=== PATIENT | male | born 1955 | race Caucasian/White ===

== ENCOUNTER 2022-09-23 10:39 | Inpatient (IN) | payer MEDICARE, OTHER ==
--- NOTE | 2022-09-23 10:58 | ED ---
Extremity Problem HPI - General Source: patient, family, RN notes reviewed Mode of arrival: ambulatory Limitations: no limitations <Isael Juárez - Last Filed: 09/23/22 10:59> <Patrice Lee - Last Filed: 09/23/22 16:04> - General Chief complaint: Extremity Problem,Nontraumatic Stated complaint: Right foot pain Time Seen by Provider: 09/23/22 10:45 - History of Present Illness Initial comments: Patient is a 66-year-old male presented to ER with a chief complaint of right calf pain. Patient was sent here by urgent care. Patient states the pain started at home and has worsened since being here. He states his toes have turned very red and blue since taking off his shoes here. He states he gets pain in his ankle and calf when walking. Patient denies shortness of breath, palpitations or extensive pain. Admits to smoking. Patient denies any personal history of cardiac disease. (Isael Juárez) - Related Data Home Medications Medication Instructions Recorded Confirmed No Known Home Medications 09/23/22 09/23/22 Allergies Allergy/AdvReac Type Severity Reaction Status Date / Time sulfamethoxazole Allergy Swelling Verified 09/23/22 12:13 [From Bactrim] trimethoprim [From Bactrim] Allergy Swelling Verified 09/23/22 12:13 Review of Systems ROS Other: All systems not noted in ROS Statement are negative. <Isael Juárez - Last Filed: 09/23/22 10:59> ROS Other: All systems not noted in ROS Statement are negative. <Patrice Lee - Last Filed: 09/23/22 16:04> ROS Statement: Those systems with pertinent positive or pertinent negative responses have been documented in the HPI. Past Medical History Past Medical History: COPD, GERD/Reflux Additional Past Medical History / Comment(s): bronchitis-05/29/14 History of Any Multi-Drug Resistant Organisms: None Reported Past Surgical History: No Surgical Hx Reported Past Anesthesia/Blood Transfusion Reactions: No Reported Reaction Additional Past Anesthesia/Blood Transfusion Reaction / Comment(s): HAS NEVER HAD ANESTHESIA Past Psychological History: No Psychological Hx Reported Smoking Status: Current every day smoker Past Alcohol Use History: Occasional Past Drug Use History: None Reported - Past Family History Mother Family Medical History: Cancer Father Family Medical History: CVA/TIA <Isael Juárez - Last Filed: 09/23/22 10:59> General Exam Limitations: no limitations General appearance: alert, in no apparent distress Respiratory exam: Present: normal lung sounds bilaterally. Absent: respiratory distress, wheezes, rales, rhonchi, stridor Cardiovascular Exam: Present: regular rate, normal rhythm, normal heart sounds. Absent: systolic murmur, diastolic murmur, rubs, gallop, clicks Extremities exam: Present: tenderness, calf tenderness (right calf (+Maritza sign)), other (faint right dorsalis pedis pulse ) Neurological exam: Present: alert, oriented X3 Skin exam: Present: warm, dry, cyanosis (right toes), erythema (right toes ), other (Indurated erythematous skin on right calf.) <Isael Juárez - Last Filed: 09/23/22 10:59> Course Vital Signs 09/23/22 09/23/22 09/23/22 10:40 12:00 14:00 Temperature 97.5 F L 98.4 F 98.4 F Pulse Rate 92 81 84 Respiratory 18 16 16 Rate Blood Pressure 175/85 157/84 150/90 O2 Sat by Pulse 96 95 95 Oximetry 09/23/22 15:04 Temperature 98.7 F Pulse Rate 83 Respiratory 16 Rate Blood Pressure 147/85 O2 Sat by Pulse 95 Oximetry Medical Decision Making - Lab Data Result diagrams: 09/23/22 11:56 09/23/22 11:56 <Patrice Lee - Last Filed: 09/23/22 16:04> - Medical Decision Making Was pt. sent in by a medical professional or institution (Dr. PA, CARDIAC NURSE PRACTITIONER, urgent care, hospital, or [facility]...) When possible be specific @ -Dr Cee Did you speak to anyone other than the patient for history (EMS, parent, family, police, friend...)? What history was obtained from this source @ - Did you review nursing and triage notes (agree or disagree)? Why? @ -[I reviewed and agree with nursing and triage notes] Were old charts reviewed (outside hosp., previous admission, EMS record, old EKG, old radiological studies, urgent care reports/EKG's, [facility] records)? Report findings @ -[No old charts were reviewed] Differential Diagnosis (chest pain, altered mental status, abdominal pain women, abdominal pain men, vaginal bleeding, weakness, fever, dyspnea, syncope, headache, dizziness, GI bleed, back pain, seizure, CVA, palpatations, mental health)? @ -DVT, arterial thrombus, calf strain, EKG interpreted by me (3pts min.). @ -[As above] X-rays interpreted by me (1pt min.). @ -[None done] CT interpreted by me (1pt min.). @ -CTA aorta with runoff U/S interpreted by me (1pt. min.). @ -DVT US negative What testing was considered but not performed or refused? (CT, X-rays, U/S, lab s)? Why? @ -[None] What meds were considered but not given or refused? Why? @ -[None] Did you discuss the management of the patient with other professionals (professionals i.e. , PA, CARDIAC NURSE PRACTITIONER, lab, RT, psych nurse, secondary social studies teacher, credit or loans officer, teacher, aircraft electronics technical officer, case consultant)? Give summary @ -Dr Gomez, Dr Rose Was smoking cessation discussed for >3mins.? @ -yes Was critical care preformed (if so, how long)? @ -[No] Were there social determinants of health that impacted care today? How? (Homelessness, low income, unemployed, alcoholism, drug addiction, transportation, low edu. Level, literacy, decrease access to med. care, halfway, rehab)? @ -[No] Was there de-escalation of care discussed even if they declined (Discuss DNR or withdrawal of care, Hospice)? DNR status @ -[No] What co-morbidities impacted this encounter? (DM, HTN, Smoking, COPD, CAD, Cancer, CVA, ARF, Chemo, Hep., AIDS, mental health diagnosis, sleep apnea, morbid obesity)? @ -smoking Was patient admitted / discharged? Hospital course, mention meds given and route, prescriptions, significant lab abnormalities, going to OR and other pertinent info. @ -Vitals are stable. HPI physical exam is documented. Physical exam pertinent for purple-colored toes with sluggish capillary refill and nonpalpable DP and PT pulses are pulses were evident on Doppler. CBC unremarkable. CMP does show some hemolysis of the potassium level 5.6. Ultrasound of the right lower extremity was negative for thrombus. CT aorta with runoff was obtained which did show short segment focal occlusion of the right external iliac artery as well as bilateral SFA disease with occlusions. This was discussed with Dr. Gomez from vascular surgery. Recommended admission with arterial Doppler which was ordered. Patient admitted to [facility]. Undiagnosed new problem with uncertain prognosis? @ -yes Drug Therapy requiring intensive monitoring for toxicity (Heparin, Nitro, Insulin, Cardizem)? @ -[No] Were any procedures done? @ -[No] Diagnosis/symptom? @ -ischemia of right lower extremity Acute, or Chronic, or Acute on Chronic? @ -acute on chronic Uncomplicated (without systemic symptoms) or Complicated (systemic symptoms)? @ -complicated Side effects of treatment? @ -[No] Exacerbation, Progression, or Severe Exacerbation? @ -Progression Poses a threat to life or bodily function? How? (Chest pain, [place], [place], pneumonia, PE, COPD, DKA, ARF, appy, cholecystitis, CVA, Diverticulitis, Homicidal, Suicidal, threat to staff... and all critical care pts) @ -yes, ischemia to leg (Patrice Lee) - Lab Data Lab Results 09/23/22 09/23/22 09/23/22 Range/Units 11:56 11:56 11:56 WBC 12.2 H (3.8-10.6) k/uL RBC 5.39 (4.30-5.90) m/uL Hgb 17.1 (13.0-17.5) gm/dL Hct 52.5 (39.0-53.0) % MCV 97.4 (80.0-100.0) fL MCH 31.7 (25.0-35.0) pg MCHC 32.5 (31.0-37.0) g/dL RDW 13.3 (11.5-15.5) % Plt Count 236 (150-450) k/uL MPV 7.4 Neutrophils % 72 % Lymphocytes % 17 % Monocytes % 5 % Eosinophils % 5 % Basophils % 0 % Neutrophils # 8.8 H (1.3-7.7) k/uL Lymphocytes # 2.1 (1.0-4.8) k/uL Monocytes # 0.6 (0-1.0) k/uL Eosinophils # 0.6 (0-0.7) k/uL Basophils # 0.0 (0-0.2) k/uL PT 10.2 (9.0-12.0) sec INR 1.0 (<1.2) APTT 24.1 (22.0-30.0) sec Sodium 138 (137-145) mmol/L Potassium 5.6 H (3.5-5.1) mmol/L Chloride 106 (98-107) mmol/L Carbon Dioxide 21 L (22-30) mmol/L Anion Gap 11 mmol/L BUN 17 (9-20) mg/dL Creatinine 1.38 H (0.66-1.25) mg/dL Est GFR (CKD-EPI)AfAm 61 (>60 ml/min/1.73 sqM) Est GFR (CKD-EPI)NonAf 53 (>60 ml/min/1.73 sqM) Glucose 107 H (74-99) mg/dL Calcium 9.8 (8.4-10.2) mg/dL Total Bilirubin 0.8 (0.2-1.3) mg/dL AST 37 (17-59) U/L ALT 10 (4-49) U/L Alkaline Phosphatase 109 (38-126) U/L Total Protein 7.7 (6.3-8.2) g/dL Albumin 4.4 (3.5-5.0) g/dL Disposition <Isael Juárez - Last Filed: 09/23/22 10:59> Is patient prescribed a controlled substance at d/c from ED?: No Time of Disposition: 16:00 <Patrice Lee - Last Filed: 09/23/22 16:04> Clinical Impression: Ischemia of right lower extremity, Superficial femoral artery occlusion, External iliac artery occlusion Disposition: ADMITTED IP TO THIS HOSP Condition: Serious Referrals: Sanjeev Cee MD [Primary Care Provider] - 1-2 days
--- NOTE | 2022-09-23 11:25 | US ---
EXAMINATION TYPE: US venous doppler duplex LE RT DATE OF EXAM: 09/23/2022 11:14 AM COMPARISON: NONE CLINICAL INDICATION: Male, 66 years old with history of calf/foot pain; Right leg pain SIDE PERFORMED: Right TECHNIQUE: The lower extremity deep venous system is examined utilizing real time linear array sonog lainey with graded compression, doppler sonography and color-flow sonography. VESSELS IMAGED: Common Femoral Vein Deep Femoral Vein Greater Saphenous Vein * Femoral Vein Popliteal Vein Small Saphenous Vein * Proximal Calf Veins (* superficial vessels) Right Leg: Negative for DVT IMPRESSION: Grayscale, color doppler, spectral doppler imaging performed of the deep veins of the lo wer extremities. There is normal flow, compressibility, vascular waveforms.
[2022-09-23 12:21] LABS: Basophils % (A) 0 %; Eosinophils # (A) 0.6 k/uL (0-0.7); Eosinophils % (A) 5 %; HCT 52.5 % (39.0-53.0); HGB 17.1 gm/dL (13.0-17.5); Lymphocytes # (A) 2.1 k/uL (1.0-4.8); Lymphocytes % (A) 17 %; MCH 31.7 pg (25.0-35.0); MCHC 32.5 g/dL (31.0-37.0); MCV 97.4 fL (80.0-100.0); Mean Platelet Volume 7.4; Monocytes # (A) 0.6 k/uL (0-1.0); Monocytes % (A) 5 %; Neutrophils # (A) 8.8 k/uL (1.3-7.7); Neutrophils % (A) 72 %; Platelet Count 236 k/uL (150-450); RBC 5.39 m/uL (4.30-5.90); RDW 13.3 % (11.5-15.5); WBC 12.2 k/uL (3.8-10.6)
[2022-09-23 12:29] LABS: Partial Thromboplastin Time 24.1 sec (22.0-30.0); Prothrombin Time 10.2 sec (9.0-12.0)
[2022-09-23 12:36] LABS: ALT 10 U/L (4-49); African American GFR (CKD) 61 (>60 ml/min/1.73 sqM); Albumin 4.4 g/dL (3.5-5.0); Anion Gap 11 mmol/L; Blood Urea Nitrogen 17 mg/dL (9-20); Calcium 9.8 mg/dL (8.4-10.2); Carbon Dioxide 21 mmol/L (22-30); Chloride 106 mmol/L (98-107); Glucose 107 mg/dL (74-99); Non-African American GFR(CKD) 53 (>60 ml/min/1.73 sqM); Sodium 138 mmol/L (137-145); Total Bilirubin 0.8 mg/dL (0.2-1.3); Total Protein 7.7 g/dL (6.3-8.2)
[2022-09-23 12:47] LABS: AST 37 U/L (17-59); Potassium 5.6 mmol/L (3.5-5.1)
[2022-09-23 12:48] LABS: Alkaline Phosphatase 109 U/L (38-126)
[2022-09-23] MEDS ORDERED: SODIUM CHLORIDE 0.9% 1,000 ML IV STA (12:51)
--- NOTE | 2022-09-23 14:26 | CT ---
EXAMINATION TYPE: CT angio abd aorta w/Runoff DATE OF EXAM: 09/23/2022 COMPARISON: None HISTORY: Right leg/foot pain and cyanotic toes. CT DLP: 1972.3 mGycm EXAMINATION TYPE: CT angio abd aorta w/Runoff DATE OF EXAM: 09/23/2022 COMPARISON: None HISTORY: Right leg/foot pain and cyanotic toes. CT DLP: 1972.3 mGycm CONTRAST: CTA thoracic and abdominal aorta with 3-D reconstruction is performed and without and with IV Contras t, patient injected with 100ml mL of Isovue 370. Contrast CTA of the abdominal aorta with runoff of the lower extremity arterial system was performed from the lung bases through the ankles and feet. 3-D reconstruction imaging obtained at a separate wo rkstation. ABDOMINAL AORTA: There is infrarenal abdominal aortic aneurysm which measures 4 cm in AP dimension an d 8.6 cm in length. There is extensive mural thrombus with patent lumen of 1.3 cm. No evidence for ru pture or complicating factor. Iliac vessels: Aneurysm extend into the common iliac arteries bilaterally. Right common iliac artery aneurysm measures 3 cm with extensive mural thrombus. Patent lumen measures 1 cm. Left common iliac a rtery aneurysm measures 2.7 cm with patent lumen of 1.9 cm. There is atheromatous change of the right external iliac artery with focal short segment occlusion noted image 163 series 501. The remainder o f the external iliac artery and the right opacifies normally. There is patent right internal iliac ar neftali, left external iliac artery and left internal iliac artery. Scattered atheromatous changes are s een. Femoral arteries: Bilateral common femoral arteries are patent as are the profunda femoris bilaterall y. The superficial femoral artery on the right demonstrates multifocal plaque disease. There is long segment occlusion at its middle one third approximately 24 cm proximal to the knee joint. There is re constitution at the level of the popliteal artery via collaterals. The superficial femoral artery is occluded at its origin. There is reconstitution of the superficial femoral artery on the left at its distal one third. Multifocal plaque disease is noted without additional hemodynamically significant s tenosis. Popliteal arteries: Popliteal arteries are patent bilaterally with only mild plaque formation noted. Below the knee arteries: Trifurcation is patent bilaterally. Peroneal, anterior and posterior tibial arteries demonstrate mild calcific disease without evidence for hemodynamically significant stenosis. Limited runoff of the ankles and feet given timing of the contrast bolus. LIVER/GB- No significant abnormality is seen. PANCREAS- No significant abnormality is seen. SPLEEN- No significant abnormality is seen. ADRENALS- No significant abnormality is seen. KIDNEYS/BLADDER- No significant abnormality is seen. BOWEL- No Significant abnormality GENITAL ORGANS: No gross abnormality seen. LYMPH NODES- No greater than 1cm abdominal or pelvic lymph nodes are appreciated. OSSEOUS STRUCTURES- No significant abnormality is seen. OTHER- No significant abnormality is seen. IMPRESSION- 1. Bilateral SFA disease with occlusions as discussed above with distal reconstitution bilaterally. 2. Short segment focal occlusion right external iliac artery. 3. Abdominal aortic aneurysm. Bilateral common iliac artery aneurysms
[2022-09-23] MEDS ORDERED: HEPARIN SODIUM 1,000 UN/ML (10ML VL) IV ONE (15:57)
[2022-09-23] MEDS ORDERED: HEPARIN SODIUM 1,000 UN/ML (10ML VL) IV PRN (15:57)
[2022-09-23] MEDS ORDERED: NALOXONE 0.4 MG/ML 1 ML VIAL IV PRN (16:00)
[2022-09-23] MEDS ORDERED: MORPHINE SULFATE 4 MG/ML SYRINGE IV PRN (16:00)
[2022-09-23] MEDS ORDERED: NICOTINE 21MG/24HR PATCH TRANSDERM STA (16:01)
--- NOTE | 2022-09-23 16:24 | P.HPIM ---
History of Present Illness H&P Date: 09/23/22 Patient is a 66-year-old male with PMH of COPD, heavy smoker presents the ED for right toe discoloration and pain in his calf that has been ongoing for the past 4-5 days. Patient reports pain is worsened with exertion. He reported a bluish purple discoloration of his toes in the right foot which prompted him to come to the ED. In the ED, he was noted to be hypertensive with BP of 175/85 and heart rate of 92. Vital signs were otherwise stable. CBC showed a leukocytosis of 12.2 with neutrophilia. Coagulation panel within normal limits. CMP showed potassium of 5.6, bicarb of 21, creatinine 1.38 and glucose 107. Venous duplex was negative for DVT. CT angiogram showed bilateral SFA disease with occlusion with reconstitution, AAA 4 cm and bilateral common iliac artery aneurysms. Patient is admitted for further management and workup. Pertinent positives and negatives as discussed in HPI, a complete review of systems was performed and all other systems are negative. General: non toxic, no distress, appears at stated age Derm: warm, dry Head: atraumatic, normocephalic, symmetric Eyes: EOMI, no lid lag, anicteric sclera Mouth: no lip lesion, mucus membranes moist Cardiovascular: Tachycardic, no murmur, unable to palpate posterior tibial pulse bilateral Lungs: Decreased breath sounds bilateral, no rhonchi, no rales , no accessory muscle use Abdominal: soft, nontender to palpation, no guarding, no appreciable organomegaly Ext: no gross muscle atrophy, no edema, no contractures, erythema of the right calf with blue and purple discoloration of the distal digits.\ Neuro: no focal neuro deficits Psych: Alert, oriented, appropriate affect Mural thrombus Hyperkalemia Acute kidney injury Abdominal aortic aneurysm Smoker COPD Based on my assessment of this patient, this patient meets a high complexity level of care. Patient has an acute diagnosis of mural thrombus causing ischemia to the right lower extremity that poses a threat to life or bodily function. Patient was started on a heparin drip. Start aspirin 81 mg by mouth daily. Arterial duplex ordered. Telemetry monitoring. Morphine 4 grams IV every 4 hours as needed for pain. Patient is offered a nicotine patch. Vascular surgery consulted. Blood specimen hemolyzed. No intervention for hyperkalemia. Start normal sinus 75 mL per hour. Repeat BMP tomorrow morning. Heparin drip for DVT prophylaxis. FULL CODE. I have reviewed the following [place] consultant notes: I have reviewed the results of the following tests: CBC, CMP, venous duplex, CT angiogram reviewed as above. I have ordered the following tests: APTT. BMP for tomorrow morning. Agree with arterial duplex. I have discussed the care of this patient with the following independent historian: I have independently interpreted the following test below: I have discussed the management of this patient with the following physician: Case was discussed with the ED physician extensively. Past Medical History Past Medical History: COPD, GERD/Reflux Additional Past Medical History / Comment(s): bronchitis-05/29/14 History of Any Multi-Drug Resistant Organisms: None Reported Past Surgical History: No Surgical Hx Reported Past Anesthesia/Blood Transfusion Reactions: No Reported Reaction Additional Past Anesthesia/Blood Transfusion Reaction / Comment(s): HAS NEVER HAD ANESTHESIA Past Psychological History: No Psychological Hx Reported Smoking Status: Current every day smoker Past Alcohol Use History: Occasional Past Drug Use History: None Reported - Past Family History Mother Family Medical History: Cancer Father Family Medical History: CVA/TIA Medications and Allergies Home Medications Medication Instructions Recorded Confirmed Type No Known Home Medications 09/23/22 09/23/22 History Allergies Allergy/AdvReac Type Severity Reaction Status Date / Time sulfamethoxazole Allergy Swelling Verified 09/23/22 12:13 [From Bactrim] trimethoprim [From Bactrim] Allergy Swelling Verified 09/23/22 12:13 Physical Exam Vitals: Vital Signs Temp Pulse Resp BP Pulse Ox 09/23/22 15:04 98.7 F 83 16 147/85 95 09/23/22 14:00 98.4 F 84 16 150/90 95 09/23/22 12:00 98.4 F 81 16 157/84 95 09/23/22 10:40 97.5 F L 92 18 175/85 96 Intake and Output 09/23/22 09/23/22 09/23/22 06:59 14:59 22:59 Other: Weight 82.554 kg Results CBC & Chem 7: 09/23/22 11:56 09/23/22 11:56 Labs: Abnormal Lab Results - Last 24 Hours (Table) 09/23/22 09/23/22 Range/Units 11:56 11:56 WBC 12.2 H (3.8-10.6) k/uL Neutrophils # 8.8 H (1.3-7.7) k/uL Potassium 5.6 H (3.5-5.1) mmol/L Carbon Dioxide 21 L (22-30) mmol/L Creatinine 1.38 H (0.66-1.25) mg/dL Glucose 107 H (74-99) mg/dL
[2022-09-23] MEDS: HEPARIN SOD,PORK IN 0.45% NACL 25,000 UNIT in 0.45% NACL 1 250ML.BAG IV SCH (16:36)
[2022-09-23] MEDS: SODIUM CHLORIDE 0.9% 1,000 ML IV SCH (16:39)
--- NOTE | 2022-09-23 18:46 | US ---
EXAMINATION TYPE: US arterial LE multi level DATE OF EXAM: 09/23/2022 6:08 PM CLINICAL INDICATION: Male, 66 years old with history of ischemia of RLE; Ischemia of right lower extr emity per order. Pain in right calf and right foot x 5 days. Discoloration of right great toe. CTa today 09/23/22 History of: Smoker: Current Smoker Hypertension: No Diabetic: No Hyperlipidemia: No TIA/CVA: No Previous Vascular Surgery: No CAD: No GA: No Vascular Ulcers: No Claudication: Gangrene: No Doppler Waveforms: Right: Waveform not seen* Left: Right Brachial Pressure: 163 Left Brachial Pressure: Deferred due to IV position. Ankle-Brachial Indices: Right: 0.35 Left: 0.56 Toe Brachial Indices: Right: Right toe waveform was not seen. Left: 0.38 Low ratio is present bilaterally suggestive for moderate to severe bilateral lower extremity stenosis . Right digit arterial flow was not identified at this time. IMPRESSION: 1. Areas of severe narrowing evident based on ratios within the bilateral lower extremities. 2. No apparent vascular flow within the right great toe. Occlusion should be considered.
[2022-09-23 22:22] LABS: Basophils % (A) 0 %; Eosinophils # (A) 0.4 k/uL (0-0.7); Eosinophils % (A) 3 %; HCT 47.3 % (39.0-53.0); HGB 15.4 gm/dL (13.0-17.5); Lymphocytes # (A) 2.6 k/uL (1.0-4.8); Lymphocytes % (A) 21 %; MCH 31.6 pg (25.0-35.0); MCHC 32.7 g/dL (31.0-37.0); MCV 96.7 fL (80.0-100.0); Mean Platelet Volume 7.3; Monocytes # (A) 0.7 k/uL (0-1.0); Monocytes % (A) 6 %; Neutrophils # (A) 8.5 k/uL (1.3-7.7); Neutrophils % (A) 69 %; Platelet Count 215 k/uL (150-450); RBC 4.89 m/uL (4.30-5.90); RDW 13.3 % (11.5-15.5); WBC 12.4 k/uL (3.8-10.6)
[2022-09-23 22:44] LABS: INR 1.1 (<1.2); Partial Thromboplastin Time 73.9 sec (22.0-30.0); Prothrombin Time 11.1 sec (9.0-12.0)
[2022-09-24] MEDS: SODIUM CHLORIDE 0.9% 1,000 ML IV SCH ×2 (06:19→20:03)
[2022-09-24 08:18] LABS: Basophils % (A) 0 %; Eosinophils # (A) 0.5 k/uL (0-0.7); Eosinophils % (A) 4 %; HCT 48.8 % (39.0-53.0); HGB 15.4 gm/dL (13.0-17.5); Lymphocytes % (A) 24 %; MCH 31.1 pg (25.0-35.0); MCHC 31.6 g/dL (31.0-37.0); MCV 98.5 fL (80.0-100.0); Mean Platelet Volume 7.8; Monocytes # (A) 0.8 k/uL (0-1.0); Monocytes % (A) 7 %; Neutrophils # (A) 7.8 k/uL (1.3-7.7); Neutrophils % (A) 64 %; Platelet Count 223 k/uL (150-450); RBC 4.96 m/uL (4.30-5.90); RDW 13.3 % (11.5-15.5); WBC 12.3 k/uL (3.8-10.6)
[2022-09-24] MEDS: ASPIRIN 81 MG PO SCH (09:01)
[2022-09-24 10:21] LABS: African American GFR (CKD) 68 (>60 ml/min/1.73 sqM); Anion Gap 7 mmol/L; Blood Urea Nitrogen 16 mg/dL (9-20); Carbon Dioxide 20 mmol/L (22-30); Chloride 108 mmol/L (98-107); Glucose 101 mg/dL (74-99); Non-African American GFR(CKD) 59 (>60 ml/min/1.73 sqM); Potassium 4.5 mmol/L (3.5-5.1); Sodium 135 mmol/L (137-145)
--- NOTE | 2022-09-24 15:04 | P.PN ---
Subjective Progress Note Date: 09/24/22 Patient is a 66-year-old male with PMH of COPD, heavy smoker presents the ED for right toe discoloration and pain in his calf that has been ongoing for the past 4-5 days. Patient reports pain is worsened with exertion. He reported a bluish purple discoloration of his toes in the right foot which prompted him to come to the ED. In the ED, he was noted to be hypertensive with BP of 175/85 and heart rate of 92. Vital signs were otherwise stable. CBC showed a leukocytosis of 12.2 with neutrophilia. Coagulation panel within normal limits. CMP showed potassium of 5.6, bicarb of 21, creatinine 1.38 and glucose 107. Venous duplex was negative for DVT. CT angiogram showed bilateral SFA disease with occlusion with reconstitution, AAA 4 cm and bilateral common iliac artery aneurysms. Patient is admitted for further management and workup. 09/24 Patient was seen and examined. Patient reports no changes in his clinical condition. CBC shows WBC count 2.3. APTT 73.9. BMP shows sodium of 135, c hloride 108, bicarb of 20, creatinine 1.26 and glucose 101. Arterial duplex shows areas of severe narrowing within the bilateral lower extremities with no apparent vascular flow within the right great toe. General: non toxic, no distress, appears at stated age Derm: warm, dry Head: atraumatic, normocephalic, symmetric Eyes: EOMI, no lid lag, anicteric sclera Mouth: no lip lesion, mucus membranes moist Cardiovascular: Tachycardic, no murmur, unable to palpate posterior tibial pulse bilateral Lungs: Decreased breath sounds bilateral, no rhonchi, no rales , no accessory muscle use Abdominal: soft, nontender to palpation, no guarding, no appreciable organomegaly Ext: no gross muscle atrophy, no edema, no contractures, erythema of the right calf with blue and purple discoloration of the distal digits. Neuro: no focal neuro deficits Psych: Alert, oriented, appropriate affect Mural thrombus Hyperkalemia, resolved Acute kidney injury Abdominal aortic aneurysm Smoker COPD Based on my assessment of this patient, this patient meets a high complexity level of care. Patient has an acute diagnosis of mural thrombus causing ischemia to the right lower extremity that poses a threat to life or bodily function. Continue heparin drip. Continue aspirin 81 mg by mouth daily. Telemetry monitoring. Morphine 4 grams IV every 4 hours as needed for pain. Patient is offered a nicotine patch. Vascular surgery consulted. Blood specimen hemolyzed. No intervention for hyperkalemia. Continue normal sinus 75 mL per hour. Repeat BMP tomorrow morning. Heparin drip for DVT prophylaxis. FULL CODE. I have reviewed the following jewelry consultant notes: I have reviewed the results of the following tests: CBC, BMP, APTT, arterial duplex as above. I have ordered the following tests: APTT. BMP for tomorrow morning. I have discussed the care of this patient with the following independent histo reed: I have independently interpreted the following test below: I have discussed the management of this patient with the following physician: Objective - Vital Signs Vital signs: Vital Signs Temp 98.1 F 09/24/22 12:03 Pulse 77 09/24/22 12:03 Resp 16 09/24/22 12:03 BP 160/74 09/24/22 12:03 Pulse Ox 95 09/24/22 12:03 FiO2 Intake & Output 09/23/22 09/24/22 09/24/22 18:59 06:59 18:59 Intake Total 1225 540 Balance 1225 540 Weight 82.554 kg 81 kg Intake: IV 600 Invasive Line 1 600 Intake, IV Titration 375 Amount Heparin Sod,Pork in 0.45% 75 NaCl 25,000 unit In 0.45 % NaCl 1 250ml.bag @ 18 UNITS/KG/HR 14.86 mls/hr IV .[id number] STEVE Rx#: [id number] Sodium Chloride 0.9% 1, 300 000 ml @ 75 mls/hr IV . [id number] STEVE Rx#:[id number] Oral 250 540 Other: # Voids 2 - Labs CBC & Chem 7: 09/24/22 07:01 09/24/22 07:01 Labs: Abnormal Lab Results - Last 24 Hours (Table) 09/23/22 09/23/22 09/24/22 Range/Units 22:11 22:11 07:01 WBC 12.4 H (3.8-10.6) k/uL Neutrophils # 8.5 H (1.3-7.7) k/uL APTT 73.9 H (22.0-30.0) sec Sodium 135 L (137-145) mmol/L Chloride 108 H (98-107) mmol/L Carbon Dioxide 20 L (22-30) mmol/L Creatinine 1.26 H (0.66-1.25) mg/dL Glucose 101 H (74-99) mg/dL 09/24/22 Range/Units 07:01 WBC 12.3 H (3.8-10.6) k/uL Neutrophils # 7.8 H (1.3-7.7) k/uL APTT (22.0-30.0) sec Sodium (137-145) mmol/L Chloride (98-107) mmol/L Carbon Dioxide (22-30) mmol/L Creatinine (0.66-1.25) mg/dL Glucose (74-99) mg/dL
[2022-09-24] MEDS: HEPARIN SOD,PORK IN 0.45% NACL 25,000 UNIT in 0.45% NACL 1 250ML.BAG IV SCH (17:03)
[2022-09-24] MEDS: ACETAMINOPHEN TAB 325 MG TAB PO PRN (18:51)
[2022-09-25] MEDS: SODIUM CHLORIDE 0.9% 1,000 ML IV SCH ×2 (05:24→16:10)
[2022-09-25] MEDS: HEPARIN SOD,PORK IN 0.45% NACL 25,000 UNIT in 0.45% NACL 1 250ML.BAG IV SCH ×2 (05:25→21:04)
[2022-09-25] MEDS: ACETAMINOPHEN TAB 325 MG TAB PO PRN ×3 (05:25→23:21)
[2022-09-25] MEDS: ASPIRIN 81 MG PO SCH (08:47)
[2022-09-25 08:50] LABS: African American GFR (CKD) 68 (>60 ml/min/1.73 sqM); Anion Gap 7 mmol/L; Blood Urea Nitrogen 16 mg/dL (9-20); Calcium 8.8 mg/dL (8.4-10.2); Carbon Dioxide 20 mmol/L (22-30); Chloride 108 mmol/L (98-107); Glucose 95 mg/dL (74-99); Non-African American GFR(CKD) 59 (>60 ml/min/1.73 sqM); Potassium 4.3 mmol/L (3.5-5.1); Sodium 135 mmol/L (137-145)
--- NOTE | 2022-09-25 13:00 | P.GSCN ---
History of Present Illness Consult date: 09/25/22 Reason for Consult: Ischemia right lower extremity Requesting physician: Will Hernandez History of present illness: This is a pleasant 66-year-old male with a past medical history including current every day smoker approximately three fourths pack per day for last 40 years and COPD who presented to the emergency department with concerns for right foot pain with discoloration. Patient states for last 4-5 days he's been having some discoloration in his toes pain was getting worse and he came for further evaluation. He does admit that he gets pain in his legs with walking approximately 20-30 feet also pain at night especially in his toes. He also states he had pain in his right calf, he applied icy hot pack on his leg which caused burn/rash. Currently states pain has improved some since coming to the hospital. He had a CT angiogram of the abdominal aorta with runoff reporting bilateral SFA disease with occlusions with distal reconstitution bilaterally, short segment focal occlusion right external iliac artery, abdominal aortic aneurysm, bilateral common iliac artery aneurysms. He also underwent arterial duplex of the lower extremities with KATELYN on the right of 0.35, left 0.56. He was started on a heparin drip and admitted for further evaluation from vascular surgery. He currently denies any shortness of breath, chest pain, abdominal pain, nausea, vomiting, fevers or chills. As stated lower extremity pain somewhat improved since being hospitalized. Review of Systems A 14 point review systems was completed all pertinent positives and negatives as stated in the HPI. Past Medical History Past Medical History: COPD, GERD/Reflux Additional Past Medical History / Comment(s): bronchitis-05/29/14 History of Any Multi-Drug Resistant Organisms: None Reported Past Surgical History: No Surgical Hx Reported Past Anesthesia/Blood Transfusion Reactions: No Reported Reaction Additional Past Anesthesia/Blood Transfusion Reaction / Comm: HAS NEVER HAD ANESTHESIA Past Psychological History: No Psychological Hx Reported Smoking Status: Current every day smoker Past Alcohol Use History: None Reported, Occasional Past Drug Use History: None Reported - Past Family History Mother Family Medical History: Cancer Father Family Medical History: CVA/TIA Medications and Allergies Home Medications Medication Instructions Recorded Confirmed Type No Known Home Medications 09/23/22 09/23/22 History Allergies Allergy/AdvReac Type Severity Reaction Status Date / Time sulfamethoxazole Allergy Swelling Verified 09/23/22 12:13 [From Bactrim] trimethoprim [From Bactrim] Allergy Swelling Verified 09/23/22 12:13 Surgical - Exam Vital Signs Temp Pulse Resp BP Pulse Ox 97.5 F L 92 18 175/85 96 09/23/22 10:40 09/23/22 10:40 09/23/22 10:40 09/23/22 10:40 09/23/22 10:40 General appearance: The patient is alert, oriented, appears in no acute distress. HET: Head is normocephalic and atraumatic. Pupils are equal and reactive. Neck: Supple. Heart: Regular. Lungs: Equal expansion, normal respiratory effort. Abdomen: Soft, nontender, nondistended. Extremities: Nonpalpable of right femoral pulse, palpable left femoral pulse, nonpalpable bilateral popliteal pulses. Right foot with decreased capillary refill, first through fifth toes with purple discoloration. Right calf with areas of redness. Neurological: No focal deficits. Strength and sensation are grossly intact. Results - Labs 09/24/22 07:01 09/25/22 07:17 Abnormal Lab Results - Last 24 Hours (Table) 09/24/22 09/25/22 Range/Units 19:55 07:17 APTT 56.3 H (22.0-30.0) sec Sodium 135 L (137-145) mmol/L Chloride 108 H (98-107) mmol/L Carbon Dioxide 20 L (22-30) mmol/L Creatinine 1.26 H (0.66-1.25) mg/dL Diabetes panel 09/25/22 Range/Units 07:17 Sodium 135 L (137-145) mmol/L Potassium 4.3 (3.5-5.1) mmol/L Chloride 108 H (98-107) mmol/L Carbon Dioxide 20 L (22-30) mmol/L BUN 16 (9-20) mg/dL Creatinine 1.26 H (0.66-1.25) mg/dL Glucose 95 (74-99) mg/dL Calcium 8.8 (8.4-10.2) mg/dL Calcium panel 09/25/22 Range/Units 07:17 Calcium 8.8 (8.4-10.2) mg/dL Pituitary panel 09/25/22 Range/Units 07:17 Sodium 135 L (137-145) mmol/L Potassium 4.3 (3.5-5.1) mmol/L Chloride 108 H (98-107) mmol/L Carbon Dioxide 20 L (22-30) mmol/L BUN 16 (9-20) mg/dL Creatinine 1.26 H (0.66-1.25) mg/dL Glucose 95 (74-99) mg/dL Calcium 8.8 (8.4-10.2) mg/dL Adrenal panel 09/25/22 Range/Units 07:17 Sodium 135 L (137-145) mmol/L Potassium 4.3 (3.5-5.1) mmol/L Chloride 108 H (98-107) mmol/L Carbon Dioxide 20 L (22-30) mmol/L BUN 16 (9-20) mg/dL Creatinine 1.26 H (0.66-1.25) mg/dL Glucose 95 (74-99) mg/dL Calcium 8.8 (8.4-10.2) mg/dL Assessment and Plan Assessment: 1. Acute ischemia of right foot 2. Bilateral superficial femoral artery occlusions 2. Short segment focal occlusion right external iliac artery 3. Abdominal aortic aneurysm with bilateral common iliac artery aneurysms 4. Nicotine dependence 5. COPD Plan: 1. Continue heparin drip 2. Possible right lower extremity intervention tomorrow, further recs to follow 3. Nothing by mouth after midnight 4. Recommend smoking cessation Thank you for this consultation, we will continue to follow. The impression and plan of care has been dictated as directed. I performed a history and examination of this patient, discussed the same with the dictator. I agree with the dictator's note ,documented as a scribe. Any additional findings or plans will be noted. Reviewed imaging with the patient- right external iliac and SFA occlusive disease noted. He also has an AAA and bilateral iliac artery aneurysms but no large enough at this time for intervention. Will schedule right lower extremity revascularization tomorrow and then at a later date repair the aneurysms as outpatient.
[2022-09-25] MEDS: NICOTINE 14MG/24HR PATCH TRANSDERM SCH (14:18)
--- NOTE | 2022-09-25 15:31 | P.PN ---
Subjective Progress Note Date: 09/25/22 Patient is a 66-year-old male with PMH of COPD, heavy smoker presents the ED for right toe discoloration and pain in his calf that has been ongoing for the past 4-5 days. Patient reports pain is worsened with exertion. He reported a bluish purple discoloration of his toes in the right foot which prompted him to come to the ED. In the ED, he was noted to be hypertensive with BP of 175/85 and heart rate of 92. Vital signs were otherwise stable. CBC showed a leukocytosis of 12.2 with neutrophilia. Coagulation panel within normal limits. CMP showed potassium of 5.6, bicarb of 21, creatinine 1.38 and glucose 107. Venous duplex was negative for DVT. CT angiogram showed bilateral SFA disease with occlusion with reconstitution, AAA 4 cm and bilateral common iliac artery aneurysms. Patient is admitted for further management and workup. 09/24 Patient was seen and examined. Patient reports no changes in his clinical condition. CBC shows WBC count 2.3. APTT 73.9. BMP shows sodium of 135, c hloride 108, bicarb of 20, creatinine 1.26 and glucose 101. Arterial duplex shows areas of severe narrowing within the bilateral lower extremities with no apparent vascular flow within the right great toe. 09/25 Patient was seen and examined. No changes in his clinical condition. APTT is 56.3. BMP shows Na 135, Cl 108, bicarb 20, Cr 1.26. Vascular surgery recommends possible surgical intervention tomorrow. General: non toxic, no distress, appears at stated age Derm: warm, dry Head: atraumatic, normocephalic, symmetric Eyes: EOMI, no lid lag, anicteric sclera Cardiovascular: good distal perfusion in all 4 extremities Lungs: breathing comfortably, no accessory muscle use Ext: no gross muscle atrophy, no edema, no contractures, erythema of the right calf with blue and purple discoloration of the distal digits. Neuro: no focal neuro deficits Psych: Alert, oriented, appropriate affect Mural thrombus and RLE ischemia Hyperkalemia, resolved Acute kidney injury Abdominal aortic aneurysm Smoker COPD Based on my assessment of this patient, this patient meets a high complexity level of care. Patient has an acute diagnosis of mural thrombus causing ischemia to the right lower extremity that poses a threat to life or bodily function. Continue heparin drip. Continue aspirin 81 mg by mouth daily. Telemetry monitoring. Morphine 4 grams IV every 4 hours as needed for pain. Patient is offered a nicotine patch. Vascular surgery consulted, plans for possible surgical intervention tomorrow. Blood specimen hemolyzed. No intervention for hyperkalemia. Continue normal sinus 75 mL per hour. Repeat BMP tomorrow morning. Heparin drip for DVT prophylaxis. FULL CODE. I have reviewed the following cyber security consultant notes: Vascular surgery note reviewed. I have reviewed the results of the following tests: BMP, APTT, arterial duplex as above. I have ordered the following tests: APTT. I have discussed the care of this patient with the following independent historian: I have independently interpreted the following test below: I have discussed the management of this patient with the following physician: Objective - Vital Signs Vital signs: Vital Signs Temp 98.9 F 09/25/22 08:00 Pulse 68 09/25/22 12:00 Resp 16 09/25/22 12:00 BP 150/52 09/25/22 12:00 Pulse Ox 94 L 09/25/22 12:00 FiO2 Intake & Output 09/24/22 09/25/22 09/25/22 18:59 06:59 18:59 Intake Total 790 433.769 615 Balance 790 433.769 615 Intake: Intake, IV Titration 250 183.769 Amount Heparin Sod,Pork in 0.45% 250 183.769 NaCl 25,000 unit In 0.45 % NaCl 1 250ml.bag @ 18 UNITS/KG/HR 14.86 mls/hr IV .[id number] [facility] Rx#: [id number] Oral 540 250 615 Other: # Voids 2 1 - Labs CBC & Chem 7: 09/24/22 07:01 09/25/22 07:17 Labs: Abnormal Lab Results - Last 24 Hours (Table) 09/24/22 09/25/22 Range/Units 19:55 07:17 APTT 56.3 H (22.0-30.0) sec Sodium 135 L (137-145) mmol/L Chloride 108 H (98-107) mmol/L Carbon Dioxide 20 L (22-30) mmol/L Creatinine 1.26 H (0.66-1.25) mg/dL
[2022-09-26 07:43] VITALS: PULSE 79
[2022-09-26] MEDS ORDERED: MIDAZOLAM 2 MG/2 ML VIAL IV ONE (08:44)
[2022-09-26] MEDS ORDERED: fentaNYL (PF) 50 MCG/ML 2 ML AMP IV ONE (08:44)
[2022-09-26] MEDS ORDERED: IV FLUID CONTINUATION 1,000 ML IV ONE (08:45)
[2022-09-26] MEDS ORDERED: LIDOCAINE 1% INJ 10MG/ML (20 ML MDV) SQ ONE (08:48)
[2022-09-26] MEDS ORDERED: HEPARIN SODIUM 1,000 UN/ML (10ML VL) IV ONE (09:10)
[2022-09-26] MEDS: SODIUM CHLORIDE 0.9% 1,000 ML IV SCH (11:07)
[2022-09-26] MEDS: ASPIRIN 81 MG PO SCH (11:08)
[2022-09-26] MEDS: NICOTINE 14MG/24HR PATCH TRANSDERM SCH (11:10)
[2022-09-26] MEDS ORDERED: IOPAMIDOL-370 100ML BTL INJ ONE (11:19)
[2022-09-26] MEDS: HEPARIN SOD,PORK IN 0.45% NACL 25,000 UNIT in 0.45% NACL 1 250ML.BAG IV SCH (12:29)
--- NOTE | 2022-09-26 12:51 | P.OP ---
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 AAA with bilateral common iliac artery aneurysms Postoperative Diagnosis: Same Procedure(s) Performed: Ultrasound guided left common femoral artery access Aortogram with selective right lower extremity angiogram Right superficial femoral artery atherectomy with Hawk One device Right superficial femoral artery balloon angioplasty with [id number] Impact Admiral balloon Right external iliac artery balloon angioplasty with 6x60mm balloon and 8x60mm Impact Admiral balloon Left common femoral artery closure with Vascade Conscious sedation x 130 minutes Anesthesia: local Surgeon: Dawson Pearl Estimated Blood Loss (ml): 5 Pathology: none sent Condition: stable Disposition: PACU Indications for Procedure: 66 year old gentleman with history of recent acute right lower extremity limb ischemia on heparin who underwent CTA with runoff demonstrating right EIA and SFA occlusive disease as well as AAA and iliac artery aneurysms. He presents today for right lower extremity revascularization. Description of Procedure: Operative narrative: After written and informed consent was obtained the patient all risks, benefits and complications were described patient is brought to the [facility] and laid supine position. The area of the [] groin was prepped and draped in usual sterile fashion. Timeout was performed in normal fashion. Utilizing ultrasound the left femoral artery was accessed and a 6 F sheath was placed. 035 Glidewire was then placed into the aorta followed by an RBI cathete r and the right iliac was accessed in an up and over fashion after aortogram. Selective angiogram was then obtained of the right lower extremity demonstrating external iliac artery stenosis greater than 80% and occlusion of the SFA. Patient was given heparin and followed with ACTs. An 035 Glidewire advantage was then placed in an up and over fashion and the 6 F short sheath was removed and replaced with an up and over 6 F sheath. Selective angiogram was again obtained demonstrating occlusion/stenosis of the superficial femoral artery. Utilizing 035 Glidewire and quick cross catheter the lesion was crossed and selective angiogram distally was obtained demonstrating good intraluminal access. Once across a 6 mm spider filter was placed and utilizing a 6M Hawk one atherectomy device directional atherectomy was performed with multiple passes. Once completed angiogram was obtained demonstrating improvement of the stenotic area. Balloon angioplasty was then performed with a 5 x 150 mm drug-eluting balloon. Final angiogram demonstrated brisk flow with some areas of atherosclerotic disease but significant improvement of the stenosis less than 10% residual. Attention was then placed to the external iliac artery. A guidewire was placed across the lesion and balloon angioplasty was performed with a 6 x 60 mm balloon followed by an 8 x 60 mm drug-eluting balloon. Final angiogram demonstrated resolution of previous stenosis with good brisk flow throughout. All guidewires and catheters were then removed the sheath was removed and replaced with a short 6 F sheath and utilizing a Vascade closure device the access was closed. Pressure was placed for hemostasis. The patient tolerated the procedure well and had palpable DP pulse and was sent to recovery.
[2022-09-26] MEDS: ACETAMINOPHEN TAB 325 MG TAB PO PRN (15:58)
[2022-09-26 16:39] VITALS: BP 156/82; RESP 20; TEMP 96.7
--- NOTE | 2022-09-26 16:39 | P.DS ---
Providers Date of admission: 09/23/22 15:29 Expected date of discharge: 09/26/22 Attending physician: Will Hernandez MD Consults: 09/23/22 16:00 Consult Physician Routine Consulting Provider: Uriel Gomez Consult Reason/Comments: ischemia RLE Do you want consulting provider notified?: Already Contacted Primary care physician: Sanjeev Wright [facility] Course: Mural thrombus and RLE ischemia Hyperkalemia, resolved Acute kidney injury Abdominal aortic aneurysm Smoker COPD Hospital Course: Patient is a 66-year-old male with PMH of COPD, heavy smoker presents the ED for right toe discoloration and pain in his calf that has been ongoing for the past 4-5 days. In the ED, he was noted to be hypertensive with BP of 175/85 and heart rate of 92. Vital signs were otherwise stable. CBC showed a leukocytosis of 12.2 with neutrophilia. Coagulation panel within normal limits. CMP showed potassium of 5.6, bicarb of 21, creatinine 1.38 and glucose 107. Venous duplex was negative for DVT. CT angiogram showed bilateral SFA disease with occlusion with reconstitution, AAA 4 cm and bilateral common iliac artery aneurysms. Patient was admitted for further management and workup. Pt was seen by vascular surgery who recommended intervention. Pt underwent on 09/26: Ultrasound guided left common femoral artery access Aortogram with selective right lower extremity angiogram Right superficial femoral artery atherectomy with Hawk One device Right superficial femoral artery balloon angioplasty with [id number] Impact Admiral balloon Right external iliac artery balloon angioplasty with 6x60mm balloon and 8x60mm Impact Admiral balloon Left common femoral artery closure with Vascade Conscious sedation x 130 minutes He did well post-operatively with resolution of pain and discoloration. he was discharged home with vascular surgery follow up and prescriptions for aspirin and eliquis. I spent 38 minutes coordinating this discharge on 09/26 Gen: awake, alert HEENT: normocephalic, atraumatic, good hearing acuity, moist mucous membranes Resp: good air exchange, breathing comfortably with no accessory muscle use CVS: good distal perfusion x 4, GI: soft, NTTP, ND : no SPT, no CVAT, hernandez catheter not present MSK: no pitting edema, no clubbing Neuro: non-focal, moving all extremities Psych: cooperative, euthymic mood Patient Condition at Discharge: Good Plan - Discharge Summary Discharge Rx Participant: No New Discharge Prescriptions: New Aspirin 81 mg PO DAILY #30 tab Apixaban [Eliquis] 5 mg PO BID #60 tab Acetaminophen Tab [Tylenol] 650 mg PO Q6HR PRN tab PRN Reason: Fever And/ Or Pain Discharge Medication List Acetaminophen Tab [Tylenol] 650 mg PO Q6HR PRN tab 09/26/22 [Rx] Apixaban [Eliquis] 5 mg PO BID #60 tab 09/26/22 [Rx] Aspirin 81 mg PO DAILY #30 tab 09/26/22 [Rx] Follow up Appointment(s)/Referral(s): Sanjeev Cee MD [Primary Care Provider] - 1-2 days Discharge Disposition: HOME SELF-CARE
--- NOTE | 2022-09-27 21:12 | IR ---
EXAMINATION TYPE: IR cryptanalyst iliac DATE OF EXAM: 09/26/2022 CLINICAL HISTORY: PAD. TECHNIQUE: Fluoroscopy. COMPARISON: None. FINDINGS: Fluoroscopic guidance was provided during angiogram and angioplasty procedure performed by Dr. Pearl. A total of 19.9 minutes of fluoroscopic time was utilized during the procedure and 698 spot images was acquired. TOTAL DAP = [phone]. Please refer to procedure note for further details. IMPRESSION: As Above.
== END 2022-09-26 17:54 | disposition home or self-care (01) | DRG 271 ==
LOC: EC 10:39 → 3SCARD 15:29
PROVIDERS: ADMIT Family Medicine; ATTEND Family Medicine
PROC: 047H3Z1 Dilation of Right External Iliac Artery using Drug-Coated Balloon, Percutaneous Approach (ICD-10-PCS; principal; 2022-09-26 07:30)
PROC: B41D1ZZ Fluoroscopy of Aorta and Bilateral Lower Extremity Arteries using Low Osmolar Contrast (ICD-10-PCS; principal; 2022-09-26 07:30)
PROC: 047K3Z1 Dilation of Right Femoral Artery using Drug-Coated Balloon, Percutaneous Approach (ICD-10-PCS; principal; 2022-09-26 07:30)
PROC: 04CK3ZZ Extirpation of Matter from Right Femoral Artery, Percutaneous Approach (ICD-10-PCS; principal; 2022-09-26 07:30)
DX: I70.221 Atherosclerosis of native arteries of extremities with rest pain, right leg (principal); I70.92 Chronic total occlusion of artery of the extremities; I74.5 Embolism and thrombosis of iliac artery; N17.9 Acute kidney failure, unspecified; I72.3 Aneurysm of iliac artery; I51.3 Intracardiac thrombosis, not elsewhere classified; J44.9 Chronic obstructive pulmonary disease, unspecified; I71.40 Abdominal aortic aneurysm, without rupture, unspecified; I70.8 Atherosclerosis of other arteries; E87.5 Hyperkalemia; D72.829 Elevated white blood cell count, unspecified; K21.9 Gastro-esophageal reflux disease without esophagitis; F17.200 Nicotine dependence, unspecified, uncomplicated; Z71.6 Tobacco abuse counseling; Z88.2 Allergy status to sulfonamides
CPT/HCPCS: 36415; 37220; 37225; 75635; 80048; 80053; 85025; 85610; 85730; 93923; 96365; 96366; 99285; 99406

== ENCOUNTER 2024-03-17 15:16 | Inpatient (IN) | payer MEDICARE ==
--- NOTE | 2024-03-17 15:27 | ED ---
Chest Pain HPI - General Source: patient, family, RN notes reviewed Mode of arrival: ambulatory Limitations: no limitations <Heidi Pandya - Last Filed: 03/17/24 15:25> - General Source: patient, family, RN notes reviewed, old records reviewed Mode of arrival: ambulatory Limitations: no limitations - History of Present Illness MD Complaint: chest pain -: days(s) Onset: during rest Pain Location: substernal, left chest Pain Radiation: none Severity: moderate Severity scale (1-10): 4 Quality: tightness, heaviness Consistency: constant Improves With: nothing Worsens With: nothing Anginal Symptoms: sense of impending doom Other Symptoms: palpitations Treatments Prior to Arrival: none <Carlos Faye - Last Filed: 03/23/24 22:24> - General Stated Complaint: Chest pain Time Seen by Provider: 03/17/24 15:26 - History of Present Illness Initial Comments: Quick note: 68-year-old male presented to ER for evaluation of chest discomfort. He states for the past week and a half he has been having intermittent chest discomfort. He describes it as indigestion feeling. States pain has now become "unbearable". He has no personal cardiac history but does have a family history of heart disease. Patient was recently treated with antibiotics and steroids by PCP. No dizziness, lightheadedness, nausea, vomiting or shortness of breath. He does report 10 days ago he did vomit. (Heidi Pandya) This is a 68 female to the ER for chest pain and chest discomfort chest tightness. (Carlos Faye) - Related Data Home Medications Medication Instructions Recorded Confirmed Acetaminophen [Tylenol Arthritis] 650 mg PO Q6H PRN 03/17/24 03/17/24 Apixaban [Eliquis] 2.5 mg PO BID 03/17/24 03/17/24 Atorvastatin Calcium [Lipitor] 40 mg PO HS 03/17/24 03/17/24 Losartan/Hydrochlorothiazide 1 tab PO HS 03/17/24 03/17/24 [Hyzaar 100-25 Tablet] amLODIPine [Norvasc] 2.5 mg PO HS 03/17/24 03/17/24 Allergies Allergy/AdvReac Type Severity Reaction Status Date / Time sulfamethoxazole Allergy Swelling Verified 03/17/24 19:30 [From Bactrim] trimethoprim [From Bactrim] Allergy Swelling Verified 03/17/24 19:30 Review of Systems ROS Other: All systems not noted in ROS Statement are negative. <Heidi Pandya - Last Filed: 03/17/24 15:25> ROS Other: All systems not noted in ROS Statement are negative. <Carlos Faye - Last Filed: 03/23/24 22:24> ROS Statement: Those systems with pertinent positive or pertinent negative responses have been documented in the HPI. EKG Findings - EKG Comments: EKG Findings:: EKG is A-fib 79 QRS 141 QTc 445 - EKG Results: EKG: interpreted by ERMD - AK, Pacemaker, Normal: Myocardial infarction: anterior AK (old age or indeterminate) (EKG is sinus tachycardia 101 MT 161 QRS 133 QTc 422) <Carlos Faye - Last Filed: 03/23/24 22:24> Past Medical History Past Medical History: COPD, GERD/Reflux Additional Past Medical History / Comment(s): bronchitis-05/29/14 History of Any Multi-Drug Resistant Organisms: None Reported Past Surgical History: No Surgical Hx Reported Past Anesthesia/Blood Transfusion Reactions: No Reported Reaction Additional Past Anesthesia/Blood Transfusion Reaction / Comment(s): HAS NEVER HAD ANESTHESIA Past Psychological History: No Psychological Hx Reported Smoking Status: Current every day smoker Past Alcohol Use History: None Reported, Occasional Past Drug Use History: None Reported - Past Family History Mother Family Medical History: Cancer Father Family Medical History: CVA/TIA <Heidi Pandya - Last Filed: 03/17/24 15:25> General Exam <Heidi Pandya - Last Filed: 03/17/24 15:25> General appearance: alert, in no apparent distress Head exam: Present: atraumatic, normocephalic, normal inspection Eye exam: Present: normal appearance, PERRL, EOMI. Absent: scleral icterus, conjunctival injection, periorbital swelling ENT exam: Present: normal exam, mucous membranes moist Neck exam: Present: normal inspection. Absent: tenderness, meningismus, lymphadenopathy Respiratory exam: Present: normal lung sounds bilaterally. Absent: respiratory distress, wheezes, rales, rhonchi, stridor Cardiovascular Exam: Present: regular rate, normal rhythm, normal heart sounds. Absent: systolic murmur, diastolic murmur, rubs, gallop, clicks GI/Abdominal exam: Present: soft, normal bowel sounds. Absent: distended, tenderness, guarding, rebound, rigid Extremities exam: Present: normal inspection, full ROM, normal capillary refill. Absent: tenderness, pedal edema, joint swelling, calf tenderness Back exam: Present: normal inspection Neurological exam: Present: alert, oriented X3, CN II-XII intact Psychiatric exam: Present: normal affect, normal mood Skin exam: Present: warm, dry, intact, normal color. Absent: rash <Carlos Faye - Last Filed: 03/23/24 22:24> - General Exam Comments Initial Comments: Visual Physical Exam Vital signs reviewed General: Well-appearing, nontoxic, no acute distress. Head: Normocephalic, atraumatic Eyes: PERRLA, EOMI ENT: Airway patent Chest: Nonlabored breathing Skin: No visual rash, normal skin tone Neuro: Alert and oriented 3 Musculoskeletal: No gross abnormalities (Heidi Pandya) Course <Carlos Faye - Last Filed: 03/23/24 22:24> Vital Signs 03/17/24 03/17/24 03/17/24 15:24 18:40 19:19 Temperature 97.3 F L 97.7 F Pulse Rate 119 H 101 H 102 H Respiratory 20 16 16 Rate Blood Pressure 100/65 111/82 109/77 O2 Sat by Pulse 98 98 98 Oximetry Fraction of Inspired Oxygen (FIO2) 03/18/24 03/18/24 03/18/24 01:16 01:22 02:00 Temperature Pulse Rate 87 92 83 Respiratory 18 18 20 Rate Blood Pressure 94/72 89/70 O2 Sat by Pulse 95 95 95 Oximetry Fraction of Inspired Oxygen (FIO2) 03/18/24 03/18/24 03/18/24 04:00 05:00 06:07 Temperature Pulse Rate 83 85 85 Respiratory 20 18 18 Rate Blood Pressure 93/70 98/70 94/66 O2 Sat by Pulse 95 93 L 97 Oximetry Fraction of Inspired Oxygen (FIO2) 03/18/24 03/18/24 03/18/24 09:15 10:38 12:53 Temperature 97.7 F Pulse Rate 101 H 85 100 Respiratory 20 21 30 H Rate Blood Pressure 102/73 93/68 116/62 O2 Sat by Pulse 89 L 91 L 75 L Oximetry Fraction of Inspired Oxygen (FIO2) 03/18/24 03/18/24 03/18/24 13:02 13:09 13:15 Temperature Pulse Rate 102 H 98 Respiratory 24 21 Rate Blood Pressure 98/74 O2 Sat by Pulse 76 L 87 L 89 L Oximetry Fraction of Inspired Oxygen (FIO2) 03/18/24 03/18/24 03/18/24 14:00 14:30 14:34 Temperature Pulse Rate 97 93 Respiratory 24 30 H Rate Blood Pressure 106/51 O2 Sat by Pulse 89 L 91 L Oximetry Fraction of 70 70 Inspired Oxygen (FIO2) 03/18/24 03/18/24 03/18/24 15:00 15:27 16:00 Temperature Pulse Rate 86 84 80 Respiratory 20 17 Rate Blood Pressure 81/62 73/62 O2 Sat by Pulse 91 L 91 L Oximetry Fraction of 70 70 Inspired Oxygen (FIO2) 03/18/24 03/18/24 03/18/24 17:00 17:25 19:31 Temperature Pulse Rate 74 Respiratory 17 Rate Blood Pressure 86/63 O2 Sat by Pulse 92 L Oximetry Fraction of 70 70 70 Inspired Oxygen (FIO2) 03/18/24 03/18/24 03/18/24 19:33 19:41 20:02 Temperature 97.4 F L Pulse Rate 85 88 87 Respiratory 16 Rate Blood Pressure 92/63 O2 Sat by Pulse 96 Oximetry Fraction of Inspired Oxygen (FIO2) 03/18/24 03/18/24 21:13 21:58 Temperature Pulse Rate 80 85 Respiratory 16 15 Rate Blood Pressure 82/62 99/96 O2 Sat by Pulse 97 99 Oximetry Fraction of Inspired Oxygen (FIO2) - Reevaluation(s) Reevaluation #1: 03/17/24 22:42 Medical records reviewed (Carlos Faye) Reevaluation #2: 03/17/24 22:42 Patient symptoms unchanged (Carlos Faye) Reevaluation #3: 03/17/24 22:42 Patient informed of results and questions answered (Carlos Faye) Reevaluation #4: Was pt. sent in by a medical professional or institution (, PA, ADJUNCT PROFESSOR OF LAW, urgent care, hospital, or senior living...) When possible be specific @ -no Did you speak to anyone other than the patient for history (EMS, parent, family, police, friend...)? What history was obtained from this source @ -no Did you review nursing and triage notes (agree or disagree)? Why? @ -agree Are old charts reviewed (outside hosp., previous admission, EMS record, old EKG, old radiological studies, urgent care reports/EKG's, senior living records)? Report findings @ -yes Differential Diagnosis (chest pain, altered mental status, abdominal pain women, abdominal pain men, vaginal bleeding, weakness, fever, dyspnea, syncope, headache, dizziness, GI bleed, back pain, seizure, CVA, palpatations, mental health, musculoskeletal)? @ -prior EKG interpreted by me (3pts min.). @ -yes X-rays interpreted by me (1pt min.). @ -yes negative for acute disease CT interpreted by me (1pt min.). @ -no U/S interpreted by me (1pt. min.). @ -no What testing was considered but not performed or refused? (CT, X-rays, U/S, labs)? Why? @ -none What meds were considered but not given or refused? Why? @ -none Did you discuss the management of the patient with other professionals (professionals i.e. , PA, ADJUNCT PROFESSOR OF LAW, lab, RT, psych nurse, social services director, entry level web developer, teacher, district fire management officer, child welfare caseworker)? Give summary @ -no Was smoking cessation discussed for >3mins.? @ -no Was critical care preformed (if so, how long)? @ -yes31 Were there social determinants of health that impacted care today? How? (Homelessness, low income, unemployed, alcoholism, drug addiction, transporta tion, low edu. Level, literacy, decrease access to med. care, long term, rehab)? @ -none Was there de-escalation of care discussed even if they declined (Discuss DNR or withdrawal of care, Hospice)? DNR status @ -no What co-morbidities impacted this encounter? (DM, HTN, Smoking, COPD, CAD, Cancer, CVA, ARF, Chemo, Hep., AIDS, mental health diagnosis, sleep apnea, morbid obesity)? @ -none Was patient admitted / discharged? Hospital course, mention meds given and route, prescriptions, significant lab abnormalities, going to OR and other pertinent info. @ - 68 male to ER for evaluation of chest pain found to have acute non-STEMI Admitted Undiagnosed new problem with uncertain prognosis? @ -no Drug Therapy requiring intensive monitoring for toxicity (Heparin, Nitro, Insulin, Cardizem)? @ -no Were any procedures done? @ -no Diagnosis/symptom? @ -Non-ST elevated AK Acute, or Chronic, or Acute on Chronic? @ -Acute Uncomplicated (without systemic symptoms) or Complicated (systemic symptoms)? @ -Complicated Side effects of treatment? @ -no Exacerbation, Progression, or Severe Exacerbation? @ -exacerbation Poses a threat to life or bodily function? How? (Chest pain, USA, AK, pneumonia, PE, COPD, DKA, ARF, appy, cholecystitis, CVA, Diverticulitis, Homicidal, Suicidal, threat to staff... and all critical care pts) @ -yes with non-STEMI (Carlos Faye) Reevaluation #5: Differential Chest Pain: Stable Angina, Unstable Angina, STEMI, NSTEMI Aortic Dissection, Pneumothorax, Musculoskeletal, Esophageal Spasm GERD, Cholecystitis, Pancreatitis, Zoster, this is not meant to be an all-inclusive list. (Carlos Faye) - Consultations Consultation #1: Spoke wit with carloz Ely who agrees to admit this patient sound (Carlos Faye) Chest Pain MDM <Heidi Pandya - Last Filed: 03/17/24 15:25> <Carlos Faye - Last Filed: 03/23/24 22:24> - MDM I performed the quick note portion of this chart. Electronically signed by Heidi Pandya PA-C (Heidi Pandya) 68 male to ER for evaluation of chest pain found to have acute non-STEMI (Carlos Faye) Critical Care Time Critical Care Time: Yes Total Critical Care Time: 31 <Carlos Faye - Last Filed: 03/23/24 22:24> Disposition <Heidi Pandya - Last Filed: 03/17/24 15:25> Is patient prescribed a controlled substance at d/c from ED?: No Time of Disposition: 18:35 <Carlos Faye - Last Filed: 03/23/24 22:24> Clinical Impression: Chest pain, Acute non-ST elevation myocardial infarction (NSTEMI) Disposition: ADMITTED IP TO THIS HOSP Condition: Serious
[2024-03-17 16:21] LABS: Partial Thromboplastin Time 24.2 sec (22.0-30.0); Prothrombin Time 11.3 sec (10.0-12.5)
[2024-03-17 16:27] LABS: HCT 43.5 % (39.0-53.0); HGB 14.5 gm/dL (13.0-17.5); MCH 31.5 pg (25.0-35.0); MCHC 33.3 g/dL (31.0-37.0); MCV 94.8 fL (80.0-100.0); Mean Platelet Volume 7.9; Platelet Count 312 k/uL (150-450); RBC 4.59 m/uL (4.30-5.90); RDW 13.1 % (11.5-15.5); WBC 14.3 k/uL (3.8-10.6)
[2024-03-17 16:50] LABS: Eosinophils # (M) 0.14 k/uL (0-0.7); Lymphocytes # (M) 3.72 k/uL (1.0-4.8); Monocytes # (M) 0.72 k/uL (0-1.0); Neutrophils # (M) 9.72 k/uL (1.3-7.7); Neutrophils % (M) 68 %; Nucleated Red Blood Cells 0 /100 WBC (0-0); Total Cells Counted 100
--- NOTE | 2024-03-17 17:12 | XR ---
EXAMINATION TYPE: XR chest 2V DATE OF EXAM: 03/17/2024 4:57 PM COMPARISON: Chest radiographs from 01/21/2014 CLINICAL INDICATION: Male, 68 years old with history of Chest Pain; [facility] TECHNIQUE: XR chest 2V Frontal and lateral views of the chest. FINDINGS: Lungs/Pleura: Airspace opacities present with possibly underlying pulmonary nodule in the right lower lung versus summation artifact measuring up to 23 mm.. There is no evidence of pleural effusion, foc al consolidation, or pneumothorax. Pulmonary vascularity: Unremarkable. Heart/mediastinum: Cardiomediastinal silhouette is unremarkable. Musculoskeletal: No acute osseous pathology. IMPRESSION: Right lower lung airspace opacities with nodular-like appearance. Further evaluation with CT should b e considered to rule out underlying pulmonary nodule/malignancy. [facility], , 03/17/2024 5:09 PM
[2024-03-17 17:22] LABS: ALT 10 U/L (4-49); AST 17 U/L (17-59); African American GFR (CKD) 38 (>60 ml/min/1.73 sqM); Albumin 3.2 g/dL (3.5-5.0); Alkaline Phosphatase 85 U/L (38-126); Anion Gap 4 mmol/L; Blood Urea Nitrogen 40 mg/dL (9-20); Calcium 9.1 mg/dL (8.4-10.2); Carbon Dioxide 26 mmol/L (22-30); Chloride 100 mmol/L (98-107); Glucose 149 mg/dL (74-99); Magnesium 2.2 mg/dL (1.6-2.3); Non-African American GFR(CKD) 33 (>60 ml/min/1.73 sqM); Potassium 4.3 mmol/L (3.5-5.1); Sodium 130 mmol/L (137-145); Total Bilirubin 0.6 mg/dL (0.2-1.3); Total Protein 5.6 g/dL (6.3-8.2)
[2024-03-17] MEDS: MORPHINE SULFATE 4 MG/ML SYRINGE IVP STA (18:52)
[2024-03-17] MEDS: ASPIRIN 81 MG PO STA (18:53)
[2024-03-17] MEDS: SODIUM CHLORIDE 0.9% 500 ML 500 ML IV STA (18:55)
[2024-03-17] MEDS: SODIUM CHLORIDE 0.9% 1,000 ML IV STA (18:55)
[2024-03-17] MEDS: HEPARIN SODIUM 1,000 UN/ML (10ML VL) IV ONE (18:56)
[2024-03-17] MEDS: HEPARIN SOD,PORK IN 0.45% NACL 25,000 UNIT in 0.45% NACL 1 250ML.BAG IV SCH (18:58)
[2024-03-17 19:00] LABS: Magnesium 2.2 mg/dL (1.6-2.3); Phosphorus 4.2 mg/dL (2.5-4.5)
[2024-03-17 19:16] LABS: Partial Thromboplastin Time 24.2 sec (22.0-30.0); Prothrombin Time 11.3 sec (10.0-12.5)
[2024-03-17] MEDS: METOPROLOL TARTRATE 25 MG TAB PO SCH (20:33)
--- NOTE | 2024-03-18 00:34 | P.HPIM ---
History of Present Illness H&P Date: 03/17/24 Chief Complaint: Chest pain Patient is a 68-year-old male with past medical history of COPD, GERD, peripheral arterial disease, hypertension presented to the emergency department with chest pain that started about 4 days ago when the patient was taking the garbage out. Patient reports that after he came back home he became short winded and had intense substernal chest pain with intensity of 10 out of 10. Afterwards patient sat down and started having dry heaving and also vomited 1 time. Patient has never had anything like this before. Patient also reported a very bad episode of heartburn which resolved after taking some Tums. Patient currently endorses a 2 out of 10 substernal, intermittent, nonradiating chest discomfort, pressure-like in nature. Patient denies fever, chills, diarrhea, constipation, belly pain, nausea, tingling or numbness sensation in extremities, muscle weakness. Patient reports right foot being swollen for the past 4 days, an episode of vomiting, chest pain and shortness of breath. Patient denies any personal cardiac history but reports a family history of heart disease. Patient reported going to his primary care physician on Sunday with his symptoms and received antibiotics and steroids. He denies any previous history of heart attacks, heart stents or catheterizations. ED documentation reviewed. In the ED patient was treated with IV heparin, aspirin 325 mg p.o., one and half bolus of normal saline, morphine 4 mg IV push x 1 Vitals on admission temperature 97.7, pulse rate 102, respiratory rate 16, blood pressure 109/77, 98% O2 sat on room air EKG independently interpreted as sinus tachycardia, right bundle branch block, q-waves in V2-V4, with diffuse T-wave inversions in precordial leads with poor R-wave progression. CXR shows right lower lung airspace opacities with nodular like appearance. Further evaluation with CT should be considered to rule out underlying pulmonary nodule/malignancy. Labs on admission show WBC 14.3, hemoglobin 14.5, hematocrit 43.5, platelet 312, PT 11.3, PTT 24.2, INR 1.0, D-dimer 1.14, sodium 130, potassium 4.3, chloride 100, carbon dioxide 26, BUN 40, creatinine 2.04, glucose 149, troponin 2.300 followed by 2.140 followed by 2.110, BNP 01501 Review of systems: Pertinent positives and negatives as discussed in HPI, a complete review of systems was performed and all other systems are negative. PMH: COPD, GERD, hypertension PSH: Femoral and popliteal arthrectomy in 2022 FMH: Brothers and sisters have history of myocardial infarction Allergies: Bactrim Social history: Tobacco: Smokes under 1 pack/day for the past 50 years Alcohol: Former alcoholic Recreational drugs: No drug use Travel: No recent travel history Sick contacts: No recent sick contacts Physical examination: Vital signs reviewed General: nontoxic, no distress, appears at stated age, well-appearing Derm: warm, dry, intact Head: atraumatic, normocephalic, symmetric Eyes: EOMI, anicteric sclera Mouth: no lip lesion, mucus membranes moist Cardiovascular: S1 S2 reg, no murmur Lungs: Mild wheezing diffusely, no rhonchi, no rales, no accessory muscle use Abdominal: soft, non-tender to palpation Extremities: No cyanosis, clubbing. Trace edema in the right lower extremity and right foot. No right lower extremity erythema, discoloration. Right lower extremity nontender to palpation, intact range of motion. Neuro: Alert, Oriented, Gross neurological examination did not reveal any focal deficits. Cranial nerves II to XII grossly intact. Bilateral upper and lower extremity muscle strength intact 5 out of 5. Bilateral upper and lower extremity sensation intact. Psych: well appearing, appropriate affect Assessment/Plan: Patient is a 68-year-old male with past medical history of COPD, PAD, and GERD presented to the emergency department with chest pain that started about 4 days ago when the patient was taking the garbage out. Patient will be admitted to inpatient medicine service. Active: #. NSTEMI Troponin of 2.3, 2.14, 2.11, 1.97 Continue IV heparin C/w Aspirin 325 mg daily and Lipitor 80 mg daily EKG independently interpreted as sinus tachycardia and right bundle branch block Consult cardiology Cardiac monitoring Obtain Lipid panel C/w Nitrobid oint Echocardiogram ordered #. Right lower extremity and right foot swelling Dimer 1.14 WBC 14.3 Obtain LE doppler ultrasound to rule out DVT Plans to obtain CT Angio chest once KONSTANTIN improves Consider VQ scan if patient's KONSTANTIN doesn't improve Patient currently on Heparin infusion #. KONSTANTIN on CKD Stage IIIa C/w IVFs NS 75 ml/hr and monitor BMP #. Leukocytosis, likely secondary to acute stressor with no signs of active infection at this time Monitor CBC #. Hyponatremia Continue gentle IV hydration Normal saline 75 mL/h monitor BMP #. Abnormal CXR with possible mass Obtain CT Chest once KONSTANTIN resolves Chronic: #. GERD Restart home medication #. Hypertension Continue metoprolol 25 mg twice daily Hold home losartan/hydrochlorothiazide 100-25. Resume Norvasc 2.5 mg p.o. #. Peripheral arterial disease Continue with aspirin 325 mg Hold home apixaban 2.5 mg F: No restrictions E: Replete as needed N: Heart healthy diet A: Ambulatory DVT prophylaxis: IV heparin The patient is admitted with an anticipated more than 2 midnight stay for evalua tion of NSTEMI CODE STATUS: Full code Discussed with: Patient and family members Anticipated discharge place: Home Past Medical History Past Medical History: COPD, GERD/Reflux Additional Past Medical History / Comment(s): bronchitis-05/29/14 History of Any Multi-Drug Resistant Organisms: None Reported Past Surgical History: No Surgical Hx Reported Past Anesthesia/Blood Transfusion Reactions: No Reported Reaction Additional Past Anesthesia/Blood Transfusion Reaction / Comment(s): HAS NEVER HAD ANESTHESIA Past Psychological History: No Psychological Hx Reported Smoking Status: Current every day smoker Past Alcohol Use History: None Reported, Occasional Past Drug Use History: None Reported - Past Family History Mother Family Medical History: Cancer Father Family Medical History: CVA/TIA Medications and Allergies Home Medications Medication Instructions Recorded Confirmed Type Acetaminophen [Tylenol Arthritis] 650 mg PO Q6H PRN 03/17/24 03/17/24 History Apixaban [Eliquis] 2.5 mg PO BID 03/17/24 03/17/24 History Atorvastatin Calcium [Lipitor] 40 mg PO HS 03/17/24 03/17/24 History Losartan/Hydrochlorothiazide 1 tab PO HS 03/17/24 03/17/24 History [Hyzaar 100-25 Tablet] amLODIPine [Norvasc] 2.5 mg PO HS 03/17/24 03/17/24 History Allergies Allergy/AdvReac Type Severity Reaction Status Date / Time sulfamethoxazole Allergy Swelling Verified 03/17/24 19:30 [From Bactrim] trimethoprim [From Bactrim] Allergy Swelling Verified 03/17/24 19:30 Physical Exam Vitals: Vital Signs Temp Pulse Resp BP Pulse Ox 03/17/24 19:19 97.7 F 102 H 16 109/77 98 03/17/24 18:40 101 H 16 111/82 98 03/17/24 15:24 97.3 F L 119 H 20 100/65 98 Intake and Output 03/17/24 03/17/24 03/17/24 06:59 14:59 22:59 Other: Weight 81.647 kg Results CBC & Chem 7: 03/17/24 15:40 03/17/24 15:40 Labs: Abnormal Lab Results - Last 24 Hours (Table) 03/17/24 03/17/24 03/17/24 Range/Units 15:40 15:40 15:40 WBC 14.3 H (3.8-10.6) k/uL Neutrophils # (Manual) 9.72 H (1.3-7.7) k/uL D-Dimer (<0.60) mg/L FEU Sodium 130 L (137-145) mmol/L BUN 40 H (9-20) mg/dL Creatinine 2.04 H (0.66-1.25) mg/dL Glucose 149 H (74-99) mg/dL Troponin I 2.300 H* (0.000-0.034) ng/mL Total Protein 5.6 L (6.3-8.2) g/dL Albumin 3.2 L (3.5-5.0) g/dL 03/17/24 03/17/24 Range/Units 18:40 18:40 WBC (3.8-10.6) k/uL Neutrophils # (Manual) (1.3-7.7) k/uL D-Dimer 1.14 H (<0.60) mg/L FEU Sodium (137-145) mmol/L BUN (9-20) mg/dL Creatinine (0.66-1.25) mg/dL Glucose (74-99) mg/dL Troponin I 2.140 H* (0.000-0.034) ng/mL Total Protein (6.3-8.2) g/dL Albumin (3.5-5.0) g/dL
[2024-03-18] MEDS: NITROGLYCERIN OINT 1 INCH/GM PACKET TOPICAL SCH (01:23)
[2024-03-18] MEDS: SODIUM CHLORIDE 0.9% 1,000 ML IV SCH (03:08)
[2024-03-18] MEDS ORDERED: HEPARIN SODIUM 1,000 UN/ML (10ML VL) IV PRN ×2 (03:13→14:00)
[2024-03-18] MEDS: SODIUM CHLORIDE 0.9% 500 ML 500 ML IV ONE (06:06)
[2024-03-18 06:53] LABS: Basophils % (A) 0 %; Eosinophils # (A) 0.1 k/uL (0-0.7); Eosinophils % (A) 0 %; HCT 46.3 % (39.0-53.0); Lymphocytes # (A) 3.6 k/uL (1.0-4.8); Lymphocytes % (A) 15 %; MCH 31.3 pg (25.0-35.0); MCHC 32.4 g/dL (31.0-37.0); MCV 96.4 fL (80.0-100.0); Mean Platelet Volume 8.3; Monocytes % (A) 4 %; Neutrophils # (A) 18.7 k/uL (1.3-7.7); Neutrophils % (A) 79 %; Platelet Count 376 k/uL (150-450); RDW 13.3 % (11.5-15.5); WBC 23.7 k/uL (3.8-10.6)
[2024-03-18 07:17] LABS: African American GFR (CKD) 44 (>60 ml/min/1.73 sqM); Anion Gap 8 mmol/L; Blood Urea Nitrogen 37 mg/dL (9-20); Calcium 8.8 mg/dL (8.4-10.2); Carbon Dioxide 22 mmol/L (22-30); Chloride 100 mmol/L (98-107); Glucose 128 mg/dL (74-99); Non-African American GFR(CKD) 38 (>60 ml/min/1.73 sqM); Potassium 5.1 mmol/L (3.5-5.1); Sodium 130 mmol/L (137-145)
--- NOTE | 2024-03-18 07:54 | US ---
EXAMINATION TYPE: US venous doppler duplex LE RT DATE OF EXAM: 03/18/2024 7:13 AM COMPARISON: US CLINICAL INDICATION: Male, 68 years old with history of Right lower extremity and right foot swelling ; Swelling right foot, Pain TECHNIQUE: The lower extremity deep venous system is examined utilizing real time linear array sonog lainey with graded compression, color doppler sonography, and spectral doppler. SIDE PERFORMED: Right FINDINGS: VESSELS IMAGED: Common Femoral Vein Deep Femoral Vein Greater Saphenous Vein * Femoral Vein Popliteal Vein Small Saphenous Vein * Proximal Calf Veins (* superficial vessels) Right Leg: Negative for DVT, Color Doppler imaging shows patency of the vessels. Spectral waveforms are within normal limits. IMPRESSION: No ultrasound evidence for deep venous thrombosis. [facility], , 03/18/2024 7:51 AM
[2024-03-18] MEDS ORDERED: ASPIRIN 325 MG TAB PO SCH (09:00)
[2024-03-18] MEDS: ASPIRIN 81 MG PO SCH (09:08)
[2024-03-18] MEDS: ATORVASTATIN 80 MG TAB PO SCH (09:08)
--- NOTE | 2024-03-18 10:38 | P.CRDCN ---
History of Present Illness Consult date: 03/18/24 Reason for Consult (text): NSTEMI History of present illness: This is a 68-year-old male patient of Dr. Luna with past medical history of hypertension, dyslipidemia, peripheral artery disease with prior angioplasty of the right SFA performed by his vascular surgeon and also infrarenal aortic aneurysm managed by vascular surgery, history of smoking. We have been asked to evaluate the patient for NSTEMI. Patient gives history that about 10 days ago he started having vomiting for 2-1/2 days and then diarrhea. He called his PCP and was told he had a viral infection. He subsequently developed shooting pain in his chest that felt like heartburn and was coming and going. No lightheadedness or dizziness. Blood pressure 94/66, heart rate 85, pulse ox 97% on 2 L nasal cannula. Patient has been started on a heparin drip. He is status post 2 L of IV fluid and IV morphine. Patient is seen today in the emergency center waiting for a bed on the cardiac stepdown unit. Discussed treatment options with the patient. Will order a VQ scan to rule out PE and if this is negative, patient will be scheduled for cardiac catheterization later today. Patient is agreeable to move forward with this. -EKG: Tachycardic, sinus rhythm with ST changes in the anterior leads -Chest x-ray: Right lower lung airspace opacities with nodular -Venous ultrasound right lower extremity negative for DVT. -Laboratory studies: WBC 23.7, hemoglobin 15. D-dimer 1.14. Sodium 130, potassium 5.1, BUN initially 40 now 37, creatinine 2.04 and now 1.8. Troponins 2.3, 2.14, 2.11, 1.97. -Home cardiac medications: Amlodipine 2.5 mg at bedtime, Eliquis 2.5 mg twice daily, atorvastatin 40 mg at bedtime -Echocardiogram performed 01/05/2023 in the office revealed normal EF, moderate MR. -Lexiscan Cardiolite stress test performed in the office on 12/22/2022 was a nondiagnostic electrocardiographic stress testing response to Lexiscan. Probably abnormal myocardial perfusion imaging with evidence of fixed defect of large size and severe intensity involving the basal inferior lateral segment of the left ventricle. No evidence of any stress-induced ischemia. Normal LV systolic function Review Of Systems: At the time of my exam: CONSTITUTIONAL: Denies fever or chills. HEENT: Denies blurred vision, vision changes, or eye pain. Denies hemoptysis CARDIOVASCULAR: Denies chest pain. Denies orthopnea. Denies PND. Denies palpitations RESPIRATORY: Denies shortness of breath. GASTROINTESTINAL: Denies abdominal pain. Denies nausea or vomiting. HEMATOLOGIC: Denies bleeding disorders. GENITOURINARY: Denies any blood in urine. SKIN: Denies puritis. Denies rash. Physical examination: Gen: This is a 68-year-old male in no acute distress VS: reviewed HEENT: Head is atraumatic, normocephalic. Pupils equal, round. Sclerae is anicteric. NECK: Supple. No JVD. LUNGS: Clear to auscultation. No wheezes or rhonchi. No intercostal retractions. HEART: Regular rate and rhythm. Systolic murmur. ABDOMEN: Soft No tenderness. EXTREMITIES: No pedal edema. No calf tenderness. NEUROLOGICAL: Patient is awake, alert and oriented x3. Assessment: NSTEMI Recent episodes of vomiting and diarrhea Elevated D-dimer, rule out PE Hypertension Dyslipidemia Peripheral artery disease with prior angioplasty of the right S of a and known infrarenal aortic aneurysm Plan: Resume patient's home cardiac medications with the following changes Discontinue amlodipine Continue heparin drip Order stat VQ scan to rule out PE If VQ scan is negative for PE, patient will be scheduled for cardiac catheterization later today with Dr. Luna. Obtain 2-D echocardiogram and Doppler study to assess cardiac structure and function Further recommendations to follow based upon clinical course Thank you kindly for this consultation. Nurse practitioner note has been reviewed, I agree with documented findings and plan of care. Patient was seen and examined. Past Medical History Past Medical History: COPD, GERD/Reflux Additional Past Medical History / Comment(s): bronchitis-05/29/14 History of Any Multi-Drug Resistant Organisms: None Reported Past Surgical History: No Surgical Hx Reported Past Anesthesia/Blood Transfusion Reactions: No Reported Reaction Additional Past Anesthesia/Blood Transfusion Reaction / Comment(s): HAS NEVER HAD ANESTHESIA Past Psychological History: No Psychological Hx Reported Smoking Status: Current every day smoker Past Alcohol Use History: None Reported, Occasional Past Drug Use History: None Reported - Past Family History Mother Family Medical History: Cancer Father Family Medical History: CVA/TIA Medications and Allergies Home Medications Medication Instructions Recorded Confirmed Type Acetaminophen [Tylenol Arthritis] 650 mg PO Q6H PRN 03/17/24 03/17/24 History Apixaban [Eliquis] 2.5 mg PO BID 03/17/24 03/17/24 History Atorvastatin Calcium [Lipitor] 40 mg PO HS 03/17/24 03/17/24 History Losartan/Hydrochlorothiazide 1 tab PO HS 03/17/24 03/17/24 History [Hyzaar 100-25 Tablet] amLODIPine [Norvasc] 2.5 mg PO HS 03/17/24 03/17/24 History Allergies Allergy/AdvReac Type Severity Reaction Status Date / Time sulfamethoxazole Allergy Swelling Verified 03/17/24 19:30 [From Bactrim] trimethoprim [From Bactrim] Allergy Swelling Verified 03/17/24 19:30 Physical Exam Vitals: Vital Signs Temp Pulse Resp BP Pulse Ox 03/18/24 06:07 85 18 94/66 97 03/18/24 05:00 85 18 98/70 93 L 03/18/24 04:00 83 20 93/70 95 03/18/24 02:00 83 20 89/70 95 03/18/24 01:22 92 18 94/72 95 03/18/24 01:16 87 18 95 03/17/24 19:19 97.7 F 102 H 16 109/77 98 03/17/24 18:40 101 H 16 111/82 98 03/17/24 15:24 97.3 F L 119 H 20 100/65 98 Intake and Output 03/17/24 03/18/24 03/18/24 22:59 06:59 14:59 Intake Total 80.67 Output Total 0 Balance 0 80.67 Intake: Intake, IV Titration 80.67 Amount Heparin Sod,Pork in 0.45% 80.67 NaCl 25,000 unit In 0.45 % NaCl 1 250ml.bag @ 12 UNITS/KG/HR 9.798 mls/hr IV .Q24H [facility] Rx#: [id number] Output: Urine 0 Other: # Voids 0 Weight 81.647 kg Results 03/18/24 05:36 03/18/24 05:36 Cardiac Enzymes 03/17/24 03/17/24 03/17/24 Range/Units 15:40 15:40 18:40 AST 17 (17-59) U/L Troponin I 2.300 H* 2.140 H* (0.000-0.034) ng/mL 03/17/24 03/17/24 Range/Units 19:23 22:30 AST (17-59) U/L Troponin I 2.110 H* 1.970 H* (0.000-0.034) ng/mL Coagulation 03/17/24 03/17/24 03/18/24 Range/Units 15:40 18:40 00:32 PT 11.3 11.3 (10.0-12.5) sec APTT 24.2 24.2 27.5 (22.0-30.0) sec CBC 03/17/24 03/18/24 Range/Units 15:40 05:36 WBC 14.3 H 23.7 H (3.8-10.6) k/uL RBC 4.59 4.80 (4.30-5.90) m/uL Hgb 14.5 15.0 (13.0-17.5) gm/dL Hct 43.5 46.3 (39.0-53.0) % Plt Count 312 376 (150-450) k/uL Comprehensive Metabolic Panel 03/17/24 03/18/24 Range/Units 15:40 05:36 Sodium 130 L 130 L (137-145) mmol/L Potassium 4.3 5.1 (3.5-5.1) mmol/L Chloride 100 100 (98-107) mmol/L Carbon Dioxide 26 22 (22-30) mmol/L BUN 40 H 37 H (9-20) mg/dL Creatinine 2.04 H 1.80 H (0.66-1.25) mg/dL Glucose 149 H 128 H (74-99) mg/dL Calcium 9.1 8.8 (8.4-10.2) mg/dL AST 17 (17-59) U/L ALT 10 (4-49) U/L Alkaline Phosphatase 85 (38-126) U/L Total Protein 5.6 L (6.3-8.2) g/dL Albumin 3.2 L (3.5-5.0) g/dL Current Medications Generic Name Dose Route Start Last Admin Trade Name Freq PRN Reason Stop Dose Admin Amlodipine Besylate 2.5 mg 03/18/24 21:00 Amlodipine 2.5 Mg Tab PO HS STEVE Aspirin 325 mg 03/18/24 09:00 Aspirin 325 Mg Tab PO DAILY [facility] Atorvastatin Calcium 80 mg 03/18/24 09:00 Atorvastatin 80 Mg Tab PO DAILY [facility] Heparin Sodium (Porcine) 0 unit 03/18/24 03:13 Heparin Sodium 1,000 Un/Ml (10ml Vl) IV PER PROTOCOL PRN Low PTT Protocol Heparin Sodium/Sodium Chloride 250 mls @ 9.798 mls/hr 03/17/24 18:30 03/18/24 03:12 25,000 unit/ Sodium Chloride IV 15 units/kg/hr .Q24H STEVE 12.247 mls/hr Titration Protocol 12 UNITS/KG/HR Sodium Chloride 1,000 mls @ 75 mls/hr 03/18/24 02:30 03/18/24 03:08 Saline 0.9% IV 75 mls/hr .[id number] STEVE Administration Metoprolol Tartrate 25 mg 03/17/24 21:00 03/17/24 20:33 Metoprolol Tartrate 25 Mg Tab PO 25 mg BID STEVE Administration Nitroglycerin 1 inch 03/18/24 00:00 03/18/24 05:17 Nitroglycerin Oint 1 Inch/Gm Packet TOPICAL Not Given Q6HR STEVE Intake and Output 03/17/24 03/18/24 03/18/24 22:59 06:59 14:59 Intake Total 80.67 Output Total 0 Balance 0 80.67 Intake: Intake, IV Titration 80.67 Amount Heparin Sod,Pork in 0.45% 80.67 NaCl 25,000 unit In 0.45 % NaCl 1 250ml.bag @ 12 UNITS/KG/HR 9.798 mls/hr IV .Q24H [facility] Rx#: [id number] Output: Urine 0 Other: # Voids 0 Weight 81.647 kg 03/18/24 05:36 03/18/24 05:36
[2024-03-18] MEDS ORDERED: IPRATROPIUM-ALBUTEROL 3 ML NEB INHALATION SCH (12:00)
--- NOTE | 2024-03-18 12:04 | P.PN ---
Subjective Progress Note Date: 03/18/24 Hospital course: Patient is a very pleasant 68-year-old male with a past medical history of hypertension, COPD with continued nicotine dependence, peripheral arterial disease, and GERD. He presented to the emergency department with a chief complaint of chest pain. Upon arrival to our facility, patient underwent evaluation in the emergency department. Vital signs upon arrival show blood pressure 100/65, heart rate 119, respiratory rate 20, temp 97.3 F, and SpO2 of 98% on room air. EKG was completed showing sinus tachycardia at 101 bpm with a right bundle branch block T wave inversion in leads aVL and V2 through V6. Chest x-ray completed showing right lower lung airspace opacities with nodular like appearance recommending further evaluation with CT to rule out underlying pulmonary nodule/malignancy. Right Lower extremity Doppler completed negative for DVT. Labs completed and reviewed. CBC showing leukocytosis with WBC count of 14.3. Coagulation profile showing elevated D-dimer of 1.14. BMP showing hyponatremia with sodium of 130 and an acute kidney injury with BUN of 40, creatinine of 2.04 and GFR of 33. Blood glucose 149. Magnesium 2.2. Troponin 1.970. proBNP was 29,600. Patient started on heparin infusion for treatment of NSTEMI and admitted under our services with consultation to cardiology. Order placed for VQ scan to rule out pulmonary emboli. Physical exam: Patient seen and fully evaluated at bedside this morning. He reports chest pain "mostly gone". He was nonspecific and unable to rate current pain that was remaining. He denies having any other complaints including headache, lightheadedness, dizziness, palpitations, shortness of breath, or experiencing any numbness/tingling/weakness in his extremities. Vital signs reviewed and stable. General: Nontoxic, no distress and appears stated age. Derm: Skin warm and dry, normal coloration for ethnicity. Head: Atraumatic, normocephalic and symmetric. Eyes: EOM's intact, no lid lag, and anicteric sclera Mouth: no lip lesions, mucus membranes moist Cardiovascular: regular rate and rhythm with normal S1S2, systolic murmur, positive posterior tibial pulses bilaterally, and cap refill < 2 seconds. Lungs: Respirations even, regular, and unlabored on room air. Lungs diminished with soft expiratory wheezes, no rhonchi, no rales, no crackles, and no accessory muscle usage. Abdominal: soft, nontender to palpation, no guarding, no appreciable organomegaly Ext: ROM intact. No gross muscle atrophy, scant to 1+ lower extremity edema worse on right, no contractures Neuro: Speech clear, face symmetrical and CN II-XII grossly intact with no noted focal neuro deficits Psych: Alert and oriented to person, place, time, and situation. Appropriate and pleasant affect. Assessment and Plan of Care: NSTEMI Elevated D-dimer Abnormal imaging, x-ray concerning for nodular-like opacities of right lower lung Peripheral arterial disease -Cardiology consulted, appreciate recommendations -Continue low intensity heparin infusion for treatment of NSTEMI with close monitoring of PTT every 6 hours for goal therapeutic range of 45 to 79 seconds. Currently PTT therapeutic at 62.9 seconds. -Telemetry monitoring -Troponins were trended resulting at 2.300, 2.140, 2.110, and 1.970. -Continue aspirin 81 mg daily, atorvastatin 80 mg daily, and metoprolol 25 mg twice daily. -Continue Nitropaste 1 inch every 6 hours. -Lipid profile pending. -Echocardiogram to be completed -VQ scan to be completed to rule out pulmonary emboli -Order placed for CT chest without contrast to further evaluate findings on x- ray concerning for nodular-like opacities in right lower lung Acute kidney injury, possibly secondary to cardiorenal syndrome -Hold losartan/hydrochlorothiazide and continue with gentle IV fluid hydration with 0.9% normal saline at 75 cc/h. -Continue close monitoring of renal function with repeat a.m. labs. Hypertension -Hold losartan/hydrochlorothiazide secondary to KONSTANTIN. Patient to continue metoprolol 25 mg twice daily. COPD, mild exacerbation Nicotine Dependence -Oxygenation to be administered and titrated as needed to maintain SPO2 equal to or greater than 90%. Currently on 4 L O2 via nasal cannula with SpO2 of 91%. -Telemetry monitoring. -Monitor pulse-oximetry -Duonebs scheduled every 4 hours and as needed for SOB and/or wheezing -Incentive Spirometry -Steroids: Prednisone 40 mg daily -Recommend smoking cessation. Order placed for nicotine patch 14 mg daily. Data and imaging reviewed: Vital signs reviewed. Blood pressure 102/73, heart rate 101, respiratory rate 20, temp 97.7 F, and SpO2 of 89% on 2 L increasing to 91% on 4 L. Labs reviewed. CBC showing leukocytosis with WBC count of 23.7. PTT therapeutic at 62.9. BMP showing mild hyponatremia with sodium of 130 and continued but improving acute kidney injury with BUN 37, creatinine 1.80, and GFR of 38. Right lower extremity Doppler negative for DVT. CODE STATUS: Full Code DVT prophylaxis: Heparin infusion Anticipated discharge date: Pending clinical course Anticipated discharge place: Home Patient was seen independently by Nurse Pracitioner. This document was prepared using [employer] dictation software. Please allow for errors in assistant chief of police, while rare they do occur. Gio Henderson NP rendered care for this patient independently, reviewed the findings and plan as documented in the note above and agree with plan. I did not physically speak with or examine the patient on this date. Objective - Vital Signs Vital signs: Vital Signs Temp 97.7 F 03/17/24 19:19 Pulse 85 03/18/24 06:07 Resp 18 03/18/24 06:07 BP 94/66 03/18/24 06:07 Pulse Ox 97 03/18/24 06:07 FiO2 Intake & Output 03/17/24 03/18/24 03/18/24 18:59 06:59 18:59 Intake Total 80.67 Output Total 0 Balance 80.67 Weight 81.647 kg Intake: Intake, IV Titration 80.67 Amount Heparin Sod,Pork in 0.45% 80.67 NaCl 25,000 unit In 0.45 % NaCl 1 250ml.bag @ 12 UNITS/KG/HR 9.798 mls/hr IV .Q24H [facility] Rx#: [id number] Output: Urine 0 Other: # Voids 0 - Labs CBC & Chem 7: 03/18/24 05:36 03/18/24 05:36 Labs: Abnormal Lab Results - Last 24 Hours (Table) 03/17/24 03/17/24 03/17/24 Range/Units 15:40 15:40 15:40 WBC 14.3 H (3.8-10.6) k/uL Neutrophils # (1.3-7.7) k/uL Neutrophils # (Manual) 9.72 H (1.3-7.7) k/uL APTT (22.0-30.0) sec D-Dimer (<0.60) mg/L FEU Sodium 130 L (137-145) mmol/L BUN 40 H (9-20) mg/dL Creatinine 2.04 H (0.66-1.25) mg/dL Glucose 149 H (74-99) mg/dL Troponin I 2.300 H* (0.000-0.034) ng/mL Total Protein 5.6 L (6.3-8.2) g/dL Albumin 3.2 L (3.5-5.0) g/dL 03/17/24 03/17/24 03/17/24 Range/Units 18:40 18:40 19:23 WBC (3.8-10.6) k/uL Neutrophils # (1.3-7.7) k/uL Neutrophils # (Manual) (1.3-7.7) k/uL APTT (22.0-30.0) sec D-Dimer 1.14 H (<0.60) mg/L FEU Sodium (137-145) mmol/L BUN (9-20) mg/dL Creatinine (0.66-1.25) mg/dL Glucose (74-99) mg/dL Troponin I 2.140 H* 2.110 H* (0.000-0.034) ng/mL Total Protein (6.3-8.2) g/dL Albumin (3.5-5.0) g/dL 03/17/24 03/18/24 03/18/24 Range/Units 22:30 05:36 05:36 WBC 23.7 H (3.8-10.6) k/uL Neutrophils # 18.7 H (1.3-7.7) k/uL Neutrophils # (Manual) (1.3-7.7) k/uL APTT (22.0-30.0) sec D-Dimer (<0.60) mg/L FEU Sodium 130 L (137-145) mmol/L BUN 37 H (9-20) mg/dL Creatinine 1.80 H (0.66-1.25) mg/dL Glucose 128 H (74-99) mg/dL Troponin I 1.970 H* (0.000-0.034) ng/mL Total Protein (6.3-8.2) g/dL Albumin (3.5-5.0) g/dL 03/18/24 Range/Units 06:44 WBC (3.8-10.6) k/uL Neutrophils # (1.3-7.7) k/uL Neutrophils # (Manual) (1.3-7.7) k/uL APTT 62.9 H (22.0-30.0) sec D-Dimer (<0.60) mg/L FEU Sodium (137-145) mmol/L BUN (9-20) mg/dL Creatinine (0.66-1.25) mg/dL Glucose (74-99) mg/dL Troponin I (0.000-0.034) ng/mL Total Protein (6.3-8.2) g/dL Albumin (3.5-5.0) g/dL
[2024-03-18] MEDS: predniSONE 20 MG TAB PO SCH (12:51)
[2024-03-18] MEDS: NICOTINE 14MG/24HR PATCH TRANSDERM SCH (12:52)
[2024-03-18 13:02] LABS: Chol/HDL Ratio 2.53 Ratio; LDL Cholesterol,Calculated 56.1 mg/dL (0.0-131.0); VLDL Calculation 14.64 mg/dL (5.00-40.00)
[2024-03-18] MEDS: HEPARIN SOD,PORK IN 0.45% NACL 25,000 UNIT in 0.45% NACL 1 250ML.BAG IV SCH (14:13)
[2024-03-18] MEDS: FUROSEMIDE 10 MG/ML 4 ML VIAL IV STA ×2 (14:14→14:33)
[2024-03-18 14:17] LABS: HCT 45.4 % (39.0-53.0); HGB 14.6 gm/dL (13.0-17.5); MCH 31.4 pg (25.0-35.0); MCHC 32.1 g/dL (31.0-37.0); MCV 97.8 fL (80.0-100.0); Mean Platelet Volume 7.6; Platelet Count 370 k/uL (150-450); RBC 4.64 m/uL (4.30-5.90); RDW 13.6 % (11.5-15.5); WBC 34.8 k/uL (3.8-10.6)
--- NOTE | 2024-03-18 14:23 | XR ---
EXAMINATION TYPE: XR chest 1V portable DATE OF EXAM: 03/18/2024 2:05 PM COMPARISON: 03/17/2024 CLINICAL INDICATION: Male, 68 years old with history of acute respiratory failure with hypoxia, TECHNIQUE: Single frontal view of the chest is obtained. FINDINGS: Diffuse interstitial and alveolar type infiltrates noted. Correlate for underlying pneumoni a. The cardiac silhouette size is within normal limits. The osseous structures are intact. IMPRESSION: Diffuse interstitial and alveolar type infiltrates noted. Correlate for underlying pneum onia. [facility], , 03/18/2024 2:21 PM
[2024-03-18] MEDS: AZITHROMYCIN 500 MG in SODIUM CHLORIDE 0.9% 250 ML IVPB SCH (14:58)
--- NOTE | 2024-03-18 15:21 | P.PN ---
Progress Note - Text Progress Note Date: 03/18/24 Indication: Acute respiratory failure with hypoxia Arrived on Scene to find: Patient in acute respiratory distress with tachypneic labored respirations and hypoxia. Patient was on 15 L O2 via nonrebreather with oxygen saturation of 76%. RN reports patient was previously on 4 L O2 via nasal cannula and was doing well maintaining oxygen saturations and when he was taken down for VQ scan and laid flat patient immediately went into acute respiratory distress and he was sat back up and taken back to room and immediatedly placed on nonrebreather mask and this is when I was notified and immediately to bedside. Placed order for stat chest x-ray, repeat labs, and continuous BiPAP. Patient given Lasix 40 mg IVP x 1 dose. RT called to bedside and patient placed on continuous BiPAP. Consult placed to pulmonology and personally notified home companion, Dr. Rusesll whom also came to bedside to assess. Notified tapering machine operator and Dr. Luna also to bedside to assess. Stat chest x-ray was completed showing diffuse interstitial and alveolar type infiltrates concerning for pneumonia along with concerns of pulmonary vascular congestion. Patient was given an additional dose of Lasix by tapering machine operator and started on IV antibiotics with cefepime 2 g every 12 hours renal dosed and a Zithromax 500 mg daily. Vital signs as follows: Blood pressure 106/51, heart rate 97, respiratory rate 24, and SpO2 of 89% on BiPAP with FiO2 of 70%. Notified by tapering machine operator that ejection fraction is now 25 to 30% and echocardiogram also showing moderate pulmonary hypertension and diffuse global hypokinesis. Physical exam: General: Appears stated age, moderate distress secondary to acute respiratory distress Derm: Skin warm and dry, normal coloration for ethnicity. Head: Atraumatic, normocephalic and symmetric. Eyes: EOM's intact, no lid lag, and anicteric sclera Mouth: no lip lesions, mucus membranes moist Cardiovascular: regular rate and rhythm with normal S1S2, systolic murmur, positive posterior tibial pulses bilaterally, and cap refill < 2 seconds. Lungs: Respirations tachypneic and slightly labored, improved after placed on BiPAP. Lungs with bibasilar crackles worse on right and diffuse expiratory wheezes in upper lobes. Abdominal: soft, nontender to palpation, no guarding, no appreciable organomegaly Ext: ROM intact. No gross muscle atrophy, scant to 1+ lower extremity edema worse on right, no contractures Neuro: Speech clear, face symmetrical and CN II-XII grossly intact with no noted focal neuro deficits Psych: Alert and oriented to person, place, time, and situation. Appropriate and pleasant affect. Assessment and Plan: Acute respiratory failure with hypoxia NSTEMI Elevated D-dimer Abnormal imaging, x-ray concerning for nodular-like opacities of right lower lung Peripheral arterial disease -Cardiology following and discussed plan in detail with Dr. Luna at bedside. -Refinery Superintendent consulted and discussed plan of care in depth with Dr. Russell at bedside. -Orders place for continuous BiPAP with IPAP of 12, EPAP 6, FiO2 70% and to be titrated accordingly to keep SpO2 equal to or greater than 90%. -Continue low intensity heparin infusion for treatment of NSTEMI with close monitoring of PTT every 6 hours for goal therapeutic range of 45 to 79 seconds. Currently PTT therapeutic at 62.9 seconds. -Telemetry monitoring -Troponins were trended resulting at 2.300, 2.140, 2.110, and 1.970. -Continue aspirin 81 mg daily, atorvastatin 80 mg daily, and metoprolol 25 mg twice daily. -Continue Nitropaste 1 inch every 6 hours. -Lipid profile pending. -Echocardiogram revealing ejection fraction is now 25 to 30% and also showing moderate pulmonary hypertension and diffuse global hypokinesis. -VQ scan was unable to be completed as pt could not tolerate lying flat -Repeat chest x-ray was completed showing diffuse interstitial and alveolar type infiltrates concerning for pneumonia along with concerns of pulmonary vascular congestion. -Patient was given 640 mg IVP x 1 dose followed by an additional dose of Lasix by tapering machine operator -Patient started on IV antibiotics with cefepime 2 g every 12 hours renal dosed and a Zithromax 500 mg daily. -Sputum culture and Legionella culture to be obtained along with Cepheid 4 Plex viral panel.. Acute kidney injury, possibly secondary to cardiorenal syndrome -Hold losartan/hydrochlorothiazide and fluids stopped at this time due to acute respiratory failure with hypoxia. -Continue close monitoring of renal function with repeat a.m. labs. Hypertension -Hold losartan/hydrochlorothiazide secondary to KONSTANTIN. Patient to continue metoprolol 25 mg twice daily. COPD, mild exacerbation Nicotine Dependence -Oxygenation to be administered and titrated as needed to maintain SPO2 equal to or greater than 90%. Currently on 4 L O2 via nasal cannula with SpO2 of 91%. -Telemetry monitoring. -Monitor pulse-oximetry -Duonebs scheduled every 4 hours and as needed for SOB and/or wheezing -Incentive Spirometry -Steroids: Prednisone 40 mg daily -Recommend smoking cessation. Order placed for nicotine patch 14 mg daily. Pending improvement on BiPAP, patient may require transfer to ICU. Patient was seen independently by Nurse Pracitioner. This document was prepared using [employer] dictation software. Please allow for errors in personal injury paralegal, while rare they do occur. A Total of 38 minutes of critical care time was spent on the complex care of this patient. Gio Henderson NP rendered care for this patient independently, reviewed the findings and plan as documented in the note above and agree with plan. I did not physically speak with or examine the patient on this date.
[2024-03-18] MEDS: IPRATROPIUM-ALBUTEROL 3 ML NEB INHALATION SCH (15:23)
[2024-03-18] MEDS: CEFEPIME 2 GM in SODIUM CHLORIDE 0.9% 100 ML IVPB SCH (16:13)
--- NOTE | 2024-03-18 17:13 | CA ---
Transthoracic Echo Report Name: José Miguel Douglas Age: 68 Gender: M : 1955 Exam Date: 03/18/2024 08:28 Exam Location: [facility] Ht (in): 71 Wt (lb): 180 Ordering Physician: Carlos Faye DO Attending/Referring Phys: [id number], Yunier Rivet Tester Shonda Soto, RUBINA Procedure CPT: Indications: nstemi Cardiac Hx: Technical Quality: Technically difficult study Contrast 1: Definity Total Dose (mL): 2 Contrast 2: Total Dose (mL): MEASUREMENTS (Male / Female) Normal Values 2D ECHO LV Diastolic Diameter PLAX 5.7 cm 4.2 - 5.9 / 3.9 - 5.3 cm LV Systolic Diameter PLAX 4.2 cm IVS Diastolic Thickness 1.1 cm 0.6 - 1.0 / 0.6 - 0.9 cm LVPW Diastolic Thickness 0.9 cm 0.6 - 1.0 / 0.6 - 0.9 cm LV Relative Wall Thickness 0.4 RV Internal Dim ED PLAX 3.4 cm LA Systolic Diameter LX 4.1 cm 3.0 - 4.0 / 2.7 - 3.8 cm LA Volume 57.6 cm??? 18 - 58 / 22 - 52 cm??? LA Volume Index 28.3 cm???/m??? 16 - 28 cm???/m??? M-MODE Aortic Root Diameter MM 3.1 cm DOPPLER AV Peak Velocity 111.5 cm/s AV Peak Gradient 5.0 mmHg MV Area PHT 5.9 cm??? MV Deceleration Time 110.8 ms TR Peak Velocity 315.9 cm/s TR Peak Gradient 39.9 mmHg Right Ventricular Systolic Press 47.0 mmHg FINDINGS Left Ventricle Left ventricular ejection fraction is estimated at 25-30 %. Left ventricular cavity size normal. Left ventricular wall thickness normal. Severely reduced global left ventricular systolic function. Right Ventricle Mild right ventricular dilatation. Moderate pulmonary hypertension. Right ventricular systolic pressure estimated at 47 mm hg. Right Atrium Normal right atrial size. No right atrial thrombus or mass seen. Left Atrium Normal left atrial size. No left atrial thrombus or mass present. Mitral Valve Mitral valve thickened. [id number] mitral regurgitation. Aortic Valve Trileaflet aortic valve. No aortic valve stenosis or regurgitation. Tricuspid Valve Structurally normal tricuspid valve. Mild tricuspid regurgitation. Pulmonic Valve Pulmonic valve not well visualized. Pericardium No pericardial or pleural effusion. Aorta Normal size aortic root and proximal ascending aorta. CONCLUSIONS Severe LV systolic dysfunction with an ejection fraction of 25-30% with diffuse global hypokinesis Moderate pulmonary hypertension Mild to moderate mitral and mild tricuspid regurgitation Previewed by: Dr. Mina Kuhn MD (Electronically Signed) Final Date: 18 March 2024 17:13
--- NOTE | 2024-03-18 19:17 | P.CNPUL ---
History of Present Illness Consult date: 03/18/24 History of present illness: This is a 68-year-old male patient who came into the emergency department on 03/17/2024 with complaints of chest pain and shortness of breath. The patient apparently was taking out the garbage and he became quite winded and also developed a chest pain. However, the patient has been having some symptoms of nausea and emesis and diarrhea for the past 10 days. He came into the Emergency Department and the patient was found to be hypoxic and initially was placed on 2 L of oxygen by nasal cannula. He is EKG showed sinus tachycardia with some nonspecific ST segment changes in the anterior leads. Doppler of the lower extremities was negative for DVT. Initial white cell count was at 23 and the D- dimer was at 1.1 and the patient's hemoglobin was 15. The patient also had a acute on top of chronic kidney injury with a BUN of 40 and a creatinine of 2.04 and the patient also ruled in for an acute non-ST segment elevation myocardial infarction as the patient's troponin peaked at 2.3 and subsequent dropped down to 1.9. The patient was started on IV heparin. Echocardiogram was done earlier this morning and the patient was found to have also a component of CHF with an ejection fraction of 25 to 30%. There was diffuse global hypokinesis and moderate degree of pulm hypertension and mild to moderate mitral regurgitation. At a later stage, the patient became progressively more hypoxic. His oxygen requirements went up from 2 L up to 15 L and ultimately the patient was placed on a BiPAP pressure of 12/6 with an FiO2 of 70%. His current pulse ox is 91 to 92%. Repeat chest x-ray was done and it showed significant progression with development of diffuse interstitial infiltrates and significant consolidation of the right lung base which was highly suggestive of pneumonia specially the patient had a rise in his white cell count up to 34.8. Based on that, the patient was started on broad-spectrum antibiotics. He was started on a combination of cefepime and Zithromax. Given a dose of Lasix 40 g IV with adequate urine output. He is currently on DuoNeb updrafts, IV heparin, and is also on prednisone 40 mg p.o. daily. Cardiology has been consulted on the case. Denies having any significant chest pain. Past medical history is positive for COPD, chronic smoking, peripheral vascular disease and the patient has undergone vascular intervention and angioplasty to his lower extremity for acute ischemic limb in addition to history of hypertension, chronic kidney disease stage III. Patient also known to have bilateral common iliac artery aneurysms and abdominal aortic aneurysm. He has an infrarenal renal abdominal aortic aneurysm measuring 4 cm and 8.6 cm in length and there is extensive mural thrombus. This is based on a previous CT of the abdominal aorta that was performed on this patient on 09/23/2022. In addition to that, the patient has extensive atherosclerotic changes in the bilateral SFA and short segment focal occlusion involving the right external iliac artery. Review of Systems Constitutional: Reports fatigue, Reports weakness Eyes: denies as per HPI, denies blurred vision, denies bulging eye, denies decreased vision, denies diplopia, denies discharge, denies dry eye, denies irritation, denies itching, denies pain, denies photophobia, denies loss of peripheral vision, denies loss of vision, denies tunnel vision/blind spots Ears: deny: decreased hearing, ear discharge, earache, tinnitus Ears, nose, mouth and throat: Reports as per HPI Breasts: absent: as per HPI, gynecomastia Cardiovascular: Reports chest pain, Reports decreased exercise tolerance, Reports dyspnea on exertion, Reports shortness of breath Respiratory: Reports cough, Reports dyspnea Gastrointestinal: Reports as per HPI Genitourinary: Reports as per HPI Musculoskeletal: Reports as per HPI Integumentary: Reports as per HPI Neurological: Reports as per HPI Endocrine: Reports as per HPI Hematologic/Lymphatic: Reports as per HPI Allergic/Immunologic: Reports as per HPI Past Medical History Past Medical History: COPD, GERD/Reflux, Renal Disease, Vascular Disorder Additional Past Medical History / Comment(s): Abdominal aortic aneurysm, infrarenal, iliac aneurysm, bilateral History of Any Multi-Drug Resistant Organisms: None Reported Past Surgical History: No Surgical Hx Reported Past Anesthesia/Blood Transfusion Reactions: No Reported Reaction Additional Past Anesthesia/Blood Transfusion Reaction / Comment(s): HAS NEVER HAD ANESTHESIA Past Psychological History: No Psychological Hx Reported Smoking Status: Current every day smoker Past Alcohol Use History: None Reported, Occasional Past Drug Use History: None Reported - Past Family History Mother Family Medical History: Cancer Father Family Medical History: CVA/TIA Medications and Allergies Home Medications Medication Instructions Recorded Confirmed Type Acetaminophen [Tylenol Arthritis] 650 mg PO Q6H PRN 03/17/24 03/17/24 History Apixaban [Eliquis] 2.5 mg PO BID 03/17/24 03/17/24 History Atorvastatin Calcium [Lipitor] 40 mg PO HS 03/17/24 03/17/24 History Losartan/Hydrochlorothiazide 1 tab PO HS 03/17/24 03/17/24 History [Hyzaar 100-25 Tablet] amLODIPine [Norvasc] 2.5 mg PO HS 03/17/24 03/17/24 History Allergies Allergy/AdvReac Type Severity Reaction Status Date / Time sulfamethoxazole Allergy Swelling Verified 03/17/24 19:30 [From Bactrim] trimethoprim [From Bactrim] Allergy Swelling Verified 03/17/24 19:30 Physical Exam Vitals: Vital Signs Temp Pulse Resp BP Pulse Ox FiO2 03/18/24 17:25 70 03/18/24 17:00 74 17 86/63 92 L 70 03/18/24 16:00 80 17 73/62 91 L 70 03/18/24 15:27 84 03/18/24 15:00 86 20 81/62 91 L 70 03/18/24 14:34 93 30 H 91 L 03/18/24 14:30 70 03/18/24 14:00 97 24 106/51 89 L 70 03/18/24 13:15 98 21 89 L 03/18/24 13:09 87 L 03/18/24 13:02 102 H 24 98/74 76 L 03/18/24 12:53 100 30 H 116/62 75 L 03/18/24 10:38 85 21 93/68 91 L 03/18/24 09:15 97.7 F 101 H 20 102/73 89 L 03/18/24 06:07 85 18 94/66 97 03/18/24 05:00 85 18 98/70 93 L 03/18/24 04:00 83 20 93/70 95 03/18/24 02:00 83 20 89/70 95 03/18/24 01:22 92 18 94/72 95 03/18/24 01:16 87 18 95 03/17/24 19:19 97.7 F 102 H 16 109/77 98 Intake and Output 03/18/24 03/18/24 03/18/24 06:59 14:59 22:59 Intake Total 80.67 Output Total 775 Balance 80.67 -775 Intake: Intake, IV Titration 80.67 Amount Heparin Sod,Pork in 0.45% 80.67 NaCl 25,000 unit In 0.45 % NaCl 1 250ml.bag @ 12 UNITS/KG/HR 9.798 mls/hr IV .Q24H [facility] Rx#: [id number] Output: Urine 775 Other: # Voids 4 The patient has labored breathing and the patient is currently on a BiPAP pre ssure of 03/07 with an FiO2 of 70% Head exam is unremarkable. No scleral icterus or corneal arcus noted. Neck is without jugular venous distension, thyromegaly, or carotid bruits. Carotid upstrokes are brisk bilaterally. Lungs examination involves extensive crackles involving the right mid and right lower lung area with few scattered expiratory wheezes Cardiac exam reveals the PMI to be normally sized and situated. Rhythm is regular. First and second heart sounds normal. No murmurs, rubs or gallops. Abdominal exam reveals normal bowel sounds, no masses, no organomegaly and no aortic enlargement. Extremities are nonedematous and the patient has significant diminished pulses in lower extremities bilaterally Examination of the skin revealed no evidence of significant rashes, suspicious appearing nevi or other concerning lesions. Neurologically, the patient is awake and alert and the patient does not have any focal neurological deficit. Cranial nerves are essentially intact. Results - Laboratory Findings CBC and BMP: 03/18/24 14:08 03/18/24 05:36 PT/INR, D-dimer PT 11.3 sec (10.0-12.5) 03/17/24 18:40 INR 1.0 (<1.2) 03/17/24 18:40 D-Dimer 1.14 mg/L FEU (<0.60) H 03/17/24 18:40 Abnormal lab findings: Abnormal Labs 03/17/24 03/17/24 03/17/24 15:40 15:40 15:40 WBC 14.3 H Neutrophils # Neutrophils # (Manual) 9.72 H APTT D-Dimer Sodium 130 L BUN 40 H Creatinine 2.04 H Glucose 149 H Troponin I 2.300 H* Total Protein 5.6 L Albumin 3.2 L 03/17/24 03/17/24 03/17/24 18:40 18:40 19:23 WBC Neutrophils # Neutrophils # (Manual) APTT D-Dimer 1.14 H Sodium BUN Creatinine Glucose Troponin I 2.140 H* 2.110 H* Total Protein Albumin 03/17/24 03/18/24 03/18/24 22:30 05:36 05:36 WBC 23.7 H Neutrophils # 18.7 H Neutrophils # (Manual) APTT D-Dimer Sodium 130 L BUN 37 H Creatinine 1.80 H Glucose 128 H Troponin I 1.970 H* Total Protein Albumin 03/18/24 03/18/24 06:44 14:08 WBC 34.8 H Neutrophils # Neutrophils # (Manual) APTT 62.9 H D-Dimer Sodium BUN Creatinine Glucose Troponin I Total Protein Albumin - Diagnostic Findings Chest x-ray: image reviewed Assessment and Plan Plan: Acute hypoxic respiratory failure with development of extensive right lower lobe consolidation highly suggestive of pneumonia. The patient has developed asymmetric pulmonary filtration with extensive consolidation of the right lower lobe in addition to leukocytosis and this has progressed significant over the past 24 hours and based on that the patient was started on broad-spectrum antibiotics and the patient is currently on a combination of cefepime and Zithromax. Patient is currently on BiPAP pressure of 12/6 with an FiO2 of 70% Acute non-ST segment elevation myocardial infarction, the patient's troponin peaked at 2.3, downtrending Systolic heart failure with ejection fraction of 25 to 30% with global hypokinesis and mild to moderate mitral regurgitation, rule out underlying ischemic cardiomyopathy. The patient also has moderate degree of pulmonary hypertension COPD with acute exacerbation likely secondary to underlying pneumonia Chronic stage III kidney disease with acute kidney injury on top of his chronic renal failure. Creatinine peaked at 2.04, improving and currently down to 1.8 Severe peripheral vascular disease Abdominal arctic aneurysm, infrarenal measuring 4 cm in size Bilateral iliac artery aneurysms Acute leukocytosis Hypertension Hyperlipidemia History of smoking Plan Admit this patient to the intensive care unit continue BiPAP for respiratory support Obtain lactic acid level Obtain blood gas Daily chest x-rays Cefepime and Zithromax as a broad-spectrum antibiotic coverage Blood cultures Legionella urine antigen Viral screen has been negative IV heparin Continue aspirin Continue metoprolol Hold diuretics for now and offer the patient gentle hydration with normal citrate of 50 cc an hour Will continue to follow make further recommendations based on his progress.
[2024-03-18 19:37] LABS: ABG Base Excess -3.2 mmol/L; ABG HCO3 21 mmol/L (21-25); ABG Oxygen Saturation 95.6 % (94-97); ABG PCO2 35 mmHg (35-45); ABG PH 7.39 (7.35-7.45); ABG PO2 78 mmHg (83-108); ABG TCO2 22 mmol/L (19-24); Allen Test Performed? Yes
[2024-03-18] MEDS ORDERED: amLODIPine 2.5 MG TAB PO SCH (21:00)
[2024-03-18 21:57] LABS: Glucose,Whole Blood 131 mg/dL (70-110)
[2024-03-19] MEDS: NOREPINEPHRINE 4 MG in SODIUM CHLORIDE 0.9% 250 ML IV SCH (00:25)
[2024-03-19 00:29] LABS: HCT 42.1 % (39.0-53.0); HGB 13.8 gm/dL (13.0-17.5); MCH 31.3 pg (25.0-35.0); MCHC 32.9 g/dL (31.0-37.0); MCV 95.2 fL (80.0-100.0); Mean Platelet Volume 7.6; Platelet Count 299 k/uL (150-450); RBC 4.42 m/uL (4.30-5.90); RDW 13.3 % (11.5-15.5); WBC 27.1 k/uL (3.8-10.6)
--- NOTE | 2024-03-19 01:04 | CT ---
EXAM: CT Chest Without Intravenous Contrast CLINICAL HISTORY: ITS.REASON CT Reason: rule out pulmonary nodules TECHNIQUE: Axial computed tomography images of the chest without intravenous contrast. CTDI is 13 mGy and DLP is 512 mGy-cm. This CT exam was performed using one or more of the following dose reduction techniques: automated exposure control, adjustment of the mA and/or kV according to patient size, and/or use of iterative reconstruction technique. COMPARISON: No relevant prior studies available. FINDINGS: Lungs: Bilateral airspace consolidations, consistent with severe multilobar pneumonia. Mild-moderate bilateral parapneumonic effusions. Moderate centrilobular emphysema, preferentially involving the upper lung vasquez. No mass. Pleural space: Unremarkable. No pneumothorax. No significant effusion. Heart: Unremarkable. No cardiomegaly. No significant pericardial effusion. No significant coronary artery calcifications. Bones/joints: Unremarkable. No acute fracture. No dislocation. Soft tissues: Unremarkable. Vasculature: Unremarkable. No thoracic aortic aneurysm. Lymph nodes: Unremarkable. No enlarged lymph nodes. IMPRESSION: Bilateral airspace consolidations, consistent with severe multilobar pneumonia. Mild-moderate bilateral parapneumonic effusions.
[2024-03-19 05:59] LABS: HCT 42.5 % (39.0-53.0); HGB 13.8 gm/dL (13.0-17.5); MCHC 32.4 g/dL (31.0-37.0); MCV 95.7 fL (80.0-100.0); Mean Platelet Volume 8.8; Platelet Count 337 k/uL (150-450); RBC 4.44 m/uL (4.30-5.90); RDW 13.2 % (11.5-15.5)
[2024-03-19 06:19] LABS: ALT 8 U/L (4-49); AST 20 U/L (17-59); African American GFR (CKD) 35 (>60 ml/min/1.73 sqM); Albumin 2.7 g/dL (3.5-5.0); Alkaline Phosphatase 78 U/L (38-126); Anion Gap 7 mmol/L; Blood Urea Nitrogen 50 mg/dL (9-20); Calcium 8.9 mg/dL (8.4-10.2); Carbon Dioxide 19 mmol/L (22-30); Chloride 104 mmol/L (98-107); Glucose 135 mg/dL (74-99); Magnesium 2.1 mg/dL (1.6-2.3); Non-African American GFR(CKD) 30 (>60 ml/min/1.73 sqM); Sodium 130 mmol/L (137-145); Total Bilirubin 0.7 mg/dL (0.2-1.3); Total Protein 5.2 g/dL (6.3-8.2)
[2024-03-19] MEDS: methylPREDNISolone SOD SUCCI 40 MG/ML 1 ML VIAL IV SCH (10:23)
[2024-03-19] MEDS: ATORVASTATIN 80 MG TAB PO STA (13:35)
[2024-03-19] MEDS: ASPIRIN 325 MG TAB PO STA (13:35)
[2024-03-19] MEDS: ASPIRIN 81 MG PO STA (14:12)
[2024-03-19] MEDS: IV FLUID CONTINUATION 1,000 ML IV ONE (14:23)
--- NOTE | 2024-03-19 14:27 | P.PN ---
Subjective Progress Note Date: 03/19/24 The patient is a pleasant 68-year-old gentleman with a past medical history significant for lower extremities PAD with prior angioplasty as well as severe cardiomyopathy and hypertension and dyslipidemia and multiple comorbid conditions who was admitted to the hospital with acute non-ST ovation myocardial infarction complicated by acute hypoxic respiratory failure secondary to possible underlying pneumonia but also heart failure. The ejection fraction was about 20 to 25% based on the echocardiogram during this admission. Subsequently the patient was admitted to the intensive care unit. March 19, 2024 The patient was seen and evaluated this morning. He still hypoxic requiring oxygen through nasal cannula at this point but he is overall doing slightly better but beside that he has been also hypotensive requiring norepinephrine. The creatinine today is slightly worse. The plan is to pursue with a heart catheterization today with or without angioplasty depends on the amount of contrast we use and also assess the LVEDP to see if the patient also have ongoing cardiogenic shock behind his hypotension. The physical examination is remarkable for regular rhythm with bilateral expiratory wheezing and no edema was noted in the lower extremities Assessment Acute hypoxic respiratory failure likely to be multifactorial Possible underlying pneumonia Heart failure with reduced ejection fraction Acute coronary syndrome Severe cardiomyopathy of unknown etiology Multiple comorbid conditions Plan Proceed with coronary angiogram Further recommendation to follow Objective - Vital Signs Vital signs: Vital Signs Temp 97.4 F L 03/19/24 12:00 Pulse 108 H 03/19/24 14:00 Resp 16 03/19/24 14:00 BP 90/60 03/19/24 14:00 Pulse Ox 97 03/19/24 14:00 FiO2 70 03/19/24 12:00 Intake & Output 03/18/24 03/19/24 03/19/24 18:59 06:59 18:59 Intake Total 159.636 4472.246 Output Total 775 1485 255 Balance -775 -1201.348 862.246 Weight 80 kg 80 kg Intake: IV 715 0.9NS 375 Sodium Chloride 0.9% 1, 340 000 ml @ 75 mls/hr IV . [id number] [facility] Rx#:[id number] Intake, IV Titration 283.652 302.246 Amount Cefepime 2 gm In Sodium 100 Chloride 0.9% 100 ml @ 25 mls/hr IVPB Q12H [facility] Rx# :[id number] Heparin Sod,Pork in 0.45% 94.789 155.211 NaCl 25,000 unit In 0.45 % NaCl 1 250ml.bag @ 18 UNITS/KG/HR 14.696 mls/hr IV .Q17H1M [facility] Rx#: [id number] Norepinephrine 4 mg In 88.863 147.035 Sodium Chloride 0.9% 250 ml @ 0.03 MCG/KG/MIN 9. 332 mls/hr IV .Q24H [facility] Rx#:[id number] Oral 100 Output: Urine 775 1485 255 Other: Voiding Method Indwelling Catheter Indwelling Catheter # Voids 4 - Labs CBC & Chem 7: 03/19/24 05:19 03/19/24 05:19 Labs: Abnormal Lab Results - Last 24 Hours (Table) 03/18/24 03/18/24 03/18/24 Range/Units 19:31 20:05 21:56 WBC (3.8-10.6) k/uL APTT 61.4 H (22.0-30.0) sec ABG pO2 78 L (83-108) mmHg Sodium (137-145) mmol/L Carbon Dioxide (22-30) mmol/L BUN (9-20) mg/dL Creatinine (0.66-1.25) mg/dL Glucose (74-99) mg/dL POC Glucose (mg/dL) 131 H (70-110) mg/dL Total Protein (6.3-8.2) g/dL Albumin (3.5-5.0) g/dL 03/19/24 03/19/24 03/19/24 Range/Units 00:23 05:19 05:19 WBC 27.1 H 33.0 H (3.8-10.6) k/uL APTT (22.0-30.0) sec ABG pO2 (83-108) mmHg Sodium 130 L (137-145) mmol/L Carbon Dioxide 19 L (22-30) mmol/L BUN 50 H (9-20) mg/dL Creatinine 2.17 H (0.66-1.25) mg/dL Glucose 135 H (74-99) mg/dL POC Glucose (mg/dL) (70-110) mg/dL Total Protein 5.2 L (6.3-8.2) g/dL Albumin 2.7 L (3.5-5.0) g/dL 03/19/24 03/19/24 Range/Units 06:26 13:54 WBC (3.8-10.6) k/uL APTT 74.9 H 59.0 H (22.0-30.0) sec ABG pO2 (83-108) mmHg Sodium (137-145) mmol/L Carbon Dioxide (22-30) mmol/L BUN (9-20) mg/dL Creatinine (0.66-1.25) mg/dL Glucose (74-99) mg/dL POC Glucose (mg/dL) (70-110) mg/dL Total Protein (6.3-8.2) g/dL Albumin (3.5-5.0) g/dL
[2024-03-19] MEDS: HEPARIN SODIUM (1,000 UNIT/ML) 1,000 UNIT in SODIUM CHLORIDE 0.9% 1,000 ML IRRIGATION ONE (14:34)
[2024-03-19] MEDS: HEPARIN SODIUM,PORCINE (1 ML) 2,500 UNIT in SODIUM CHLORIDE 0.9% 250 ML IRRIGATION ONE (14:34)
[2024-03-19] MEDS: MIDAZOLAM 2 MG/2 ML VIAL IVP ONE (14:45)
--- NOTE | 2024-03-19 15:03 | P.PN ---
Subjective Progress Note Date: 03/19/24 68-year-old male with a past medical history of hypertension, COPD with continued nicotine dependence, peripheral arterial disease, and GERD. He presented to the emergency department with a chief complaint of chest pain. Upon arrival to our facility, patient underwent evaluation in the emergency department. Vital signs upon arrival show BP 100/65, HR 119, RR 20, T 97.3 F, and SpO2 of 98% on RA. EKG was completed showing sinus tachycardia at 101 bpm with RBBB, T wave inversion in leads aVL and V2 through V6. Chest x-ray completed showing right lower lung airspace opacities with nodular like bowen earance recommending further evaluation with CT to rule out underlying pulmonary nodule/malignancy. RLE Doppler completed negative for DVT. CBC, CMP, Coag panel significant for WBC 14.3, Na 130, BUN 40, Cr 2.04, glu 149, alb 3.2.. Magnesium 2.2. Troponin 2.3, 2.14, 2.11, 1.97. proBNP was 29,600. Patient started on heparin infusion for treatment of NSTEMI and admitted under our services with consultation to cardiology. His respiratory status worsened which prompted admission to ICU. 03/19 Patient was seen and examined. Reports wet cough with sticky sputum. He is on 8L NC. Echo shows E 25-30% with diffuse global hypokinesis. Maintain on Heparin drip at 16 units/kg/hr. Pressors include Levophed at 0.07 mcg/kg/min. Cardiology plans on cardiac cath today. CBC and CMP significant for WBC 33, Na 130, bicarb 19, BUN 50, Cr 2.17, glu 135, alb 2.7. CT chest showed bilateral airspace consolidations with mild-mod bilateral parapneumonic effusions. Antibiotics include Azithromycin and Cefepime. General: non toxic, no distress, appears at stated age Derm: warm, dry Head: atraumatic, normocephalic, symmetric Eyes: EOMI, no lid lag, anicteric sclera Mouth: no lip lesion, mucus membranes moist Cardiovascular: S1S2 reg, no murmur, positive posterior tibial pulse bilateral, Lungs: Coarse BS bilateral, no rhonchi, no rales , no accessory muscle use Ext: no gross muscle atrophy, no edema, no contractures Neuro: no focal neuro deficits Psych: Alert, oriented, appropriate affect Based on my assessment of this patient, this patient meets a high complexity level of care. Septic shock secondary to multifocal PNA: Continue Azithromycin 500 mg IV QD and Cefepime 2g IV BID. Wean pressors to maintain MAP > 65. Judicious use of fluids given low EF. Follow sputum and blood cultures. Pulmonary on board. Acute hypoxic respiratory failure secondary to above NSTEMI: ASA 81 mg PO QD. Lipitor 80 mg PO QD. Metoprolol 25 mg PO BID. Heparin drip, monitor APTT. Cardiology plans on cardiac cath today. Cardiology on board. HFrEF: Metoprolol as above. GDMT once BP improves. Plans for cardiac cath. Possible need for LifeVest on discharge. Telemetry monitoring. Acute kidney injury on CKD: Monitor renal function. COPD with mild exacerbation: DuoNeb QID scheduled and PRN for SOB/wheezing. SoluMedrol 40 mg IV TID. Nicotine dependence: Nicotine patch. Hypertension: Hold home medications due to hypotensive nature. CODE STATUS: FULL CODE. DVT Prophylaxis: Heparin drip. GI Prophylaxis: Protonix IV Designated medical POA if patient is not able to make medical decisions for themselves: I have reviewed the following animal nutrition consultant notes: Cardiology I have reviewed the results of the following tests: Echo. CBC. CMP. I have ordered the following tests: I have discussed the care of this patient with the following independent historian: TRISTON. I have independently interpreted the following test below: I have discussed the management of this patient with the following physician: This patient has a high risk of morbidity due to the following reasons: Patient requires IV vasopressors which requires intensive monitoring of hemodynamics. Patient requires IV heparin which requires intensive monitoring for toxicity (coag panel) and bleeding. Objective - Vital Signs Vital signs: Vital Signs Temp 97.4 F L 03/19/24 12:00 Pulse 108 H 03/19/24 14:00 Resp 16 03/19/24 14:00 BP 90/60 03/19/24 14:00 Pulse Ox 97 03/19/24 14:00 FiO2 70 03/19/24 12:00 Intake & Output 03/18/24 03/19/24 03/19/24 18:59 06:59 18:59 Intake Total 963.530 0565.246 Output Total 775 1485 255 Balance -775 -1201.348 862.246 Weight 80 kg 80 kg Intake: IV 715 0.9NS 375 Sodium Chloride 0.9% 1, 340 000 ml @ 75 mls/hr IV . [id number] [facility] Rx#:[id number] Intake, IV Titration 283.652 302.246 Amount Cefepime 2 gm In Sodium 100 Chloride 0.9% 100 ml @ 25 mls/hr IVPB Q12H [facility] Rx# :[id number] Heparin Sod,Pork in 0.45% 94.789 155.211 NaCl 25,000 unit In 0.45 % NaCl 1 250ml.bag @ 18 UNITS/KG/HR 14.696 mls/hr IV .Q17H1M [facility] Rx#: [id number] Norepinephrine 4 mg In 88.863 147.035 Sodium Chloride 0.9% 250 ml @ 0.03 MCG/KG/MIN 9. 332 mls/hr IV .Q24H [facility] Rx#:[id number] Oral 100 Output: Urine 775 1485 255 Other: Voiding Method Indwelling Catheter Indwelling Catheter # Voids 4 - Labs CBC & Chem 7: 03/19/24 05:19 03/19/24 05:19 Labs: Abnormal Lab Results - Last 24 Hours (Table) 03/18/24 03/18/24 03/18/24 Range/Units 19:31 20:05 21:56 WBC (3.8-10.6) k/uL APTT 61.4 H (22.0-30.0) sec ABG pO2 78 L (83-108) mmHg Sodium (137-145) mmol/L Carbon Dioxide (22-30) mmol/L BUN (9-20) mg/dL Creatinine (0.66-1.25) mg/dL Glucose (74-99) mg/dL POC Glucose (mg/dL) 131 H (70-110) mg/dL Total Protein (6.3-8.2) g/dL Albumin (3.5-5.0) g/dL 03/19/24 03/19/24 03/19/24 Range/Units 00:23 05:19 05:19 WBC 27.1 H 33.0 H (3.8-10.6) k/uL APTT (22.0-30.0) sec ABG pO2 (83-108) mmHg Sodium 130 L (137-145) mmol/L Carbon Dioxide 19 L (22-30) mmol/L BUN 50 H (9-20) mg/dL Creatinine 2.17 H (0.66-1.25) mg/dL Glucose 135 H (74-99) mg/dL POC Glucose (mg/dL) (70-110) mg/dL Total Protein 5.2 L (6.3-8.2) g/dL Albumin 2.7 L (3.5-5.0) g/dL 03/19/24 03/19/24 Range/Units 06:26 13:54 WBC (3.8-10.6) k/uL APTT 74.9 H 59.0 H (22.0-30.0) sec ABG pO2 (83-108) mmHg Sodium (137-145) mmol/L Carbon Dioxide (22-30) mmol/L BUN (9-20) mg/dL Creatinine (0.66-1.25) mg/dL Glucose (74-99) mg/dL POC Glucose (mg/dL) (70-110) mg/dL Total Protein (6.3-8.2) g/dL Albumin (3.5-5.0) g/dL
[2024-03-19] MEDS ORDERED: RX INFO: IV CONTRAST WAS GIVEN 1 EACH MISC MISCELLANE PRN (15:10)
--- NOTE | 2024-03-19 15:13 | P.PCN ---
Date of Procedure: 03/19/24 Operative Findings: CARDIAC CATHETERIZATION PERFORMING PHYSICIAN: Chucho Luna MD, RPVI PROCEDURE PERFORMED: 1. Selective right and left coronary angiogram 2. Left heart catheterization 3. Ultrasound-guided access of the right radial artery and selective bilateral common femoral arteries angiogram INDICATION: Acute non-ST elevation myocardial infarction COMPLICATION: None APPROACH: Right radial artery LEVEL OF SEDATION: Moderate with a sedation length of 15 minutes PROCEDURE DESCRIPTION: After obtaining an informed consent, the patient was brought to cardiac general laborer. Local anesthesia was performed using lidocaine subcutaneously. The right radial artery was cannulated using Seldinger technique, the guidewire passed easily, following that we advanced a 5-Peruvian sheath dilator assembly, the wire and dilator were removed and sheath was flushed. Following that, 2 mg of verapamil along with 5000 unit heparin were given. Selective right and left coronary angiogram using a 6-Peruvian JR4 and JL 3.5 catheters. Following that we did left heart catheterization using 6-Peruvian pigtail catheter. After that I decided to place an Impella. I did access the left and then right common femoral arteries and angiogram was performed and showed diseased femoral arteries and for that reason I did not put the Impella. The procedure was completed there was no complication. SELECTIVE CORONARY ANGIOGRAM: The right coronary artery: Medium caliber vessel nondominant vessel Left main: Is angiographically normal The left circumflex: Large caliber vessel and dominant vessel with severe disease involving OM1 and OM 2 The left anterior descending artery: Large caliber vessel with intermediate to severe disease involving the proximal portion noted. HEMODYNAMICS: The LVEDP was 33 mmHg with no gradient was identified CONCLUSION: 1. Severe disease involving the first and second obtuse marginal branch of the left circumflex 2. Intermediate to severe disease involving the proximal LAD 3. Severely elevated left-sided filling pressure with LVEDP of 33 mm vera POSTPROCEDURE MANAGEMENT: Consider medical treatment at this point Consider revascularization once the kidney function permitting
[2024-03-19] MEDS: IOPAMIDOL-370 100ML BTL INJ ONE (15:14)
--- NOTE | 2024-03-19 15:20 | P.PN ---
Subjective Progress Note Date: 03/19/24 This is a 68-year-old male patient who came into the emergency department on with complaints of chest pain and shortness of breath. The patient apparently was taking out the garbage and he became quite winded and also developed a chest pain. However, the patient has been having some symptoms of nausea and emesis and diarrhea for the past 10 days. He came into the Emergency Department and the patient was found to be hypoxic and initially was placed on 2 L of oxygen by nasal cannula. He is EKG showed sinus tachycardia with some nonspecific ST segment changes in the anterior leads. Doppler of the lower extremities was negative for DVT. Initial white cell count was at 23 and the D- dimer was at 1.1 and the patient's hemoglobin was 15. The patient also had a acute on top of chronic kidney injury with a BUN of 40 and a creatinine of 2.04 and the patient also ruled in for an acute non-ST segment elevation myocardial infarction as the patient's troponin peaked at 2.3 and subsequent dropped down to 1.9. The patient was started on IV heparin. Echocardiogram was done earlier this morning and the patient was found to have also a component of CHF with an ejection fraction of 25 to 30%. There was diffuse global hypokinesis and moderate degree of pulm hypertension and mild to moderate mitral regurgitation. At a later stage, the patient became progressively more hypoxic. His oxygen requirements went up from 2 L up to 15 L and ultimately the patient was placed on a BiPAP pressure of 12/6 with an FiO2 of 70%. His current pulse ox is 91 to 92%. Repeat chest x-ray was done and it showed significant progression with development of diffuse interstitial infiltrates and significant consolidation of the right lung base which was highly suggestive of pneumonia specially the patient had a rise in his white cell count up to 34.8. Based on that, the p atient was started on broad-spectrum antibiotics. He was started on a combination of cefepime and Zithromax. Given a dose of Lasix 40 g IV with adequate urine output. He is currently on DuoNeb updrafts, IV heparin, and is also on prednisone 40 mg p.o. daily. Cardiology has been consulted on the case. Denies having any significant chest pain. Past medical history is positive for COPD, chronic smoking, peripheral vascular disease and the patient has undergone vascular intervention and angioplasty to his lower extremity for acute ischemic limb in addition to history of hypertension, chronic kidney disease stage III. Patient also known to have bilateral common iliac artery aneurysms and abdominal aortic aneurysm. He has an infrarenal renal abdominal aortic aneurysm measuring 4 cm and 8.6 cm in length and there is extensive mural thrombus. This is based on a previous CT of the abdominal aorta that was performed on this patient on 09/23/2022. In addition to that, the patient has extensive atherosclerotic changes in the bilateral SFA and short segment focal occlusion involving the right external iliac artery. On 03/19/2024, the patient is critically ill in the intensive care unit. The patient had an acute non-ST segment elevation myocardial infarction and the patient is possibly cardiogenic shock, hypotensive with diffuse bilateral pulmonary infiltrates. There was also concern of a right lower lobe pneumonia based on that the patient was started on broad-spectrum antibiotics. Noted, the patient was taken off the BiPAP and the patient is currently on 8 L of O2 nasal cannula. IV fluids are running at a rate of 75 cc an hour, maintenance and the patient is on norepinephrine running at 0.08 mcg/kg/min. He remains on IV heparin. Echocardiogram was completed and the patient was found to have impaired LV function with ejection fraction of 25 to 30% with global left ventricular dysfunction, moderate pulm hypertension with a PA pressure of 47 and mild to moderate mitral regurgitation and mild tricuspid regurgitation. The patient is awake and alert. Denies having any chest pain. White cell count is at 33 with a hemoglobin 13.8, BUN is 50 with a creatinine of 2.17 and sodium levels at 130 with a potassium level of 5.0. Serum bicarb is at 19. The troponins peaked at 2.1 and is currently down to 1.9. Overall fluid balance over the past 24 hours -1.9 L and the patient has produced approximate 2.2 L of urine output. The plan is to proceed with cardiac catheterization, coronary intervention if needed and mechanical support if needed. Meanwhile, a CAT scan of the chest was also done without contrast this morning and the patient was found to have diffuse bilateral pulmonary airspace disease and infiltrates in addition to lower lobe atelectatic changes and small to moderate-sized bilateral pleural effusion. The patient also has moderate degree of centrilobular emphysema noted. Antibiotic coverage is with cefepime and Zithromax. Objective - Vital Signs Vital signs: Vital Signs Temp 97.8 F 03/19/24 08:00 Pulse 93 03/19/24 08:00 Resp 15 03/19/24 08:00 BP 94/63 03/19/24 08:00 Pulse Ox 96 03/19/24 08:00 FiO2 70 03/19/24 07:33 Intake & Output 03/18/24 03/19/24 03/19/24 18:59 06:59 18:59 Intake Total 283.652 226.343 Output Total 775 1485 Balance -775 -1201.348 226.343 Weight 80 kg Intake: Intake, IV Titration 283.652 226.343 Amount Cefepime 2 gm In Sodium 100 Chloride 0.9% 100 ml @ 25 mls/hr IVPB Q12H [facility] Rx# :[id number] Heparin Sod,Pork in 0.45% 94.789 155.211 NaCl 25,000 unit In 0.45 % NaCl 1 250ml.bag @ 18 UNITS/KG/HR 14.696 mls/hr IV .Q17H1M [facility] Rx#: [id number] Norepinephrine 4 mg In 88.863 71.132 Sodium Chloride 0.9% 250 ml @ 0.03 MCG/KG/MIN 9. 332 mls/hr IV .Q24H [facility]EV[facility] Rx#:[id number] Output: Urine 775 1485 Other: Voiding Method Indwelling Catheter # Voids 4 - Exam The patient has labored breathing and the patient is currently on 8 L of oxygen by nasal cannula Head exam is unremarkable. No scleral icterus or corneal arcus noted. Neck is without jugular venous distension, thyromegaly, or carotid bruits. Carotid upstrokes are brisk bilaterally. Lungs examination involves extensive crackles involving the right mid and right lower lung area with few scattered expiratory wheezes Cardiac exam reveals the PMI to be normally sized and situated. Rhythm is regular. First and second heart sounds normal. No murmurs, rubs or gallops. Abdominal exam reveals normal bowel sounds, no masses, no organomegaly and no aortic enlargement. Extremities are nonedematous and the patient has significant diminished pulses in lower extremities bilaterally Examination of the skin revealed no evidence of significant rashes, suspicious appearing nevi or other concerning lesions. Neurologically, the patient is awake and alert and the patient does not have any focal neurological deficit. Cranial nerves are essentially intact. - Labs CBC & Chem 7: 03/19/24 05:19 03/19/24 05:19 Labs: Abnormal Lab Results - Last 24 Hours (Table) 03/18/24 03/18/24 03/18/24 Range/Units 14:08 19:31 20:05 WBC 34.8 H (3.8-10.6) k/uL APTT 61.4 H (22.0-30.0) sec ABG pO2 78 L (83-108) mmHg Sodium (137-145) mmol/L Carbon Dioxide (22-30) mmol/L BUN (9-20) mg/dL Creatinine (0.66-1.25) mg/dL Glucose (74-99) mg/dL POC Glucose (mg/dL) (70-110) mg/dL Total Protein (6.3-8.2) g/dL Albumin (3.5-5.0) g/dL 03/18/24 03/19/24 03/19/24 Range/Units 21:56 00:23 05:19 WBC 27.1 H 33.0 H (3.8-10.6) k/uL APTT (22.0-30.0) sec ABG pO2 (83-108) mmHg Sodium (137-145) mmol/L Carbon Dioxide (22-30) mmol/L BUN (9-20) mg/dL Creatinine (0.66-1.25) mg/dL Glucose (74-99) mg/dL POC Glucose (mg/dL) 131 H (70-110) mg/dL Total Protein (6.3-8.2) g/dL Albumin (3.5-5.0) g/dL 03/19/24 03/19/24 Range/Units 05:19 06:26 WBC (3.8-10.6) k/uL APTT 74.9 H (22.0-30.0) sec ABG pO2 (83-108) mmHg Sodium 130 L (137-145) mmol/L Carbon Dioxide 19 L (22-30) mmol/L BUN 50 H (9-20) mg/dL Creatinine 2.17 H (0.66-1.25) mg/dL Glucose 135 H (74-99) mg/dL POC Glucose (mg/dL) (70-110) mg/dL Total Protein 5.2 L (6.3-8.2) g/dL Albumin 2.7 L (3.5-5.0) g/dL Assessment and Plan Plan: Acute hypoxic respiratory failure with development of extensive right lower lobe consolidation highly suggestive of pneumonia with subsequent development of diffuse pulm vessel congestion/pulmonary edema and bilateral pleural effusions. The picture is consistent with CHF and possibly right lower lobe pneumonia. Patient remains on a combination of cefepime and Zithromax. He was taken off the BiPAP and the patient is currently on 8 L O2 nasal cannula. cute systolic heart failure with development of bilateral pleural effusion diffuse pulmonary edema Acute non-ST segment elevation myocardial infarction, the patient's troponin peaked at 2.3, downtrending Systolic heart failure with ejection fraction of 25 to 30% with global hypokinesis and mild to moderate mitral regurgitation, rule out underlying ischemic cardiomyopathy. The patient also has moderate degree of pulmonary hypertension COPD with acute exacerbation likely secondary to underlying pneumonia Chronic stage III kidney disease with acute kidney injury on top of his chronic renal failure. patient is nonoliguric Severe peripheral vascular disease Abdominal arctic aneurysm, infrarenal measuring 4 cm in size Bilateral iliac artery aneurysms Acute leukocytosis Hypertension Hyperlipidemia History of smoking Plan Keep O2 at 8 L nasal cannula CAT scan of the chest was reviewed Cefepime and Zithromax as a broad-spectrum antibiotic coverage The patient is a cardiac catheterization and coronary intervention if needed, mechanical support if needed Blood cultures are negative Legionella urine antigen is negative Viral screen has been negative IV heparin Continue aspirin Continue metoprolol May need to be diuresed and this will be discussed further with cardiology Will continue to follow make further recommendations based on his progress. Condition is critical. The patient will be taken to the [facility] for a cardiac catheterization, possibly mechanical support if needed. Critical care evaluation that was done more than 30 minutes.
[2024-03-19] MEDS: SODIUM CHLORIDE 0.9% 1,000 ML IV SCH (15:41)
[2024-03-20] MEDS ORDERED: HEPARIN SODIUM,PORCINE 10,000 UNIT in SODIUM CHLORIDE 0.9% 1,000 ML IRRIGATION PRN (07:00)
[2024-03-20] MEDS ORDERED: HEPARIN SODIUM,PORCINE (1 ML) 2,500 UNIT in SODIUM CHLORIDE 0.9% 250 ML IRRIGATION PRN (07:00)
[2024-03-20 07:09] LABS: HCT 38.2 % (39.0-53.0); HGB 12.3 gm/dL (13.0-17.5); MCH 30.9 pg (25.0-35.0); MCHC 32.1 g/dL (31.0-37.0); MCV 96.2 fL (80.0-100.0); Mean Platelet Volume 8.3; Platelet Count 289 k/uL (150-450); RBC 3.97 m/uL (4.30-5.90); RDW 13.7 % (11.5-15.5); WBC 26.2 k/uL (3.8-10.6)
--- NOTE | 2024-03-20 07:23 | XR ---
EXAMINATION TYPE: XR chest 1V portable DATE OF EXAM: 03/20/2024 COMPARISON: 03/18/2024 CLINICAL INDICATION: Male, 68 years old with history of f/u pneumonia; chf; TECHNIQUE: Single frontal view of the chest is obtained. FINDINGS: Mixed interstitial and alveolar infiltrates persist throughout both lung vasquez without si gnificant interval change. There appears to be superimposed pulmonary venous congestion and tiny effu sions. There is mild cardiomegaly. IMPRESSION: Pneumonia versus congestive failure. Correlate with BNP. [facility], , 03/20/2024 7:20 AM
[2024-03-20 08:01] LABS: ALT 8 U/L (4-49); AST 20 U/L (17-59); African American GFR (CKD) 37 (>60 ml/min/1.73 sqM); Albumin 2.6 g/dL (3.5-5.0); Alkaline Phosphatase 64 U/L (38-126); Anion Gap 11 mmol/L; Blood Urea Nitrogen 57 mg/dL (9-20); Carbon Dioxide 19 mmol/L (22-30); Chloride 103 mmol/L (98-107); Glucose 148 mg/dL (74-99); Magnesium 2.2 mg/dL (1.6-2.3); Non-African American GFR(CKD) 32 (>60 ml/min/1.73 sqM); Potassium 4.9 mmol/L (3.5-5.1); Sodium 133 mmol/L (137-145); Total Bilirubin 0.5 mg/dL (0.2-1.3); Total Protein 4.9 g/dL (6.3-8.2)
--- NOTE | 2024-03-20 08:03 | P.PN ---
Subjective Progress Note Date: 03/20/24 The patient is a pleasant 68-year-old gentleman with a past medical history significant for lower extremities PAD with prior angioplasty as well as severe cardiomyopathy and hypertension and dyslipidemia and multiple comorbid conditions who was admitted to the hospital with acute non-ST ovation myocardial infarction complicated by acute hypoxic respiratory failure secondary to possible underlying pneumonia but also heart failure. The ejection fraction was about 20 to 25% based on the echocardiogram during this admission. Subsequently the patient was admitted to the intensive care unit. March 19, 2024 The patient was seen and evaluated this morning. He still hypoxic requiring oxygen through nasal cannula at this point but he is overall doing slightly better but beside that he has been also hypotensive requiring norepinephrine. The creatinine today is slightly worse. The plan is to pursue with a heart catheterization today with or without angioplasty depends on the amount of contrast we use and also assess the LVEDP to see if the patient also have ongoing cardiogenic shock behind his hypotension. The physical examination is remarkable for regular rhythm with bilateral expiratory wheezing and no edema was noted in the lower extremities March 20, 2024 The patient was seen and evaluated this morning with he underwent a heart catheterization yesterday which showed severe disease involving the first and second obtuse marginal branches and intermediate to severe disease involving the LAD. Medical treatment was advised in the light of contrast and he need to undergo revascularization in the next few days. Meanwhile an attempt to place an Impella CP was done but he does have diseased femoral arteries bilaterally and for that reason the Impella CP procedure was canceled. He was seen this morning. He is still unstable and requiring small dose of norepinephrine we are trying to wean him from. Beside that he is on beta-konrad and he is on aspirin and statin. I am going to add Farxiga/SGLT2 inhibitors to the current medical regimen for the treatment of cardiomyopathy and also added Plavix for the treatment for acute non-ST ovation myocardial infarction. Meanwhile try to wean the patient from norepinephrine. Consider starting the patient on either KATIE or ARB or Arni once the pressure permitting. Consider revascularization in the next few days. The physical examination is remarkable for regular rhythm with a distant heart sounds and bilateral expiratory wheezing and no edema was noted Assessment Acute non-ST elevation myocardial infarction Severe cardiomyopathy Acute hypoxic respiratory failure Possible pneumonia sepsis Multiple comorbid conditions Plan Continue the current medical regimen including aspirin and statin Add Plavix/P2 Y12 inhibitors Add SGLT2 inhibitors using Farxiga Consider adding KATIE or ARB or Arni once the pressure permitting Give the patient 1 dose of Lasix once Try to wean him from norepinephrine Follow-up with the patient Objective - Vital Signs Vital signs: Vital Signs Temp 96.7 F L 03/20/24 04:00 Pulse 96 03/20/24 07:38 Resp 12 03/20/24 07:15 BP 103/70 03/20/24 07:15 Pulse Ox 97 03/20/24 07:15 FiO2 70 03/19/24 07:33 Intake & Output 03/19/24 03/20/24 03/20/24 18:59 06:59 18:59 Intake Total 4923.073 5799.069 20 Output Total 395 605 45 Balance 1022.246 414.069 -25 Weight 80 kg 82.3 kg Intake: IV 1015 405 20 0.9NS 675 405 20 Sodium Chloride 0.9% 1, 340 000 ml @ 75 mls/hr IV . [id number] [facility]EVE Rx#:[id number] Intake, IV Titration 302.246 314.069 Amount Cefepime 2 gm In Sodium 100 Chloride 0.9% 100 ml @ 25 mls/hr IVPB Q12H [facility] Rx# :[id number] Heparin Sod,Pork in 0.45% 155.211 NaCl 25,000 unit In 0.45 % NaCl 1 250ml.bag @ 18 UNITS/KG/HR 14.696 mls/hr IV .Q17H1M [facility] Rx#: [id number] Norepinephrine 4 mg In 147.035 214.069 Sodium Chloride 0.9% 250 ml @ 0.03 MCG/KG/MIN 9. 332 mls/hr IV .Q24H [facility]EVE Rx#:[id number] Oral 100 300 Output: Urine 395 605 45 Other: Voiding Method Indwelling Catheter Indwelling Catheter - Labs CBC & Chem 7: 03/20/24 05:48 03/19/24 05:19 Labs: Abnormal Lab Results - Last 24 Hours (Table) 03/19/24 03/20/24 Range/Units 13:54 05:48 WBC 26.2 H (3.8-10.6) k/uL RBC 3.97 L (4.30-5.90) m/uL Hgb 12.3 L (13.0-17.5) gm/dL Hct 38.2 L (39.0-53.0) % APTT 59.0 H (22.0-30.0) sec Microbiology - Last 24 Hours (Table) 03/18/24 14:55 Blood Culture - Preliminary Blood
[2024-03-20] MEDS: FUROSEMIDE 10 MG/ML 2 ML VIAL IV ONE (09:00)
[2024-03-20] MEDS ORDERED: PANTOPRAZOLE 40 MG/10 ML VIAL IVP SCH (09:00)
[2024-03-20] MEDS: CLOPIDOGREL 75 MG TAB PO SCH (09:01)
[2024-03-20] MEDS: DAPAGLIFLOZIN PROPANEDIOL 5 MG TABLET PO SCH (09:01)
[2024-03-20] MEDS: HEPARIN SODIUM,PORCINE 5,000 UNIT/ML 1 ML VIAL SQ SCH (15:50)
--- NOTE | 2024-03-20 16:49 | P.PN ---
Subjective Progress Note Date: 03/20/24 This is a 68-year-old male patient who came into the emergency department on with complaints of chest pain and shortness of breath. The patient apparently was taking out the garbage and he became quite winded and also developed a chest pain. However, the patient has been having some symptoms of nausea and emesis and diarrhea for the past 10 days. He came into the Emergency Department and the patient was found to be hypoxic and initially was placed on 2 L of oxygen by nasal cannula. He is EKG showed sinus tachycardia with some nonspecific ST segment changes in the anterior leads. Doppler of the lower extremities was negative for DVT. Initial white cell count was at 23 and the D- dimer was at 1.1 and the patient's hemoglobin was 15. The patient also had a acute on top of chronic kidney injury with a BUN of 40 and a creatinine of 2.04 and the patient also ruled in for an acute non-ST segment elevation myocardial infarction as the patient's troponin peaked at 2.3 and subsequent dropped down to 1.9. The patient was started on IV heparin. Echocardiogram was done earlier this morning and the patient was found to have also a component of CHF with an ejection fraction of 25 to 30%. There was diffuse global hypokinesis and moderate degree of pulm hypertension and mild to moderate mitral regurgitation. At a later stage, the patient became progressively more hypoxic. His oxygen requirements went up from 2 L up to 15 L and ultimately the patient was placed on a BiPAP pressure of 12/6 with an FiO2 of 70%. His current pulse ox is 91 to 92%. Repeat chest x-ray was done and it showed significant progression with development of diffuse interstitial infiltrates and significant consolidation of the right lung base which was highly suggestive of pneumonia specially the patient had a rise in his white cell count up to 34.8. Based on that, the p atient was started on broad-spectrum antibiotics. He was started on a combination of cefepime and Zithromax. Given a dose of Lasix 40 g IV with adequate urine output. He is currently on DuoNeb updrafts, IV heparin, and is also on prednisone 40 mg p.o. daily. Cardiology has been consulted on the case. Denies having any significant chest pain. Past medical history is positive for COPD, chronic smoking, peripheral vascular disease and the patient has undergone vascular intervention and angioplasty to his lower extremity for acute ischemic limb in addition to history of hypertension, chronic kidney disease stage III. Patient also known to have bilateral common iliac artery aneurysms and abdominal aortic aneurysm. He has an infrarenal renal abdominal aortic aneurysm measuring 4 cm and 8.6 cm in length and there is extensive mural thrombus. This is based on a previous CT of the abdominal aorta that was performed on this patient on 09/23/2022. In addition to that, the patient has extensive atherosclerotic changes in the bilateral SFA and short segment focal occlusion involving the right external iliac artery. On 03/19/2024, the patient is critically ill in the intensive care unit. The patient had an acute non-ST segment elevation myocardial infarction and the patient is possibly cardiogenic shock, hypotensive with diffuse bilateral pulmonary infiltrates. There was also concern of a right lower lobe pneumonia based on that the patient was started on broad-spectrum antibiotics. Noted, the patient was taken off the BiPAP and the patient is currently on 8 L of O2 nasal cannula. IV fluids are running at a rate of 75 cc an hour, maintenance and the patient is on norepinephrine running at 0.08 mcg/kg/min. He remains on IV heparin. Echocardiogram was completed and the patient was found to have impaired LV function with ejection fraction of 25 to 30% with global left ventricular dysfunction, moderate pulm hypertension with a PA pressure of 47 and mild to moderate mitral regurgitation and mild tricuspid regurgitation. The patient is awake and alert. Denies having any chest pain. White cell count is at 33 with a hemoglobin 13.8, BUN is 50 with a creatinine of 2.17 and sodium levels at 130 with a potassium level of 5.0. Serum bicarb is at 19. The troponins peaked at 2.1 and is currently down to 1.9. Overall fluid balance over the past 24 hours -1.9 L and the patient has produced approximate 2.2 L of urine output. The plan is to proceed with cardiac catheterization, coronary intervention if needed and mechanical support if needed. Meanwhile, a CAT scan of the chest was also done without contrast this morning and the patient was found to have diffuse bilateral pulmonary airspace disease and infiltrates in addition to lower lobe atelectatic changes and small to moderate-sized bilateral pleural effusion. The patient also has moderate degree of centrilobular emphysema noted. Antibiotic coverage is with cefepime and Zithromax. On 03/20/2024, the patient is being seen for a follow-up. The patient seems to be less short of breath compared to yesterday. He is currently on 5 L of oxygen by nasal cannula. Awake and alert and communicating. He has some cough and congestion. No significant bronchospasm or wheezing. He was taken off the no repinephrine earlier this morning and urine output is in order of 30 cc an hour. He underwent a cardiac catheterization yesterday and the patient was found to have significant elevation of left ventricular end-diastolic pressure. The patient also had severe disease involving the first and the second obtuse marginal branch of the circumflex. The patient also had intermediate to severe disease involving the proximal LAD. No intervention was done. The patient remains on broad-spectrum antibiotics and the patient remains on IV cefepime. The white cell count is improved compared to yesterday and the currently is down to 26 with a hemoglobin 12.3 and a platelet count of 289. BUN is 57 with a creatinine of 2.07 and sodium levels at 133 and a potassium level is at 4.9. LFTs are normal. Blood cultures are negative thus far. The patient also is on DuoNeb nebulized treatments [id number]. The patient remains on IV Solu- Medrol 40 mg every 8 hours. He will be started on diuretics. He was started on Farxiga. He remains on aspirin and Plavix. The chest x-ray from today is a combination of CHF and pneumonia. Objective - Vital Signs Vital signs: Vital Signs Temp 96.7 F L 03/20/24 04:00 Pulse 96 03/20/24 07:38 Resp 12 03/20/24 07:15 BP 103/70 03/20/24 07:15 Pulse Ox 97 03/20/24 07:15 FiO2 70 03/19/24 07:33 Intake & Output 03/19/24 03/20/24 03/20/24 18:59 06:59 18:59 Intake Total 9211.011 3083.069 34.63 Output Total 395 605 45 Balance 1022.246 414.069 -10.37 Weight 80 kg 82.3 kg Intake: IV 1015 405 20 0.9NS 675 405 20 Sodium Chloride 0.9% 1, 340 000 ml @ 75 mls/hr IV . [id number] [facility] Rx#:[id number] Intake, IV Titration 302.246 314.069 14.63 Amount Cefepime 2 gm In Sodium 100 Chloride 0.9% 100 ml @ 25 mls/hr IVPB Q12H [facility] Rx# :[id number] Heparin Sod,Pork in 0.45% 155.211 NaCl 25,000 unit In 0.45 % NaCl 1 250ml.bag @ 18 UNITS/KG/HR 14.696 mls/hr IV .Q17H1M [facility] Rx#: [id number] Norepinephrine 4 mg In 147.035 214.069 14.63 Sodium Chloride 0.9% 250 ml @ 0.03 MCG/KG/MIN 9. 332 mls/hr IV .Q24H [facility] Rx#:[id number] Oral 100 300 Output: Urine 395 605 45 Other: Voiding Method Indwelling Catheter Indwelling Catheter - Exam The patient has labored breathing and the patient is currently on 5 L of oxygen by nasal cannula Head exam is unremarkable. No scleral icterus or corneal arcus noted. Neck is without jugular venous distension, thyromegaly, or carotid bruits. Carotid upstrokes are brisk bilaterally. Lungs examination involves extensive crackles involving the right mid and right lower lung area with few scattered expiratory wheezes Cardiac exam reveals the PMI to be normally sized and situated. Rhythm is regular. First and second heart sounds normal. No murmurs, rubs or gallops. Abdominal exam reveals normal bowel sounds, no masses, no organomegaly and no aortic enlargement. Extremities are nonedematous and the patient has significant diminished pulses in lower extremities bilaterally Examination of the skin revealed no evidence of significant rashes, suspicious appearing nevi or other concerning lesions. Neurologically, the patient is awake and alert and the patient does not have any focal neurological deficit. Cranial nerves are essentially intact. - Labs CBC & Chem 7: 03/20/24 05:48 03/20/24 05:48 Labs: Abnormal Lab Results - Last 24 Hours (Table) 03/19/24 03/20/24 03/20/24 Range/Units 13:54 05:48 05:48 WBC 26.2 H (3.8-10.6) k/uL RBC 3.97 L (4.30-5.90) m/uL Hgb 12.3 L (13.0-17.5) gm/dL Hct 38.2 L (39.0-53.0) % APTT 59.0 H (22.0-30.0) sec Sodium 133 L (137-145) mmol/L Carbon Dioxide 19 L (22-30) mmol/L BUN 57 H (9-20) mg/dL Creatinine 2.07 H (0.66-1.25) mg/dL Glucose 148 H (74-99) mg/dL Total Protein 4.9 L (6.3-8.2) g/dL Albumin 2.6 L (3.5-5.0) g/dL Microbiology - Last 24 Hours (Table) 03/18/24 14:55 Blood Culture - Preliminary Blood Assessment and Plan Plan: Acute hypoxic respiratory failure with development of extensive right lower lobe consolidation highly suggestive of pneumonia with subsequent development of diffuse pulm vessel congestion/pulmonary edema and bilateral pleural effusions. The picture is consistent with CHF and possibly right lower lobe pneumonia. Patient remains on a combination of cefepime. He was taken off the BiPAP and the patient is currently on 5 L of oxygen by nasal cannula. Acute systolic heart failure with development of bilateral pleural effusion diffuse pulmonary edema Acute non-ST segment elevation myocardial infarction, the patient's troponin peaked at 2.3, downtrending. Cardiac catheterization showed disease involving the obtuse marginal branch of the circumflex and proximal LAD lesion. Intervention to be done at a later stage as the patient has a component of acute kidney injury on top of chronic kidney disease. Systolic heart failure with ejection fraction of 25 to 30% with global hypokinesis and mild to moderate mitral regurgitation, rule out underlying ischemic cardiomyopathy. The patient also has moderate degree of pulmonary hypertension. There is also significant elevation of left ventricular end- diastolic pressure based on the most recent cardiac catheterization. COPD with acute exacerbation likely secondary to underlying pneumonia, currently on bronchodilators and steroids. Chronic stage III kidney disease with acute kidney injury on top of his chronic renal failure. patient is nonoliguric Severe peripheral vascular disease Abdominal arctic aneurysm, infrarenal measuring 4 cm in size Bilateral iliac artery aneurysms Acute leukocytosis, improving Hypertension Hyperlipidemia History of smoking Plan Keep O2 at 8 L nasal cannula CAT scan of the chest was reviewed Cefepime as a broad-spectrum antibiotic coverage The patient is a cardiac catheterization from yesterday was noted and the patient will need intervention at a later stage once his renal function further stabilizes. Blood cultures are negative Legionella urine antigen is negative Viral screen has been negative Continue aspirin and the patient is also on Plavix Continue metoprolol Start the patient on Lasix 40 mg IV every 12 hours Start the patient on Farxiga Patient is currently off pressors Will continue to follow make further recommendations based on his progress. Condition is critical. Critical care evaluation that was done more than 30 minutes. Time with Patient: Greater than 30
--- NOTE | 2024-03-20 17:32 | P.PN ---
Subjective Progress Note Date: 03/20/24 68-year-old male with a past medical history of hypertension, COPD with continued nicotine dependence, peripheral arterial disease, and GERD. He presented to the emergency department with a chief complaint of chest pain. Upon arrival to our facility, patient underwent evaluation in the emergency department. BP 100/65, HR 119, RR 20, T 97.3 F, and SpO2 of 98% on RA. EKG was completed showing sinus tachycardia at 101 bpm with RBBB, T wave inversion in leads aVL and V2 through V6. Chest x-ray completed showing right lower lung airspace opacities with nodular like appearance recommending further evaluation with CT to rule out underlying pulmonary nodule/malignancy. RLE Doppler completed negative for DVT. CBC, CMP, Coag panel significant for WBC 14.3, Na 130, BUN 40, Cr 2.04, glu 149, alb 3.2. Magnesium 2.2. Troponin 2.3, 2.14, 2.11, 1.97. proBNP was 29,600. Patient started on heparin infusion for treatment of NSTEMI and admitted under our services with consultation to cardiology. His res piratory status worsened which prompted admission to ICU. CT chest showed bilateral airspace consolidations with mild-mod bilateral parapneumonic effusions, patient was started on Azithromycin and Cefepime. 03/20 Patient was seen and examined this morning. Feeling stronger. Breathing better. Currently on 5L NC. Underwent cardiac cath yesterday showing severe disease on the 1st and 2nd obtuse marginal branch of the LCx and intermediate- severe disease of the proximal LAD. Reports wet cough with sticky sputum. Pressors include Levophed at 0.03 mcg/kg/min. CBC and CMP significant for WBC 26.2, RBC 3.97, Hg 12.3, Hct 38.2, Na 133, bicarb 19, BUN 57, Cr 2.07, glu 148, alb 2.6. CXR shows bilateral airspace consolidations without much change. Antibiotics include Azithromycin and Cefepime. General: non toxic, no distress, appears at stated age Derm: warm, dry Head: atraumatic, normocephalic, symmetric Eyes: EOMI, no lid lag, anicteric sclera Mouth: no lip lesion, mucus membranes moist Cardiovascular: S1S2 reg, no murmur Lungs: Coarse BS bilateral, no rhonchi, no rales , no accessory muscle use Ext: no gross muscle atrophy, no edema, no contractures Neuro: no focal neuro deficits Psych: Alert, oriented, appropriate affect Based on my assessment of this patient, this patient meets a high complexity level of care. Septic shock secondary to multifocal PNA: Continue Azithromycin 500 mg IV QD and Cefepime 2g IV BID (D3). Wean pressors to maintain MAP > 65. Judicious use of fluids given low EF. Follow sputum and blood cultures. Pulmonary on board. Acute hypoxic respiratory failure secondary to above NSTEMI: ASA 81 mg PO QD. Lipitor 80 mg PO QD. + Plavix 75 mg PO QD. Metoprolol 25 mg PO BID if BP permits. Cardiology recommends intervention after improvement in renal function. HFrEF: Metoprolol as above. + Farxiga 5 mg PO QD. GDMT once BP improves. Possible need for LifeVest on discharge. Cardiology on board. Acute kidney injury on CKD: Holding Losartan/HCTZ. Monitor renal function. COPD with mild exacerbation: DuoNeb QID scheduled and PRN for SOB/wheezing. SoluMedrol 40 mg IV TID. Nicotine dependence: Nicotine patch. Hypertension: Hold home medications (Losartan/HCTZ, Amlodipine) due to hypotensive nature. CODE STATUS: FULL CODE. DVT Prophylaxis: Heparin SQ. GI Prophylaxis: Holding Protonix given renal function. Designated medical POA if patient is not able to make medical decisions for themselves: I have reviewed the following personal consultant notes: Pulmonary, Cath note, Cardiology I have reviewed the results of the following tests: CBC. CMP. I have ordered the following tests: I have discussed the care of this patient with the following independent historian: I have independently interpreted the following test below: CXR I have discussed the management of this patient with the following physician: This patient has a high risk of morbidity due to the following reasons: Patient requires IV vasopressors which requires intensive monitoring of hemodynamics. Objective - Vital Signs Vital signs: Vital Signs Temp 96.7 F L 03/20/24 04:00 Pulse 96 03/20/24 07:38 Resp 12 03/20/24 07:15 BP 103/70 03/20/24 07:15 Pulse Ox 97 03/20/24 07:15 FiO2 70 03/19/24 07:33 Intake & Output 03/19/24 03/20/24 03/20/24 18:59 06:59 18:59 Intake Total 1377.265 4978.069 20 Output Total 395 605 45 Balance 1022.246 414.069 -25 Weight 80 kg 82.3 kg Intake: IV 1015 405 20 0.9NS 675 405 20 Sodium Chloride 0.9% 1, 340 000 ml @ 75 mls/hr IV . [id number] [facility] Rx#:[id number] Intake, IV Titration 302.246 314.069 Amount Cefepime 2 gm In Sodium 100 Chloride 0.9% 100 ml @ 25 mls/hr IVPB Q12H [facility] Rx# :[id number] Heparin Sod,Pork in 0.45% 155.211 NaCl 25,000 unit In 0.45 % NaCl 1 250ml.bag @ 18 UNITS/KG/HR 14.696 mls/hr IV .Q17H1M [facility] Rx#: [id number] Norepinephrine 4 mg In 147.035 214.069 Sodium Chloride 0.9% 250 ml @ 0.03 MCG/KG/MIN 9. 332 mls/hr IV .Q24H [facility] Rx#:[id number] Oral 100 300 Output: Urine 395 605 45 Other: Voiding Method Indwelling Catheter Indwelling Catheter - Labs CBC & Chem 7: 03/20/24 05:48 03/20/24 05:48 Labs: Abnormal Lab Results - Last 24 Hours (Table) 03/19/24 03/20/24 03/20/24 Range/Units 13:54 05:48 05:48 WBC 26.2 H (3.8-10.6) k/uL RBC 3.97 L (4.30-5.90) m/uL Hgb 12.3 L (13.0-17.5) gm/dL Hct 38.2 L (39.0-53.0) % APTT 59.0 H (22.0-30.0) sec Sodium 133 L (137-145) mmol/L Carbon Dioxide 19 L (22-30) mmol/L BUN 57 H (9-20) mg/dL Creatinine 2.07 H (0.66-1.25) mg/dL Glucose 148 H (74-99) mg/dL Total Protein 4.9 L (6.3-8.2) g/dL Albumin 2.6 L (3.5-5.0) g/dL Microbiology - Last 24 Hours (Table) 03/18/24 14:55 Blood Culture - Preliminary Blood
[2024-03-20] MEDS: FUROSEMIDE 10 MG/ML 4 ML VIAL IV SCH (21:06)
[2024-03-21] MEDS: IPRATROPIUM-ALBUTEROL 3 ML NEB INHALATION PRN (03:51)
[2024-03-21 06:36] LABS: ALT 16 U/L (4-49); AST 30 U/L (17-59); African American GFR (CKD) 29 (>60 ml/min/1.73 sqM); Albumin 3.1 g/dL (3.5-5.0); Alkaline Phosphatase 71 U/L (38-126); Anion Gap 9 mmol/L; Blood Urea Nitrogen 70 mg/dL (9-20); Carbon Dioxide 16 mmol/L (22-30); Chloride 104 mmol/L (98-107); Glucose 173 mg/dL (74-99); Magnesium 2.1 mg/dL (1.6-2.3); Non-African American GFR(CKD) 26 (>60 ml/min/1.73 sqM); Potassium 4.7 mmol/L (3.5-5.1); Sodium 129 mmol/L (137-145); Total Bilirubin 0.5 mg/dL (0.2-1.3); Total Protein 5.5 g/dL (6.3-8.2)
--- NOTE | 2024-03-21 06:41 | P.PN ---
Subjective Progress Note Date: 03/21/24 The patient is a pleasant 68-year-old gentleman with a past medical history significant for lower extremities PAD with prior angioplasty as well as severe cardiomyopathy and hypertension and dyslipidemia and multiple comorbid conditions who was admitted to the hospital with acute non-ST ovation myocardial infarction complicated by acute hypoxic respiratory failure secondary to possible underlying pneumonia but also heart failure. The ejection fraction was about 20 to 25% based on the echocardiogram during this admission. Subsequently the patient was admitted to the intensive care unit. March 19, 2024 The patient was seen and evaluated this morning. He still hypoxic requiring oxygen through nasal cannula at this point but he is overall doing slightly better but beside that he has been also hypotensive requiring norepinephrine. The creatinine today is slightly worse. The plan is to pursue with a heart catheterization today with or without angioplasty depends on the amount of contrast we use and also assess the LVEDP to see if the patient also have ongoing cardiogenic shock behind his hypotension. The physical examination is remarkable for regular rhythm with bilateral expiratory wheezing and no edema was noted in the lower extremities March 20, 2024 The patient was seen and evaluated this morning with he underwent a heart catheterization yesterday which showed severe disease involving the first and second obtuse marginal branches and intermediate to severe disease involving the LAD. Medical treatment was advised in the light of contrast and he need to undergo revascularization in the next few days. Meanwhile an attempt to place an Impella CP was done but he does have diseased femoral arteries bilaterally and for that reason the Impella CP procedure was canceled. He was seen this morning. He is still unstable and requiring small dose of norepinephrine we are trying to wean him from. Beside that he is on beta-konrad and he is on aspirin and statin. I am going to add Farxiga/SGLT2 inhibitors to the current medical regimen for the treatment of cardiomyopathy and also added Plavix for the treatment for acute non-ST ovation myocardial infarction. Meanwhile try to wean the patient from norepinephrine. Consider starting the patient on either KATIE or ARB or Arni once the pressure permitting. Consider revascularization in the next few days. The physical examination is remarkable for regular rhythm with a distant heart sounds and bilateral expiratory wheezing and no edema was noted March 29, 2024 The patient was seen and evaluated this morning. He is overall doing better. He is off norepinephrine. The pressure has been marginal in the 90s and the kidney function remains overall stable with a creatinine around 2. With that being said I am going to decrease the dose of Lasix to 20 mg IV twice daily with he is not in overt heart failure and he is not significantly hypoxic at this point. Beside that continue the current medical regimen including dual antiplatelet therapy along with a statin along with beta-konrad. Consider maximize medical treatment for cardiomyopathy by adding either KATIE inhibitor or ARB or Arni once the creatinine is stable and the blood pressure permitting. The physical examination is remarkable for regular rhythm with diminished breathing sounds bilaterally but no crackles was here and no edema was noted in the lower extremities Assessment Acute non-ST elevation myocardial infarction Severe cardiomyopathy Acute hypoxic respiratory failure Possible pneumonia sepsis Multiple comorbid conditions Plan Continue the current medical regimen including dual antiplatelet therapy Continue high intensity statin Consider maximize medical treatment for cardiomyopathy once the kidney function is stable and the pressure permitting Decrease the dose of Lasix giving the marginally low blood pressure and abnormal creatinine Consider coronary revascularization down the line either as an inpatient or as an outpatient Follow-up with the patient Objective - Vital Signs Vital signs: Vital Signs Temp 97.5 F L 03/21/24 04:00 Pulse 84 03/21/24 06:00 Resp 13 03/21/24 06:00 BP 92/59 03/21/24 06:00 Pulse Ox 95 03/21/24 06:00 FiO2 70 03/19/24 07:33 Intake & Output 03/20/24 03/20/24 03/21/24 06:59 18:59 06:59 Intake Total 5662.133 2325.63 220 Output Total 605 1165 885 Balance 414.069 9.63 -665 Weight 82.3 kg 83.1 kg Intake: IV 405 510 220 0.9NS 405 210 120 Azithromycin 500 mg In 250 Sodium Chloride 0.9% 250 ml @ 250 mls/hr IVPB DAILY [facility] Rx#:[id number] Cefepime 2 gm In Sodium 50 100 Chloride 0.9% 100 ml @ 25 mls/hr IVPB Q12H [facility] Rx# :[id number] Intake, IV Titration 314.069 14.63 Amount Cefepime 2 gm In Sodium 100 Chloride 0.9% 100 ml @ 25 mls/hr IVPB Q12H [facility] Rx# :[id number] Norepinephrine 4 mg In 214.069 14.63 Sodium Chloride 0.9% 250 ml @ 0.03 MCG/KG/MIN 9. 332 mls/hr IV .Q24H [facility] Rx#:[id number] Oral 300 650 Output: Urine 605 1165 885 Other: Voiding Method Indwelling Catheter Indwelling Catheter Indwelling Catheter - Labs CBC & Chem 7: 03/20/24 05:48 03/21/24 05:22 Labs: Abnormal Lab Results - Last 24 Hours (Table) 03/20/24 03/20/24 03/21/24 Range/Units 05:48 05:48 05:22 WBC 26.2 H (3.8-10.6) k/uL RBC 3.97 L (4.30-5.90) m/uL Hgb 12.3 L (13.0-17.5) gm/dL Hct 38.2 L (39.0-53.0) % Sodium 133 L 129 L (137-145) mmol/L Carbon Dioxide 19 L 16 L (22-30) mmol/L BUN 57 H 70 H (9-20) mg/dL Creatinine 2.07 H 2.50 H (0.66-1.25) mg/dL Glucose 148 H 173 H (74-99) mg/dL Total Protein 4.9 L 5.5 L (6.3-8.2) g/dL Albumin 2.6 L 3.1 L (3.5-5.0) g/dL Microbiology - Last 24 Hours (Table) 03/18/24 14:55 Blood Culture - Preliminary Blood
[2024-03-21 07:03] LABS: HCT 38.9 % (39.0-53.0); HGB 12.4 gm/dL (13.0-17.5); MCH 31.5 pg (25.0-35.0); MCHC 31.9 g/dL (31.0-37.0); MCV 98.6 fL (80.0-100.0); Mean Platelet Volume 8.5; Platelet Count 234 k/uL (150-450); RBC 3.94 m/uL (4.30-5.90); RDW 13.7 % (11.5-15.5); WBC 27.9 k/uL (3.8-10.6)
--- NOTE | 2024-03-21 08:22 | XR ---
EXAMINATION TYPE: XR chest 1V portable DATE OF EXAM: 03/21/2024 COMPARISON: 03/20/2024 CLINICAL INDICATION: Male, 68 years old with history of f/u pneumonia; chf; TECHNIQUE: Single frontal view of the chest is obtained. FINDINGS: Stable scattered reticulonodular infiltrates throughout both lung vasquez greatest at the r ight lung base. Small effusions noted. The cardiac silhouette size is within normal limits. The oss eous structures are intact. IMPRESSION: Pneumonia versus CHF. [facility], , 03/21/2024 8:20 AM
[2024-03-21] MEDS: FUROSEMIDE 10 MG/ML 4 ML VIAL IV SCH (10:50)
--- NOTE | 2024-03-21 11:30 | US ---
EXAMINATION TYPE: US renals and bladder DATE OF EXAM: 03/21/2024 COMPARISON: NONE CLINICAL INDICATION: Male, 68 years old with history of KONSTANTIN on CKD; Abnormal labs. Portable inpatien t exam. Bladder hernandez. TECHNIQUE: Grayscale imaging of the bilateral kidneys and urinary bladder: FINDINGS: EXAM MEASUREMENTS: Right Kidney: 9.1 x 4.6 x 4.6 cm Left Kidney: 10.3 x 4.4 x 4.9 cm Right Kidney: Superior mid cortical anechoic lesion = 0.9 x 0.8 x 0.8 cm Left Kidney: Possible cortical thinning Bladder: Hernandez seen Bilateral Jets not seen due to hernandez There is no evidence for hydronephrosis at this point in time. No nephrolithiasis is seen. No biju s are identified. IMPRESSION: Subcentimeter cyst right kidney. Renal parenchymal thinning. [facility], , 03/21/2024 11:28 AM
[2024-03-21] MEDS: DOCUSATE 100 MG CAP PO SCH (11:32)
[2024-03-21 11:49] LABS: Appearance,Urine Clear (Clear); Bilirubin,Urine Negative (Negative); Blood,Urine Moderate (Negative); Color,Urine Colorless; Glucose,Urine (UA) 3+ (Negative); Ketones,Urine Negative (Negative); Leukocyte Esterase,Urine Small (Negative); Mucus,Urine Rare /hpf; Nitrite,Urine Negative (Negative); Protein,Urine Trace (Negative); RBC,Urine 19 /hpf (0-5); Specific Gravity,Urine 1.016 (1.001-1.035); Squamous Epithelial Cell,Urine <1 /hpf (0-4); Urobilinogen,Urine <2.0 mg/dL (<2.0); WBC,Urine 5 /hpf (0-5)
--- NOTE | 2024-03-21 12:51 | P.NPCON ---
History of Present Illness - Reason for Consult acute renal failure, chronic renal failure - History of Present Illness Reason for consultation: Acute kidney injury on chronic kidney disease History of present illness: Patient is a 68-year-old male seen in renal consultation for acute kidney injury on chronic kidney disease. Patient has chronic kidney disease stage IIIa with creatinine 1.2-1.3 in August 2022. 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 Creatinine this admission was 2 and is up to 2.5 today. Patient came to the hospital due to chest pain. Patient states he was having a lot of gas and indigestion and came to the hospital. He was diagnosed with NSTEMI as well as pneumonia. He has been receiving IV Lasix 40 mg twice daily and was decreased recently to once daily. Echocardiogram showed ejection fraction of 25 to 30% with mild to moderate mitral regurgitation and moderate pulmonary hypertension. No hydronephrosis noted on ultrasound. He has a Hidalgo catheter and is nonoliguric. He is on antibiotics for pneumonia. Denies prior history of coronary artery disease. Denies use of nonsteroidals. Denies gross hematuria or dysuria. He underwent cardiac catheterization March 19, 2024 which showed disease in the left circumflex and LAD. No stents were placed. Currently on nasal cannula. He was also on Levophed which has now been discontinued. Vital signs are stable. General: No acute distress. HEENT: Head exam is unremarkable. On nasal cannula. LUNGS: No audible rhonchi or wheezes. HEART: Rate and Rhythm are regular. ABDOMEN: Nontender. EXTREMITITES: No edema. Past Medical History Past Medical History: COPD, GERD/Reflux, Renal Disease, Vascular Disorder Additional Past Medical History / Comment(s): Abdominal aortic aneurysm, infrarenal, iliac aneurysm, bilateral History of Any Multi-Drug Resistant Organisms: None Reported Past Surgical History: No Surgical Hx Reported Past Anesthesia/Blood Transfusion Reactions: No Reported Reaction Additional Past Anesthesia/Blood Transfusion Reaction / Comment(s): HAS NEVER HAD ANESTHESIA Past Psychological History: No Psychological Hx Reported Smoking Status: Current every day smoker Past Alcohol Use History: None Reported, Occasional Past Drug Use History: None Reported - Past Family History Mother Family Medical History: Cancer Father Family Medical History: CVA/TIA Medications and Allergies Home Medications Medication Instructions Recorded Confirmed Type Acetaminophen [Tylenol Arthritis] 650 mg PO Q6H PRN 03/17/24 03/17/24 History Apixaban [Eliquis] 2.5 mg PO BID 03/17/24 03/17/24 History Atorvastatin Calcium [Lipitor] 40 mg PO HS 03/17/24 03/17/24 History Losartan/Hydrochlorothiazide 1 tab PO HS 03/17/24 03/17/24 History [Hyzaar 100-25 Tablet] amLODIPine [Norvasc] 2.5 mg PO HS 03/17/24 03/17/24 History Allergies Allergy/AdvReac Type Severity Reaction Status Date / Time sulfamethoxazole Allergy Swelling Verified 03/17/24 19:30 [From Bactrim] trimethoprim [From Bactrim] Allergy Swelling Verified 03/17/24 19:30 Physical Exam Vitals: Vital Signs Temp Pulse Resp BP Pulse Ox 03/21/24 12:00 80 20 93/63 95 03/21/24 11:00 80 15 93/61 93 L 03/21/24 10:00 90 17 91/79 96 03/21/24 09:03 80 03/21/24 09:00 84 14 92/58 97 03/21/24 08:51 86 03/21/24 08:00 98.2 F 89 37 H 99/69 96 03/21/24 07:00 83 19 96/61 94 L 03/21/24 06:00 84 13 92/59 95 03/21/24 05:00 89 10 L 97/59 94 L 03/21/24 04:02 86 03/21/24 04:00 97.5 F L 87 32 H 95/72 93 L 03/21/24 03:52 87 03/21/24 03:00 92 19 81/55 87 L 03/21/24 02:00 68 16 89/62 98 03/21/24 01:00 82 16 91/66 94 L 03/21/24 00:12 86 20 91/66 93 L 03/21/24 00:00 97.8 F 82 18 90/65 95 03/20/24 23:00 81 17 98/67 94 L 03/20/24 22:00 93 19 101/68 95 03/20/24 21:00 91 23 92/65 93 L 03/20/24 20:52 90 03/20/24 20:39 90 03/20/24 20:00 97.4 F L 85 12 94/66 95 03/20/24 19:00 88 10 L 92/65 95 03/20/24 18:00 93 26 H 87/57 95 03/20/24 17:00 90 19 86/62 93 L 03/20/24 16:00 97.9 F 84 49 H 92/56 95 03/20/24 15:28 86 03/20/24 15:19 88 03/20/24 15:00 86 21 93/62 93 L 03/20/24 14:30 87 18 91/65 95 03/20/24 14:00 89 15 90/63 93 L 03/20/24 13:30 91 22 86/56 92 L 03/20/24 13:00 93 15 77/50 93 L Intake and Output 03/20/24 03/21/24 03/21/24 22:59 06:59 14:59 Intake Total 350 180 50 Output Total 605 585 585 Balance -043 -712 -635 Intake: IV 150 180 50 0.9NS 100 80 50 Cefepime 2 gm In Sodium 50 100 Chloride 0.9% 100 ml @ 25 mls/hr IVPB Q12H [facility] Rx# :[id number] Oral 200 Output: Urine 605 585 585 Other: Voiding Method Indwelling Catheter Indwelling Catheter Indwelling Catheter Weight 83.1 kg Results - Lab Results Most recent lab results ABG pH 7.39 (7.35-7.45) 03/18/24 19:31 ABG pCO2 35 mmHg (35-45) 03/18/24 19:31 ABG pO2 78 mmHg (83-108) L 03/18/24 19:31 ABG HCO3 21 mmol/L (21-25) 03/18/24 19:31 ABG O2 Saturation 95.6 % (94-97) 03/18/24 19:31 Calcium 9.0 mg/dL (8.4-10.2) 03/21/24 05:22 Phosphorus 4.2 mg/dL (2.5-4.5) 03/17/24 18:40 Magnesium 2.1 mg/dL (1.6-2.3) 03/21/24 05:22 03/21/24 05:22 03/21/24 05:22 Assessment and Plan Plan: Assessment: 1. Acute kidney injury secondary to ATN secondary to cardiorenal syndrome, severe sepsis, contrast associated acute kidney injury. Creatinine up to 2.5 today. No hydronephrosis noted on kidney ultrasound. Nonoliguric. 2. Acute hypoxic respiratory failure. 3. Septic shock secondary to pneumonia maintained on antibiotics. Off vasopressors. 4. Acute on chronic systolic CHF ejection fraction of 25 to 30% and mild to moderate mitral vegetation and moderate pulmonary hypertension. 5. Hyponatremia secondary to acute kidney injury. Hypervolemic. 6. NSTEMI status post cardiac catheterization March 19 which showed disease in the left circumflex and LAD. 7. Metabolic acidosis secondary to acute kidney injury. 8. Volume overload. Plan: Lasix decreased to 40 mg IV once daily. Also on SGLT2 inhibitor. 2 amps sodium bicarb IV push today. Add oral bicarb. Avoid nephrotoxins. Maintain Hidalgo catheter for now. Encouraged oral intake. Add 1500 cc fluid restriction. Continue to monitor renal function and urine output. Thank you for the consultation. I will continue to follow the patient with you during his hospital stay.
[2024-03-21] MEDS: SODIUM BICARB 8.4% 50 ML SYR (1 MEQ/ML) IV STA (13:11)
[2024-03-21] MEDS: SODIUM BICARBONATE TAB 650 MG TAB PO SCH (13:11)
--- NOTE | 2024-03-21 13:46 | P.PN ---
Subjective Progress Note Date: 03/21/24 68-year-old male with a past medical history of hypertension, COPD with continued nicotine dependence, peripheral arterial disease, and GERD. He presented to the emergency department with a chief complaint of chest pain. Upon arrival to our facility, patient underwent evaluation in the emergency department. BP 100/65, HR 119, RR 20, T 97.3 F, and SpO2 of 98% on RA. EKG was completed showing sinus tachycardia at 101 bpm with RBBB, T wave inversion in leads aVL and V2 through V6. Chest x-ray completed showing right lower lung airspace opacities with nodular like appearance recommending further evaluation with CT to rule out underlying pulmonary nodule/malignancy. RLE Doppler completed negative for DVT. CBC, CMP, Coag panel significant for WBC 14.3, Na 130, BUN 40, Cr 2.04, glu 149, alb 3.2. Magnesium 2.2. Troponin 2.3, 2.14, 2.11, 1.97. proBNP was 29,600. Patient started on heparin infusion for treatment of NSTEMI and admitted under our services with consultation to cardiology. His res piratory status worsened which prompted admission to ICU. CT chest showed bilateral airspace consolidations with mild-mod bilateral parapneumonic effusions, patient was started on Azithromycin and Cefepime. 03/21 Patient was seen and examined. Feeling stronger. Breathing better. Currently on 4L NC. Reports wet cough with sticky sputum but improved from admission. Levophed has been weaned off, SBP in the 90s. Maintained on Lasix 40 mg IV BID. Negative 655 cc fluid balance over the past 24H. CBC and CMP significant for WBC 27.9, RBC 3.94, Hg 12.4, Hct 38.9, Na 129, bicarb 16, BUN 70, Cr 2.50, glu 173, alb 3.1. CXR shows bilateral airspace consolidations without much change. Antibiotics include Azithromycin and Cefepime. General: non toxic, no distress, appears at stated age Derm: warm, dry Head: atraumatic, normocephalic, symmetric Eyes: EOMI, no lid lag, anicteric sclera Mouth: no lip lesion, mucus membranes moist Cardiovascular: S1S2 reg, no murmur Lungs: Coarse BS bilateral, no rhonchi, no rales , no accessory muscle use Ext: no gross muscle atrophy, no edema, no contractures Neuro: no focal neuro deficits Psych: Alert, oriented, appropriate affect Based on my assessment of this patient, this patient meets a high complexity level of care. Septic shock secondary to multifocal PNA: Continue Azithromycin 500 mg IV QD and Cefepime 2g IV BID (D4). Maintain MAP > 65. Judicious use of fluids given low EF. Follow sputum and blood cultures. Obtain Pro-pancho. Pulmonary on board. Acute hypoxic respiratory failure secondary to PNA and CHF NSTEMI: ASA 81 mg PO QD. Lipitor 80 mg PO QD. Plavix 75 mg PO QD. Metoprolol 25 mg PO BID if BP permits. Cardiology recommends intervention after improvement in renal function. HFrEF with acute exacerbation: Metoprolol as above. Farxiga 5 mg PO QD. Lasix 40 mg IV BID (monitor electrolytes and renal function. GDMT once BP improves. Possible need for LifeVest on discharge. Cardiology on board. Acute kidney injury on CKD with hypoNa and metabolic acidosis: Worsening likely due to use of contrast and Lasix. Holding Losartan/HCTZ. Monitor renal function. Obtain renal US. Obtain UA. Nephrology consult. COPD with mild exacerbation: DuoNeb QID scheduled and PRN for SOB/wheezing. SoluMedrol 40 mg IV TID. Nicotine dependence: Nicotine patch. Hypertension: Hold home medications (Losartan/HCTZ, Amlodipine) due to hypotensive nature. CODE STATUS: FULL CODE. DVT Prophylaxis: Heparin SQ. GI Prophylaxis: Holding Protonix given renal function. Designated medical POA if patient is not able to make medical decisions for themselves: I have reviewed the following recruitment consultant notes: Cardiology I have reviewed the results of the following tests: CBC. CMP. I have ordered the following tests: Renal US, UA, daily BMP I have discussed the care of this patient with the following independent historian: I have independently interpreted the following test below: CXR I have discussed the management of this patient with the following physician: Objective - Vital Signs Vital signs: Vital Signs Temp 98.2 F 03/21/24 08:00 Pulse 86 03/21/24 08:51 Resp 37 H 03/21/24 08:00 BP 99/69 03/21/24 08:00 Pulse Ox 96 03/21/24 08:00 FiO2 70 03/19/24 07:33 Intake & Output 03/20/24 03/21/24 03/21/24 18:59 06:59 18:59 Intake Total 1174.63 220 20 Output Total 1165 885 260 Balance 9.63 -665 -240 Weight 83.1 kg Intake: IV 510 220 20 0.9NS 210 120 20 Azithromycin 500 mg In 250 Sodium Chloride 0.9% 250 ml @ 250 mls/hr IVPB DAILY [facility] Rx#:[id number] Cefepime 2 gm In Sodium 50 100 Chloride 0.9% 100 ml @ 25 mls/hr IVPB Q12H [facility] Rx# :[id number] Intake, IV Titration 14.63 Amount Norepinephrine 4 mg In 14.63 Sodium Chloride 0.9% 250 ml @ 0.03 MCG/KG/MIN 9. 332 mls/hr IV .Q24H [facility] Rx#:[id number] Oral 650 Output: Urine 1165 885 260 Other: Voiding Method Indwelling Catheter Indwelling Catheter - Labs CBC & Chem 7: 03/21/24 05:22 03/21/24 05:22 Labs: Abnormal Lab Results - Last 24 Hours (Table) 03/21/24 03/21/24 Range/Units 05:22 05:22 WBC 27.9 H (3.8-10.6) k/uL RBC 3.94 L (4.30-5.90) m/uL Hgb 12.4 L (13.0-17.5) gm/dL Hct 38.9 L (39.0-53.0) % Sodium 129 L (137-145) mmol/L Carbon Dioxide 16 L (22-30) mmol/L BUN 70 H (9-20) mg/dL Creatinine 2.50 H (0.66-1.25) mg/dL Glucose 173 H (74-99) mg/dL Total Protein 5.5 L (6.3-8.2) g/dL Albumin 3.1 L (3.5-5.0) g/dL Microbiology - Last 24 Hours (Table) 03/18/24 14:55 Blood Culture - Preliminary Blood
--- NOTE | 2024-03-21 13:50 | P.PN ---
Subjective Progress Note Date: 03/21/24 This is a 68-year-old male patient who came into the emergency department on with complaints of chest pain and shortness of breath. The patient apparently was taking out the garbage and he became quite winded and also developed a chest pain. However, the patient has been having some symptoms of nausea and emesis and diarrhea for the past 10 days. He came into the Emergency Department and the patient was found to be hypoxic and initially was placed on 2 L of oxygen by nasal cannula. He is EKG showed sinus tachycardia with some nonspecific ST segment changes in the anterior leads. Doppler of the lower extremities was negative for DVT. Initial white cell count was at 23 and the D- dimer was at 1.1 and the patient's hemoglobin was 15. The patient also had a acute on top of chronic kidney injury with a BUN of 40 and a creatinine of 2.04 and the patient also ruled in for an acute non-ST segment elevation myocardial infarction as the patient's troponin peaked at 2.3 and subsequent dropped down to 1.9. The patient was started on IV heparin. Echocardiogram was done earlier this morning and the patient was found to have also a component of CHF with an ejection fraction of 25 to 30%. There was diffuse global hypokinesis and moderate degree of pulm hypertension and mild to moderate mitral regurgitation. At a later stage, the patient became progressively more hypoxic. His oxygen requirements went up from 2 L up to 15 L and ultimately the patient was placed on a BiPAP pressure of 12/6 with an FiO2 of 70%. His current pulse ox is 91 to 92%. Repeat chest x-ray was done and it showed significant progression with development of diffuse interstitial infiltrates and significant consolidation of the right lung base which was highly suggestive of pneumonia specially the patient had a rise in his white cell count up to 34.8. Based on that, the p atient was started on broad-spectrum antibiotics. He was started on a combination of cefepime and Zithromax. Given a dose of Lasix 40 g IV with adequate urine output. He is currently on DuoNeb updrafts, IV heparin, and is also on prednisone 40 mg p.o. daily. Cardiology has been consulted on the case. Denies having any significant chest pain. Past medical history is positive for COPD, chronic smoking, peripheral vascular disease and the patient has undergone vascular intervention and angioplasty to his lower extremity for acute ischemic limb in addition to history of hypertension, chronic kidney disease stage III. Patient also known to have bilateral common iliac artery aneurysms and abdominal aortic aneurysm. He has an infrarenal renal abdominal aortic aneurysm measuring 4 cm and 8.6 cm in length and there is extensive mural thrombus. This is based on a previous CT of the abdominal aorta that was performed on this patient on 09/23/2022. In addition to that, the patient has extensive atherosclerotic changes in the bilateral SFA and short segment focal occlusion involving the right external iliac artery. On 03/19/2024, the patient is critically ill in the intensive care unit. The patient had an acute non-ST segment elevation myocardial infarction and the patient is possibly cardiogenic shock, hypotensive with diffuse bilateral pulmonary infiltrates. There was also concern of a right lower lobe pneumonia based on that the patient was started on broad-spectrum antibiotics. Noted, the patient was taken off the BiPAP and the patient is currently on 8 L of O2 nasal cannula. IV fluids are running at a rate of 75 cc an hour, maintenance and the patient is on norepinephrine running at 0.08 mcg/kg/min. He remains on IV heparin. Echocardiogram was completed and the patient was found to have impaired LV function with ejection fraction of 25 to 30% with global left ventricular dysfunction, moderate pulm hypertension with a PA pressure of 47 and mild to moderate mitral regurgitation and mild tricuspid regurgitation. The patient is awake and alert. Denies having any chest pain. White cell count is at 33 with a hemoglobin 13.8, BUN is 50 with a creatinine of 2.17 and sodium levels at 130 with a potassium level of 5.0. Serum bicarb is at 19. The troponins peaked at 2.1 and is currently down to 1.9. Overall fluid balance over the past 24 hours -1.9 L and the patient has produced approximate 2.2 L of urine output. The plan is to proceed with cardiac catheterization, coronary intervention if needed and mechanical support if needed. Meanwhile, a CAT scan of the chest was also done without contrast this morning and the patient was found to have diffuse bilateral pulmonary airspace disease and infiltrates in addition to lower lobe atelectatic changes and small to moderate-sized bilateral pleural effusion. The patient also has moderate degree of centrilobular emphysema noted. Antibiotic coverage is with cefepime and Zithromax. On 03/20/2024, the patient is being seen for a follow-up. The patient seems to be less short of breath compared to yesterday. He is currently on 5 L of oxygen by nasal cannula. Awake and alert and communicating. He has some cough and congestion. No significant bronchospasm or wheezing. He was taken off the no repinephrine earlier this morning and urine output is in order of 30 cc an hour. He underwent a cardiac catheterization yesterday and the patient was found to have significant elevation of left ventricular end-diastolic pressure. The patient also had severe disease involving the first and the second obtuse marginal branch of the circumflex. The patient also had intermediate to severe disease involving the proximal LAD. No intervention was done. The patient remains on broad-spectrum antibiotics and the patient remains on IV cefepime. The white cell count is improved compared to yesterday and the currently is down to 26 with a hemoglobin 12.3 and a platelet count of 289. BUN is 57 with a creatinine of 2.07 and sodium levels at 133 and a potassium level is at 4.9. LFTs are normal. Blood cultures are negative thus far. The patient also is on DuoNeb nebulized treatments [id number]. The patient remains on IV Solu- Medrol 40 mg every 8 hours. He will be started on diuretics. He was started on Farxiga. He remains on aspirin and Plavix. The chest x-ray from today is a combination of CHF and pneumonia. On 03/21/2024, the patient is comfortable sitting up in a chair. No significant shortness of breath at rest. He is currently on 4 L of oxygen by nasal cannula. He remains on IV Lasix 40 mg every 12 hours and the patient is negative fluid balance of at least 700 cc over the past 24 hours. Repeat chest x-ray from today shows a right lower lobe consolidation along with ongoing pulm venous congestion the patient remains on IV cefepime. He is off norepinephrine. No chest pain. No altered mentation. The white cell count is 27 with a hemoglobin 12.4 platelet count of 234. BUN 70 with a 2.5 and a Sodium Levels at 121 and a Potassium Level Is at 4.7. UA Showing +3 Glucose, 19 RBCs, 5 WBCs. Conveyor Worker on the Case. The Patient Remains on Bronchodilators, Remains on IV Solu-Medrol 40 Mg Every 8 Hours. Remains on Metoprolol 25 Mg P.O. Twice Daily. Remains on Aspirin. He Is Also on Plavix and Farxiga. Objective - Vital Signs Vital signs: Vital Signs Temp 98.2 F 03/21/24 08:00 Pulse 80 03/21/24 09:03 Resp 14 03/21/24 09:00 BP 92/58 03/21/24 09:00 Pulse Ox 97 03/21/24 09:00 FiO2 70 03/19/24 07:33 Intake & Output 03/20/24 03/21/24 03/21/24 18:59 06:59 18:59 Intake Total 1174.63 220 30 Output Total 1165 885 310 Balance 9.63 -665 -280 Weight 83.1 kg Intake: IV 510 220 30 0.9NS 210 120 30 Azithromycin 500 mg In 250 Sodium Chloride 0.9% 250 ml @ 250 mls/hr IVPB DAILY [facility] Rx#:[id number] Cefepime 2 gm In Sodium 50 100 Chloride 0.9% 100 ml @ 25 mls/hr IVPB Q12H [facility] Rx# :[id number] Intake, IV Titration 14.63 Amount Norepinephrine 4 mg In 14.63 Sodium Chloride 0.9% 250 ml @ 0.03 MCG/KG/MIN 9. 332 mls/hr IV .Q24H [facility] Rx#:[id number] Oral 650 Output: Urine 1165 885 310 Other: Voiding Method Indwelling Catheter Indwelling Catheter Indwelling Catheter - Exam The patient has labored breathing and the patient is currently on 4 L of oxygen by nasal cannula Head exam is unremarkable. No scleral icterus or corneal arcus noted. Neck is without jugular venous distension, thyromegaly, or carotid bruits. Carotid upstrokes are brisk bilaterally. Lungs examination involves extensive crackles involving the right mid and right lower lung area with few scattered expiratory wheezes Cardiac exam reveals the PMI to be normally sized and situated. Rhythm is regular. First and second heart sounds normal. No murmurs, rubs or gallops. Abdominal exam reveals normal bowel sounds, no masses, no organomegaly and no aortic enlargement. Extremities are nonedematous and the patient has significant diminished pulses in lower extremities bilaterally Examination of the skin revealed no evidence of significant rashes, suspicious appearing nevi or other concerning lesions. Neurologically, the patient is awake and alert and the patient does not have any focal neurological deficit. Cranial nerves are essentially intact. - Labs CBC & Chem 7: 03/21/24 05:22 03/21/24 05:22 Labs: Abnormal Lab Results - Last 24 Hours (Table) 03/21/24 03/21/24 Range/Units 05:22 05:22 WBC 27.9 H (3.8-10.6) k/uL RBC 3.94 L (4.30-5.90) m/uL Hgb 12.4 L (13.0-17.5) gm/dL Hct 38.9 L (39.0-53.0) % Sodium 129 L (137-145) mmol/L Carbon Dioxide 16 L (22-30) mmol/L BUN 70 H (9-20) mg/dL Creatinine 2.50 H (0.66-1.25) mg/dL Glucose 173 H (74-99) mg/dL Total Protein 5.5 L (6.3-8.2) g/dL Albumin 3.1 L (3.5-5.0) g/dL Microbiology - Last 24 Hours (Table) 03/18/24 14:55 Blood Culture - Preliminary Blood Assessment and Plan Plan: Acute hypoxic respiratory failure with development of extensive right lower lobe consolidation highly suggestive of pneumonia with subsequent development of diffuse pulm vessel congestion/pulmonary edema and bilateral pleural effusions. The picture is consistent with CHF and possibly right lower lobe pneumonia. Patient remains on a combination of cefepime. He was taken off the BiPAP and the patient is currently on 4 L of oxygen by nasal cannula. Chest x-ray still showing persistent right lower lobe pulmonary filtration. Acute systolic heart failure with development of bilateral pleural effusion diffuse pulmonary edema Acute non-ST segment elevation myocardial infarction, the patient's troponin peaked at 2.3, downtrending. Cardiac catheterization showed disease involving the obtuse marginal branch of the circumflex and proximal LAD lesion. Intervention to be done at a later stage as the patient has a component of acute kidney injury on top of chronic kidney disease. Systolic heart failure with ejection fraction of 25 to 30% with global hypokinesis and mild to moderate mitral regurgitation, rule out underlying ischemic cardiomyopathy. The patient also has moderate degree of pulmonary hypertension. There is also significant elevation of left ventricular end- diastolic pressure based on the most recent cardiac catheterization. COPD with acute exacerbation likely secondary to underlying pneumonia, currently on bronchodilators and steroids. Chronic stage III kidney disease with acute kidney injury on top of his chronic renal failure. patient is nonoliguric Severe peripheral vascular disease Abdominal arctic aneurysm, infrarenal measuring 4 cm in size Bilateral iliac artery aneurysms Acute leukocytosis, improving Hypertension Hyperlipidemia History of smoking Plan Keep O2 at 4 L of O2 nasal cannula Continue Cefepime as a broad-spectrum antibiotic coverage The patient is a cardiac catheterization from 03/19/2024 was noted and the patient will need intervention at a later stage once his renal function further stabilizes. Blood cultures are negative Legionella urine antigen is negative Viral screen has been negative Continue aspirin and Plavix Continue metoprolol Drop down the Lasix to 40 mg every 24 hours Start the patient on Farxiga Patient is currently off pressors Will continue to follow make further recommendations based on his progress. The patient will be transferred to selective unit with telemetry. Cardiology remains on the case.
[2024-03-22] MEDS: CALCIUM CARBONATE 500 MG CHEWABLE PO PRN (08:19)
[2024-03-22 09:58] LABS: HCT 37.7 % (39.0-53.0); MCV 97.1 fL (80.0-100.0); Mean Platelet Volume 8.1; Platelet Count 221 k/uL (150-450); RBC 3.88 m/uL (4.30-5.90); RDW 13.5 % (11.5-15.5)
[2024-03-22 10:18] LABS: African American GFR (CKD) 30 (>60 ml/min/1.73 sqM); Anion Gap 10 mmol/L; Blood Urea Nitrogen 82 mg/dL (9-20); Calcium 8.8 mg/dL (8.4-10.2); Carbon Dioxide 25 mmol/L (22-30); Chloride 96 mmol/L (98-107); Glucose 259 mg/dL (74-99); Magnesium 2.1 mg/dL (1.6-2.3); Non-African American GFR(CKD) 26 (>60 ml/min/1.73 sqM); Potassium 4.8 mmol/L (3.5-5.1); Sodium 131 mmol/L (137-145)
--- NOTE | 2024-03-22 10:54 | P.PN ---
Subjective Patient is seen in follow-up for acute kidney injury on chronic kidney disease. Renal function stable. Now on 3 L nasal cannula. Nonoliguric. Vital signs are stable. General: No acute distress. HEENT: Head exam is unremarkable. On nasal cannula. LUNGS: No audible rhonchi or wheezes. HEART: Rate and Rhythm are regular. ABDOMEN: Nontender. EXTREMITITES: No edema. Objective - Vital Signs Vital signs: Vital Signs Temp 98.0 F 03/22/24 07:41 Pulse 92 03/22/24 07:42 Resp 16 03/22/24 07:41 BP 95/56 03/22/24 07:41 Pulse Ox 94 L 03/22/24 07:41 FiO2 70 03/19/24 07:33 Intake & Output 03/21/24 03/22/24 03/22/24 18:59 06:59 18:59 Intake Total 150 240 Output Total 985 575 350 Balance -835 -575 -110 Weight 82.6 kg Intake: IV 150 0.9NS 50 Cefepime 2 gm In Sodium 100 Chloride 0.9% 100 ml @ 25 mls/hr IVPB Q12H [facility] Rx# :[id number] Oral 0 240 Output: Urine 985 575 350 Other: Voiding Method Indwelling Catheter Indwelling Catheter Indwelling Catheter # Bowel Movements 1 - Labs CBC & Chem 7: 03/22/24 08:56 03/22/24 08:56 Labs: Abnormal Lab Results - Last 24 Hours (Table) 03/21/24 03/22/24 03/22/24 Range/Units 11:35 08:56 08:56 WBC 23.0 H (3.8-10.6) k/uL RBC 3.88 L (4.30-5.90) m/uL Hgb 12.0 L (13.0-17.5) gm/dL Hct 37.7 L (39.0-53.0) % Sodium 131 L (137-145) mmol/L Chloride 96 L (98-107) mmol/L BUN 82 H (9-20) mg/dL Creatinine 2.47 H (0.66-1.25) mg/dL Glucose 259 H (74-99) mg/dL Urine Protein Trace H (Negative) Urine Glucose (UA) 3+ H (Negative) Urine Blood Moderate H (Negative) Ur Leukocyte Esterase Small H (Negative) Urine RBC 19 H (0-5) /hpf Urine Mucus Rare H (None) /hpf Microbiology - Last 24 Hours (Table) 03/18/24 14:55 Blood Culture - Preliminary Blood Assessment and Plan Plan: Assessment: 1. Acute kidney injury secondary to ATN secondary to cardiorenal syndrome, severe sepsis, contrast associated acute kidney injury. Creatinine peaked at 2.5 and is stable at 2.47 today. No hydronephrosis noted on kidney ultrasound. Nonoliguric. 2. Acute hypoxic respiratory failure. 3. Septic shock secondary to pneumonia maintained on antibiotics. Off vasopressors. 4. Acute on chronic systolic CHF ejection fraction of 25 to 30% and mild to moderate mitral vegetation and moderate pulmonary hypertension. 5. Hyponatremia secondary to acute kidney injury. Hypervolemic. Improved. 6. NSTEMI status post cardiac catheterization March 19 which showed disease in the left circumflex and LAD. 7. Metabolic acidosis secondary to acute kidney injury. Improved. On oral bicarb. 8. Volume overload. Plan: Maintain IV Lasix. Also on SGLT2 inhibitor. Avoid nephrotoxins. Okay to DC Hidalgo catheter and monitor bladder scans to make sure no urinary retention. Encouraged oral intake. Maintain 1500 cc fluid restriction. Continue to monitor renal function and urine output. Repeat chest x-ray tomorrow morning.
--- NOTE | 2024-03-22 11:48 | P.PN ---
Subjective Progress Note Date: 03/22/24 68-year-old male with a past medical history of hypertension, COPD with continued nicotine dependence, peripheral arterial disease, and GERD. He presented to the emergency department with a chief complaint of chest pain. Upon arrival to our facility, patient underwent evaluation in the emergency department. BP 100/65, HR 119, RR 20, T 97.3 F, and SpO2 of 98% on RA. EKG was completed showing sinus tachycardia at 101 bpm with RBBB, T wave inversion in leads aVL and V2 through V6. Chest x-ray completed showing right lower lung airspace opacities with nodular like appearance recommending further evaluation with CT to rule out underlying pulmonary nodule/malignancy. RLE Doppler completed negative for DVT. CBC, CMP, Coag panel significant for WBC 14.3, Na 130, BUN 40, Cr 2.04, glu 149, alb 3.2. Magnesium 2.2. Troponin 2.3, 2.14, 2.11, 1.97. proBNP was 29,600. Patient started on heparin infusion for treatment of NSTEMI and admitted under our services with consultation to cardiology. His res piratory status worsened which prompted admission to ICU. CT chest showed bilateral airspace consolidations with mild-mod bilateral parapneumonic effusions, patient was started on Azithromycin and Cefepime. He also required Levophed to maintain MAP > 65 which was weaned off by 03/21. He underwent ca rdiac cath on 03/19 showing severe disease on the 1st and 2nd obtuse marginal branch of the LCx and intermediate-severe disease of the proximal LAD. Cardiology recommending intervention after renal function improves. 03/22 Patient was seen and examined. Feeling stronger. Breathing better. Reports discomfort with Hidalgo. Discussed with JANICE Cardona to DC Hidalgo, bladder scan PRN. Currently on 3L NC. SBP in the 90s. Lasix decreased to 40 mg IV QD by Nephrology. Renal US negative for hydronephrosis. UA 3+ protein, mod blood, small LE. Negative 1.41 L fluid balance over the past 24H. CBC and CMP significant for WBC 23, RBC 3.88, Hg 12, Hct 37.7, Na 131, Cl 96, BUN 82, Cr 2.57, glu 259. Antibiotics include Cefepime (D5), completed 3 days of IV Azithromycin. General: non toxic, no distress, appears at stated age Derm: warm, dry Head: atraumatic, normocephalic, symmetric Eyes: EOMI, no lid lag, anicteric sclera Mouth: no lip lesion, mucus membranes moist Cardiovascular: S1S2 reg, no murmur Lungs: Coarse BS bilateral, no rhonchi, no rales , no accessory muscle use Ext: no gross muscle atrophy, no edema, no contractures Neuro: no focal neuro deficits Psych: Alert, oriented, appropriate affect Based on my assessment of this patient, this patient meets a high complexity level of care. Septic shock secondary to multifocal PNA: Completed 3 days of Azithromycin 500 mg IV. Continued on Cefepime 2g IV BID (D5). Maintain MAP > 65. Judicious use of fluids given low EF. Follow sputum and blood cultures. Obtain Pro-pancho. Pulmonary on board. Acute hypoxic respiratory failure secondary to PNA and CHF NSTEMI: ASA 81 mg PO QD. Lipitor 80 mg PO QD. Plavix 75 mg PO QD. Metoprolol 25 mg PO BID if BP permits. Cardiology recommends intervention after improvement in renal function. HFrEF with acute exacerbation: Metoprolol as above. Farxiga 5 mg PO QD. Decreased dose of Lasix to 40 mg IV QD (monitor electrolytes and renal function). GDMT once BP improves. Possible need for LifeVest on discharge. Cardiology on board. Acute kidney injury on CKD with hypoNa and metabolic acidosis: Worsening likely due to use of contrast and Lasix. Holding Losartan/HCTZ. Monitor renal function. UA and renal US as above. Started on sodium bicarb 650 mg PO BID. Nephrology on board. COPD with mild exacerbation: DuoNeb QID scheduled and PRN for SOB/wheezing. SoluMedrol 40 mg IV TID. Nicotine dependence: Nicotine patch. Hypertension: Hold home medications (Losartan/HCTZ, Amlodipine) due to hypotensive nature. CODE STATUS: FULL CODE. DVT Prophylaxis: Heparin SQ. GI Prophylaxis: Holding Protonix given renal function. Designated medical POA if patient is not able to make medical decisions for themselves: I have reviewed the following senior science consultant notes: Nephro. I have reviewed the results of the following tests: UA. Renal US. CBC. CMP. I have ordered the following tests: Procal. BMP and Mag in the AM. Agree with CXR in the AM. I have discussed the care of this patient with the following independent historian: RN. Mercer have independently interpreted the following test below: I have discussed the management of this patient with the following physician: Dr. Carmona Objective - Vital Signs Vital signs: Vital Signs Temp 98.0 F 03/22/24 07:41 Pulse 92 03/22/24 07:42 Resp 16 03/22/24 07:41 BP 95/56 03/22/24 07:41 Pulse Ox 94 L 03/22/24 07:41 FiO2 70 03/19/24 07:33 Intake & Output 03/21/24 03/22/24 03/22/24 18:59 06:59 18:59 Intake Total 150 Output Total 985 575 Balance -835 -575 Weight 82.6 kg Intake: IV 150 0.9NS 50 Cefepime 2 gm In Sodium 100 Chloride 0.9% 100 ml @ 25 mls/hr IVPB Q12H [facility] Rx# :[id number] Oral 0 Output: Urine 985 575 Other: Voiding Method Indwelling Catheter Indwelling Catheter - Labs CBC & Chem 7: 03/22/24 08:56 03/22/24 08:56 Labs: Abnormal Lab Results - Last 24 Hours (Table) 03/21/24 Range/Units 11:35 Urine Protein Trace H (Negative) Urine Glucose (UA) 3+ H (Negative) Urine Blood Moderate H (Negative) Ur Leukocyte Esterase Small H (Negative) Urine RBC 19 H (0-5) /hpf Urine Mucus Rare H (None) /hpf Microbiology - Last 24 Hours (Table) 03/18/24 14:55 Blood Culture - Preliminary Blood
--- NOTE | 2024-03-22 13:21 | P.PN ---
Subjective Progress Note Date: 03/22/24 This is a 68-year-old male patient who came into the emergency department on with complaints of chest pain and shortness of breath. The patient apparently was taking out the garbage and he became quite winded and also developed a chest pain. However, the patient has been having some symptoms of nausea and emesis and diarrhea for the past 10 days. He came into the Emergency Department and the patient was found to be hypoxic and initially was placed on 2 L of oxygen by nasal cannula. He is EKG showed sinus tachycardia with some nonspecific ST segment changes in the anterior leads. Doppler of the lower extremities was negative for DVT. Initial white cell count was at 23 and the D- dimer was at 1.1 and the patient's hemoglobin was 15. The patient also had a acute on top of chronic kidney injury with a BUN of 40 and a creatinine of 2.04 and the patient also ruled in for an acute non-ST segment elevation myocardial infarction as the patient's troponin peaked at 2.3 and subsequent dropped down to 1.9. The patient was started on IV heparin. Echocardiogram was done earlier this morning and the patient was found to have also a component of CHF with an ejection fraction of 25 to 30%. There was diffuse global hypokinesis and moderate degree of pulm hypertension and mild to moderate mitral regurgitation. At a later stage, the patient became progressively more hypoxic. His oxygen requirements went up from 2 L up to 15 L and ultimately the patient was placed on a BiPAP pressure of 12/6 with an FiO2 of 70%. His current pulse ox is 91 to 92%. Repeat chest x-ray was done and it showed significant progression with development of diffuse interstitial infiltrates and significant consolidation of the right lung base which was highly suggestive of pneumonia specially the patient had a rise in his white cell count up to 34.8. Based on that, the p atient was started on broad-spectrum antibiotics. He was started on a combination of cefepime and Zithromax. Given a dose of Lasix 40 g IV with adequate urine output. He is currently on DuoNeb updrafts, IV heparin, and is also on prednisone 40 mg p.o. daily. Cardiology has been consulted on the case. Denies having any significant chest pain. Past medical history is positive for COPD, chronic smoking, peripheral vascular disease and the patient has undergone vascular intervention and angioplasty to his lower extremity for acute ischemic limb in addition to history of hypertension, chronic kidney disease stage III. Patient also known to have bilateral common iliac artery aneurysms and abdominal aortic aneurysm. He has an infrarenal renal abdominal aortic aneurysm measuring 4 cm and 8.6 cm in length and there is extensive mural thrombus. This is based on a previous CT of the abdominal aorta that was performed on this patient on 09/23/2022. In addition to that, the patient has extensive atherosclerotic changes in the bilateral SFA and short segment focal occlusion involving the right external iliac artery. On 03/19/2024, the patient is critically ill in the intensive care unit. The patient had an acute non-ST segment elevation myocardial infarction and the patient is possibly cardiogenic shock, hypotensive with diffuse bilateral pulmonary infiltrates. There was also concern of a right lower lobe pneumonia based on that the patient was started on broad-spectrum antibiotics. Noted, the patient was taken off the BiPAP and the patient is currently on 8 L of O2 nasal cannula. IV fluids are running at a rate of 75 cc an hour, maintenance and the patient is on norepinephrine running at 0.08 mcg/kg/min. He remains on IV heparin. Echocardiogram was completed and the patient was found to have impaired LV function with ejection fraction of 25 to 30% with global left ventricular dysfunction, moderate pulm hypertension with a PA pressure of 47 and mild to moderate mitral regurgitation and mild tricuspid regurgitation. The patient is awake and alert. Denies having any chest pain. White cell count is at 33 with a hemoglobin 13.8, BUN is 50 with a creatinine of 2.17 and sodium levels at 130 with a potassium level of 5.0. Serum bicarb is at 19. The troponins peaked at 2.1 and is currently down to 1.9. Overall fluid balance over the past 24 hours -1.9 L and the patient has produced approximate 2.2 L of urine output. The plan is to proceed with cardiac catheterization, coronary intervention if needed and mechanical support if needed. Meanwhile, a CAT scan of the chest was also done without contrast this morning and the patient was found to have diffuse bilateral pulmonary airspace disease and infiltrates in addition to lower lobe atelectatic changes and small to moderate-sized bilateral pleural effusion. The patient also has moderate degree of centrilobular emphysema noted. Antibiotic coverage is with cefepime and Zithromax. On 03/20/2024, the patient is being seen for a follow-up. The patient seems to be less short of breath compared to yesterday. He is currently on 5 L of oxygen by nasal cannula. Awake and alert and communicating. He has some cough and congestion. No significant bronchospasm or wheezing. He was taken off the no repinephrine earlier this morning and urine output is in order of 30 cc an hour. He underwent a cardiac catheterization yesterday and the patient was found to have significant elevation of left ventricular end-diastolic pressure. The patient also had severe disease involving the first and the second obtuse marginal branch of the circumflex. The patient also had intermediate to severe disease involving the proximal LAD. No intervention was done. The patient remains on broad-spectrum antibiotics and the patient remains on IV cefepime. The white cell count is improved compared to yesterday and the currently is down to 26 with a hemoglobin 12.3 and a platelet count of 289. BUN is 57 with a creatinine of 2.07 and sodium levels at 133 and a potassium level is at 4.9. LFTs are normal. Blood cultures are negative thus far. The patient also is on DuoNeb nebulized treatments [id number]. The patient remains on IV Solu- Medrol 40 mg every 8 hours. He will be started on diuretics. He was started on Farxiga. He remains on aspirin and Plavix. The chest x-ray from today is a combination of CHF and pneumonia. On 03/21/2024, the patient is comfortable sitting up in a chair. No significant shortness of breath at rest. He is currently on 4 L of oxygen by nasal cannula. He remains on IV Lasix 40 mg every 12 hours and the patient is negative fluid balance of at least 700 cc over the past 24 hours. Repeat chest x-ray from today shows a right lower lobe consolidation along with ongoing pulm venous congestion the patient remains on IV cefepime. He is off norepinephrine. No chest pain. No altered mentation. The white cell count is 27 with a hemoglobin 12.4 platelet count of 234. BUN 70 with a 2.5 and a Sodium Levels at 121 and a Potassium Level Is at 4.7. UA Showing +3 Glucose, 19 RBCs, 5 WBCs. Principal Trainer on the Case. The Patient Remains on Bronchodilators, Remains on IV Solu-Medrol 40 Mg Every 8 Hours. Remains on Metoprolol 25 Mg P.O. Twice Daily. Remains on Aspirin. He Is Also on Plavix and Farxiga. On 03/22/2024, the patient is being seen for a follow-up. Doing well. Less short of breath and the patient is currently on 2 L of oxygen by nasal cannula with pulse ox of 94%. No significant cough or sputum production. No chest pain. Remains on Lasix 40 mg IV every 24 hours. Remains on DuoNeb dobutamine [id number], IV cefepime and IV Solu-Medrol. He did have a right lower lobe pneumonia. The white cell count is gradually improving is currently down to 23 with a hemoglobin 12 and a platelet count of 221. BUN is 82 with a creatinine of 2.4 and a sodium levels at 131. Procalcitonin level is at 0.7. Fluid balance is -1.4 L over the past 24 hours. Basting Puller on the case. No other issues otherwise for now. Objective - Vital Signs Vital signs: Vital Signs Temp 98.0 F 03/22/24 07:41 Pulse 92 03/22/24 07:42 Resp 16 03/22/24 07:41 BP 95/56 03/22/24 07:41 Pulse Ox 94 L 03/22/24 07:41 FiO2 70 03/19/24 07:33 Intake & Output 03/21/24 03/22/24 03/22/24 18:59 06:59 18:59 Intake Total 150 240 Output Total 985 575 350 Balance -835 -575 -110 Weight 82.6 kg Intake: IV 150 0.9NS 50 Cefepime 2 gm In Sodium 100 Chloride 0.9% 100 ml @ 25 mls/hr IVPB Q12H [facility] Rx# :[id number] Oral 0 240 Output: Urine 985 575 350 Other: Voiding Method Indwelling Catheter Indwelling Catheter Indwelling Catheter # Bowel Movements 1 - Exam The patient has labored breathing and the patient is currently on 3 L of oxygen by nasal cannula Head exam is unremarkable. No scleral icterus or corneal arcus noted. Neck is without jugular venous distension, thyromegaly, or carotid bruits. Carotid upstrokes are brisk bilaterally. Lungs examination involves extensive crackles involving the right mid and right lower lung area with few scattered expiratory wheezes Cardiac exam reveals the PMI to be normally sized and situated. Rhythm is regular. First and second heart sounds normal. No murmurs, rubs or gallops. Abdominal exam reveals normal bowel sounds, no masses, no organomegaly and no aortic enlargement. Extremities are nonedematous and the patient has significant diminished pulses in lower extremities bilaterally Examination of the skin revealed no evidence of significant rashes, suspicious appearing nevi or other concerning lesions. Neurologically, the patient is awake and alert and the patient does not have any focal neurological deficit. Cranial nerves are essentially intact. - Labs CBC & Chem 7: 03/22/24 08:56 03/22/24 08:56 Labs: Abnormal Lab Results - Last 24 Hours (Table) 03/21/24 Range/Units 11:35 Urine Protein Trace H (Negative) Urine Glucose (UA) 3+ H (Negative) Urine Blood Moderate H (Negative) Ur Leukocyte Esterase Small H (Negative) Urine RBC 19 H (0-5) /hpf Urine Mucus Rare H (None) /hpf Microbiology - Last 24 Hours (Table) 03/18/24 14:55 Blood Culture - Preliminary Blood Assessment and Plan Plan: Acute hypoxic respiratory failure with development of extensive right lower lobe consolidation highly suggestive of pneumonia with subsequent development of diffuse pulm vessel congestion/pulmonary edema and bilateral pleural effusions. The picture is consistent with CHF and possibly right lower lobe pneumonia. Patient remains on a combination of cefepime. He was taken off the BiPAP and the patient is currently on 3 L of oxygen by nasal cannula. Chest x-ray still showing persistent right lower lobe pulmonary filtration. Acute systolic heart failure with development of bilateral pleural effusion diffuse pulmonary edema Acute non-ST segment elevation myocardial infarction, the patient's troponin peaked at 2.3, downtrending. Cardiac catheterization showed disease involving the obtuse marginal branch of the circumflex and proximal LAD lesion. Intervention to be done at a later stage as the patient has a component of acute kidney injury on top of chronic kidney disease. Systolic heart failure with ejection fraction of 25 to 30% with global hypokinesis and mild to moderate mitral regurgitation, rule out underlying ischemic cardiomyopathy. The patient also has moderate degree of pulmonary hypertension. There is also significant elevation of left ventricular end- diastolic pressure based on the most recent cardiac catheterization. COPD with acute exacerbation likely secondary to underlying pneumonia, currently on bronchodilators and steroids. Chronic stage III kidney disease with acute kidney injury on top of his chronic renal failure. patient is nonoliguric Severe peripheral vascular disease Abdominal arctic aneurysm, infrarenal measuring 4 cm in size Bilateral iliac artery aneurysms Acute leukocytosis, improving Hypertension Hyperlipidemia History of smoking Plan Keep O2 at 3 L of O2 nasal cannula Continue Cefepime as a broad-spectrum antibiotic coverage Repeat chest x-ray in the morning Continue diuretics with IV Lasix and monitor renal function Negative fluid balance The patient is a cardiac catheterization from 03/19/2024 was noted and the patient will need intervention at a later stage once his renal function further stabilizes. Blood cultures are negative Legionella urine antigen is negative Viral screen has been negative Continue aspirin and Plavix Continue metoprolol Drop down the Lasix to 40 mg every 24 hours Continue Lara Will continue to follow make further recommendations based on his progress.
--- NOTE | 2024-03-22 14:00 | P.PN ---
Subjective Progress Note Date: 03/22/24 The patient is a pleasant 68-year-old gentleman with a past medical history significant for lower extremities PAD with prior angioplasty as well as severe cardiomyopathy and hypertension and dyslipidemia and multiple comorbid conditions who was admitted to the hospital with acute non-ST ovation myocardial infarction complicated by acute hypoxic respiratory failure secondary to possible underlying pneumonia but also heart failure. The ejection fraction was about 20 to 25% based on the echocardiogram during this admission. Subsequently the patient was admitted to the intensive care unit. March 19, 2024 The patient was seen and evaluated this morning. He still hypoxic requiring oxygen through nasal cannula at this point but he is overall doing slightly better but beside that he has been also hypotensive requiring norepinephrine. The creatinine today is slightly worse. The plan is to pursue with a heart catheterization today with or without angioplasty depends on the amount of contrast we use and also assess the LVEDP to see if the patient also have ongoing cardiogenic shock behind his hypotension. The physical examination is remarkable for regular rhythm with bilateral expiratory wheezing and no edema was noted in the lower extremities March 20, 2024 The patient was seen and evaluated this morning with he underwent a heart catheterization yesterday which showed severe disease involving the first and second obtuse marginal branches and intermediate to severe disease involving the LAD. Medical treatment was advised in the light of contrast and he need to undergo revascularization in the next few days. Meanwhile an attempt to place an Impella CP was done but he does have diseased femoral arteries bilaterally and for that reason the Impella CP procedure was canceled. He was seen this morning. He is still unstable and requiring small dose of norepinephrine we are trying to wean him from. Beside that he is on beta-konrad and he is on aspirin and statin. I am going to add Farxiga/SGLT2 inhibitors to the current medical regimen for the treatment of cardiomyopathy and also added Plavix for the treatment for acute non-ST ovation myocardial infarction. Meanwhile try to wean the patient from norepinephrine. Consider starting the patient on either KATIE or ARB or Arni once the pressure permitting. Consider revascularization in the next few days. The physical examination is remarkable for regular rhythm with a distant heart sounds and bilateral expiratory wheezing and no edema was noted March 21, 2024 The patient was seen and evaluated this morning. He is overall doing better. He is off norepinephrine. The pressure has been marginal in the 90s and the kidney function remains overall stable with a creatinine around 2. With that being said I am going to decrease the dose of Lasix to 20 mg IV twice daily with he is not in overt heart failure and he is not significantly hypoxic at this point. Beside that continue the current medical regimen including dual antiplatelet therapy along with a statin along with beta-konrad. Consider maximize medical treatment for cardiomyopathy by adding either KATIE inhibitor or ARB or Arni once the creatinine is stable and the blood pressure permitting. The physical examination is remarkable for regular rhythm with diminished breathing sounds bilaterally but no crackles was here and no edema was noted in the lower extremities March 22, 2024 On today's evaluation he is hemodynamically stable. Kidney function has stabilized with creatinine of 2.47. Yesterday it was 2.5. On admission it was 2.17. Hemoglobin is stable with no signs of bleeding. No reported chest pain or shortness of breath On exam Lungs are clear to auscultate with no crackles or rhonchi Heart rate is around 75 bpm, no murmurs appreciated. + 1 pitting edema in bilateral lower extremity on examination No focal neurological deficit. Detailed neuroexam was not performed. Assessment Acute non-ST elevation myocardial infarction Severe cardiomyopathy Acute hypoxic respiratory failure Possible pneumonia sepsis Multiple comorbid conditions Plan Continue DAPT, statin. If kidney function permits, plan for PCI on Sunday Lasix 40mg IV daily Objective - Vital Signs Vital signs: Vital Signs Temp 98.0 F 03/22/24 07:41 Pulse 79 03/22/24 13:01 Resp 16 03/22/24 11:10 BP 95/55 03/22/24 11:06 Pulse Ox 94 L 03/22/24 11:10 FiO2 70 03/19/24 07:33 Intake & Output 03/21/24 03/22/24 03/22/24 18:59 06:59 18:59 Intake Total 150 240 Output Total 353 356 1552 Balance -835 -575 -760 Weight 82.6 kg Intake: IV 150 0.9NS 50 Cefepime 2 gm In Sodium 100 Chloride 0.9% 100 ml @ 25 mls/hr IVPB Q12H [facility] Rx# :[id number] Oral 0 240 Output: Urine 941 [id number] Other: Voiding Method Indwelling Catheter Indwelling Catheter Urinal # Bowel Movements 1 - Labs CBC & Chem 7: 03/22/24 08:56 03/22/24 08:56 Labs: Abnormal Lab Results - Last 24 Hours (Table) 03/22/24 03/22/24 03/22/24 Range/Units 08:56 08:56 08:56 WBC 23.0 H (3.8-10.6) k/uL RBC 3.88 L (4.30-5.90) m/uL Hgb 12.0 L (13.0-17.5) gm/dL Hct 37.7 L (39.0-53.0) % Sodium 131 L (137-145) mmol/L Chloride 96 L (98-107) mmol/L BUN 82 H (9-20) mg/dL Creatinine 2.47 H (0.66-1.25) mg/dL Glucose 259 H (74-99) mg/dL Procalcitonin 0.70 H (0.02-0.50) ng/mL Microbiology - Last 24 Hours (Table) 03/18/24 14:55 Blood Culture - Preliminary Blood
--- NOTE | 2024-03-23 06:47 | XR ---
EXAMINATION TYPE: XR chest 1V DATE OF EXAM: 03/23/2024 COMPARISON: 03/21/2024 CLINICAL INDICATION: Male, 68 years old with history of sob; TECHNIQUE: Single frontal view of the chest is obtained. FINDINGS: There is mild improvement in the diffuse interstitial process particularly involving the right lung b ase. There is resolution of the small left pleural effusion. The heart size is normal for the technique. There is no pneumothorax. There is no airspace consolidation. The osseous structures are grossly intact. IMPRESSION: Acute cardiopulmonary disease, likely CHF, which has mildly improved in the interval. [facility], , 03/23/2024 6:45 AM
[2024-03-23 08:03] LABS: African American GFR (CKD) 31 (>60 ml/min/1.73 sqM); Anion Gap 10 mmol/L; Blood Urea Nitrogen 90 mg/dL (9-20); Calcium 9.2 mg/dL (8.4-10.2); Carbon Dioxide 24 mmol/L (22-30); Chloride 98 mmol/L (98-107); Glucose 137 mg/dL (74-99); Magnesium 2.3 mg/dL (1.6-2.3); Non-African American GFR(CKD) 27 (>60 ml/min/1.73 sqM); Potassium 5.1 mmol/L (3.5-5.1); Sodium 132 mmol/L (137-145)
--- NOTE | 2024-03-23 09:40 | P.PN ---
Subjective Patient is seen in follow-up for acute kidney injury on chronic kidney disease. Renal function stable. On room air. Denies chest pain or shortness of breath. Vital signs are stable. General: No acute distress. HEENT: Head exam is unremarkable. LUNGS: No audible rhonchi or wheezes. HEART: Rate and Rhythm are regular. ABDOMEN: Nontender. EXTREMITITES: No edema. Objective - Vital Signs Vital signs: Vital Signs Temp 98.1 F 03/23/24 08:22 Pulse 82 03/23/24 08:49 Resp 18 03/23/24 08:22 BP 97/62 03/23/24 08:22 Pulse Ox 95 03/23/24 08:39 FiO2 70 03/19/24 07:33 Intake & Output 03/22/24 03/23/24 03/23/24 18:59 06:59 18:59 Intake Total 1556 236 Output Total 1325 350 Balance 231 -350 236 Weight 84 kg Intake: Oral 1556 236 Output: Urine 1325 350 Other: Voiding Method Urinal Urinal Toilet # Bowel Movements 1 - Labs CBC & Chem 7: 03/22/24 08:56 03/23/24 07:20 Labs: Abnormal Lab Results - Last 24 Hours (Table) 03/22/24 03/22/24 03/22/24 Range/Units 08:56 08:56 08:56 WBC 23.0 H (3.8-10.6) k/uL RBC 3.88 L (4.30-5.90) m/uL Hgb 12.0 L (13.0-17.5) gm/dL Hct 37.7 L (39.0-53.0) % Sodium 131 L (137-145) mmol/L Chloride 96 L (98-107) mmol/L BUN 82 H (9-20) mg/dL Creatinine 2.47 H (0.66-1.25) mg/dL Glucose 259 H (74-99) mg/dL Procalcitonin 0.70 H (0.02-0.50) ng/mL 03/23/24 Range/Units 07:20 WBC (3.8-10.6) k/uL RBC (4.30-5.90) m/uL Hgb (13.0-17.5) gm/dL Hct (39.0-53.0) % Sodium 132 L (137-145) mmol/L Chloride (98-107) mmol/L BUN 90 H (9-20) mg/dL Creatinine 2.41 H (0.66-1.25) mg/dL Glucose 137 H (74-99) mg/dL Procalcitonin (0.02-0.50) ng/mL Assessment and Plan Plan: Assessment: 1. Acute kidney injury secondary to ATN secondary to cardiorenal syndrome, severe sepsis, contrast associated acute kidney injury. Creatinine peaked at 2.5 and is stable at 2.41 today. No hydronephrosis noted on kidney ultrasound. Nonoliguric. 2. Acute hypoxic respiratory failure. Improved. 3. Septic shock secondary to pneumonia maintained on antibiotics. Off vasopressors. 4. Acute on chronic systolic CHF ejection fraction of 25 to 30% and mild to moderate mitral vegetation and moderate pulmonary hypertension. 5. Hyponatremia secondary to acute kidney injury. Hypervolemic. Improved. 6. NSTEMI status post cardiac catheterization March 19 which showed disease in the left circumflex and LAD. 7. Metabolic acidosis secondary to acute kidney injury. Improved. On oral bicarb. 8. Volume overload. Improved with diuresis. Plan: Change Lasix to 40 mg orally once daily. Maintain SGLT2 inhibitor. Avoid nephrotoxins. Encouraged oral intake. Maintain 1500 cc fluid restriction. Continue to monitor renal function and urine output. Hidalgo catheter removed March 22, 2024. Has been voiding on his own.
[2024-03-23] MEDS: SENNOSIDES 8.6 MG TAB PO STA (10:36)
--- NOTE | 2024-03-23 12:04 | P.PN ---
Subjective Progress Note Date: 03/23/24 68-year-old male with a past medical history of hypertension, COPD with continued nicotine dependence, peripheral arterial disease, and GERD. He presented to the emergency department with a chief complaint of chest pain. Upon arrival to our facility, patient underwent evaluation in the emergency department. BP 100/65, HR 119, RR 20, T 97.3 F, and SpO2 of 98% on RA. EKG was completed showing sinus tachycardia at 101 bpm with RBBB, T wave inversion in leads aVL and V2 through V6. Chest x-ray completed showing right lower lung airspace opacities with nodular like appearance recommending further evaluation with CT to rule out underlying pulmonary nodule/malignancy. RLE Doppler completed negative for DVT. CBC, CMP, Coag panel significant for WBC 14.3, Na 130, BUN 40, Cr 2.04, glu 149, alb 3.2. Magnesium 2.2. Troponin 2.3, 2.14, 2.11, 1.97. proBNP was 29,600. Patient started on heparin infusion for treatment of NSTEMI and admitted under our services with consultation to cardiology. His res piratory status worsened which prompted admission to ICU. CT chest showed bilateral airspace consolidations with mild-mod bilateral parapneumonic effusions, patient was started on Azithromycin and Cefepime. He also required Levophed to maintain MAP > 65 which was weaned off by 03/21. He underwent ca rdiac cath on 03/19 showing severe disease on the 1st and 2nd obtuse marginal branch of the LCx and intermediate-severe disease of the proximal LAD. Cardiology recommending intervention after renal function improves. Nephrology consulted, started on bicarb replacement, Lasix frequency decreased and eventually transitioned to PO Lasix on 03/23. Cardiology plans on PCI hopefully on Sunday. 03/23 Patient was seen and examined. Feeling stronger. Breathing better. Hidalgo discontinued yesterday, voiding freely. Cardiology plans on PCI on Sunday. Currently on RA. SBP in the 90s. Lasix decreased to 40 mg PO QD by Nephrology. Negative 1.41 L fluid balance over the past 24H. BMP significant for Na 132, BUN 90, Cr 2.41, glu 137. Antibiotics include Cefepime (D6), completed 3 days of IV Azithromycin. Procal 0.7. CXR shows bilateral infiltrates which appears improved compared to previous CXRs. General: non toxic, no distress, appears at stated age Derm: warm, dry Head: atraumatic, normocephalic, symmetric Eyes: EOMI, no lid lag, anicteric sclera Mouth: no lip lesion, mucus membranes moist Cardiovascular: S1S2 reg, no murmur Lungs: Coarse BS bilateral, no rhonchi, no rales , no accessory muscle use Ext: no gross muscle atrophy, no edema, no contractures Neuro: no focal neuro deficits Psych: Alert, oriented, appropriate affect Based on my assessment of this patient, this patient meets a high complexity level of care. Septic shock secondary to multifocal PNA: Completed 3 days of Azithromycin 500 mg IV. Continued on Cefepime 2g IV BID (D6). Maintain MAP > 65. Judicious use of fluids given low EF. Follow sputum and blood cultures. Pro-pancho slightly elevated at 0.7. Pulmonary on board. Acute hypoxic respiratory failure secondary to PNA and CHF NSTEMI: ASA 81 mg PO QD. Lipitor 80 mg PO QD. Plavix 75 mg PO QD. Metoprolol 25 mg PO BID if BP permits. Cardiology recommends intervention after improvement in renal function. HFrEF with acute exacerbation: Metoprolol as above. Farxiga 5 mg PO QD. Decreased dose of Lasix to 40 mg PO QD. GDMT once BP improves. Possible need for LifeVest on discharge. Cardiology on board. Acute kidney injury on CKD with hypoNa: Worsened likely due to use of contrast and Lasix. Holding Losartan/HCTZ. Monitor renal function. UA and renal US as above. Sodium bicarb 650 mg PO BID. Nephrology on board. COPD with mild exacerbation: DuoNeb QID scheduled and PRN for SOB/wheezing. SoluMedrol switched to Prednisone 40 mg PO QD. Nicotine dependence: Nicotine patch. Hypertension: Hold home medications (Losartan/HCTZ, Amlodipine) due to hypotensive nature. Resolved: Metabolic acidosis. CODE STATUS: FULL CODE. DVT Prophylaxis: Heparin SQ. GI Prophylaxis: Holding Protonix given renal function. Designated medical POA if patient is not able to make medical decisions for themselves: I have reviewed the following home care consultant notes: Nephro. Cardio. I have reviewed the results of the following tests: BMP. Procal. I have ordered the following tests: I have discussed the care of this patient with the following independent historian: TRISTON. I have independently interpreted the following test below: CXR. I have discussed the management of this patient with the following physician: Objective - Vital Signs Vital signs: Vital Signs Temp 98.1 F 03/23/24 08:22 Pulse 80 03/23/24 11:53 Resp 18 03/23/24 08:22 BP 97/62 03/23/24 08:22 Pulse Ox 95 03/23/24 08:39 FiO2 70 03/19/24 07:33 Intake & Output 03/22/24 03/23/24 03/23/24 18:59 06:59 18:59 Intake Total 1556 236 Output Total 1325 350 Balance 231 -350 236 Weight 84 kg Intake: Oral 1556 236 Output: Urine 1325 350 Other: Voiding Method Urinal Urinal Toilet # Bowel Movements 1 - Labs CBC & Chem 7: 03/22/24 08:56 03/23/24 07:20 Labs: Abnormal Lab Results - Last 24 Hours (Table) 03/22/24 03/23/24 Range/Units 08:56 07:20 Sodium 132 L (137-145) mmol/L BUN 90 H (9-20) mg/dL Creatinine 2.41 H (0.66-1.25) mg/dL Glucose 137 H (74-99) mg/dL Procalcitonin 0.70 H (0.02-0.50) ng/mL
--- NOTE | 2024-03-23 12:23 | P.PN ---
Subjective Progress Note Date: 03/23/24 This is a 68-year-old male patient who came into the emergency department on with complaints of chest pain and shortness of breath. The patient apparently was taking out the garbage and he became quite winded and also developed a chest pain. However, the patient has been having some symptoms of nausea and emesis and diarrhea for the past 10 days. He came into the Emergency Department and the patient was found to be hypoxic and initially was placed on 2 L of oxygen by nasal cannula. He is EKG showed sinus tachycardia with some nonspecific ST segment changes in the anterior leads. Doppler of the lower extremities was negative for DVT. Initial white cell count was at 23 and the D- dimer was at 1.1 and the patient's hemoglobin was 15. The patient also had a acute on top of chronic kidney injury with a BUN of 40 and a creatinine of 2.04 and the patient also ruled in for an acute non-ST segment elevation myocardial infarction as the patient's troponin peaked at 2.3 and subsequent dropped down to 1.9. The patient was started on IV heparin. Echocardiogram was done earlier this morning and the patient was found to have also a component of CHF with an ejection fraction of 25 to 30%. There was diffuse global hypokinesis and moderate degree of pulm hypertension and mild to moderate mitral regurgitation. At a later stage, the patient became progressively more hypoxic. His oxygen requirements went up from 2 L up to 15 L and ultimately the patient was placed on a BiPAP pressure of 12/6 with an FiO2 of 70%. His current pulse ox is 91 to 92%. Repeat chest x-ray was done and it showed significant progression with development of diffuse interstitial infiltrates and significant consolidation of the right lung base which was highly suggestive of pneumonia specially the patient had a rise in his white cell count up to 34.8. Based on that, the p atient was started on broad-spectrum antibiotics. He was started on a combination of cefepime and Zithromax. Given a dose of Lasix 40 g IV with adequate urine output. He is currently on DuoNeb updrafts, IV heparin, and is also on prednisone 40 mg p.o. daily. Cardiology has been consulted on the case. Denies having any significant chest pain. Past medical history is positive for COPD, chronic smoking, peripheral vascular disease and the patient has undergone vascular intervention and angioplasty to his lower extremity for acute ischemic limb in addition to history of hypertension, chronic kidney disease stage III. Patient also known to have bilateral common iliac artery aneurysms and abdominal aortic aneurysm. He has an infrarenal renal abdominal aortic aneurysm measuring 4 cm and 8.6 cm in length and there is extensive mural thrombus. This is based on a previous CT of the abdominal aorta that was performed on this patient on 09/23/2022. In addition to that, the patient has extensive atherosclerotic changes in the bilateral SFA and short segment focal occlusion involving the right external iliac artery. On 03/19/2024, the patient is critically ill in the intensive care unit. The patient had an acute non-ST segment elevation myocardial infarction and the patient is possibly cardiogenic shock, hypotensive with diffuse bilateral pulmonary infiltrates. There was also concern of a right lower lobe pneumonia based on that the patient was started on broad-spectrum antibiotics. Noted, the patient was taken off the BiPAP and the patient is currently on 8 L of O2 nasal cannula. IV fluids are running at a rate of 75 cc an hour, maintenance and the patient is on norepinephrine running at 0.08 mcg/kg/min. He remains on IV heparin. Echocardiogram was completed and the patient was found to have impaired LV function with ejection fraction of 25 to 30% with global left ventricular dysfunction, moderate pulm hypertension with a PA pressure of 47 and mild to moderate mitral regurgitation and mild tricuspid regurgitation. The patient is awake and alert. Denies having any chest pain. White cell count is at 33 with a hemoglobin 13.8, BUN is 50 with a creatinine of 2.17 and sodium levels at 130 with a potassium level of 5.0. Serum bicarb is at 19. The troponins peaked at 2.1 and is currently down to 1.9. Overall fluid balance over the past 24 hours -1.9 L and the patient has produced approximate 2.2 L of urine output. The plan is to proceed with cardiac catheterization, coronary intervention if needed and mechanical support if needed. Meanwhile, a CAT scan of the chest was also done without contrast this morning and the patient was found to have diffuse bilateral pulmonary airspace disease and infiltrates in addition to lower lobe atelectatic changes and small to moderate-sized bilateral pleural effusion. The patient also has moderate degree of centrilobular emphysema noted. Antibiotic coverage is with cefepime and Zithromax. On 03/20/2024, the patient is being seen for a follow-up. The patient seems to be less short of breath compared to yesterday. He is currently on 5 L of oxygen by nasal cannula. Awake and alert and communicating. He has some cough and congestion. No significant bronchospasm or wheezing. He was taken off the no repinephrine earlier this morning and urine output is in order of 30 cc an hour. He underwent a cardiac catheterization yesterday and the patient was found to have significant elevation of left ventricular end-diastolic pressure. The patient also had severe disease involving the first and the second obtuse marginal branch of the circumflex. The patient also had intermediate to severe disease involving the proximal LAD. No intervention was done. The patient remains on broad-spectrum antibiotics and the patient remains on IV cefepime. The white cell count is improved compared to yesterday and the currently is down to 26 with a hemoglobin 12.3 and a platelet count of 289. BUN is 57 with a creatinine of 2.07 and sodium levels at 133 and a potassium level is at 4.9. LFTs are normal. Blood cultures are negative thus far. The patient also is on DuoNeb nebulized treatments [id number]. The patient remains on IV Solu- Medrol 40 mg every 8 hours. He will be started on diuretics. He was started on Farxiga. He remains on aspirin and Plavix. The chest x-ray from today is a combination of CHF and pneumonia. On 03/21/2024, the patient is comfortable sitting up in a chair. No significant shortness of breath at rest. He is currently on 4 L of oxygen by nasal cannula. He remains on IV Lasix 40 mg every 12 hours and the patient is negative fluid balance of at least 700 cc over the past 24 hours. Repeat chest x-ray from today shows a right lower lobe consolidation along with ongoing pulm venous congestion the patient remains on IV cefepime. He is off norepinephrine. No chest pain. No altered mentation. The white cell count is 27 with a hemoglobin 12.4 platelet count of 234. BUN 70 with a 2.5 and a Sodium Levels at 121 and a Potassium Level Is at 4.7. UA Showing +3 Glucose, 19 RBCs, 5 WBCs. Outreach Associate on the Case. The Patient Remains on Bronchodilators, Remains on IV Solu-Medrol 40 Mg Every 8 Hours. Remains on Metoprolol 25 Mg P.O. Twice Daily. Remains on Aspirin. He Is Also on Plavix and Farxiga. On 03/22/2024, the patient is being seen for a follow-up. Doing well. Less short of breath and the patient is currently on 2 L of oxygen by nasal cannula with pulse ox of 94%. No significant cough or sputum production. No chest pain. Remains on Lasix 40 mg IV every 24 hours. Remains on DuoNeb dobutamine [id number], IV cefepime and IV Solu-Medrol. He did have a right lower lobe pneumonia. The white cell count is gradually improving is currently down to 23 with a hemoglobin 12 and a platelet count of 221. BUN is 82 with a creatinine of 2.4 and a sodium levels at 131. Procalcitonin level is at 0.7. Fluid balance is -1.4 L over the past 24 hours. Sales Teacher on the case. No other issues otherwise for now. On 03/23/2024, the patient is feeling much better. Oxygenation is improved and the patient is currently on room air oxygen with a pulse ox of 95%. Repeat chest x-ray was done that showed improvement in the CHF and improvement in the right lower lobe pulmonary consolidation. The patient remains on aspirin. The patient remains on IV cefepime. The patient remains on Lasix 40 mg p.o. daily. Remains on metoprolol 25 mg p.o. twice daily. IV Solu-Medrol to be discontinued and the patient will be started on a prednisone burst taper. Meanwhile, the patient is scheduled to undergo a cardiac catheterization and further PCI and stenting related to his underlying coronary artery disease. BUN is 90 0.4. SODIUM LEVELS AT 132. WHITE CELL COUNT IS DOWN TO 23. PROCALCITONIN LEVEL IS AT 0.7. BLOOD CULTURES BEEN NEGATIVE. Objective - Vital Signs Vital signs: Vital Signs Temp 98.1 F 03/23/24 08:22 Pulse 80 03/23/24 11:53 Resp 18 03/23/24 08:22 BP 97/62 03/23/24 08:22 Pulse Ox 95 03/23/24 08:39 FiO2 70 03/19/24 07:33 Intake & Output 03/22/24 03/23/24 03/23/24 18:59 06:59 18:59 Intake Total 1556 236 Output Total 1325 350 Balance 231 -350 236 Weight 84 kg Intake: Oral 1556 236 Output: Urine 1325 350 Other: Voiding Method Urinal Urinal Toilet # Bowel Movements 1 - Exam The patient has labored breathing and the patient is currently on room air oxygen Head exam is unremarkable. No scleral icterus or corneal arcus noted. Neck is without jugular venous distension, thyromegaly, or carotid bruits. Carotid upstrokes are brisk bilaterally. Lungs examination improved aeration bilaterally with minimal crackles at lung bases and scattered wheezes Cardiac exam reveals the PMI to be normally sized and situated. Rhythm is reg ular. First and second heart sounds normal. No murmurs, rubs or gallops. Abdominal exam reveals normal bowel sounds, no masses, no organomegaly and no aortic enlargement. Extremities are nonedematous and the patient has significant diminished pulses in lower extremities bilaterally Examination of the skin revealed no evidence of significant rashes, suspicious appearing nevi or other concerning lesions. Neurologically, the patient is awake and alert and the patient does not have any focal neurological deficit. Cranial nerves are essentially intact. - Labs CBC & Chem 7: 03/22/24 08:56 03/23/24 07:20 Labs: Abnormal Lab Results - Last 24 Hours (Table) 03/22/24 03/23/24 Range/Units 08:56 07:20 Sodium 132 L (137-145) mmol/L BUN 90 H (9-20) mg/dL Creatinine 2.41 H (0.66-1.25) mg/dL Glucose 137 H (74-99) mg/dL Procalcitonin 0.70 H (0.02-0.50) ng/mL Assessment and Plan Plan: Acute hypoxic respiratory failure with development of extensive right lower lobe consolidation highly suggestive of pneumonia with subsequent development of diffuse pulm vessel congestion/pulmonary edema and bilateral pleural effusions. The picture is consistent with CHF and possibly right lower lobe pneumonia. Patient remains on a combination of cefepime. Clinically much improved and the patient is currently on room air oxygen. Repeat chest x-ray shows clearing of the right lower lobe consolidation improvement in CHF and pulmonary edema. Acute systolic heart failure with development of bilateral pleural effusion diffuse pulmonary edema, improved Acute non-ST segment elevation myocardial infarction, the patient's troponin peaked at 2.3, downtrending. Cardiac catheterization showed disease involving the obtuse marginal branch of the circumflex and proximal LAD lesion. Intervention to be done at a later stage as the patient has a component of acute kidney injury on top of chronic kidney disease. Systolic heart failure with ejection fraction of 25 to 30% with global hypokinesis and mild to moderate mitral regurgitation, rule out underlying ischemic cardiomyopathy. The patient also has moderate degree of pulmonary hypertension. There is also significant elevation of left ventricular end- diastolic pressure based on the most recent cardiac catheterization. COPD with acute exacerbation likely secondary to underlying pneumonia, currently on bronchodilators and steroids. Chronic stage III kidney disease with acute kidney injury on top of his chronic renal failure. patient is nonoliguric, creatinine is at 2.4 Severe peripheral vascular disease Abdominal arctic aneurysm, infrarenal measuring 4 cm in size Bilateral iliac artery aneurysms Acute leukocytosis, improving Hypertension Hyperlipidemia History of smoking Plan Patient is currently on room air oxygen Continue Cefepime as a broad-spectrum antibiotic coverage, completed total of 7- day course Repeat chest x-ray in the morning shows clearing of the right lower lobe consolidation improvement of pulm edema Oral Lasix Negative fluid balance The patient is a cardiac catheterization from 03/19/2024 was noted and the patient will need intervention at a later stage once his renal function further stabilizes. The creatinine is currently 2.4. This intervention can be done probably within next 24 to 48 hours as long as the patient renal function remained stable Discontinued IV Solu-Medrol start the patient on prednisone burst taper Blood cultures are negative Legionella urine antigen is negative Viral screen has been negative Continue aspirin and Plavix Continue metoprolol Continue Lara Will continue to follow make further recommendations based on his progress.
--- NOTE | 2024-03-23 23:26 | P.PN ---
Subjective Progress Note Date: 03/23/24 The patient is a pleasant 68-year-old gentleman with a past medical history significant for lower extremities PAD with prior angioplasty as well as severe cardiomyopathy and hypertension and dyslipidemia and multiple comorbid conditions who was admitted to the hospital with acute non-ST ovation myocardial infarction complicated by acute hypoxic respiratory failure secondary to possible underlying pneumonia but also heart failure. The ejection fraction was about 20 to 25% based on the echocardiogram during this admission. Subsequently the patient was admitted to the intensive care unit. March 19, 2024 The patient was seen and evaluated this morning. He still hypoxic requiring oxygen through nasal cannula at this point but he is overall doing slightly better but beside that he has been also hypotensive requiring norepinephrine. The creatinine today is slightly worse. The plan is to pursue with a heart catheterization today with or without angioplasty depends on the amount of contrast we use and also assess the LVEDP to see if the patient also have ongoing cardiogenic shock behind his hypotension. The physical examination is remarkable for regular rhythm with bilateral expiratory wheezing and no edema was noted in the lower extremities March 20, 2024 The patient was seen and evaluated this morning with he underwent a heart catheterization yesterday which showed severe disease involving the first and second obtuse marginal branches and intermediate to severe disease involving the LAD. Medical treatment was advised in the light of contrast and he need to undergo revascularization in the next few days. Meanwhile an attempt to place an Impella CP was done but he does have diseased femoral arteries bilaterally and for that reason the Impella CP procedure was canceled. He was seen this morning. He is still unstable and requiring small dose of norepinephrine we are trying to wean him from. Beside that he is on beta-konrad and he is on aspirin and statin. I am going to add Farxiga/SGLT2 inhibitors to the current medical regimen for the treatment of cardiomyopathy and also added Plavix for the treatment for acute non-ST ovation myocardial infarction. Meanwhile try to wean the patient from norepinephrine. Consider starting the patient on either KATIE or ARB or Arni once the pressure permitting. Consider revascularization in the next few days. The physical examination is remarkable for regular rhythm with a distant heart sounds and bilateral expiratory wheezing and no edema was noted March 21, 2024 The patient was seen and evaluated this morning. He is overall doing better. He is off norepinephrine. The pressure has been marginal in the 90s and the kidney function remains overall stable with a creatinine around 2. With that being said I am going to decrease the dose of Lasix to 20 mg IV twice daily with he is not in overt heart failure and he is not significantly hypoxic at this point. Beside that continue the current medical regimen including dual antiplatelet therapy along with a statin along with beta-konrad. Consider maximize medical treatment for cardiomyopathy by adding either KATIE inhibitor or ARB or Arni once the creatinine is stable and the blood pressure permitting. The physical examination is remarkable for regular rhythm with diminished breathing sounds bilaterally but no crackles was here and no edema was noted in the lower extremities March 22, 2024 On today's evaluation he is hemodynamically stable. Kidney function has stabilized with creatinine of 2.47. Yesterday it was 2.5. On admission it was 2.17. Hemoglobin is stable with no signs of bleeding. No reported chest pain or shortness of breath March 23, 2024 Euvolemic, hemodynamic stable, kidney function is slightly improving 2.41 today. Hemoglobin is stable. On exam Lungs are clear to auscultate with no crackles or rhonchi Heart rate is around 75 bpm, no murmurs appreciated. + 1 pitting edema in bilateral lower extremity on examination No focal neurological deficit. Detailed neuroexam was not performed. Assessment Acute non-ST elevation myocardial infarction Severe cardiomyopathy Acute hypoxic respiratory failure Possible pneumonia sepsis Multiple comorbid conditions Plan Continue DAPT, statin. Plan for PCI with Dr. Estrada tomorrow a.m. Lasix 40 mg p.o. Transition from IV today. After heart catheter if stable, consider adding SGLT2 Metoprolol succinate 25 mg daily not doing ARB/Arni due to low blood pressure and poor renal function Objective - Vital Signs Vital signs: Vital Signs Temp 97.5 F L 03/23/24 20:00 Pulse 84 03/23/24 20:47 Resp 18 03/23/24 20:00 BP 97/58 03/23/24 20:00 Pulse Ox 95 03/23/24 20:00 FiO2 70 03/19/24 07:33 Intake & Output 03/23/24 03/23/24 03/24/24 06:59 18:59 06:59 Intake Total 694 250 Output Total 350 1200 Balance -350 -506 250 Weight 84 kg Intake: IV 10 Invasive Line 2 10 Oral 694 240 Output: Urine 350 1200 Other: Voiding Method Urinal Toilet Toilet # Voids 2 1 - Labs CBC & Chem 7: 03/22/24 08:56 03/23/24 07:20 Labs: Abnormal Lab Results - Last 24 Hours (Table) 03/23/24 Range/Units 07:20 Sodium 132 L (137-145) mmol/L BUN 90 H (9-20) mg/dL Creatinine 2.41 H (0.66-1.25) mg/dL Glucose 137 H (74-99) mg/dL Microbiology - Last 24 Hours (Table) 03/18/24 14:55 Blood Culture - Final Blood 03/22/24 15:44 Gram Stain - Preliminary Sputum
--- NOTE | 2024-03-24 06:42 | P.PN ---
Subjective Progress Note Date: 03/24/24 68-year-old male with a past medical history of hypertension, COPD with continued nicotine dependence, peripheral arterial disease, and GERD. He presented to the emergency department with a chief complaint of chest pain. Upon arrival to our facility, patient underwent evaluation in the emergency department. BP 100/65, HR 119, RR 20, T 97.3 F, and SpO2 of 98% on RA. EKG was completed showing sinus tachycardia at 101 bpm with RBBB, T wave inversion in leads aVL and V2 through V6. Chest x-ray completed showing right lower lung airspace opacities with nodular like appearance recommending further evaluation with CT to rule out underlying pulmonary nodule/malignancy. RLE Doppler completed negative for DVT. CBC, CMP, Coag panel significant for WBC 14.3, Na 130, BUN 40, Cr 2.04, glu 149, alb 3.2. Magnesium 2.2. Troponin 2.3, 2.14, 2.11, 1.97. proBNP was 29,600. Patient started on heparin infusion for treatment of NSTEMI and admitted under our services with consultation to cardiology. His res piratory status worsened which prompted admission to ICU. CT chest showed bilateral airspace consolidations with mild-mod bilateral parapneumonic effusions, patient was started on Azithromycin and Cefepime. He also required Levophed to maintain MAP > 65 which was weaned off by 03/21. He underwent ca rdiac cath on 03/19 showing severe disease on the 1st and 2nd obtuse marginal branch of the LCx and intermediate-severe disease of the proximal LAD. Cardiology recommending intervention after renal function improves. Nephrology consulted, started on bicarb replacement, Lasix frequency decreased and eventually transitioned to PO Lasix on 03/23. Cardiology plans on PCI hopefully on Sunday. 03/24 Patient was seen and examined. Doing well. Cardiology plans on PCI today. Currently on RA saturating 95%. SBP in the 90s. BMP and Mag pending this morning. Antibiotics include Cefepime 2g IV BID (D7), completed 3 days of IV Azithromycin. Sputum Cx showing PMNs, moderate GNB, rare GPC. General: non toxic, no distress, appears at stated age Derm: warm, dry Head: atraumatic, normocephalic, symmetric Eyes: EOMI, no lid lag, anicteric sclera Mouth: no lip lesion, mucus membranes moist Cardiovascular: S1S2 reg, no murmur Lungs: Clear to auscultation bilateral with scattered rhonci, no accessory muscl e use Ext: no gross muscle atrophy, no edema, no contractures Neuro: no focal neuro deficits Psych: Alert, oriented, appropriate affect Based on my assessment of this patient, this patient meets a high complexity level of care. Septic shock secondary to multifocal PNA, shock resolved: Completed 3 days of Azithromycin 500 mg IV. Continued on Cefepime 2g IV BID (D7). Maintain MAP > 65. Judicious use of fluids given low EF. Blood culture negative. Follow sputum cultures. Pro-pancho slightly elevated at 0.7. Pulmonary on board. Acute hypoxic respiratory failure secondary to PNA and CHF NSTEMI: ASA 81 mg PO QD. Lipitor 80 mg PO QD. Plavix 75 mg PO QD. Metoprolol 25 mg PO BID. Cardiology plans PCI hopefully today. HFrEF with acute exacerbation: Metoprolol as above. Lasix 40 mg PO QD. Farxiga 5 mg PO QD. Possible need for LifeVest on discharge. Cardiology on board. Acute kidney injury on CKD stage III with hypoNa: Worsened likely due to use of contrast and Lasix. Hold Losartan/HCTZ. Monitor renal function. Renal US neg for hydronephrosis. Sodium bicarb 650 mg PO BID. Nephrology on board. COPD with mild exacerbation: DuoNeb QID scheduled and PRN for SOB/wheezing. Prednisone 40 mg PO QD. Nicotine dependence: Nicotine patch. Hypertension: Hold home medications (Losartan/HCTZ, Amlodipine) due to hypotensive nature. Resolved: Metabolic acidosis. Hopeful plans for PCI today. Repeat BMP in the AM. Anticipate discharge in 1-2 days. CODE STATUS: FULL CODE. DVT Prophylaxis: Heparin SQ. GI Prophylaxis: Holding Protonix given renal function. Designated medical POA if patient is not able to make medical decisions for themselves: I have reviewed the following device sales consultant notes: Nephro. Pulmonary. Cardio. I have reviewed the results of the following tests: Sputum Cx. I have ordered the following tests: BMP, Mag pending this morning. I have discussed the care of this patient with the following independent historian: I have independently interpreted the following test below: I have discussed the management of this patient with the following physician: Objective - Vital Signs Vital signs: Vital Signs Temp 97.5 F L 03/24/24 04:00 Pulse 76 03/24/24 04:00 Resp 18 03/24/24 04:00 BP 93/59 03/24/24 04:00 Pulse Ox 95 03/24/24 04:00 FiO2 70 03/19/24 07:33 Intake & Output 03/23/24 03/23/24 03/24/24 06:59 18:59 06:59 Intake Total 694 250 Output Total 350 1200 Balance -350 -506 250 Weight 84 kg 81.1 kg Intake: IV 10 Invasive Line 2 10 Oral 694 240 Output: Urine 350 1200 Other: Voiding Method Urinal Toilet Toilet # Voids 2 1 - Labs CBC & Chem 7: 03/22/24 08:56 03/23/24 07:20 Labs: Abnormal Lab Results - Last 24 Hours (Table) 03/23/24 Range/Units 07:20 Sodium 132 L (137-145) mmol/L BUN 90 H (9-20) mg/dL Creatinine 2.41 H (0.66-1.25) mg/dL Glucose 137 H (74-99) mg/dL Microbiology - Last 24 Hours (Table) 03/18/24 14:55 Blood Culture - Final Blood 03/22/24 15:44 Gram Stain - Preliminary Sputum
[2024-03-24] MEDS ORDERED: ALPRAZolam 0.5 MG TAB PO PRN (07:37)
[2024-03-24] MEDS ORDERED: NITROGLYCERIN SL TABS 0.4 MG TAB SUBLINGUAL PRN ×2 (07:37→13:27)
[2024-03-24] MEDS ORDERED: ALPRAZolam 0.25 MG TAB PO PRN (07:37)
[2024-03-24 08:36] LABS: African American GFR (CKD) 32 (>60 ml/min/1.73 sqM); Anion Gap 6 mmol/L; Blood Urea Nitrogen 94 mg/dL (9-20); Carbon Dioxide 28 mmol/L (22-30); Chloride 98 mmol/L (98-107); Glucose 93 mg/dL (74-99); Magnesium 2.4 mg/dL (1.6-2.3); Non-African American GFR(CKD) 28 (>60 ml/min/1.73 sqM); Potassium 5.2 mmol/L (3.5-5.1); Sodium 132 mmol/L (137-145)
[2024-03-24] MEDS: SODIUM CHLORIDE 0.9% 1,000 ML in EMPTY BAG 1 BAG IV SCH ×2 (08:41→18:41)
[2024-03-24] MEDS: FUROSEMIDE 40 MG TAB PO SCH (08:42)
[2024-03-24] MEDS: ASPIRIN 81 MG PO STA (08:42)
[2024-03-24] MEDS: predniSONE 20 MG TAB PO SCH (08:42)
--- NOTE | 2024-03-24 10:13 | P.PN ---
Subjective Patient is seen in follow-up for acute kidney injury on chronic kidney disease. Renal function stable. On room air. Denies chest pain or shortness of breath. Scheduled for cardiac catheterization today. Vital signs are stable. General: No acute distress. HEENT: Head exam is unremarkable. LUNGS: No audible rhonchi or wheezes. HEART: Rate and Rhythm are regular. ABDOMEN: Nontender. EXTREMITITES: No edema. Objective - Vital Signs Vital signs: Vital Signs Temp 97.5 F L 03/24/24 08:00 Pulse 80 03/24/24 08:39 Resp 16 03/24/24 08:00 BP 89/50 03/24/24 08:00 Pulse Ox 97 03/24/24 08:00 FiO2 70 03/19/24 07:33 Intake & Output 03/23/24 03/24/24 03/24/24 18:59 06:59 18:59 Intake Total 694 260 Output Total 1200 Balance -506 260 Weight 81.1 kg Intake: IV 20 Invasive Line 2 10 Invasive Line 4 10 Oral 694 240 Output: Urine 1200 Other: Voiding Method Toilet Toilet # Voids 2 1 - Labs CBC & Chem 7: 03/22/24 08:56 03/24/24 07:20 Labs: Abnormal Lab Results - Last 24 Hours (Table) 03/24/24 Range/Units 07:20 Sodium 132 L (137-145) mmol/L Potassium 5.2 H (3.5-5.1) mmol/L BUN 94 H (9-20) mg/dL Creatinine 2.33 H (0.66-1.25) mg/dL Magnesium 2.4 H (1.6-2.3) mg/dL Microbiology - Last 24 Hours (Table) 03/18/24 14:55 Blood Culture - Final Blood 03/22/24 15:44 Gram Stain - Preliminary Sputum Assessment and Plan Plan: Assessment: 1. Acute kidney injury secondary to ATN secondary to cardiorenal syndrome, severe sepsis, contrast associated acute kidney injury. Creatinine peaked at 2.5 and is stable at 2.33 today. No hydronephrosis noted on kidney ultrasound. Nonoliguric. 2. Acute hypoxic respiratory failure. Improved. 3. Septic shock secondary to pneumonia maintained on antibiotics. Off vasopressors. 4. Acute on chronic systolic CHF ejection fraction of 25 to 30% and mild to moderate mitral vegetation and moderate pulmonary hypertension. 5. Hyponatremia secondary to acute kidney injury. Hypervolemic. Improved. 6. NSTEMI status post cardiac catheterization March 19 which showed disease in the left circumflex and LAD. 7. Metabolic acidosis secondary to acute kidney injury. Improved. On oral bicarb. 8. Volume overload. Improved with diuresis. Plan: Maintained on oral Lasix. Maintain SGLT2 inhibitor. Avoid nephrotoxins. Encouraged oral intake. Maintain 1500 cc fluid restriction. Continue to monitor renal function and urine output. Hidalgo catheter removed March 22, 2024. Has been voiding on his own. Scheduled for cardiac catheterization today. Discussed with patient at length the risk of worsening renal function, potentially requiring renal replacement therapy post IV contrast exposure. He understands. Currently receiving IV fluids. Hep-Lock IV fluids 4 hours after cardiac catheterization. Discussed with RN. Hold bicarb.
[2024-03-24 11:17] VITALS: BMI 24.9
[2024-03-24] MEDS: HEPARIN SODIUM,PORCINE 10,000 UNIT in SODIUM CHLORIDE 0.9% 1,000 ML IRRIGATION ONE (12:20)
[2024-03-24] MEDS: HEPARIN SODIUM,PORCINE (1 ML) 2,500 UNIT in SODIUM CHLORIDE 0.9% 250 ML IRRIGATION ONE (12:20)
[2024-03-24] MEDS: IV FLUID CONTINUATION 1,000 ML IV ONE (12:44)
[2024-03-24] MEDS: MIDAZOLAM 2 MG/2 ML VIAL IVP ONE (12:44)
[2024-03-24] MEDS: LIDOCAINE 1% INJ 10MG/ML (20 ML MDV) SQ ONE ×2 (12:46→12:47)
[2024-03-24] MEDS: HEPARIN SODIUM 1,000 UN/ML (10ML VL) IVP ONE (12:52)
[2024-03-24] MEDS: TICAGRELOR 90 MG TAB PO ONE (13:07)
[2024-03-24] MEDS: PHENYLEPHRINE-0.9% NACL SYG 1,000 MCG/10 ML SYRINGE IVP ONE (13:20)
[2024-03-24] MEDS ORDERED: ZOLPIDEM 5 MG TAB PO PRN (13:27)
[2024-03-24] MEDS ORDERED: MAG HYDROX/AL HYDROX/SIMETH 30 ML CUP PO PRN (13:27)
[2024-03-24] MEDS ORDERED: RX INFO: IV CONTRAST WAS GIVEN 1 EACH MISC MISCELLANE PRN (13:27)
[2024-03-24] MEDS ORDERED: ATROPINE SULFATE 0.1 MG/ML 10ML SYRINGE IV PRN (13:27)
[2024-03-24] MEDS: IOPAMIDOL-370 100ML BTL INJ ONE (13:27)
--- NOTE | 2024-03-24 13:31 | P.PCN ---
Date of Procedure: 03/24/24 Operative Findings: PERCUTANEOUS CORONARY INTERVENTION Performing physician Chucho Luna M.D. Procedure Performed: 1. Successful stenting of the proximal LAD using 4.0 x 23 Xience drug-eluting stent with an excellent angiographic results. 2. Successful stending of the OM using 2.5 x 23 Xience drug-eluting stent with an excellent angiographic result. 3. Adjunctive use of IVUS and Dobler wire 4. Selective right common femoral artery angiogram and ultrasound-guided access of the right common femoral artery Indication: 68-year-old gentleman with cardiomyopathy and heart catheterization before revealed severe two-vessel CAD Approach: Right common femoral artery Complications: None Level of Sedation: Moderate with a sedation length of 39 minutes Procedure Discussion: After obtaining informed consent the patient was brought to cardiac Rn Maternal Child with right common femoral artery was cannulated using micropuncture technique under ultrasound guidance a micropuncture wire passed easily then I placed a 6 Sudanese 11 cm sheath at the right common femoral artery with after that we decided to do an IFR of the LAD with after zeroing the Doppler wire and equalizing between the Dobler wire and guiding catheter which was JL 4 guiding catheter the left main was engaged and the LAD was wired using the Dobler wire with IFR came to be at 0.78. At that point IVUS was performed and showed a diameter around 4 mm predilatation was performed using 3.5 mm balloon before I deployed 4.0 x 23 mm stent in the proximal ID postdilated seeing 4 mm NC balloon with good angiographic results. Subsequently another wire which was a run- through wire was positioned toward the first OM branch of the left circumflex. Again IVUS was performed that showed a diameter between 2.25 to 2.5 mm. Predilatation was performed using 2.5 mm balloon before I deployed 2.5 x 23 mm stent and final angiogram showed good angiographic results and the procedure was completed with no complication Postprocedure Management: 1. Dual antiplatelet therapy using aspirin and Brilinta for at least 12 months 2. Aggressive cholesterol control 3. Risk factors modification
--- NOTE | 2024-03-24 14:23 | P.PN ---
Subjective Progress Note Date: 03/24/24 This is a 68-year-old male patient who came into the emergency department on 03/17/2024 with complaints of chest pain and shortness of breath. The patient apparently was taking out the garbage and he became quite winded and also developed a chest pain. However, the patient has been having some symptoms of nausea and emesis and diarrhea for the past 10 days. He came into the Emergency Department and the patient was found to be hypoxic and initially was placed on 2 L of oxygen by nasal cannula. He is EKG showed sinus tachycardia with some nonspecific ST segment changes in the anterior leads. Doppler of the lower extremities was negative for DVT. Initial white cell count was at 23 and the D-dimer was at 1.1 and the patient's hemoglobin was 15. The patient also had a acute on top of chronic kidney injury with a BUN of 40 and a creatinine of 2.04 and the patient also ruled in for an acute non-ST segment elevation myocardial infarction as the patient's troponin peaked at 2.3 and subsequent dropped down to 1.9. The patient was started on IV heparin. Echocardiogram was done earlier this morning and the patient was found to have also a component of CHF with an ejection fraction of 25 to 30%. There was diffuse global hypokinesis and moderate degree of pulm hypertension and mild to moderate mitral regurgitation. At a later stage, the patient became progressively more hypoxic. His oxygen requirements went up from 2 L up to 15 L and ultimately the patient was placed on a BiPAP pressure of 12/6 with an FiO2 of 70%. His current pulse ox is 91 to 92%. Repeat chest x-ray was done and it showed significant progression with development of diffuse interstitial infiltrates and significant consolidation of the right lung base which was highly suggestive of pneumonia specially the pat ient had a rise in his white cell count up to 34.8. Based on that, the patient was started on broad-spectrum antibiotics. He was started on a combination of cefepime and Zithromax. Given a dose of Lasix 40 g IV with adequate urine output. He is currently on DuoNeb updrafts, IV heparin, and is also on prednisone 40 mg p.o. daily. Cardiology has been consulted on the case. Denies having any significant chest pain. Past medical history is positive for COPD, chronic smoking, peripheral vascular disease and the patient has undergone vascular intervention and angioplasty to his lower extremity for acute ischemic limb in addition to history of hypertension, chronic kidney disease stage III. Patient also known to have bilateral common iliac artery aneurysms and abdominal aortic aneurysm. He has an infrarenal renal abdominal aortic aneurysm measuring 4 cm and 8.6 cm in length and there is extensive mural thrombus. This is based on a previous CT of the abdominal aorta that was performed on this patient on 09/23/2022. In addition to that, the patient has extensive atherosclerotic changes in the bilateral SFA and short segment focal occlusion involving the right external iliac artery. On 03/19/2024, the patient is critically ill in the intensive care unit. The patient had an acute non-ST segment elevation myocardial infarction and the patient is possibly cardiogenic shock, hypotensive with diffuse bilateral pulmonary infiltrates. There was also concern of a right lower lobe pneumonia based on that the patient was started on broad-spectrum antibiotics. Noted, the patient was taken off the BiPAP and the patient is currently on 8 L of O2 nasal cannula. IV fluids are running at a rate of 75 cc an hour, maintenance and the patient is on norepinephrine running at 0.08 mcg/kg/min. He remains on IV heparin. Echocardiogram was completed and the patient was found to have impaired LV function with ejection fraction of 25 to 30% with global left ventricular dysfunction, moderate pulm hypertension with a PA pressure of 47 and mild to moderate mitral regurgitation and mild tricuspid regurgitation. The patient is awake and alert. Denies having any chest pain. White cell count is at 33 with a hemoglobin 13.8, BUN is 50 with a creatinine of 2.17 and sodium levels at 130 with a potassium level of 5.0. Serum bicarb is at 19. The troponins peaked at 2.1 and is currently down to 1.9. Overall fluid balance over the past 24 hours -1.9 L and the patient has produced approximate 2.2 L of urine output. The plan is to proceed with cardiac catheterization, coronary int ervention if needed and mechanical support if needed. Meanwhile, a CAT scan of the chest was also done without contrast this morning and the patient was found to have diffuse bilateral pulmonary airspace disease and infiltrates in addition to lower lobe atelectatic changes and small to moderate-sized bilateral pleural effusion. The patient also has moderate degree of centrilobular emphysema note d. Antibiotic coverage is with cefepime and Zithromax. On 03/20/2024, the patient is being seen for a follow-up. The patient seems to be less short of breath compared to yesterday. He is currently on 5 L of oxygen by nasal cannula. Awake and alert and communicating. He has some cough and congestion. No significant bronchospasm or wheezing. He was taken off the norepinephrine earlier this morning and urine output is in order of 30 cc an hour. He underwent a cardiac catheterization yesterday and the patient was found to have significant elevation of left ventricular end-diastolic pressure. The patient also had severe disease involving the first and the second obtuse marginal branch of the circumflex. The patient also had intermediate to severe disease involving the proximal LAD. No intervention was done. The patient remains on broad-spectrum antibiotics and the patient remains on IV cefepime. The white cell count is improved compared to yesterday and the currently is down to 26 with a hemoglobin 12.3 and a platelet count of 289. BUN is 57 with a creatinine of 2.07 and sodium levels at 133 and a potassium level is at 4.9. LFTs are normal. Blood cultures are negative thus far. The patient also is on DuoNeb nebulized treatments [id number]. The patient remains on IV Solu- Medrol 40 mg every 8 hours. He will be started on diuretics. He was started on Farxiga. He remains on aspirin and Plavix. The chest x-ray from today is a combination of CHF and pneumonia. On 03/21/2024, the patient is comfortable sitting up in a chair. No significant shortness of breath at rest. He is currently on 4 L of oxygen by nasal cannula. He remains on IV Lasix 40 mg every 12 hours and the patient is negative fluid balance of at least 700 cc over the past 24 hours. Repeat chest x-ray from today shows a right lower lobe consolidation along with ongoing pulm venous con gestion the patient remains on IV cefepime. He is off norepinephrine. No chest pain. No altered mentation. The white cell count is 27 with a hemoglobin 12.4 platelet count of 234. BUN 70 with a 2.5 and a Sodium Levels at 121 and a Potassium Level Is at 4.7. UA Showing +3 Glucose, 19 RBCs, 5 WBCs. Nautical Instrument Mechanic on the Case. The Patient Remains on Bronchodilators, Remains on IV Solu-Medrol 40 Mg Every 8 Hours. Remains on Metoprolol 25 Mg P.O. Twice Daily. Remains on Aspirin. He Is Also on Plavix and Farxiga. On 03/22/2024, the patient is being seen for a follow-up. Doing well. Less short of breath and the patient is currently on 2 L of oxygen by nasal cannula with pulse ox of 94%. No significant cough or sputum production. No chest pain. Remains on Lasix 40 mg IV every 24 hours. Remains on DuoNeb dobutamine [id number], IV cefepime and IV Solu-Medrol. He did have a right lower lobe pneumonia. The white cell count is gradually improving is currently down to 23 with a hemoglobin 12 and a platelet count of 221. BUN is 82 with a creatinine of 2.4 and a sodium levels at 131. Procalcitonin level is at 0.7. Fluid balance is -1.4 L over the past 24 hours. Insurance Loss Control Surveyor on the case. No other issues otherwise for now. On 03/23/2024, the patient is feeling much better. Oxygenation is improved and the patient is currently on room air oxygen with a pulse ox of 95%. Repeat chest x-ray was done that showed improvement in the CHF and improvement in the right lower lobe pulmonary consolidation. The patient remains on aspirin. The patient remains on IV cefepime. The patient remains on Lasix 40 mg p.o. daily. Remains on metoprolol 25 mg p.o. twice daily. IV Solu-Medrol to be discontinued and the patient will be started on a prednisone burst taper. Meanwhile, the patient is scheduled to undergo a cardiac catheterization and further PCI and stenting related to his underlying coronary artery disease. BUN is 90 0.4. SODIUM LEVELS AT 132. WHITE CELL COUNT IS DOWN TO 23. PROCALCITONIN LEVEL IS AT 0.7. BLOOD CULTURES BEEN NEGATIVE. The patient is seen today March 24, 2024 in follow-up on the selective care unit. He is currently sitting up in bed. Maintaining good O2 saturation in the 90s on room air. Denies any worsening shortness of breath, cough or congestion. Denies any chest pain. He did undergo successful stenting in the proximal LAD and the OM today. Blood and sputum cultures revealed no growth. Sodium 132. Potassium 5.2. Bicarb 28. BUN 94. Creatinine 2.33. He remains on DuoNeb inhalations. Heparin for DVT prophylaxis. Continued on cefepime. Continued on prednisone taper. Initiated on Brilinta. Objective - Vital Signs Vital signs: Vital Signs Temp 97.5 F L 03/24/24 08:00 Pulse 75 03/24/24 13:57 Resp 18 03/24/24 13:57 BP 95/66 03/24/24 13:57 Pulse Ox 94 L 03/24/24 13:27 FiO2 70 03/19/24 07:33 Intake & Output 03/23/24 03/24/24 03/24/24 18:59 06:59 18:59 Intake Total 694 260 310 Output Total 1200 Balance -506 260 310 Weight 81.1 kg 81.1 kg Intake: IV 20 310 Invasive Line 2 10 Invasive Line 4 10 10 Oral 694 240 Output: Urine 1200 Other: Voiding Method Toilet Toilet # Voids 2 1 - Exam GENERAL EXAM: Alert, pleasant 68-year-old male, on room air, comfortable in no apparent distress. HEAD: Normocephalic. EYES: Normal reaction of pupils, equal size. NOSE: Clear with pink turbinates. THROAT: No erythema or exudates. NECK: No masses, no JVD. CHEST: No chest wall deformity. LUNGS: Equal air entry with faint crackles in the posterior bases. CVS: S1 and S2 normal with no audible murmur, regular rhythm. ABDOMEN: No hepatosplenomegaly, normal bowel sounds, no guarding or rigidity. SPINE: No scoliosis or deformity SKIN: No rashes CENTRAL NERVOUS SYSTEM: No focal deficits, tone is normal in all 4 extremities. EXTREMITIES: There is no peripheral edema. No clubbing, no cyanosis. Peripheral pulses are intact. - Labs CBC & Chem 7: 03/22/24 08:56 03/24/24 07:20 Labs: Abnormal Lab Results - Last 24 Hours (Table) 03/24/24 Range/Units 07:20 Sodium 132 L (137-145) mmol/L Potassium 5.2 H (3.5-5.1) mmol/L BUN 94 H (9-20) mg/dL Creatinine 2.33 H (0.66-1.25) mg/dL Magnesium 2.4 H (1.6-2.3) mg/dL Microbiology - Last 24 Hours (Table) 03/22/24 15:44 Gram Stain - Preliminary Sputum Sputum Culture - Preliminary 03/18/24 14:55 Blood Culture - Final Blood Assessment and Plan Assessment: Acute hypoxic respiratory failure with development of extensive right lower lobe consolidation highly suggestive of pneumonia with subsequent development of diffuse pulm vessel congestion/pulmonary edema and bilateral pleural effusions. The picture is consistent with CHF and possibly right lower lobe pneumonia. Patient remains on a combination of cefepime. Repeat chest x-ray shows clearing of the right lower lobe consolidation improvement in CHF and pulmonary edema. Clinically much improved and the patient is currently on room air oxygen. Acute systolic heart failure with development of bilateral pleural effusion diffuse pulmonary edema, improved Acute non-ST segment elevation myocardial infarction, the patient's troponin peaked at 2.3, downtrending. Cardiac catheterization showed disease involving the obtuse marginal branch of the circumflex and proximal LAD lesion. Intervention to be done at a later stage as the patient has a component of acute kidney injury on top of chronic kidney disease. Status post stenting to the proximal LAD and the OM today March 24, 2024 Systolic heart failure with ejection fraction of 25 to 30% with global hypokinesis and mild to moderate mitral regurgitation, rule out underlying ischemic cardiomyopathy. The patient also has moderate degree of pulmonary hypertension. There is also significant elevation of left ventricular end- diastolic pressure based on the most recent cardiac catheterization. COPD with acute exacerbation likely secondary to underlying pneumonia, currently on bronchodilators and steroids. Chronic stage III kidney disease with acute kidney injury on top of his chronic renal failure. patient is nonoliguric, creatinine is at 2.4 Severe peripheral vascular disease Abdominal arctic aneurysm, infrarenal measuring 4 cm in size Bilateral iliac artery aneurysms Acute leukocytosis, improving Hypertension Hyperlipidemia History of smoking Plan: The patient was seen and evaluated Labs and medications reviewed He did undergo stenting to the LAD, OM today Initiated on Brilinta Currently stable and on room air Remains on oral diuretics Continue to trend renal function Continue bronchodilators, prednisone taper Continue cefepime We will continue to follow I have personally seen and examined the patient, performed the documentation and the assessment and plan as written. Number of minutes spent on the visit: 10 Dictation was produced using [employer] software. Please excuse any grammatical, word or spelling errors.
[2024-03-24] MEDS: TICAGRELOR 90 MG TAB PO SCH (20:13)
[2024-03-24 21:08] VITALS: RESP 18
[2024-03-25 07:17] LABS: African American GFR (CKD) 32 (>60 ml/min/1.73 sqM); Anion Gap 7 mmol/L; Blood Urea Nitrogen 95 mg/dL (9-20); Calcium 8.7 mg/dL (8.4-10.2); Carbon Dioxide 26 mmol/L (22-30); Chloride 101 mmol/L (98-107); Glucose 101 mg/dL (74-99); Magnesium 2.5 mg/dL (1.6-2.3); Non-African American GFR(CKD) 27 (>60 ml/min/1.73 sqM); Sodium 134 mmol/L (137-145)
[2024-03-25] MEDS: ASPIRIN 81 MG PO SCH (08:52)
--- NOTE | 2024-03-25 10:40 | P.PN ---
Subjective Patient is seen in follow-up for acute kidney injury on chronic kidney disease. Renal function stable. On room air. Denies chest pain or shortness of breath. Has been voiding. Vital signs are stable. General: No acute distress. HEENT: Head exam is unremarkable. LUNGS: No audible rhonchi or wheezes. HEART: Rate and Rhythm are regular. ABDOMEN: Nontender. EXTREMITITES: No edema. Objective - Vital Signs Vital signs: Vital Signs Temp 97.5 F L 03/25/24 04:00 Pulse 68 03/25/24 09:08 Resp 18 03/25/24 09:08 BP 98/54 03/25/24 04:00 Pulse Ox 98 03/25/24 09:01 FiO2 70 03/19/24 07:33 Intake & Output 03/24/24 03/25/24 03/25/24 18:59 06:59 18:59 Intake Total 320 20 118 Balance 320 20 118 Weight 81.1 kg 79.8 kg Intake: IV 320 20 Invasive Line 4 20 20 Oral 118 Other: Voiding Method Toilet # Voids 3 - Labs CBC & Chem 7: 03/22/24 08:56 03/25/24 06:15 Labs: Abnormal Lab Results - Last 24 Hours (Table) 03/25/24 Range/Units 06:15 Sodium 134 L (137-145) mmol/L BUN 95 H (9-20) mg/dL Creatinine 2.35 H (0.66-1.25) mg/dL Glucose 101 H (74-99) mg/dL Magnesium 2.5 H (1.6-2.3) mg/dL Microbiology - Last 24 Hours (Table) 03/22/24 15:44 Gram Stain - Final Sputum Sputum Culture - Final Assessment and Plan Plan: Assessment: 1. Acute kidney injury secondary to ATN secondary to cardiorenal syndrome, severe sepsis, contrast associated acute kidney injury. Creatinine peaked at 2.5 and is stable at 2.35 today. No hydronephrosis noted on kidney ultrasound. Nonoliguric. 2. Acute hypoxic respiratory failure. Improved. 3. Septic shock secondary to pneumonia maintained on antibiotics. Off vasopressors. 4. Acute on chronic systolic CHF ejection fraction of 25 to 30% and mild to moderate mitral vegetation and moderate pulmonary hypertension. 5. Hyponatremia secondary to acute kidney injury. Hypervolemic. Improved. 6. NSTEMI status post cardiac catheterization March 19 which showed disease in the left circumflex and LAD. Underwent another cardiac cath on March 24, 2024 with 2 stents placed. 7. Metabolic acidosis secondary to acute kidney injury. Improved. 8. Volume overload. Improved with diuresis. Plan: Maintained on oral Lasix. Maintain SGLT2 inhibitor. Avoid nephrotoxins. Encouraged oral intake. Maintain 1500 cc fluid restriction. Continue to monitor renal function and urine output. H[place]go catheter removed March 22, 2024. Has been voiding on his own. Repeat BMP and magnesium level 2 to 3 days postdischarge. Follow-up outpatient in 1 week.
[2024-03-25 10:46] VITALS: BP 91/53; TEMP 97.6
[2024-03-25 12:31] VITALS: PULSE 66
--- NOTE | 2024-03-25 12:32 | P.PN ---
Subjective Progress Note Date: 03/25/24 This is a 68-year-old male patient who came into the emergency department on 03/17/2024 with complaints of chest pain and shortness of breath. The patient apparently was taking out the garbage and he became quite winded and also developed a chest pain. However, the patient has been having some symptoms of nausea and emesis and diarrhea for the past 10 days. He came into the Emergency Department and the patient was found to be hypoxic and initially was placed on 2 L of oxygen by nasal cannula. He is EKG showed sinus tachycardia with some nonspecific ST segment changes in the anterior leads. Doppler of the lower extremities was negative for DVT. Initial white cell count was at 23 and the D-dimer was at 1.1 and the patient's hemoglobin was 15. The patient also had a acute on top of chronic kidney injury with a BUN of 40 and a creatinine of 2.04 and the patient also ruled in for an acute non-ST segment elevation myocardial infarction as the patient's troponin peaked at 2.3 and subsequent dropped down to 1.9. The patient was started on IV heparin. Echocardiogram was done earlier this morning and the patient was found to have also a component of CHF with an ejection fraction of 25 to 30%. There was diffuse global hypokinesis and moderate degree of pulm hypertension and mild to moderate mitral regurgitation. At a later stage, the patient became progressively more hypoxic. His oxygen requirements went up from 2 L up to 15 L and ultimately the patient was placed on a BiPAP pressure of 12/6 with an FiO2 of 70%. His current pulse ox is 91 to 92%. Repeat chest x-ray was done and it showed significant progression with development of diffuse interstitial infiltrates and significant consolidation of the right lung base which was highly suggestive of pneumonia specially the pat ient had a rise in his white cell count up to 34.8. Based on that, the patient was started on broad-spectrum antibiotics. He was started on a combination of cefepime and Zithromax. Given a dose of Lasix 40 g IV with adequate urine output. He is currently on DuoNeb updrafts, IV heparin, and is also on prednisone 40 mg p.o. daily. Cardiology has been consulted on the case. Denies having any significant chest pain. Past medical history is positive for COPD, chronic smoking, peripheral vascular disease and the patient has undergone vascular intervention and angioplasty to his lower extremity for acute ischemic limb in addition to history of hypertension, chronic kidney disease stage III. Patient also known to have bilateral common iliac artery aneurysms and abdominal aortic aneurysm. He has an infrarenal renal abdominal aortic aneurysm measuring 4 cm and 8.6 cm in length and there is extensive mural thrombus. This is based on a previous CT of the abdominal aorta that was performed on this patient on 09/23/2022. In addition to that, the patient has extensive atherosclerotic changes in the bilateral SFA and short segment focal occlusion involving the right external iliac artery. On 03/19/2024, the patient is critically ill in the intensive care unit. The patient had an acute non-ST segment elevation myocardial infarction and the patient is possibly cardiogenic shock, hypotensive with diffuse bilateral pulmonary infiltrates. There was also concern of a right lower lobe pneumonia based on that the patient was started on broad-spectrum antibiotics. Noted, the patient was taken off the BiPAP and the patient is currently on 8 L of O2 nasal cannula. IV fluids are running at a rate of 75 cc an hour, maintenance and the patient is on norepinephrine running at 0.08 mcg/kg/min. He remains on IV heparin. Echocardiogram was completed and the patient was found to have impaired LV function with ejection fraction of 25 to 30% with global left ventricular dysfunction, moderate pulm hypertension with a PA pressure of 47 and mild to moderate mitral regurgitation and mild tricuspid regurgitation. The patient is awake and alert. Denies having any chest pain. White cell count is at 33 with a hemoglobin 13.8, BUN is 50 with a creatinine of 2.17 and sodium levels at 130 with a potassium level of 5.0. Serum bicarb is at 19. The troponins peaked at 2.1 and is currently down to 1.9. Overall fluid balance over the past 24 hours -1.9 L and the patient has produced approximate 2.2 L of urine output. The plan is to proceed with cardiac catheterization, coronary int ervention if needed and mechanical support if needed. Meanwhile, a CAT scan of the chest was also done without contrast this morning and the patient was found to have diffuse bilateral pulmonary airspace disease and infiltrates in addition to lower lobe atelectatic changes and small to moderate-sized bilateral pleural effusion. The patient also has moderate degree of centrilobular emphysema note d. Antibiotic coverage is with cefepime and Zithromax. On 03/20/2024, the patient is being seen for a follow-up. The patient seems to be less short of breath compared to yesterday. He is currently on 5 L of oxygen by nasal cannula. Awake and alert and communicating. He has some cough and congestion. No significant bronchospasm or wheezing. He was taken off the norepinephrine earlier this morning and urine output is in order of 30 cc an hour. He underwent a cardiac catheterization yesterday and the patient was found to have significant elevation of left ventricular end-diastolic pressure. The patient also had severe disease involving the first and the second obtuse marginal branch of the circumflex. The patient also had intermediate to severe disease involving the proximal LAD. No intervention was done. The patient remains on broad-spectrum antibiotics and the patient remains on IV cefepime. The white cell count is improved compared to yesterday and the currently is down to 26 with a hemoglobin 12.3 and a platelet count of 289. BUN is 57 with a creatinine of 2.07 and sodium levels at 133 and a potassium level is at 4.9. LFTs are normal. Blood cultures are negative thus far. The patient also is on DuoNeb nebulized treatments [id number]. The patient remains on IV Solu- Medrol 40 mg every 8 hours. He will be started on diuretics. He was started on Farxiga. He remains on aspirin and Plavix. The chest x-ray from today is a combination of CHF and pneumonia. On 03/21/2024, the patient is comfortable sitting up in a chair. No significant shortness of breath at rest. He is currently on 4 L of oxygen by nasal cannula. He remains on IV Lasix 40 mg every 12 hours and the patient is negative fluid balance of at least 700 cc over the past 24 hours. Repeat chest x-ray from today shows a right lower lobe consolidation along with ongoing pulm venous con gestion the patient remains on IV cefepime. He is off norepinephrine. No chest pain. No altered mentation. The white cell count is 27 with a hemoglobin 12.4 platelet count of 234. BUN 70 with a 2.5 and a Sodium Levels at 121 and a Potassium Level Is at 4.7. UA Showing +3 Glucose, 19 RBCs, 5 WBCs. Forensic Pathologist on the Case. The Patient Remains on Bronchodilators, Remains on IV Solu-Medrol 40 Mg Every 8 Hours. Remains on Metoprolol 25 Mg P.O. Twice Daily. Remains on Aspirin. He Is Also on Plavix and Farxiga. On 03/22/2024, the patient is being seen for a follow-up. Doing well. Less short of breath and the patient is currently on 2 L of oxygen by nasal cannula with pulse ox of 94%. No significant cough or sputum production. No chest pain. Remains on Lasix 40 mg IV every 24 hours. Remains on DuoNeb dobutamine [id number], IV cefepime and IV Solu-Medrol. He did have a right lower lobe pneumonia. The white cell count is gradually improving is currently down to 23 with a hemoglobin 12 and a platelet count of 221. BUN is 82 with a creatinine of 2.4 and a sodium levels at 131. Procalcitonin level is at 0.7. Fluid balance is -1.4 L over the past 24 hours. Assayer Helper on the case. No other issues otherwise for now. On 03/23/2024, the patient is feeling much better. Oxygenation is improved and the patient is currently on room air oxygen with a pulse ox of 95%. Repeat chest x-ray was done that showed improvement in the CHF and improvement in the right lower lobe pulmonary consolidation. The patient remains on aspirin. The patient remains on IV cefepime. The patient remains on Lasix 40 mg p.o. daily. Remains on metoprolol 25 mg p.o. twice daily. IV Solu-Medrol to be discontinued and the patient will be started on a prednisone burst taper. Meanwhile, the patient is scheduled to undergo a cardiac catheterization and further PCI and stenting related to his underlying coronary artery disease. BUN is 90 0.4. SODIUM LEVELS AT 132. WHITE CELL COUNT IS DOWN TO 23. PROCALCITONIN LEVEL IS AT 0.7. BLOOD CULTURES BEEN NEGATIVE. The patient is seen today March 24, 2024 in follow-up on the selective care unit. He is currently sitting up in bed. Maintaining good O2 saturation in the 90s on room air. Denies any worsening shortness of breath, cough or congestion. Denies any chest pain. He did undergo successful stenting in the proximal LAD and the OM today. Blood and sputum cultures revealed no growth. Sodium 132. Potassium 5.2. Bicarb 28. BUN 94. Creatinine 2.33. He remains on DuoNeb inhalations. Heparin for DVT prophylaxis. Continued on cefepime. Continued on prednisone taper. Initiated on Brilinta. The patient is seen today March 25, 2024 in follow-up on the selective care unit. He is awake and alert in no acute distress. Maintaining O2 saturations in the 90s on room air. No chest pain, palpitations. No worsening shortness of breath cough or congestion. He is afebrile. Blood culture revealed no growth. Sputum culture revealed no growth. Sodium 134. Potassium 5.0. Bicarb 26. BUN 95. Creatinine 2.35. Glucose 101. He remains on bronchodilators. Initiated on a prednisone taper. Antibiotics in the form of cefepime. Heparin for DVT prophylaxis. Remains on oral diuretics. Plan is for LifeVest placement today. Objective - Vital Signs Vital signs: Vital Signs Temp 97.6 F 03/25/24 08:00 Pulse 63 03/25/24 12:22 Resp 18 03/25/24 12:22 BP 91/53 03/25/24 08:00 Pulse Ox 98 03/25/24 09:01 FiO2 70 03/19/24 07:33 Intake & Output 03/24/24 03/25/24 03/25/24 18:59 06:59 18:59 Intake Total 320 20 128 Balance 320 20 128 Weight 81.1 kg 79.8 kg Intake: IV 320 20 10 Invasive Line 4 20 20 10 Oral 118 Other: Voiding Method Toilet Toilet # Voids 3 - Exam GENERAL EXAM: Alert, pleasant 68-year-old male, sitting up in bed, on room air, comfortable in no apparent distress. HEAD: Normocephalic. EYES: Normal reaction of pupils, equal size. NOSE: Clear with pink turbinates. THROAT: No erythema or exudates. NECK: No masses, no JVD. CHEST: No chest wall deformity. LUNGS: Equal air entry with faint crackles in the posterior bases. CVS: S1 and S2 normal with an audible murmur, regular rhythm. ABDOMEN: No hepatosplenomegaly, normal bowel sounds, no guarding or rigidity. SPINE: No scoliosis or deformity SKIN: No rashes CENTRAL NERVOUS SYSTEM: No focal deficits, tone is normal in all 4 extremities. EXTREMITIES: There is no peripheral edema. No clubbing, no cyanosis. Peripheral pulses are intact. - Labs CBC & Chem 7: 03/22/24 08:56 03/25/24 06:15 Labs: Abnormal Lab Results - Last 24 Hours (Table) 03/25/24 Range/Units 06:15 Sodium 134 L (137-145) mmol/L BUN 95 H (9-20) mg/dL Creatinine 2.35 H (0.66-1.25) mg/dL Glucose 101 H (74-99) mg/dL Magnesium 2.5 H (1.6-2.3) mg/dL Microbiology - Last 24 Hours (Table) 03/22/24 15:44 Gram Stain - Final Sputum Sputum Culture - Final Assessment and Plan Assessment: Acute hypoxic respiratory failure with development of extensive right lower lobe consolidation highly suggestive of pneumonia with subsequent development of diffuse pulm vessel congestion/pulmonary edema and bilateral pleural effusions. The picture is consistent with CHF and possibly right lower lobe pneumonia. Patient remains on a combination of cefepime. Repeat chest x-ray shows clearing of the right lower lobe consolidation improvement in CHF and pulmonary edema. Clinically much improved and the patient is currently on room air oxygen Acute systolic heart failure with development of bilateral pleural effusion d iffuse pulmonary edema, improved Acute non-ST segment elevation myocardial infarction, the patient's troponin peaked at 2.3, downtrending. Cardiac catheterization showed disease involving the obtuse marginal branch of the circumflex and proximal LAD lesion. Intervention to be done at a later stage as the patient has a component of acute kidney injury on top of chronic kidney disease. Status post stenting to the proximal LAD and the OM March 24, 2024 Acute exacerbation of systolic heart failure with ejection fraction of 25 to 30% with global hypokinesis and mild to moderate mitral regurgitation, ischemic cardiomyopathy. The patient also has moderate degree of pulmonary hypertension COPD with acute exacerbation likely secondary to underlying pneumonia, currently on bronchodilators and steroids Chronic stage III kidney disease with acute kidney injury on top of his chronic renal failure. Patient is nonoliguric, creatinine is at 2.35 Severe peripheral vascular disease Abdominal arctic aneurysm, infrarenal measuring 4 cm in size Bilateral iliac artery aneurysms Acute leukocytosis, improving Hypertension Hyperlipidemia History of smoking Plan: The patient was seen and evaluated Labs and medications reviewed Currently stable and on room air Discontinue cefepime Receiving life vest today Cleared for discharge once cleared by cardiology I have personally seen and examined the patient, performed the documentation and the assessment and plan as written. Number of minutes spent on the visit: 10 Dictation was produced using [email or web address] dictation software. Please excuse any grammatical, word or spelling errors.
--- NOTE | 2024-03-25 14:09 | P.DS ---
Providers Date of admission: 03/17/24 18:29 Attending physician: Miguel Davidson MD Consults: 03/17/24 18:29 Consult Physician Urgent Consulting Provider: Olimpia Lizama Consult Reason/Comments: nstemi Do you want consulting provider notified?: Yes 03/18/24 14:07 Consult Physician Routine Consulting Provider: Moose Russell Consult Reason/Comments: acute respiratory failure with hypoxia Do you want consulting provider notified?: Yes 03/21/24 09:06 Consult Physician Routine Consulting Provider: Nilson Carmona Consult Reason/Comments: KONSTANTIN on CKD Do you want consulting provider notified?: Yes 03/24/24 13:27 Consult Physician Routine Consulting Provider: [facility] Consult Reason/Comments: Post Interventional Patient Do you want consulting provider notified?: Already Contacted Primary care physician: Sanjeev SyedDoctors Hospital Course: Discharge Diagnosis: Septic shock secondary to multifocal PNA, resolved Acute hypoxic respiratory failure secondary to acute HFrEF exacerbation and PNA NSTEMI KONSTANTIN on CKD stage IIIb Hyponatremia COPD with mild exacerbation Tobacco use disorder HTN Hospital Course: 68-year-old male with PMH of HTN, COPD, tobacco use disorder, PAD, GERD, who presented to the ED with chest pain, EKG showed sinus tachycardia with RBBB, T wave inversions in lead aVL and V2 through V6, chest x-ray showed right lower lung airspace opacity with nodular like appearance. RLE Doppler completed and was negative for DVT, he had leukocytosis on admission his creatinine was 2.04 and troponins 2.3 aamir. proBNP significantly elevated 29,600, patient was started on heparin drip for treatment of NSTEMI, cardiology consulted, patient then was transferred to the ICU due to worsening respiratory status. CT chest showed bilateral airspace consolidation with mild to moderate bilateral parapneumonic effusions patient was started on azithromycin and cefepime and completed total 7 days of treatment. Patient required Levophed to maintain MAP above 65 and was weaned off by 03/21. Cardiac cath was performed on 03/19 and showed severe disease of the first and second obtuse marginal branch of the left circumflex and intermediate severe disease of the proximal LAD, cardiology recommended intervention after renal function improved and intervention was performed on 03/24. Patient received stents of the proximal LAD, OM. Patient was diuresed with IV Lasix dimensionally and transition to p.o. Patient discharged on dual antiplatelet therapy with aspirin and Brilinta for at least 12 months, high intensity statins, beta-blockers, SGLT2, recommended 1500 cc fluid restriction. He will complete prednisone taper for COPD exacerbation; patient will follow-up with outpatient nephrology and cardiology, received LifeVest at discharge, repeat BMP and magnesium and proBNP ordered to be done in 1 week. Patient seen and examined at bedside.[] Vital signs reviewed and stable. General: [nontoxic], [no distress], [appears at stated age] Derm: [warm], [dry] Head: [atraumatic], [normocephalic], [symmetric] Eyes: [EOMI], [no lid lag], [anicteric sclera] Mouth: [no lip lesion], [mucus membranes moist] Cardiovascular: [S1S2 reg], [no murmur] Lungs: [CTA bilateral], [no rhonchi, no rales] , [no accessory muscle use] Abdominal: [soft], [ nontender to palpation], [no guarding], [no appreciable organomegaly] Ext: [no gross muscle atrophy], [lateral lower extremity edema Neuro: [ CN II-XI grossly intact], [no focal neuro deficits] Psych: [Alert], [oriented], [appropriate affect] A total of 40 minutes of time were spent preparing this complex discharge summary. Patient was discharged on 03/25/24 Patient Condition at Discharge: Serious Plan - Discharge Summary Discharge Rx Participant: Yes New Discharge Prescriptions: New predniSONE [Deltasone] See Taper PO DAILY 12 Days #15 tab Metoprolol Tartrate [Lopressor] 25 mg PO BID #60 tab Aspirin 81 mg PO DAILY #90 tab Ticagrelor [Brilinta] 90 mg PO BID #90 tab Dapagliflozin Propanediol [Farxiga] 5 mg PO DAILY #60 tab Furosemide [Lasix] 40 mg PO DAILY #30 tab Atorvastatin [Lipitor] 80 mg PO DAILY #90 tab Albuterol Inhaler [Ventolin Hfa Inhaler] 1 - 2 puff INHALATION Q6H PRN #1 each PRN Reason: Shortness Of Breath Or Wheezing Continue Losartan/Hydrochlorothiazide [Hyzaar 100-25 Tablet] 1 tab PO HS amLODIPine [Norvasc] 2.5 mg PO HS Acetaminophen [Tylenol Arthritis] 650 mg PO Q6H PRN PRN Reason: Pain Discontinued Atorvastatin Calcium [Lipitor] 40 mg PO HS Apixaban [Eliquis] 2.5 mg PO BID Discharge Medication List Acetaminophen [Tylenol Arthritis] 650 mg PO Q6H PRN 03/17/24 [History] Losartan/Hydrochlorothiazide [Hyzaar 100-25 Tablet] 1 tab PO HS 03/17/24 [History] amLODIPine [Norvasc] 2.5 mg PO HS 03/17/24 [History] Albuterol Inhaler [Ventolin Hfa Inhaler] 1 - 2 puff INHALATION Q6H PRN #1 each 03/25/24 [Rx] Aspirin 81 mg PO DAILY #90 tab 03/25/24 [Rx] Atorvastatin [Lipitor] 80 mg PO DAILY #90 tab 03/25/24 [Rx] Dapagliflozin Propanediol [Farxiga] 5 mg PO DAILY #60 tab 03/25/24 [Rx] Furosemide [Lasix] 40 mg PO DAILY #30 tab 03/25/24 [Rx] Metoprolol Tartrate [Lopressor] 25 mg PO BID #60 tab 03/25/24 [Rx] Ticagrelor [Brilinta] 90 mg PO BID #90 tab 03/25/24 [Rx] predniSONE [Deltasone] See Taper PO DAILY 12 Days #15 tab 03/25/24 [Rx] Follow up Appointment(s)/Referral(s): Sanjeev Cee MD [Primary Care Provider] - 1-2 days Ambulatory/Diagnostic Orders: Basic Metabolic Panel [LAB.AMB] Location: None Selected Miscellaneous Lab Order [LAB.AMB] Time Frame: 1 Week, Location: None Selected Patient Instructions/Handouts: Heart Failure (DC), Low-Sodium Diet (DC) Activity/Diet/Wound Care/Special Instructions: Your kidney function at discharge: Cr 2.35. Please, follow up with your PCP, kidney doctor and [facility] director. Discharge Disposition: HOME SELF-CARE
--- NOTE | 2024-03-25 23:09 | P.PN ---
Subjective Progress Note Date: 03/25/24 The patient is a pleasant 68-year-old gentleman with a past medical history significant for lower extremities PAD with prior angioplasty as well as severe cardiomyopathy and hypertension and dyslipidemia and multiple comorbid conditions who was admitted to the hospital with acute non-ST ovation myocardial infarction complicated by acute hypoxic respiratory failure secondary to possible underlying pneumonia but also heart failure. The ejection fraction was about 20 to 25% based on the echocardiogram during this admission. Subsequently the patient was admitted to the intensive care unit. March 19, 2024 The patient was seen and evaluated this morning. He still hypoxic requiring oxygen through nasal cannula at this point but he is overall doing slightly better but beside that he has been also hypotensive requiring norepinephrine. The creatinine today is slightly worse. The plan is to pursue with a heart catheterization today with or without angioplasty depends on the amount of contrast we use and also assess the LVEDP to see if the patient also have ongoing cardiogenic shock behind his hypotension. The physical examination is remarkable for regular rhythm with bilateral expiratory wheezing and no edema was noted in the lower extremities March 20, 2024 The patient was seen and evaluated this morning with he underwent a heart catheterization yesterday which showed severe disease involving the first and second obtuse marginal branches and intermediate to severe disease involving the LAD. Medical treatment was advised in the light of contrast and he need to undergo revascularization in the next few days. Meanwhile an attempt to place an Impella CP was done but he does have diseased femoral arteries bilaterally and for that reason the Impella CP procedure was canceled. He was seen this morning. He is still unstable and requiring small dose of norepinephrine we are trying to wean him from. Beside that he is on beta-konrad and he is on aspirin and statin. I am going to add Farxiga/SGLT2 inhibitors to the current medical regimen for the treatment of cardiomyopathy and also added Plavix for the treatment for acute non-ST ovation myocardial infarction. Meanwhile try to wean the patient from norepinephrine. Consider starting the patient on either KATIE or ARB or Arni once the pressure permitting. Consider revascularization in the next few days. The physical examination is remarkable for regular rhythm with a distant heart sounds and bilateral expiratory wheezing and no edema was noted March 21, 2024 The patient was seen and evaluated this morning. He is overall doing better. He is off norepinephrine. The pressure has been marginal in the 90s and the kidney function remains overall stable with a creatinine around 2. With that being said I am going to decrease the dose of Lasix to 20 mg IV twice daily with he is not in overt heart failure and he is not significantly hypoxic at this point. Beside that continue the current medical regimen including dual antiplatelet therapy along with a statin along with beta-konrad. Consider maximize medical treatment for cardiomyopathy by adding either KATIE inhibitor or ARB or Arni once the creatinine is stable and the blood pressure permitting. The physical examination is remarkable for regular rhythm with diminished breathing sounds bilaterally but no crackles was here and no edema was noted in the lower extremities March 22, 2024 On today's evaluation he is hemodynamically stable. Kidney function has stabilized with creatinine of 2.47. Yesterday it was 2.5. On admission it was 2.17. Hemoglobin is stable with no signs of bleeding. No reported chest pain or shortness of breath March 23, 2024 Euvolemic, hemodynamic stable, kidney function is slightly improving 2.41 today. Hemoglobin is stable. March 25, 2024 Patient underwent PCI to his LAD and OM yesterday. No postop complications. Coming along well. LifeVest in place. On exam Lungs are clear to auscultate with no crackles or rhonchi Heart rate is around 75 bpm, no murmurs appreciated. + 1 pitting edema in bilateral lower extremity on examination No focal neurological deficit. Detailed neuroexam was not performed. Assessment Acute non-ST elevation myocardial infarction Severe cardiomyopathy Acute hypoxic respiratory failure Possible pneumonia sepsis Multiple comorbid conditions Plan Continue DAPT, statin. Lasix 40 mg p.o. Metoprolol succinate 25 mg daily not doing ARB/Arni due to low blood pressure and poor renal function LifeVest in place. Okay to be discharged from cardiovascular standpoint recommend outpatient follow-up with cardiology with repeat labs BMP and NT proBNP in 1 week Objective - Vital Signs Vital signs: Vital Signs Temp 97.6 F 03/25/24 08:00 Pulse 66 03/25/24 12:30 Resp 18 03/25/24 12:30 BP 91/53 03/25/24 08:00 Pulse Ox 98 03/25/24 09:01 FiO2 70 03/19/24 07:33 Intake & Output 03/25/24 03/25/24 03/26/24 06:59 18:59 06:59 Intake Total 20 256 Balance 20 256 Weight 79.8 kg Intake: IV 20 20 Invasive Line 4 20 20 Oral 236 Other: Voiding Method Toilet Toilet # Voids 3 2 - Labs CBC & Chem 7: 03/22/24 08:56 03/25/24 06:15 Labs: Abnormal Lab Results - Last 24 Hours (Table) 03/25/24 Range/Units 06:15 Sodium 134 L (137-145) mmol/L BUN 95 H (9-20) mg/dL Creatinine 2.35 H (0.66-1.25) mg/dL Glucose 101 H (74-99) mg/dL Magnesium 2.5 H (1.6-2.3) mg/dL Microbiology - Last 24 Hours (Table) 03/22/24 15:44 Gram Stain - Final Sputum Sputum Culture - Final
== END 2024-03-25 15:27 | disposition home or self-care (01) | DRG 853 ==
LOC: EC 15:16 → 3SCARD 18:29 → 2SICU 03-18 20:52 → 3SCARD 03-21 14:17
PROVIDERS: ADMIT Internal Medicine; ATTEND Internal Medicine
PROC: 4A023N7 Measurement of Cardiac Sampling and Pressure, Left Heart, Percutaneous Approach (ICD-10-PCS; 2024-03-19)
PROC: B2111ZZ Fluoroscopy of Multiple Coronary Arteries using Low Osmolar Contrast (ICD-10-PCS; 2024-03-19)
PROC: B240ZZ3 Ultrasonography of Single Coronary Artery, Intravascular (ICD-10-PCS; 2024-03-19)
PROC: 027134Z Dilation of Coronary Artery, Two Arteries with Drug-eluting Intraluminal Device, Percutaneous Approach (ICD-10-PCS; principal; 2024-03-24 11:50)
PROC: B41F1ZZ Fluoroscopy of Right Lower Extremity Arteries using Low Osmolar Contrast (ICD-10-PCS; 2024-03-24 11:50)
DX: A41.9 Sepsis, unspecified organism (principal); I21.4 Non-ST elevation (NSTEMI) myocardial infarction; J96.01 Acute respiratory failure with hypoxia; R65.21 Severe sepsis with septic shock; I50.23 Acute on chronic systolic (congestive) heart failure; I33.0 Acute and subacute infective endocarditis; J18.9 Pneumonia, unspecified organism; N17.0 Acute kidney failure with tubular necrosis; E87.1 Hypo-osmolality and hyponatremia; I13.0 Hypertensive heart and chronic kidney disease with heart failure and stage 1 through stage 4 chronic kidney disease, or unspecified chronic kidney disease; I42.9 Cardiomyopathy, unspecified; J44.0 Chronic obstructive pulmonary disease with (acute) lower respiratory infection; J44.1 Chronic obstructive pulmonary disease with (acute) exacerbation; N17.9 Acute kidney failure, unspecified; E87.20 Acidosis, unspecified; E78.5 Hyperlipidemia, unspecified; F17.210 Nicotine dependence, cigarettes, uncomplicated; I27.20 Pulmonary hypertension, unspecified; N18.30 Chronic kidney disease, stage 3 unspecified; I73.9 Peripheral vascular disease, unspecified; N18.31 Chronic kidney disease, stage 3a; F10.21 Alcohol dependence, in remission; I25.10 Atherosclerotic heart disease of native coronary artery without angina pectoris; I25.5 Ischemic cardiomyopathy; I45.10 Unspecified right bundle-branch block; I51.3 Intracardiac thrombosis, not elsewhere classified; I72.3 Aneurysm of iliac artery; J43.2 Centrilobular emphysema; I71.40 Abdominal aortic aneurysm, without rupture, unspecified; K21.9 Gastro-esophageal reflux disease without esophagitis; I08.1 Rheumatic disorders of both mitral and tricuspid valves; N18.32 Chronic kidney disease, stage 3b; Z79.01 Long term (current) use of anticoagulants; Z79.02 Long term (current) use of antithrombotics/antiplatelets; Z82.49 Family history of ischemic heart disease and other diseases of the circulatory system; Z79.82 Long term (current) use of aspirin; Z79.899 Other long term (current) drug therapy; Z88.2 Allergy status to sulfonamides; Z88.1 Allergy status to other antibiotic agents
CPT/HCPCS: 36415; 36600; 51702; 71045; 71046; 71250; 76770; 80048; 80053; 80061; 81001; 82805; 83605; 83735; 83880; 84100; 84145; 84484; 85025; 85027; 85049; 85379; 85610; 85730; 87040; 87070; 87205; 87449; 87636; 92978; 92979; 93005; 93306; 93458; 93799; 94640; 94660; 94760; 96365; 96366; 96368; 96375; 99291

== ENCOUNTER 2024-04-03 16:57 | Inpatient (IN) | payer MEDICARE ==
--- NOTE | 2024-04-03 17:41 | ED ---
Weakness HPI - General Source: patient, family Mode of arrival: ambulatory Limitations: no limitations <Shanel Steel - Last Filed: 04/03/24 17:41> <Delfino Godwin - Last Filed: 04/03/24 20:50> - General Chief complaint: Weakness Stated complaint: abn labs Time Seen by Provider: 04/03/24 17:41 - History of Present Illness Initial comments: 68-year-old male sent by his PCP for abnormal labs. Patient was told that his potassium was high, his hemoglobin was low, his white blood cell count was high. He has been feeling generally weak and has had low blood pressure. (Shanel Steel) Dictation was produced using [employer] dictation software. please excuse any grammatical, word or spelling errors. Chief Complaint: 68-year-old male presents emergency department for abnormal outpatient lab History of Present Illness: Patient is a 60-year-old male multiple comorbidities. Patient recently had a coronary artery stent placed. Patient was just discharged on March 25 of last year. He had a coronary artery stents placed. Patient had his post admission follow-up appointment on Sunday with his primary care doctor where labs were performed. Family and patient were given a call requested by PA to come to the office for meeting to talk about patient's labs. He had elevated BNP of 59,000. Patient states he feels weak. Denies any shortness of breath. Denies any chest pain. Patient was external defibrillator. He was told to come to the emergency department for further care due to abnormal BNP level The ROS documented in this emergency department record has been reviewed and confirmed by me. Those systems with pertinent positive or negative responses have been documented in the HPI. All other systems are other negative and/or noncontributory. (Delfino Godwin) - Related Data Home Medications Medication Instructions Recorded Confirmed Acetaminophen [Tylenol Arthritis] 650 mg PO Q6H PRN 03/17/24 04/03/24 Albuterol Inhaler [Ventolin Hfa 2 puff INHALATION RT-Q6H PRN 04/03/24 04/03/24 Inhaler] Previous Rx's Medication Instructions Recorded Aspirin 81 mg PO DAILY #90 tab 03/25/24 Atorvastatin [Lipitor] 80 mg PO DAILY #90 tab 03/25/24 Dapagliflozin Propanediol [Farxiga] 5 mg PO DAILY #60 tab 03/25/24 Furosemide [Lasix] 40 mg PO DAILY #30 tab 03/25/24 Metoprolol Tartrate [Lopressor] 25 mg PO BID #60 tab 03/25/24 Ticagrelor [Brilinta] 90 mg PO BID #90 tab 03/25/24 Allergies Allergy/AdvReac Type Severity Reaction Status Date / Time sulfamethoxazole Allergy Swelling Verified 04/03/24 20:02 [From Bactrim] trimethoprim [From Bactrim] Allergy Swelling Verified 04/03/24 20:02 Review of Systems ROS Other: All systems not noted in ROS Statement are negative. <Shanel Steel - Last Filed: 04/03/24 17:41> ROS Other: All systems not noted in ROS Statement are negative. <Delfino Godwin - Last Filed: 04/03/24 20:50> ROS Statement: Those systems with pertinent positive or pertinent negative responses have been documented in the HPI. Past Medical History Past Medical History: COPD, GERD/Reflux, Renal Disease, Vascular Disorder Additional Past Medical History / Comment(s): Abdominal aortic aneurysm, infrarenal, iliac aneurysm, bilateral History of Any Multi-Drug Resistant Organisms: None Reported Past Surgical History: No Surgical Hx Reported Past Anesthesia/Blood Transfusion Reactions: No Reported Reaction Additional Past Anesthesia/Blood Transfusion Reaction / Comment(s): HAS NEVER HAD ANESTHESIA Past Psychological History: No Psychological Hx Reported Smoking Status: Current every day smoker Past Alcohol Use History: None Reported, Occasional Past Drug Use History: None Reported - Past Family History Mother Family Medical History: Cancer Father Family Medical History: CVA/TIA <Shanel Steel - Last Filed: 04/03/24 17:41> General Exam Limitations: no limitations <Shanel Steel - Last Filed: 04/03/24 17:41> <Delfino Godwin - Last Filed: 04/03/24 20:50> - General Exam Comments Initial Comments: Visual Physical Exam Vital signs reviewed General: Well-appearing, nontoxic, no acute distress. Head: Normocephalic, atraumatic Eyes: PERRLA, EOMI ENT: Airway patent Chest: Nonlabored breathing Skin: No visual rash, normal skin tone Neuro: Alert and oriented 3 Musculoskeletal: No gross abnormalities (Shanel Steel) PHYSICAL EXAM: General Impression: Alert and oriented x3, not in acute distress HEENT: Normocephalic atraumatic, extra-ocular movements intact, pupils equal and reactive to light bilaterally, mucous membranes moist. Cardiovascular: Heart regular rate and rhythm Chest: Able to complete full sentences, no retractions, no tachypnea Abdomen: abdomen soft, non-tender, non-distended, no organomegaly Musculoskeletal: Pulses present and equal in all extremities, no peripheral edema Motor: no focal deficits noted Neurological: CN II-XII grossly intact, no focal motor or sensory deficits noted Skin: Intact with no visualized rashes Psych: Normal affect and mood (Delfino Godwin) Course Vital Signs 04/03/24 04/03/24 04/03/24 17:22 17:48 17:55 Temperature 97.5 F L 98.3 F Pulse Rate 43 L 64 Respiratory 18 16 Rate Blood Pressure 76/28 98/64 101/66 O2 Sat by Pulse 97 100 Oximetry 04/03/24 04/03/24 04/03/24 18:00 18:20 18:45 Temperature Pulse Rate 53 L 53 L Respiratory 16 17 Rate Blood Pressure 99/56 92/63 87/57 O2 Sat by Pulse 100 99 Oximetry 04/03/24 04/03/24 18:50 19:24 Temperature Pulse Rate 54 L 63 Respiratory 18 18 Rate Blood Pressure 94/60 94/69 O2 Sat by Pulse 99 100 Oximetry Medical Decision Making <Shanel Steel - Last Filed: 04/03/24 17:41> - Lab Data Result diagrams: 04/03/24 17:58 04/03/24 17:58 <Delfino Godwin - Last Filed: 04/03/24 20:50> - Medical Decision Making I performed the quick note portion of this visit, electronically signed Shanel Steel PA-C (Shanel Steel) My EKG interpretation: Ventricular rate 63, sinus rhythm,. Normal 143, QRS 131, QTc 483. No UT prolongation, no QTC prolongation, no ST or T-wave changes noted. EKG compared to March 17, 2024 showing no changes. Overall, this EKG is unremarkable Was pt. sent in by a medical professional or institution (, [facility], DRIVE WORKER, urgent care, hospital, or retirement...) When possible be specific @ -No Did you speak to anyone other than the patient for history (EMS, parent, family, police, friend...)? What history was obtained from this source @ -Some history obtained from as described above Did you review nursing and triage notes (agree or disagree)? Why? @ -I reviewed and agree with nursing and triage notes Were old charts reviewed (outside hosp., previous admission, EMS record, old EKG, old radiological studies, urgent care reports/EKG's, retirement records)? Report findings @ -Discharge summary from previous admissions reviewed showing that patient had coronary artery stent placed. Differential Diagnosis (chest pain, altered mental status, abdominal pain women, abdominal pain men, vaginal bleeding, musculoskeletal, weakness, fever, dyspnea, syncope, headache, dizziness, GI bleed, back pain, seizure, CVA, palpatations, mental health)? @ -Differential Weakness: Hypoglycemia, shock, sepsis, hyponatremia, anemia, infection, MS, ETOH, adverse medicine reaction, overdose, stroke, this is not meant to be an all-inclusive list. EKG interpreted by me (3pts min.). @ -See above X-rays interpreted by me (1pt min.). @ -Chest x-ray shows no acute processes CT interpreted by me (1pt min.). @ -None done U/S interpreted by me (1pt. min.). @ -None done What testing was considered but not performed or refused? (CT, X-rays, U/S, labs)? Why? @ -None What meds were considered but not given or refused? Why? @ -None Was smoking cessation discussed for >3mins.? @ -No Were there social determinants of health that impacted care today? How? (Homelessness, low income, unemployed, alcoholism, drug addiction, transportation, low edu. Level, literacy, decrease access to med. care, [facility], rehab)? @ -No Was there de-escalation of care discussed even if they declined (Discuss DNR or withdrawal of care, Hospice)? DNR status @ -No What co-morbidities impacted this encounter? (DM, HTN, Smoking, COPD, CAD, Cancer, CVA, ARF, Chemo, Hep., AIDS, mental health diagnosis, sleep apnea, morbid obesity)? @ -Cardia infarction Was patient admitted / discharged? Hospital course, mention meds given and route, prescriptions, significant lab abnormalities, going to OR and other pertinent info. @ -68-year-old male presents to the emergency department for weakness and abnormal outpatient labs. Patient denies any shortness of breath. Vital signs upon arrival showed hypotension of 76/28 in triage with bradycardia of 43. Serial vitals showed stability in approximately MAP of 70-77 Michael evaluation obtained. Labs within acceptable limits. Given patient's initial low blood pressure he will be admitted to observation for blood pressure monitoring and medical monitoring. Case discussed with hospitalist for admission Did you discuss the management of the patient with other professionals (professionals i.e. , PA, DRIVE WORKER, lab, RT, psych nurse, social work case manager, optical fabricator, teacher, traffic control officer, cyanide case hardener)? Give summary @ -See above Was critical care preformed (if so, how long)? @ -No Undiagnosed new problem with uncertain prognosis? @ -No Drug Therapy requiring intensive monitoring for toxicity (Heparin, Nitro, Insulin, Cardizem)? @ -No Were any procedures done? @ -No Diagnosis/symptom? Acute, or Chronic, or Acute on Chronic? Uncomplicated (without systemic symptoms) or Complicated (systemic symptoms)? @ -Generalized weakness, hypertension Side effects of treatment? @ -No Exacerbation, Progression, or Severe Exacerbation? @ -No Poses a threat to life or bodily function? How? (Chest pain, USA, MS, pneumonia, PE, COPD, DKA, ARF, appy, cholecystitis, CVA, Diverticulitis, Homicidal, Suicidal, threat to staff... and all critical care pts) @ -yes (Delfino Godwin) - Lab Data Lab Results 04/03/24 04/03/24 04/03/24 Range/Units 17:58 17:58 17:58 WBC 18.1 H (3.8-10.6) k/uL RBC 4.46 (4.30-5.90) m/uL Hgb 13.7 (13.0-17.5) gm/dL Hct 41.5 (39.0-53.0) % MCV 93.3 (80.0-100.0) fL MCH 30.7 (25.0-35.0) pg MCHC 32.9 (31.0-37.0) g/dL RDW 14.2 (11.5-15.5) % Plt Count 214 (150-450) k/uL MPV 8.5 Neutrophils % 77 % Lymphocytes % 16 % Monocytes % 4 % Eosinophils % 1 % Basophils % 0 % Neutrophils # 14.0 H (1.3-7.7) k/uL Lymphocytes # 2.9 (1.0-4.8) k/uL Monocytes # 0.7 (0-1.0) k/uL Eosinophils # 0.2 (0-0.7) k/uL Basophils # 0.0 (0-0.2) k/uL Manual Slide Review Performed PT 10.7 (10.0-12.5) sec INR 1.0 (<1.2) APTT 20.5 L (22.0-30.0) sec Sodium (137-145) mmol/L Potassium (3.5-5.1) mmol/L Chloride (98-107) mmol/L Carbon Dioxide (22-30) mmol/L Anion Gap mmol/L BUN (9-20) mg/dL Creatinine (0.66-1.25) mg/dL Est GFR (CKD-EPI)AfAm (>60 ml/min/1.73 sqM) Est GFR (CKD-EPI)NonAf (>60 ml/min/1.73 sqM) Glucose (74-99) mg/dL Plasma Lactic Acid Blair (0.7-2.0) mmol/L Calcium (8.4-10.2) mg/dL Magnesium (1.6-2.3) mg/dL Total Bilirubin (0.2-1.3) mg/dL AST (17-59) U/L ALT (4-49) U/L Alkaline Phosphatase (38-126) U/L Troponin I (0.000-0.034) ng/mL NT-Pro-B Natriuret Pep pg/mL Total Protein (6.3-8.2) g/dL Albumin (3.5-5.0) g/dL Urine Color Colorless Urine Appearance Clear (Clear) Urine pH 6.0 (5.0-8.0) Ur Specific [place] 1.010 (1.001-1.035) Urine Protein Negative (Negative) Urine Glucose (UA) 1+ H (Negative) Urine Ketones Negative (Negative) Urine Blood Negative (Negative) Urine Nitrite Negative (Negative) Urine Bilirubin Negative (Negative) Urine Urobilinogen <2.0 (<2.0) mg/dL Ur Leukocyte Esterase Negative (Negative) 04/03/24 04/03/24 04/03/24 Range/Units 17:58 17:58 17:58 WBC (3.8-10.6) k/uL RBC (4.30-5.90) m/uL Hgb (13.0-17.5) gm/dL Hct (39.0-53.0) % MCV (80.0-100.0) fL MCH (25.0-35.0) pg MCHC (31.0-37.0) g/dL RDW (11.5-15.5) % Plt Count (150-450) k/uL MPV Neutrophils % % Lymphocytes % % Monocytes % % Eosinophils % % Basophils % % Neutrophils # (1.3-7.7) k/uL Lymphocytes # (1.0-4.8) k/uL Monocytes # (0-1.0) k/uL Eosinophils # (0-0.7) k/uL Basophils # (0-0.2) k/uL Manual Slide Review PT (10.0-12.5) sec INR (<1.2) APTT (22.0-30.0) sec Sodium 136 L (137-145) mmol/L Potassium 4.3 (3.5-5.1) mmol/L Chloride 97 L (98-107) mmol/L Carbon Dioxide 28 (22-30) mmol/L Anion Gap 11 mmol/L BUN 84 H (9-20) mg/dL Creatinine 2.36 H (0.66-1.25) mg/dL Est GFR (CKD-EPI)AfAm 32 (>60 ml/min/1.73 sqM) Est GFR (CKD-EPI)NonAf 27 (>60 ml/min/1.73 sqM) Glucose 117 H (74-99) mg/dL Plasma Lactic Acid Blair 1.6 (0.7-2.0) mmol/L Calcium 9.4 (8.4-10.2) mg/dL Magnesium 2.4 H (1.6-2.3) mg/dL Total Bilirubin 1.2 (0.2-1.3) mg/dL AST 23 (17-59) U/L ALT 14 (4-49) U/L Alkaline Phosphatase 89 (38-126) U/L Troponin I 0.229 H* (0.000-0.034) ng/mL NT-Pro-B Natriuret Pep 79114 pg/mL Total Protein 6.2 L (6.3-8.2) g/dL Albumin 3.8 (3.5-5.0) g/dL Urine Color Urine Appearance (Clear) Urine pH (5.0-8.0) Ur Specific [place] (1.001-1.035) Urine Protein (Negative) Urine Glucose (UA) (Negative) Urine Ketones (Negative) Urine Blood (Negative) Urine Nitrite (Negative) Urine Bilirubin (Negative) Urine Urobilinogen (<2.0) mg/dL Ur Leukocyte Esterase (Negative) Disposition <Shanel Steel - Last Filed: 04/03/24 17:41> Decision Time: 20:00 <Delfino Godwin - Last Filed: 04/03/24 20:50> Clinical Impression: Hypotension Disposition: ADMITTED IP TO THIS HOSP Condition: Fair Referrals: Sanjeev Cee MD [Primary Care Provider] - 1-2 days
[2024-04-03] MEDS: SODIUM CHLORIDE 0.9% 500 ML 500 ML IV STA (18:15)
[2024-04-03 18:34] LABS: ALT 14 U/L (4-49); AST 23 U/L (17-59); African American GFR (CKD) 32 (>60 ml/min/1.73 sqM); Albumin 3.8 g/dL (3.5-5.0); Alkaline Phosphatase 89 U/L (38-126); Anion Gap 11 mmol/L; Blood Urea Nitrogen 84 mg/dL (9-20); Calcium 9.4 mg/dL (8.4-10.2); Carbon Dioxide 28 mmol/L (22-30); Chloride 97 mmol/L (98-107); Glucose 117 mg/dL (74-99); Magnesium 2.4 mg/dL (1.6-2.3); Non-African American GFR(CKD) 27 (>60 ml/min/1.73 sqM); Potassium 4.3 mmol/L (3.5-5.1); Sodium 136 mmol/L (137-145); Total Bilirubin 1.2 mg/dL (0.2-1.3); Total Protein 6.2 g/dL (6.3-8.2)
--- NOTE | 2024-04-03 18:35 | XR ---
EXAMINATION TYPE: XR chest 2V DATE OF EXAM: 04/03/2024 6:31 PM COMPARISON: Chest radiographs from 03/23/2024 CLINICAL INDICATION: Male, 68 years old with history of Weakness; TECHNIQUE: XR chest 2V Frontal and lateral views of the chest. FINDINGS: Lungs/Pleura: Prominent interstitial lung markings are seen scattered throughout the lungs. No eviden ce of focal consolidation, pneumothorax or pleural effusion. Pulmonary vascularity: Unremarkable. Heart/mediastinum: Cardiomediastinal silhouette is unremarkable. External electrical cardiac device p resent. Musculoskeletal: No acute osseous pathology. IMPRESSION: Chronic changes without acute pulmonary process. No significant change from prior. [facility], , 04/03/2024 6:32 PM
[2024-04-03 18:44] LABS: Prothrombin Time 10.7 sec (10.0-12.5)
[2024-04-03 18:48] LABS: Partial Thromboplastin Time 20.5 sec (22.0-30.0)
[2024-04-03 18:59] LABS: Basophils % (A) 0 %; Eosinophils # (A) 0.2 k/uL (0-0.7); Eosinophils % (A) 1 %; HCT 41.5 % (39.0-53.0); HGB 13.7 gm/dL (13.0-17.5); Lymphocytes # (A) 2.9 k/uL (1.0-4.8); Lymphocytes % (A) 16 %; MCH 30.7 pg (25.0-35.0); MCHC 32.9 g/dL (31.0-37.0); MCV 93.3 fL (80.0-100.0); Mean Platelet Volume 8.5; Monocytes # (A) 0.7 k/uL (0-1.0); Monocytes % (A) 4 %; Neutrophils % (A) 77 %; Platelet Count 214 k/uL (150-450); RBC 4.46 m/uL (4.30-5.90); RDW 14.2 % (11.5-15.5); WBC 18.1 k/uL (3.8-10.6)
[2024-04-03 19:11] LABS: NT-Pro-B-Type Natriuretic Pept 29200 pg/mL
[2024-04-03 20:04] LABS: Appearance,Urine Clear (Clear); Bilirubin,Urine Negative (Negative); Blood,Urine Negative (Negative); Color,Urine Colorless; Glucose,Urine (UA) 1+ (Negative); Ketones,Urine Negative (Negative); Leukocyte Esterase,Urine Negative (Negative); Nitrite,Urine Negative (Negative); Protein,Urine Negative (Negative); Urobilinogen,Urine <2.0 mg/dL (<2.0)
[2024-04-03] MEDS ORDERED: NALOXONE 0.4 MG/ML 1 ML VIAL IV PRN (22:55)
[2024-04-04] MEDS: TICAGRELOR 90 MG TAB PO STA (00:24)
--- NOTE | 2024-04-04 00:39 | P.HPIM ---
History of Present Illness H&P Date: 04/03/24 Chief Complaint: Hypotension and weakness Patient is a 68-year-old male with past medical history of recent NSTEMI and PCI to LAD and OM (03/24/[address] Luna), systolic CHF (EF 25-30%), CKD stage IV, peripheral artery disease, hypertension, COPD, GERD who presented to the ED with his per instructions from their primary care provider due to abnormal labs. Patient was told his potassium was high, hemoglobin was low, WBC count was high. Patient states he saw his PCP Dr. Cee on Sunday or Sunday of this week and had labs done. He also saw Dr. Estrada yesterday and had an appointment with nephrology tomorrow. He has been feeling generally weak, fatigued, and has had low blood pressure. Patient was discharged with LifeVest after last admission. Patient endorses some leg swelling most prominent on the RLE. Patient denies any shortness of breath, chest pain, abdominal pain, nausea, vomiting, diarrhea. ED documentation reviewed. Patient received fluid bolus in ED. Vitals on admission heart rate 53, respiratory rate 16, blood pressure 99/56, 100% O2 saturation on room air EKG independently interpreted as sinus rhythm with PVCs at 63 bpm with right axis deviation and right bundle branch block with diffuse T wave inversions ac ross most leads, with QTc 483 MS. CXR shows chronic changes without acute pulmonary process Most recent echo on March 18 showed ejection fraction of 25 to 30%, moderate pulmonary hypertension, mild to moderate MR and mild TR Labs on admission show WBC 18.1 hemoglobin 13.7 platelets 214. PT 10.7, INR 1, PTT 20.5. Sodium 136, potassium 4.3, chloride 97, bicarb 28, BUN 84, creatinine 2.36, glucose 117. Magnesium 2.4. Troponin 0.229. NT proBNP 29,200. UA shows 1+ glucose. Review of systems: Pertinent positives and negatives as discussed in HPI, a complete review of systems was performed and all other systems are negative. PMH: NSTEMI with PCI to LAD and OM, PAD, hypertension, COPD, GERD Allergies: Sulfa Social history: Tobacco: Current smoker pack a day Alcohol: None Recreational drugs: None Travel: None Sick contacts: Patient recently had pneumonia Physical examination: Vital signs reviewed General: nontoxic, no distress, appears at stated age Derm: warm, dry, intact Head: atraumatic, normocephalic, symmetric Eyes: anicteric sclera Mouth: no lip lesion, mucus membranes moist Cardiovascular: S1 S2 reg, no murmur, rubs, gallops Lungs: CTA bilateral, no rhonchi, no rales, no accessory muscle use Abdominal: soft, non-tender to palpation, nondistended Extremities: trace pitting edema up to mid hoffman right lower extremity, no edema of the left Neuro: Alert, Oriented to person, place, and time, Gross neurological examinat ion did not reveal any focal deficits. Cranial nerves II to XII grossly intact. Bilateral upper and lower extremity muscle strength intact and sensation intact. Psych: well appearing, appropriate affect Assessment/Plan: Patient is a 68-year-old male with PMHx of recent NSTEMI with PCI, PAD, hypert ension, COPD, GERD who presented to the emergency department for abnormal labs and weakness. He was found to be hypotensive and will be admitted to medicine service for further management. Active: Hypotension and weakness -Patient reports that he has been compliant with all his home medications and is sure that he has not taken any extra -Hold metoprolol tartrate 25 mg -Continue to monitor vital signs Leukocytosis -No signs of active infection at this time -Continue to monitor Elevated troponin, downtrending from recent admission with PCI -Continue to trend for now -Cardiac monitoring -Cardiology consult Hypochloremic hyponatremia Continue to monitor Hypermagnesemia Continue to monitor CKD stage IV, possibly secondary to cardiorenal syndrome -Continue to monitor Avoid nephrotoxic agents -Consult nephrology Chronic: Recent NSTEMI with PCI Continue Brilinta 90 mg twice daily Continue aspirin 81 mg daily Continue atorvastatin 80 mg daily Heart failure with severely reduced ejection fraction of 25 to 30%, NT proBNP 29,[address] Hold Lasix 40 mg daily Hold Farxiga 5 mg daily for now Hold metoprolol tartrate due to hypotension and bradycardia Daily weight Strict I's and O's Cardiac monitoring Cardiology consult Hypertension, currently hypotensive and bradycardic -Hold Metoprolol tartrate 25mg Nicotine dependence -Nicotine patch -Continue to encourage smoking cessation GERD Patient states he takes Pepcid COPD, not currently exacerbated -Continue Albuterol inhaler F: Strict I's and O's E: Replete as needed N: Heart healthy diet A: As tolerated DVT prophylaxis: Heparin subq 5000 U q8h The patient is admitted with an anticipated more than 2 midnight stay for evaluation of hypotension and weakness CODE STATUS: Full code Discussed with: Patient Anticipated discharge place: Home Past Medical History Past Medical History: COPD, GERD/Reflux, Renal Disease, Vascular Disorder Additional Past Medical History / Comment(s): Abdominal aortic aneurysm, infrarenal, iliac aneurysm, bilateral History of Any Multi-Drug Resistant Organisms: None Reported Past Surgical History: No Surgical Hx Reported Past Anesthesia/Blood Transfusion Reactions: No Reported Reaction Additional Past Anesthesia/Blood Transfusion Reaction / Comment(s): HAS NEVER HAD ANESTHESIA Past Psychological History: No Psychological Hx Reported Smoking Status: Current every day smoker Past Alcohol Use History: None Reported, Occasional Past Drug Use History: None Reported - Past Family History Mother Family Medical History: Cancer Father Family Medical History: CVA/TIA Medications and Allergies Home Medications Medication Instructions Recorded Confirmed Type Acetaminophen [Tylenol Arthritis] 650 mg PO Q6H PRN 03/17/24 04/03/24 History Aspirin 81 mg PO DAILY #90 tab 03/25/24 04/03/24 Rx Atorvastatin [Lipitor] 80 mg PO DAILY #90 tab 03/25/24 04/03/24 Rx Dapagliflozin Propanediol [Farxiga] 5 mg PO DAILY #60 tab 03/25/24 04/03/24 Rx Furosemide [Lasix] 40 mg PO DAILY #30 tab 03/25/24 04/03/24 Rx Metoprolol Tartrate [Lopressor] 25 mg PO BID #60 tab 03/25/24 04/03/24 Rx Ticagrelor [Brilinta] 90 mg PO BID #90 tab 03/25/24 04/03/24 Rx Albuterol Inhaler [Ventolin Hfa 2 puff INHALATION RT-Q6H PRN 04/03/24 04/03/24 History Inhaler] Allergies Allergy/AdvReac Type Severity Reaction Status Date / Time sulfamethoxazole Allergy Swelling Verified 04/03/24 20:02 [From Bactrim] trimethoprim [From Bactrim] Allergy Swelling Verified 04/03/24 20:02 Physical Exam Vitals: Vital Signs Temp Pulse Resp BP Pulse Ox 04/03/24 19:24 63 18 94/69 100 04/03/24 18:50 54 L 18 94/60 99 04/03/24 18:45 87/57 04/03/24 18:20 53 L 17 92/63 99 04/03/24 18:00 53 L 16 99/56 100 04/03/24 17:55 98.3 F 64 16 101/66 100 04/03/24 17:48 98/64 04/03/24 17:22 97.5 F L 43 L 18 76/28 97 Intake and Output 04/03/24 04/03/24 04/03/24 06:59 14:59 22:59 Other: Weight 77.111 kg Results CBC & Chem 7: 04/03/24 17:58 04/03/24 17:58 Labs: Abnormal Lab Results - Last 24 Hours (Table) 04/03/24 04/03/24 04/03/24 Range/Units 17:58 17:58 17:58 WBC 18.1 H (3.8-10.6) k/uL Neutrophils # 14.0 H (1.3-7.7) k/uL APTT 20.5 L (22.0-30.0) sec Sodium (137-145) mmol/L Chloride (98-107) mmol/L BUN (9-20) mg/dL Creatinine (0.66-1.25) mg/dL Glucose (74-99) mg/dL Magnesium (1.6-2.3) mg/dL Troponin I (0.000-0.034) ng/mL Total Protein (6.3-8.2) g/dL Urine Glucose (UA) 1+ H (Negative) 04/03/24 04/03/24 Range/Units 17:58 17:58 WBC (3.8-10.6) k/uL Neutrophils # (1.3-7.7) k/uL APTT (22.0-30.0) sec Sodium 136 L (137-145) mmol/L Chloride 97 L (98-107) mmol/L BUN 84 H (9-20) mg/dL Creatinine 2.36 H (0.66-1.25) mg/dL Glucose 117 H (74-99) mg/dL Magnesium 2.4 H (1.6-2.3) mg/dL Troponin I 0.229 H* (0.000-0.034) ng/mL Total Protein 6.2 L (6.3-8.2) g/dL Urine Glucose (UA) (Negative)
[2024-04-04 07:16] LABS: African American GFR (CKD) 35 (>60 ml/min/1.73 sqM); Anion Gap 7 mmol/L; Blood Urea Nitrogen 77 mg/dL (9-20); Carbon Dioxide 31 mmol/L (22-30); Chloride 100 mmol/L (98-107); Glucose 97 mg/dL (74-99); Magnesium 2.2 mg/dL (1.6-2.3); Non-African American GFR(CKD) 30 (>60 ml/min/1.73 sqM); Potassium 4.4 mmol/L (3.5-5.1); Sodium 138 mmol/L (137-145)
[2024-04-04] MEDS ORDERED: HEPARIN SODIUM,PORCINE 5,000 UNIT/ML 1 ML VIAL SQ SCH (08:00)
[2024-04-04] MEDS: HEPARIN SODIUM,PORCINE 5,000 UNIT/ML 1 ML VIAL SQ SCH (08:30)
[2024-04-04] MEDS: FAMOTIDINE 20 MG TAB PO SCH (08:30)
[2024-04-04] MEDS: ATORVASTATIN 80 MG TAB PO SCH (08:30)
[2024-04-04] MEDS: TICAGRELOR 90 MG TAB PO SCH (08:30)
[2024-04-04] MEDS: ASPIRIN 81 MG PO SCH (08:30)
[2024-04-04] MEDS: NICOTINE 21MG/24HR PATCH TRANSDERM SCH (08:31)
[2024-04-04] MEDS ORDERED: FUROSEMIDE 40 MG TAB PO SCH (09:00)
[2024-04-04] MEDS ORDERED: DAPAGLIFLOZIN PROPANEDIOL 5 MG TABLET PO SCH (09:00)
[2024-04-04 09:19] LABS: Basophils # (A) 0.02 X 10*3/uL (0.00-0.10); Basophils % (A) 0.1 %; Eosinophils # (A) 0.29 X 10*3/uL (0.04-0.35); Eosinophils % (A) 1.8 %; HCT 37.2 % (39.6-50.0); Lymphocytes # (A) 3.93 X 10*3/uL (0.90-5.00); Lymphocytes % (A) 24.2 %; MCH 30.2 pg (27.0-32.0); MCHC 32.3 g/dL (32.0-37.0); MCV 93.7 FL (80.0-97.0); Monocytes # (A) 0.86 X 10*3/uL (0.20-1.00); Monocytes % (A) 5.3 %; NRBC Per 100 WBC 0 X 10*3/uL (0.00-0.01); Neutrophils % (A) 67.9 %; Platelet Count 215 X 10*3/uL (140-440); RBC 3.97 X 10*6/uL (4.40-5.60); RDW 14.7 % (11.5-14.5); WBC 16.21 X 10*3/uL (4.50-10.00)
--- NOTE | 2024-04-04 10:01 | P.PN ---
Subjective Progress Note Date: 04/04/24 Hospital course: Patient is a very pleasant 68-year-old male with a past medical history of recent NSTEMI and PCI to LAD and OM (03/24/[address] Luna), systolic CHF (EF 25- 30%), CKD stage IV, peripheral artery disease, hypertension, COPD, and GERD. He presented to the hospital on 04/03/2024 with his per instructions from their primary care provider due to abnormal labs. Patient was told his potassium was high, hemoglobin was low, WBC count was high. Patient states he saw his PCP Dr. Cee on Sunday or Sunday of this week and had labs done. He also saw Dr. Estrada and had an appointment with nephrology on 04/04/2024. Patient reports he has been feeling generally weak, fatigued, and has had low blood pressures. Patient was discharged with LifeVest after last admission. Patient endorses some leg swelling most prominent on the RLE. Upon arrival to our facility, patient underwent evaluation in the emergency department. ED documentation reviewed. Patient received fluid bolus in ED. Vitals on admission heart rate 53, respiratory rate 16, blood pressure 99/56, 100% O2 saturation on room air EKG independently interpreted as sinus rhythm with PVCs at 63 bpm with right axis deviation and right bundle branch block with diffuse T wave inversions across most leads, with QTc 483 MS. CXR shows chronic changes without acute pulmonary process Most recent echo on March 18 showed ejection fraction of 25 to 30%, moderate pulmonary hypertension, mild to moderate MR and mild TR Labs on admission show WBC 18.1 hemoglobin 13.7 platelets 214. PT 10.7, INR 1, PTT 20.5. Sodium 136, potassium 4.3, chloride 97, bicarb 28, BUN 84, creatinine 2.36, glucose 117. Magnesium 2.4. Troponin 0.229. NT proBNP 29,200. UA shows 1+ glucose. Physical exam: Vital signs reviewed and stable. General: Nontoxic, no distress and appears stated age. Chronically ill- appearing. Derm: Skin warm and dry, normal coloration for ethnicity. Head: Atraumatic, normocephalic and symmetric. Eyes: EOM's intact, no lid lag, and anicteric sclera Mouth: no lip lesions, mucus membranes moist Cardiovascular: regular rate and rhythm with normal S1S2, systolic murmur, positive posterior tibial pulses bilaterally, and cap refill < 2 seconds. Lungs: Respirations even, regular, and unlabored on room air. Lungs CTA bilaterally, no rhonchi, no rales, no wheezing, and no accessory muscle usage. Abdominal: soft, nontender to palpation, no guarding, no appreciable organomegaly Ext: ROM intact. No gross muscle atrophy, 1+ bilateral lower extremity pitting edema, no contractures Neuro: Speech clear, face symmetrical and CN II-XII grossly intact with no noted focal neuro deficits Psych: Alert and oriented to person, place, time, and situation. Appropriate and pleasant affect. Assessment and Plan of Care: Hypotension and weakness -Cardiology consulted, appreciate recommendations. -Patient reports that he has been compliant with all his home medications and is sure that he has not taken any extra -Hold metoprolol tartrate 25 mg -Continue to monitor vital signs -Orthostatic vitals to be obtained. -Fall precautions to remain in place. -Consult placed to PT/OT for evaluation and recommendations regarding possible rehab placement. Leukocytosis -Believed to be reactive no signs of active infection at this time and is improving -Continue to monitor Elevated troponin, downtrending from recent admission with PCI -Continue to trend for now -Cardiac monitoring -Cardiology consult Hypochloremic hyponatremia, likely secondary to fluid volume overload -Continue to monitor Hypermagnesemia -Continue to monitor CKD stage IV, possibly secondary to cardiorenal syndrome -Continue to monitor Avoid nephrotoxic agents -Consult nephrology Chronic: Recent NSTEMI with PCI -Continue aspirin 81 mg daily, atorvastatin 80 mg daily, and Brilinta 90 mg twice daily. Heart failure with severely reduced ejection fraction of 25 to 30%, NT proBNP 29,[address] - Hold Lasix 40 mg daily pending further recommendations from cardiology - Hold Farxiga 5 mg daily pending further recommendations from cardiology - Hold metoprolol tartrate due to hypotension and bradycardia - Daily weight - Strict I's and O's - Cardiac monitoring - Cardiology consult Hypertension, currently hypotensive and bradycardic -Hold Metoprolol tartrate 25mg Nicotine dependence -Nicotine patch -Continue to encourage smoking cessation GERD -Continue Pepcid 20 mg daily. COPD, not currently exacerbated -Continue Albuterol inhaler Data and imaging reviewed: Morning labs reviewed. CBC showing slight improvement of leukocytosis with WBC count decreasing from 18.1 down to 16.21 this morning and stable normocytic anemia with hemoglobin of 12.0. BMP showing continued elevated but improving renal function with BUN of 77, creatinine of 2.18, GFR of 30. Troponin trended at 0.229 and 0.226. Vital signs reviewed. Blood pressure 95/59, heart rate 61, respiratory rate 14, temp 98.3 F, and SpO2 of 97% on room air. Patient's battery on [employer] needs charged. Patient's to bring in extra battery and manager fitness. Patient currently on continuous telemetry monitoring. CODE STATUS: Full Code DVT prophylaxis: Heparin Anticipated discharge date: Pending clinical course Anticipated discharge place: Home versus SNF, pending recommendations from physical therapy Patient was seen independently by Nurse Pracitioner. This document was prepared using [employer] dictation software. Please allow for errors in samples and repairs preparer, while rare they do occur. Gio Henderson NP rendered care for this patient independently, reviewed the findings and plan as documented in the note above and agree with plan. I did not physically speak with or examine the patient on this date. Objective - Vital Signs Vital signs: Vital Signs Temp 98.3 F 04/04/24 04:49 Pulse 61 04/04/24 07:45 Resp 14 04/04/24 07:45 BP 95/59 04/04/24 07:45 Pulse Ox 97 04/04/24 07:45 FiO2 Intake & Output 04/03/24 04/04/24 04/04/24 18:59 06:59 18:59 Output Total 880 Balance -880 Weight 77.111 kg Output: Urine 880 - Labs CBC & Chem 7: 04/04/24 06:16 04/04/24 06:16 Labs: Abnormal Lab Results - Last 24 Hours (Table) 04/03/24 04/03/24 04/03/24 Range/Units 17:58 17:58 17:58 WBC 18.1 H (3.8-10.6) k/uL RBC (4.40-5.60) X 10*6/uL Hgb (13.0-17.0) g/dL Hct (39.6-50.0) % RDW (11.5-14.5) % Immature Gran # (0.00-0.04) X 10*3/uL Neutrophils # 14.0 H (1.3-7.7) k/uL APTT 20.5 L (22.0-30.0) sec Sodium (137-145) mmol/L Chloride (98-107) mmol/L Carbon Dioxide (22-30) mmol/L BUN (9-20) mg/dL Creatinine (0.66-1.25) mg/dL Glucose (74-99) mg/dL Magnesium (1.6-2.3) mg/dL Troponin I (0.000-0.034) ng/mL Total Protein (6.3-8.2) g/dL Urine Glucose (UA) 1+ H (Negative) 04/03/24 04/03/24 04/04/24 Range/Units 17:58 17:58 06:16 WBC (3.8-10.6) k/uL RBC (4.40-5.60) X 10*6/uL Hgb (13.0-17.0) g/dL Hct (39.6-50.0) % RDW (11.5-14.5) % Immature Gran # (0.00-0.04) X 10*3/uL Neutrophils # (1.3-7.7) k/uL APTT (22.0-30.0) sec Sodium 136 L (137-145) mmol/L Chloride 97 L (98-107) mmol/L Carbon Dioxide (22-30) mmol/L BUN 84 H (9-20) mg/dL Creatinine 2.36 H (0.66-1.25) mg/dL Glucose 117 H (74-99) mg/dL Magnesium 2.4 H (1.6-2.3) mg/dL Troponin I 0.229 H* 0.226 H* (0.000-0.034) ng/mL Total Protein 6.2 L (6.3-8.2) g/dL Urine Glucose (UA) (Negative) 04/04/24 04/04/24 Range/Units 06:16 06:16 WBC 16.21 H (3.8-10.6) k/uL RBC 3.97 L (4.40-5.60) X 10*6/uL Hgb 12.0 L (13.0-17.0) g/dL Hct 37.2 L (39.6-50.0) % RDW 14.7 H (11.5-14.5) % Immature Gran # 0.11 H (0.00-0.04) X 10*3/uL Neutrophils # 11.00 H (1.3-7.7) k/uL APTT (22.0-30.0) sec Sodium (137-145) mmol/L Chloride (98-107) mmol/L Carbon Dioxide 31 H (22-30) mmol/L BUN 77 H (9-20) mg/dL Creatinine 2.18 H (0.66-1.25) mg/dL Glucose (74-99) mg/dL Magnesium (1.6-2.3) mg/dL Troponin I (0.000-0.034) ng/mL Total Protein (6.3-8.2) g/dL Urine Glucose (UA) (Negative)
--- NOTE | 2024-04-04 11:20 | CA ---
Transthoracic Echo Report Name: José Miguel Douglas Age: 68 Gender: M : 1955 Exam Date: 04/04/2024 09:40 Exam Location: [facility] Ht (in): 72 Wt (lb): 170 Ordering Physician: Nafisa Ronquillo Attending/Referring Phys: [id number], [employer] Management Technician Tresa Hutchins, RUBINA Procedure CPT: Indications: LV function on lifevest, recent stenting Cardiac Hx: Technical Quality: Fair Contrast 1: Definity Total Dose (mL): 2 Contrast 2: Total Dose (mL): MEASUREMENTS (Male / Female) Normal Values 2D ECHO LV Diastolic Diameter PLAX 6.3 cm 4.2 - 5.9 / 3.9 - 5.3 cm LV Systolic Diameter PLAX 6.0 cm IVS Diastolic Thickness 1.1 cm 0.6 - 1.0 / 0.6 - 0.9 cm LVPW Diastolic Thickness 1.0 cm 0.6 - 1.0 / 0.6 - 0.9 cm LV Relative Wall Thickness 0.3 RV Internal Dim ED PLAX 2.0 cm LA Systolic Diameter LX 4.0 cm 3.0 - 4.0 / 2.7 - 3.8 cm M-MODE Aortic Root Diameter MM 3.1 cm LA Systolic Diameter MM 4.0 cm LA Ao Ratio MM 1.3 AV Cusp Separation MM 1.6 cm FINDINGS Left Ventricle Left ventricular ejection fraction is estimated at 20-25 %. Mildly increased septal wall thickness. Mildly increased left ventricular diastolic diameter. Severely reduced global left ventricular systolic function. Right Ventricle Right Atrium Left Atrium Mitral Valve Aortic Valve Tricuspid Valve Pulmonic Valve Pericardium No pericardial or pleural effusion. Aorta Normal size aortic root and proximal ascending aorta. CONCLUSIONS Limited study for ejection fraction Impaired LV function with EF around 25% with mid ventricle and apical akinesia No evidence of LV thrombus noted No pericardial effusion Previewed by: Dr. Chucho Luna MD (Electronically Signed) Final Date: 04 April 2024 11:20
[2024-04-04] MEDS: METOPROLOL TARTRATE 12.5 MG TAB PO SCH (12:33)
--- NOTE | 2024-04-04 12:53 | P.CRDCN ---
History of Present Illness History of present illness: HISTORY OF PRESENT ILLNESS: This is a 68-year-old male with a past medical history significant for coronary arteries with previous stenting, cardiomyopathy, on LifeVest, peripheral arteri al disease, AAA, hypertension, hyperlipidemia. Patient follows in the office with Dr. Luna. We have been asked to see the patient in consultation for recent non-STEMI with PCI. Patient examined at the bedside. Patient states he was called by his primary care physician and told he had abnormal labs with a high white count and was told to come to the emergency room. The patient currently denies any chest pain or pressure. He denies any shortness of breath. Denies any dizziness or lightheadedness. Denies having any fever at home. Patient's blood pressure was low in the 70s and 80s when he initially presented to the hospital. Blood pressure at the time of examination 102/52. DIAGNOSTICS: - EKG reveals sinus mechanism with right bundle branch block. PVCs. Diffuse T wave inversions. - Chest xray chronic changes without acute pulmonary process. No significant change from prior. - Laboratory data: WBC 16.21. Hemoglobin 12.0. Platelet count 215. Sodium 138. Potassium 4.4. BUN 77. Creatinine 2.18. Troponin 0.229. 0.226. proBNP 29,200. - Current home cardiac medications include aspirin 81 mg daily, Lipitor 80 mg daily, Farxiga 5 mg daily, Lasix 40 mg daily, Toprol tartrate 25 mg twice a day, Brilinta 90 mg twice a day. - Echocardiogram obtained this admission reveals ejection fraction 20 to 25% with apical akinesia. No evidence of LV thrombus noted. No pericardial ef fusion. - Cardiac catheterization history: 03/24/2024 with stenting to the proximal LAD and OM. REVIEW OF SYSTEMS: At the time of my exam: CONSTITUTIONAL: Denies fever or chills. HEENT: Denies blurred vision, vision changes, or eye pain. Denies hemoptysis CARDIOVASCULAR: Denies chest pain. Denies orthopnea. Denies PND. Denies palpitations RESPIRATORY: Denies shortness of breath. GASTROINTESTINAL: Denies abdominal pain. Denies nausea or vomiting. HEMATOLOGIC: Denies bleeding disorders. GENITOURINARY: Denies any blood in urine. SKIN: Denies pruitis. Denies rash. PHYSICAL EXAM: VITAL SIGNS: Reviewed. GENERAL: Well-developed in no acute distress. HEENT: Head is normocephalic. Pupils are equal, round. Sclerae anicteric. Mucous membranes of the mouth are moist. Neck supple. No JVD or thyromegaly LUNGS: Respirations even and unlabored. Lungs essentially clear to auscultation bilaterally. HEART: Regular rate and rhythm. S1 and S2 heard. ABDOMEN: Soft. Nondistended. Nontender. EXTREMITIES: Normal range of motion. No clubbing or cyanosis. Peripheral pulses intact. No lower extremity edema NEUROLOGIC: Awake and alert. Oriented x 3. ASSESSMENT: Leukocytosis without any signs of active infection, with recent multifocal pneumonia in March 2024 Hypotension, improved Recent hospitalization for non-STEMI with cardiogenic shock along with pneumonia, status post PCI of the LAD and OM Ischemic cardiomyopathy on 2024 History of peripheral arterial disease Chronic kidney disease AAA Hypertension Hyperlipidemia PLAN: Echo repeated revealing EF 20 to 25% with no LV thrombus and no pericardial effusion Continue to hold Lasix Restart metoprolol at a lower dose of 12.5 mg twice a day Continue to monitor blood pressure Continue dual antiplatelet therapy with aspirin and Brilinta secondary to recent stenting Continue statin therapy If patient remains stable, he may be discharged home this afternoon from a cardiac standpoint Further recommendations pending patient course Nurse practitioner note has been reviewed by physician. Signing provider agrees with the documented findings, assessment, and plan of care documented by BLADE WORKER as a scribe. Past Medical History Past Medical History: COPD, GERD/Reflux, Renal Disease, Vascular Disorder Additional Past Medical History / Comment(s): Abdominal aortic aneurysm, infrarenal, iliac aneurysm, bilateral History of Any Multi-Drug Resistant Organisms: None Reported Past Surgical History: No Surgical Hx Reported Past Anesthesia/Blood Transfusion Reactions: No Reported Reaction Additional Past Anesthesia/Blood Transfusion Reaction / Comment(s): HAS NEVER HAD ANESTHESIA Past Psychological History: No Psychological Hx Reported Smoking Status: Current every day smoker Past Alcohol Use History: None Reported, Occasional Past Drug Use History: None Reported - Past Family History Mother Family Medical History: Cancer Father Family Medical History: CVA/TIA Medications and Allergies Home Medications Medication Instructions Recorded Confirmed Type Acetaminophen [Tylenol Arthritis] 650 mg PO Q6H PRN 03/17/24 04/03/24 History Aspirin 81 mg PO DAILY #90 tab 03/25/24 04/03/24 Rx Atorvastatin [Lipitor] 80 mg PO DAILY #90 tab 03/25/24 04/03/24 Rx Dapagliflozin Propanediol [Farxiga] 5 mg PO DAILY #60 tab 03/25/24 04/03/24 Rx Furosemide [Lasix] 40 mg PO DAILY #30 tab 03/25/24 04/03/24 Rx Metoprolol Tartrate [Lopressor] 25 mg PO BID #60 tab 03/25/24 04/03/24 Rx Ticagrelor [Brilinta] 90 mg PO BID #90 tab 03/25/24 04/03/24 Rx Albuterol Inhaler [Ventolin Hfa 2 puff INHALATION RT-Q6H PRN 04/03/24 04/03/24 History Inhaler] Allergies Allergy/AdvReac Type Severity Reaction Status Date / Time sulfamethoxazole Allergy Swelling Verified 04/03/24 20:02 [From Bactrim] trimethoprim [From Bactrim] Allergy Swelling Verified 04/03/24 20:02 Physical Exam Vitals: Vital Signs Temp Pulse Resp BP Pulse Ox 04/04/24 12:29 57 L 16 91/68 97 04/04/24 07:45 61 14 95/59 97 04/04/24 04:49 98.3 F 70 18 104/54 98 04/04/24 04:19 55 L 16 92/55 04/04/24 02:00 62 15 100/53 94 L 04/04/24 00:10 62 18 105/64 04/03/24 22:44 55 L 18 86/61 95 04/03/24 21:18 59 L 18 92/58 96 04/03/24 21:00 61 18 89/59 95 04/03/24 19:24 63 18 94/69 100 04/03/24 18:50 54 L 18 94/60 99 04/03/24 18:45 87/57 04/03/24 18:20 53 L 17 92/63 99 04/03/24 18:00 53 L 16 99/56 100 04/03/24 17:55 98.3 F 64 16 101/66 100 04/03/24 17:48 98/64 04/03/24 17:22 97.5 F L 43 L 18 76/28 97 Intake and Output 01/02/25 01/03/25 01/03/25 22:59 06:59 14:59 Output Total 880 Balance -880 Output: Urine 880 Other: Weight 77.111 kg Results 04/04/24 06:16 04/04/24 06:16 Cardiac Enzymes 04/03/24 04/03/24 04/04/24 Range/Units 17:58 17:58 06:16 AST 23 (17-59) U/L Troponin I 0.229 H* 0.226 H* (0.000-0.034) ng/mL Coagulation 04/03/24 Range/Units 17:58 PT 10.7 (10.0-12.5) sec APTT 20.5 L (22.0-30.0) sec CBC 04/03/24 04/04/24 Range/Units 17:58 06:16 WBC 18.1 H 16.21 H (3.8-10.6) k/uL RBC 4.46 3.97 L (4.30-5.90) m/uL Hgb 13.7 12.0 L (13.0-17.5) gm/dL Hct 41.5 37.2 L (39.0-53.0) % Plt Count 214 215 (150-450) k/uL Comprehensive Metabolic Panel 04/03/24 04/04/24 Range/Units 17:58 06:16 Sodium 136 L 138 (137-145) mmol/L Potassium 4.3 4.4 (3.5-5.1) mmol/L Chloride 97 L 100 (98-107) mmol/L Carbon Dioxide 28 31 H (22-30) mmol/L BUN 84 H 77 H (9-20) mg/dL Creatinine 2.36 H 2.18 H (0.66-1.25) mg/dL Glucose 117 H 97 (74-99) mg/dL Calcium 9.4 9.0 (8.4-10.2) mg/dL AST 23 (17-59) U/L ALT 14 (4-49) U/L Alkaline Phosphatase 89 (38-126) U/L Total Protein 6.2 L (6.3-8.2) g/dL Albumin 3.8 (3.5-5.0) g/dL Current Medications Generic Name Dose Route Start Last Admin Trade Name Freq PRN Reason Stop Dose Admin Acetaminophen 650 mg 04/03/24 22:56 Acetaminophen Tab 325 Mg Tab PO Q6H PRN Pain Albuterol Sulfate 2.5 mg 04/03/24 22:56 Albuterol Nebulized 2.5 Mg/3 Ml INHALATION RT-Q6H PRN Shortness Of Breath Or Wheezing Aspirin 81 mg 04/04/24 09:00 04/04/24 08:30 Aspirin 81 Mg PO 81 mg DAILY STEVE Administration Atorvastatin Calcium 80 mg 04/04/24 09:00 04/04/24 08:30 Atorvastatin 80 Mg Tab PO 80 mg DAILY STEVE Administration Famotidine 20 mg 04/04/24 09:00 04/04/24 08:30 Famotidine 20 Mg Tab PO 20 mg DAILY STEVE Administration Heparin Sodium (Porcine) 5,000 unit 04/04/24 09:00 04/04/24 08:30 Heparin Sodium,Porcine 5,000 Unit/Ml 1 Ml Vial SQ 5,000 unit Q8HR STEVE Administration Metoprolol Tartrate 12.5 mg 04/04/24 09:00 04/04/24 12:33 Metoprolol Tartrate 12.5 Mg Tab PO 12.5 mg BID STEVE Administration Naloxone HCl 0.2 mg 04/03/24 22:55 Naloxone 0.4 Mg/Ml 1 Ml Vial IV Q2M PRN Opioid Reversal Nicotine 1 patch 04/04/24 09:00 04/04/24 08:31 Nicotine 21mg/24hr Patch TRANSDERM 1 patch DAILY STEVE Administration Ticagrelor 90 mg 04/04/24 09:00 04/04/24 08:30 Ticagrelor 90 Mg Tab PO 90 mg BID STEVE Administration Intake and Output 04/03/24 04/04/24 04/04/24 22:59 06:59 14:59 Output Total 880 Balance -880 Output: Urine 880 Other: Weight 77.111 kg 04/04/24 06:16 04/04/24 06:16
[2024-04-04] MEDS: ACETAMINOPHEN TAB 325 MG TAB PO PRN (18:40)
--- NOTE | 2024-04-05 09:17 | P.NPCON ---
History of Present Illness - Reason for Consult acute renal failure, chronic renal failure - History of Present Illness Reason for consultation: Acute kidney injury on chronic kidney disease History of present illness: Patient is a 68-year-old male seen in renal consultation for acute kidney injury on chronic kidney disease. Patient's creatinine in August 2022 was in the range of 1.2-1.4. Patient was recently admitted in March 2024 and at that time was admitted for NSTEMI with cardiogenic shock as well as pneumonia. He underwent cardiac catheterization with 2 stents placement. Patient states he has been feeling generally weak. He was seen by his primary care team and was advised to come to the hospital due to abnormal labs, particularly high white count. Patient denies chest pain or shortness of breath. Has been voiding. No edema. It is noted the patient's blood pressure was low in the systolic 70s to 80s initially and this morning was 101/69. He did receive a fluid bolus in the ER. Diuretics are held. Echocardiogram from March 2024 showed ejection fraction of 20 to 25%. Denies history of diabetes. Denies use of nonsteroidals. Denies gross hematuria or dysuria. No vomiting or diarrhea. Vital signs are stable. General: No acute distress. HEENT: Head exam is unremarkable. LUNGS: No audible rhonchi or wheezes. HEART: Rate and Rhythm are regular. ABDOMEN: Nontender. EXTREMITITES: No edema. Past Medical History Past Medical History: COPD, GERD/Reflux, Renal Disease, Vascular Disorder Additional Past Medical History / Comment(s): Abdominal aortic aneurysm, infrarenal, iliac aneurysm, bilateral History of Any Multi-Drug Resistant Organisms: None Reported Past Surgical History: No Surgical Hx Reported Past Anesthesia/Blood Transfusion Reactions: No Reported Reaction Additional Past Anesthesia/Blood Transfusion Reaction / Comment(s): HAS NEVER HAD ANESTHESIA Past Psychological History: No Psychological Hx Reported Smoking Status: Current every day smoker Past Alcohol Use History: None Reported, Occasional Past Drug Use History: None Reported - Past Family History Mother Family Medical History: Cancer Father Family Medical History: CVA/TIA Medications and Allergies Home Medications Medication Instructions Recorded Confirmed Type Acetaminophen [Tylenol Arthritis] 650 mg PO Q6H PRN 03/17/24 04/03/24 History Aspirin 81 mg PO DAILY #90 tab 03/25/24 04/03/24 Rx Atorvastatin [Lipitor] 80 mg PO DAILY #90 tab 03/25/24 04/03/24 Rx Dapagliflozin Propanediol [Farxiga] 5 mg PO DAILY #60 tab 03/25/24 04/03/24 Rx Furosemide [Lasix] 40 mg PO DAILY #30 tab 03/25/24 04/03/24 Rx Metoprolol Tartrate [Lopressor] 25 mg PO BID #60 tab 03/25/24 04/03/24 Rx Ticagrelor [Brilinta] 90 mg PO BID #90 tab 03/25/24 04/03/24 Rx Albuterol Inhaler [Ventolin Hfa 2 puff INHALATION RT-Q6H PRN 04/03/24 04/03/24 History Inhaler] Allergies Allergy/AdvReac Type Severity Reaction Status Date / Time sulfamethoxazole Allergy Swelling Verified 04/03/24 20:02 [From Bactrim] trimethoprim [From Bactrim] Allergy Swelling Verified 04/03/24 20:02 Physical Exam Vitals: Vital Signs Pulse Pulse Resp BP BP Pulse Ox 04/05/24 07:58 97 04/05/24 04:08 96 16 101/69 98 04/05/24 02:45 98 16 92/74 98 04/04/24 19:53 65 18 96/69 96 04/04/24 15:32 62 18 96/54 99 04/04/24 12:29 57 L 16 91/68 97 Intake and Output 04/04/24 04/05/24 04/05/24 22:59 06:59 14:59 Output Total 480 Balance -480 Output: Urine 480 Other: Voiding Method Urinal # Bowel Movements 1 Results - Lab Results Most recent lab results Calcium 9.0 mg/dL (8.4-10.2) 04/04/24 06:16 Magnesium 2.2 mg/dL (1.6-2.3) 04/04/24 06:16 04/04/24 06:16 04/04/24 06:16 Assessment and Plan Plan: Assessment: 1. Acute kidney injury secondary to ATN secondary to hypotension/hypovolemia and cardiorenal syndrome. Patient's creatinine since last admission in March 2024 has been in the range of 2-2.3. Kidney ultrasound from March 2024 showed no evidence of hydronephrosis. UA benign. 2. Chronic kidney disease stage IIIa with baseline creatinine 1.2-1.4 in August 2022. It appears CKD has progressed. 3. Chronic systolic CHF ejection fraction of 20 to 25%. 4. Coronary disease status post 2 stents placed March 2024. Plan: Continue to hold diuretics. Encouraged oral intake. Avoid nephrotoxins. Continue to monitor renal function and urine output. Thank you for the consultation. I will continue to follow the patient with you during his hospital stay.
[2024-04-05 09:50] LABS: Basophils # (A) 0.02 X 10*3/uL (0.00-0.10); Basophils % (A) 0.1 %; Eosinophils # (A) 0.23 X 10*3/uL (0.04-0.35); Eosinophils % (A) 1.4 %; HCT 37.9 % (39.6-50.0); HGB 12.2 g/dL (13.0-17.0); Lymphocytes # (A) 3.05 X 10*3/uL (0.90-5.00); Lymphocytes % (A) 19.1 %; MCH 30.6 pg (27.0-32.0); MCHC 32.2 g/dL (32.0-37.0); Mean Platelet Volume 11.4 FL (9.5-12.2); Monocytes # (A) 0.74 X 10*3/uL (0.20-1.00); Monocytes % (A) 4.6 %; NRBC Per 100 WBC 0 X 10*3/uL (0.00-0.01); Neutrophils # (A) 11.86 X 10*3/uL (1.80-7.70); Neutrophils % (A) 74.3 %; Platelet Count 206 X 10*3/uL (140-440); RBC 3.99 X 10*6/uL (4.40-5.60); RDW 14.6 % (11.5-14.5); WBC 15.98 X 10*3/uL (4.50-10.00)
[2024-04-05 10:12] LABS: BUN/Creat Ratio 29.95 Ratio (12.00-20.00); Blood Urea Nitrogen 62.9 mg/dL (9.0-27.0); Chloride 102 mmol/L (96-109); Glucose 155 mg/dL (70-110); Magnesium 2.1 mg/dL (1.5-2.4); Potassium 3.9 mmol/L (3.5-5.5); Sodium 140 mmol/L (135-145)
[2024-04-05 10:13] LABS: Calcium 8.7 mg/dL (8.7-10.3)
--- NOTE | 2024-04-05 11:36 | P.PN ---
Subjective Progress Note Date: 04/05/24 This is a 68-year-old male with a past medical history significant for coronary arteries with previous stenting, cardiomyopathy, on LifeVest, peripheral arterial disease, AAA, hypertension, hyperlipidemia. Patient follows in the office with Dr. Luna. We have been asked to see the patient in consultation for recent non-STEMI with PCI. Patient examined at the bedside. Patient states he was called by his primary care physician and told he had abnormal labs with a high white count and was told to come to the emergency room. The patient currently denies any chest pain or pressure. He denies any shortness of breath. Denies any dizziness or lightheadedness. Denies having any fever at home. Patient's blood pressure was low in the 70s and 80s when he initially presented to the hospital. Blood pressure at the time of examination 102/52. DIAGNOSTICS: - EKG reveals sinus mechanism with right bundle branch block. PVCs. Diffuse T wave inversions. - Chest xray chronic changes without acute pulmonary process. No significant change from prior. - Laboratory data: WBC 16.21. Hemoglobin 12.0. Platelet count 215. Sodium 138. Potassium 4.4. BUN 77. Creatinine 2.18. Troponin 0.229. 0.226. proBNP 29,200. - Current home cardiac medications include aspirin 81 mg daily, Lipitor 80 mg daily, Farxiga 5 mg daily, Lasix 40 mg daily, Toprol tartrate 25 mg twice a day, Brilinta 90 mg twice a day. - Echocardiogram obtained this admission reveals ejection fraction 20 to 25% with apical akinesia. No evidence of LV thrombus noted. No pericardial effusion. - Cardiac catheterization history: 03/24/2024 with stenting to the proximal LAD and OM. 04/05/2024 Patient seen and examined resting in a stretcher in ER awaiting bed on observation unit. He is overall feeling better. Renal function is somewhat improved with a creatinine of 2.18. Blood pressure remains low but stable. He denies any shortness of breath. PHYSICAL EXAM: VITAL SIGNS: Reviewed. GENERAL: Well-developed in no acute distress. HEENT: Head is normocephalic. Pupils are equal, round. Sclerae anicteric. Mucous membranes of the mouth are moist. Neck supple. No JVD or thyromegaly LUNGS: Respirations even and unlabored. Lungs essentially clear to auscultation bilaterally. HEART: Regular rate and rhythm. S1 and S2 heard. ABDOMEN: Soft. Nondistended. Nontender. EXTREMITIES: Normal range of motion. No clubbing or cyanosis. Peripheral pulses intact. No lower extremity edema NEUROLOGIC: Awake and alert. Oriented x 3. ASSESSMENT: Leukocytosis without any signs of active infection, with recent multifocal pneumonia in March 2024 Hypotension, improved Recent hospitalization for non-STEMI with cardiogenic shock along with pneumonia, status post PCI of the LAD and OM Ischemic cardiomyopathy on 2024 History of peripheral arterial disease Chronic kidney disease AAA Hypertension Hyperlipidemia PLAN: From cardiology's perspective we will resume Lasix. We will switch to metoprolol succinate. We will resume Farxiga. Continue to monitor blood pressure closely. Continue to monitor renal function electrolytes. We will continue to follow the patient and provide further recommendations accordingly. RACKING MACHINE OPERATOR note has been reviewed, I agree with a documented findings and plan of care. Patient was seen and examined. Objective - Vital Signs Vital signs: Vital Signs Temp 98.3 F 04/04/24 04:49 Pulse 96 04/05/24 04:08 Resp 16 04/05/24 04:08 BP 101/69 04/05/24 04:08 Pulse Ox 97 04/05/24 07:58 FiO2 Intake & Output 04/04/24 04/05/24 04/05/24 18:59 06:59 18:59 Output Total 480 Balance -480 Output: Urine 480 Other: Voiding Method Urinal # Bowel Movements 1 - Labs CBC & Chem 7: 04/05/24 04:28 04/05/24 04:28 Labs: Abnormal Lab Results - Last 24 Hours (Table) 04/05/24 04/05/24 Range/Units 04:28 04:28 WBC 15.98 H (4.50-10.00) X 10*3/uL RBC 3.99 L (4.40-5.60) X 10*6/uL Hgb 12.2 L (13.0-17.0) g/dL Hct 37.9 L (39.6-50.0) % RDW 14.6 H (11.5-14.5) % Immature Gran # 0.08 H (0.00-0.04) X 10*3/uL Neutrophils # 11.86 H (1.80-7.70) X 10*3/uL Anion Gap 15.00 H (4.00-12.00) mmol/L BUN 62.9 H (9.0-27.0) mg/dL Creatinine 2.1 H (0.6-1.5) mg/dL Est GFR (CKD-EPI) 34 L (>=60) BUN/Creatinine Ratio 29.95 H (12.00-20.00) Ratio Glucose 155 H (70-110) mg/dL
[2024-04-05] MEDS: FUROSEMIDE 20 MG TAB PO SCH (14:51)
[2024-04-05] MEDS: DAPAGLIFLOZIN PROPANEDIOL 10 MG TABLET PO SCH (14:51)
--- NOTE | 2024-04-05 18:16 | P.PN ---
Subjective Progress Note Date: 04/05/24 Hospital course: Patient is a very pleasant 68-year-old male with a past medical history of recent NSTEMI and PCI to LAD and OM (03/24/[address] Luna), systolic CHF (EF 25- 30%), CKD stage IV, peripheral artery disease, hypertension, COPD, and GERD. He presented to the hospital on 04/03/2024 with his per instructions from their primary care provider due to abnormal labs. Patient was told his potassium was high, hemoglobin was low, WBC count was high. Patient states he saw his PCP Dr. Cee on Sunday or Sunday of this week and had labs done. He also saw Dr. Estrada and had an appointment with nephrology on 04/04/2024. Patient reports he has been feeling generally weak, fatigued, and has had low blood pressures. Patient was discharged with LifeVest after last admission. Patient endorses some leg swelling most prominent on the RLE. Upon arrival to our facility, patient underwent evaluation in the emergency department. Vitals on admission heart rate 53, respiratory rate 16, blood pressure 99/56, 100% O2 saturation on room air EKG independently interpreted as sinus rhythm with PVCs at 63 bpm with right axis deviation and right bundle branch block with diffuse T wave inversions across most leads, with QTc 483 MS. CXR shows chronic changes without acute pulmonary process Most recent echo on March 18 showed ejection fraction of 25 to 30%, moderate pulmonary hypertension, mild to moderate MR and mild TR Labs on admission show WBC 18.1 hemoglobin 13.7 platelets 214. PT 10.7, INR 1, PTT 20.5. Sodium 136, potassium 4.3, chloride 97, bicarb 28, BUN 84, creatinine 2.36, glucose 117. Magnesium 2.4. Troponin 0.229. NT proBNP 29,200. UA shows 1+ glucose. Physical exam: Vital signs reviewed and stable. General: Nontoxic, no distress and appears stated age. Chronically ill- appearing. Derm: Skin warm and dry, normal coloration for ethnicity. Head: Atraumatic, normocephalic and symmetric. Eyes: EOM's intact, no lid lag, and anicteric sclera Mouth: no lip lesions, mucus membranes moist Cardiovascular: regular rate and rhythm with normal S1S2, systolic murmur, positive posterior tibial pulses bilaterally, and cap refill < 2 seconds. Lungs: Respirations even, regular, and unlabored on room air. Lungs CTA bilaterally, no rhonchi, no rales, no wheezing, and no accessory muscle usage. Abdominal: soft, nontender to palpation, no guarding, no appreciable organomegaly Ext: ROM intact. No gross muscle atrophy, 1+ bilateral lower extremity pitting edema, no contractures Neuro: Speech clear, face symmetrical and CN II-XII grossly intact with no noted focal neuro deficits Psych: Alert and oriented to person, place, time, and situation. Appropriate and pleasant affect. Assessment and Plan of Care: Hypotension and weakness -Cardiology following resuming patient's Lasix switching metoprolol to succinate and resuming Farxiga recommending continuation of close monitoring of blood pressures with further recommendations forthcoming. -Patient reports that he has been compliant with all his home medications and is sure that he has not taken any extra -Continue to monitor vital signs -Orthostatic vitals to be obtained. -Fall precautions to remain in place. -Consult placed to PT/OT for evaluation and recommendations regarding possible rehab placement. Leukocytosis -Believed to be reactive no signs of active infection at this time and is improving -Continue to monitor Elevated troponin, downtrending from recent admission with PCI -Continue cardiac medication regimen with aspirin 81 mg daily, Brilinta 90 mg twice daily atorvastatin 80 mg daily, Farxiga 10 mg daily, furosemide 20 mg daily, and metoprolol succinate 25 mg daily. -Cardiac monitoring -Cardiology following resuming patient's Lasix switching metoprolol to succinate and resuming Farxiga recommending continuation of close monitoring of blood pressures with further recommendations forthcoming. Hypochloremic hyponatremia, likely secondary to fluid volume overload. Resolved Hypermagnesemia. Resolved CKD stage IV, possibly secondary to cardiorenal syndrome -Nephrology following, reviewed documentation in chart. -Avoid nephrotoxic agents Recent NSTEMI with PCI Heart failure with severely reduced ejection fraction of 25 to 30%, NT proBNP 29,200 History of hypertension -LifeVest in place -Continue cardiac medication regimen with aspirin 81 mg daily, Brilinta 90 mg twice daily atorvastatin 80 mg daily, Farxiga 10 mg daily, furosemide 20 mg daily, and metoprolol succinate 25 mg daily. - Daily weight - Strict I's and O's - Cardiac monitoring - Cardiology consult Nicotine dependence -Nicotine patch -Continue to encourage smoking cessation GERD -Continue Pepcid 20 mg daily. COPD, not currently exacerbated -Continue Albuterol inhaler Data and imaging reviewed: Morning labs reviewed. CBC showing continued slight improvement of leukocytosis with WBC count of 15.98 and stable hemoglobin of 12.2. BMP showing elevated anion gap of 15, BUN of 62.9, creatinine of 2.1, GFR of 34. Blood glucose 155. Magnesium 2.1. Vital signs reviewed. Blood pressure blood pressure 100/58, heart rate 91, respiratory rate 17, and SpO2 of 97% on room air. CODE STATUS: Full Code DVT prophylaxis: Heparin Anticipated discharge date: Pending clinical course, awaiting evaluation from physical therapy for placement in SNF. Anticipated discharge place: Home versus SNF, pending recommendations from physical therapy Patient was seen independently by Nurse Pracitioner. This document was prepared using [email or web address] dictation software. Please allow for errors in business ethics professor, while rare they do occur. Gio Henderson ACQUISITION LEAD rendered care for this patient independently, reviewed the findings and plan as documented in the note above and agree with plan. I did not physically speak with or examine the patient on this date. Objective - Vital Signs Vital signs: Vital Signs Temp 98.3 F 04/04/24 04:49 Pulse 96 04/05/24 04:08 Resp 16 04/05/24 04:08 BP 101/69 04/05/24 04:08 Pulse Ox 97 04/05/24 07:58 FiO2 Intake & Output 04/04/24 04/05/24 04/05/24 18:59 06:59 18:59 Output Total 480 Balance -480 Output: Urine 480 Other: Voiding Method Urinal # Bowel Movements 1 - Labs CBC & Chem 7: 04/05/24 04:28 04/05/24 04:28 Labs: Abnormal Lab Results - Last 24 Hours (Table) 04/05/24 Range/Units 04:28 WBC 15.98 H (4.50-10.00) X 10*3/uL RBC 3.99 L (4.40-5.60) X 10*6/uL Hgb 12.2 L (13.0-17.0) g/dL Hct 37.9 L (39.6-50.0) % RDW 14.6 H (11.5-14.5) % Immature Gran # 0.08 H (0.00-0.04) X 10*3/uL Neutrophils # 11.86 H (1.80-7.70) X 10*3/uL
[2024-04-06 08:16] LABS: African American GFR (CKD) 30 (>60 ml/min/1.73 sqM); Anion Gap 6 mmol/L; Blood Urea Nitrogen 66 mg/dL (9-20); Calcium 8.5 mg/dL (8.4-10.2); Carbon Dioxide 25 mmol/L (22-30); Chloride 103 mmol/L (98-107); Glucose 96 mg/dL (74-99); Non-African American GFR(CKD) 26 (>60 ml/min/1.73 sqM); Potassium 4.4 mmol/L (3.5-5.1); Sodium 134 mmol/L (137-145)
--- NOTE | 2024-04-06 11:20 | P.PN ---
Subjective Patient is seen in follow-up for acute kidney injury on chronic kidney disease. Renal function worse with creatinine 2.49. Denies chest pain or shortness of breath. Diuretics have been held. Vital signs are stable. General: No acute distress. HEENT: Head exam is unremarkable. LUNGS: No audible rhonchi or wheezes. HEART: Rate and Rhythm are regular. ABDOMEN: Nontender. EXTREMITITES: No edema. Objective - Vital Signs Vital signs: Vital Signs Temp 97.8 F 04/06/24 07:20 Pulse 70 04/06/24 07:20 Resp 16 04/06/24 07:20 BP 84/47 04/06/24 07:20 Pulse Ox 98 04/06/24 07:20 FiO2 Intake & Output 04/05/24 04/06/24 04/06/24 18:59 06:59 18:59 Intake Total 540 240 Balance 540 240 Weight 77.111 kg 74.4 kg Intake: Oral 540 240 Other: Voiding Method Urinal Urinal Urinal - Labs CBC & Chem 7: 04/05/24 04:28 04/06/24 06:34 Labs: Abnormal Lab Results - Last 24 Hours (Table) 04/06/24 Range/Units 06:34 Sodium 134 L (137-145) mmol/L BUN 66 H (9-20) mg/dL Creatinine 2.49 H (0.66-1.25) mg/dL Assessment and Plan Plan: Assessment: 1. Acute kidney injury secondary to ATN secondary to hypotension/hypovolemia and cardiorenal syndrome. Patient's creatinine since last admission in March 2024 has been in the range of 2-2.3. Kidney ultrasound from March 2024 showed no evidence of hydronephrosis. UA benign. Creatinine 2.49 today. Patient's blood pressure has been running on the lower end. 2. Chronic kidney disease stage IIIa with baseline creatinine 1.2-1.4 in August 2022. It appears CKD has progressed. 3. Chronic systolic CHF ejection fraction of 20 to 25%. 4. Coronary disease status post 2 stents placed March 2024. Plan: Continue to hold diuretics. Farxiga resumed today. Encouraged oral intake. Maintain low-salt diet and fluid restriction. Avoid nephrotoxins. Continue to monitor renal function and urine output. Repeat chest x-ray.
[2024-04-06] MEDS: METOPROLOL SUCCINATE (ER) 25 MG TAB.ER.24H PO SCH (12:11)
--- NOTE | 2024-04-06 12:41 | P.PN ---
Subjective Progress Note Date: 04/06/24 This is a 68-year-old male with a past medical history significant for coronary arteries with previous stenting, cardiomyopathy, on LifeVest, peripheral arterial disease, AAA, hypertension, hyperlipidemia. Patient follows in the office with Dr. Luna. We have been asked to see the patient in consultation for recent non-STEMI with PCI. Patient examined at the bedside. Patient states he was called by his primary care physician and told he had abnormal labs with a high white count and was told to come to the emergency room. The patient currently denies any chest pain or pressure. He denies any shortness of breath. Denies any dizziness or lightheadedness. Denies having any fever at home. Patient's blood pressure was low in the 70s and 80s when he initially presented to the hospital. Blood pressure at the time of examination 102/52. DIAGNOSTICS: - EKG reveals sinus mechanism with right bundle branch block. PVCs. Diffuse T wave inversions. - Chest xray chronic changes without acute pulmonary process. No significant change from prior. - Laboratory data: WBC 16.21. Hemoglobin 12.0. Platelet count 215. Sodium 138. Potassium 4.4. BUN 77. Creatinine 2.18. Troponin 0.229. 0.226. proBNP 29,200. - Current home cardiac medications include aspirin 81 mg daily, Lipitor 80 mg daily, Farxiga 5 mg daily, Lasix 40 mg daily, Toprol tartrate 25 mg twice a day, Brilinta 90 mg twice a day. - Echocardiogram obtained this admission reveals ejection fraction 20 to 25% with apical akinesia. No evidence of LV thrombus noted. No pericardial effusion. - Cardiac catheterization history: 03/24/2024 with stenting to the proximal LAD and OM. 04/05/2024 Patient seen and examined resting in a stretcher in ER awaiting bed on observation unit. He is overall feeling better. Renal function is somewhat improved with a creatinine of 2.18. Blood pressure remains low but stable. He denies any shortness of breath. 04/06/2024 Patient was seen and examined resting comfortably in bed. He is overall feeling better. Energy level is stable. He denies any dizziness, lightheadedness or syncope. He has no shortness of breath or chest discomfort. Blood pressure running low 88 to low 100s systolic but patient seems to be asymptomatic. Labs this morning showed a BUN of 66 and creatinine 2.49 up from 62.9 and 2.1. Nephrology is following. PHYSICAL EXAM: VITAL SIGNS: Reviewed. GENERAL: Well-developed in no acute distress. HEENT: Head is normocephalic. Pupils are equal, round. Sclerae anicteric. Mucous membranes of the mouth are moist. Neck supple. No JVD or thyromegaly LUNGS: Respirations even and unlabored. Lungs essentially clear to auscultation bilaterally. HEART: Regular rate and rhythm. S1 and S2 heard. ABDOMEN: Soft. Nondistended. Nontender. EXTREMITIES: Normal range of motion. No clubbing or cyanosis. Peripheral pulses intact. No lower extremity edema NEUROLOGIC: Awake and alert. Oriented x 3. ASSESSMENT: Leukocytosis without any signs of active infection, with recent multifocal pneumonia in March 2024 Hypotension, improved Recent hospitalization for non-STEMI with cardiogenic shock along with pneumonia, status post PCI of the LAD and OM Ischemic cardiomyopathy on 2024 History of peripheral arterial disease Chronic kidney disease AAA Hypertension Hyperlipidemia PLAN: From cardiology's perspective we will ambulate in the hallway. Continue metop rolol succinate. Continue Farxiga. Diuretics on hold per nephrology. Continue to monitor blood pressure closely. Continue to monitor renal function electrolytes. We will continue to follow the patient and provide further recommendations accordingly. CLEARING HOUSE CLERK note has been reviewed, I agree with a documented findings and plan of care. Patient was seen and examined. Objective - Vital Signs Vital signs: Vital Signs Temp 97.8 F 04/06/24 07:20 Pulse 70 04/06/24 07:20 Resp 16 04/06/24 07:20 BP 84/47 04/06/24 07:20 Pulse Ox 98 04/06/24 07:20 FiO2 Intake & Output 04/05/24 04/06/24 04/06/24 18:59 06:59 18:59 Intake Total 540 Balance 540 Weight 77.111 kg 74.4 kg Intake: Oral 540 Other: Voiding Method Urinal Urinal Urinal - Labs CBC & Chem 7: 04/05/24 04:28 04/06/24 06:34 Labs: Abnormal Lab Results - Last 24 Hours (Table) 04/05/24 04/05/24 04/06/24 Range/Units 04:28 04:28 06:34 WBC 15.98 H (4.50-10.00) X 10*3/uL RBC 3.99 L (4.40-5.60) X 10*6/uL Hgb 12.2 L (13.0-17.0) g/dL Hct 37.9 L (39.6-50.0) % RDW 14.6 H (11.5-14.5) % Immature Gran # 0.08 H (0.00-0.04) X 10*3/uL Neutrophils # 11.86 H (1.80-7.70) X 10*3/uL Sodium 134 L (137-145) mmol/L Anion Gap 15.00 H (4.00-12.00) mmol/L BUN 62.9 H 66 H (9.0-27.0) mg/dL Creatinine 2.1 H 2.49 H (0.6-1.5) mg/dL Est GFR (CKD-EPI) 34 L (>=60) BUN/Creatinine Ratio 29.95 H (12.00-20.00) Ratio Glucose 155 H (70-110) mg/dL
--- NOTE | 2024-04-06 17:46 | P.PN ---
Subjective Progress Note Date: 04/06/24 Hospital course: Patient is a very pleasant 68-year-old male with a past medical history of recent NSTEMI and PCI to LAD and OM (03/24/[address] Luna), HFrEF with EF 25-30%, hypertension, hyperlipidemia, COPD, CKD stage IIIb, peripheral artery disease, and GERD. He presented to the hospital on 04/03/2024 with his per instructions from their primary care provider due to abnormal labs. Upon arrival to our facility, patient underwent evaluation in the emergency department. Vital signs upon arrival show blood pressure 76/28, heart rate 43, respiratory rate 18, temp 97.3 F, and SpO2 of 97% on room air. EKG was completed showing sinus rhythm with occasional PVCs, right bundle branch block diffuse T wave inversion throughout leads I, 2, 3, aVL, aVF, and V2 through V6.. Chest x-ray completed negative for acute cardiopulmonary process. Labs completed and reviewed. CBC showing leukocytosis with WBC count of 18.1. Coagulation profile showing low PTT of 20.5. BMP showing hypochloremic hyponatremia with sodium of 136 and chloride of 97 and acute kidney injury on stage III chronic kidney disease with BUN 84, creatinine 2.36, and GFR of 27. Blood glucose was 117. Lactic acid 1.6. Magnesium was elevated at 2.4. Liver profile normal findings. Troponin was 0.229 with proBNP of 29,200. Patient admitted under our services with consultation to cardiology and nephrology. Physical exam: Patient seen and evaluated at bedside, patient's also at bedside. Patient reports just feeling tired. Discussed with patient and patient to be evaluated by physical therapy tomorrow and we will further discuss options available for placement in rehab versus home with home care. Patient denies having any other complaints at this time. All questions answered. Vital signs reviewed and stable. General: Nontoxic, no distress and appears stated age. Chronically ill- appearing. Derm: Skin warm and dry, normal coloration for ethnicity. Head: Atraumatic, normocephalic and symmetric. Eyes: EOM's intact, no lid lag, and anicteric sclera Mouth: no lip lesions, mucus membranes moist Cardiovascular: regular rate and rhythm with normal S1S2, systolic murmur, positive posterior tibial pulses bilaterally, and cap refill < 2 seconds. Lungs: Respirations even, regular, and unlabored on room air. Lungs CTA bilaterally, no rhonchi, no rales, no wheezing, and no accessory muscle usage. Abdominal: soft, nontender to palpation, no guarding, no appreciable organomegaly Ext: ROM intact. No gross muscle atrophy, 1+ bilateral lower extremity pitting edema, no contractures Neuro: Speech clear, face symmetrical and CN II-XII grossly intact with no noted focal neuro deficits Psych: Alert and oriented to person, place, time, and situation. Appropriate and pleasant affect. Assessment and Plan of Care: Symptomatic hypotension and weakness Sinus bradycardia -Cardiology following, reviewed documentation in chart. -Continue aspirin 81 mg daily, Brilinta 90 mg twice daily, atorvastatin 80 mg daily, Farxiga 10 mg daily, Lasix 20 mg daily, and metoprolol 25 mg daily. -Continue to monitor vital signs -Orthostatic vitals negative for orthostatic hypotension -Fall precautions to remain in place. -Consult placed to PT/OT for evaluation and recommendations regarding possible rehab placement. Acute kidney injury on stage IIIb chronic kidney disease, likely secondary to cardiorenal syndrome. -Renal function worsening this morning with BUN of 66, creatinine of 2.49, GFR of 26. Nephrology following and discussed plan of care, Lasix being held this morning. -Order placed for repeat morning BMP and magnesium. Elevated troponin, downtrending from recent admission with PCI Recent NSTEMI with PCI Heart failure with severely reduced ejection fraction of 25 to 30%, NT proBNP 29,200 History of hypertension currently with hypotension -Continue cardiac medication regimen with aspirin 81 mg daily, Brilinta 90 mg twice daily atorvastatin 80 mg daily, Farxiga 10 mg daily, furosemide 20 mg daily, and metoprolol succinate 25 mg daily. -LifeVest to remain in place. -Cardiac monitoring -Cardiology following resuming patient's Lasix switching metoprolol to succinate and resuming Farxiga recommending continuation of close monitoring of blood pressures with further recommendations forthcoming. Leukocytosis. Believed to be reactive no signs of active infection at this time and is improving Continue to monitor with repeat morning CBC. Hypochloremic hyponatremia, likely secondary to fluid volume overload. Resolved Hypermagnesemia. Resolved Nicotine dependence. Recommend smoking cessation. Nicotine patch 21 mg daily. GERD. Continue Pepcid 20 mg daily. COPD, not currently exacerbated. Continue Albuterol inhaler Data and imaging reviewed: Morning labs reviewed. CBC showing continued slight improvement of leukocytosis with WBC count of 15.98 and stable hemoglobin of 12.2. BMP showing worsening renal function with BUN of 66, creatinine of 2.49, GFR of 26. Vital signs reviewed. Blood pressure blood pressure 100/62 and orthostatic vitals obtained with blood pressure supine 84/47 with heart rate 70, sitting 90/53 with heart rate 46, and standing 99/54 with heart rate of 42. CODE STATUS: Full Code DVT prophylaxis: Heparin Anticipated discharge date: Pending clinical course, awaiting evaluation from physical therapy for placement in SNF. Anticipated discharge place: Home versus SNF, pending recommendations from physical therapy Patient was seen independently by Nurse Pracitioner. This document was prepared using [employer] dictation software. Please allow for errors in ripsaw operator, while rare they do occur. Gio Henderson NP rendered care for this patient independently, reviewed the findings and plan as documented in the note above and agree with plan. I did not physically speak with or examine the patient on this date. . Objective - Vital Signs Vital signs: Vital Signs Temp 97.8 F 04/06/24 07:20 Pulse 70 04/06/24 07:20 Resp 16 04/06/24 07:20 BP 84/47 04/06/24 07:20 Pulse Ox 98 04/06/24 07:20 FiO2 Intake & Output 04/05/24 04/06/24 04/06/24 18:59 06:59 18:59 Intake Total 540 Balance 540 Weight 77.111 kg 74.4 kg Intake: Oral 540 Other: Voiding Method Urinal Urinal Urinal - Labs CBC & Chem 7: 04/05/24 04:28 04/06/24 06:34 Labs: Abnormal Lab Results - Last 24 Hours (Table) 04/05/24 04/05/24 04/06/24 Range/Units 04:28 04:28 06:34 WBC 15.98 H (4.50-10.00) X 10*3/uL RBC 3.99 L (4.40-5.60) X 10*6/uL Hgb 12.2 L (13.0-17.0) g/dL Hct 37.9 L (39.6-50.0) % RDW 14.6 H (11.5-14.5) % Immature Gran # 0.08 H (0.00-0.04) X 10*3/uL Neutrophils # 11.86 H (1.80-7.70) X 10*3/uL Sodium 134 L (137-145) mmol/L Anion Gap 15.00 H (4.00-12.00) mmol/L BUN 62.9 H 66 H (9.0-27.0) mg/dL Creatinine 2.1 H 2.49 H (0.6-1.5) mg/dL Est GFR (CKD-EPI) 34 L (>=60) BUN/Creatinine Ratio 29.95 H (12.00-20.00) Ratio Glucose 155 H (70-110) mg/dL
[2024-04-06 23:13] LABS: BUN/Creat Ratio 23.64 Ratio (12.00-20.00); Blood Urea Nitrogen 59.1 mg/dL (9.0-27.0); Calcium 8.4 mg/dL (8.7-10.3); Carbon Dioxide 24.2 mmol/L (21.6-31.8); Chloride 102 mmol/L (96-109); Glucose 125 mg/dL (70-110); Potassium 4.5 mmol/L (3.5-5.5); Sodium 139 mmol/L (135-145)
--- NOTE | 2024-04-07 08:23 | XR ---
EXAMINATION TYPE: XR chest 1V DATE OF EXAM: 04/07/2024 7:10 AM COMPARISON: Chest x-ray 4 days earlier CLINICAL INDICATION: Male, 68 years old with history of sob, TECHNIQUE: 2 frontal views of the chest are obtained. FINDINGS: Overlying external defibrillator is redemonstrated. There is no suspicious new focal air sp kaitlynn opacity, pleural effusion, or pneumothorax seen. The cardiac silhouette size is stable and withi n normal limits. The osseous structures are intact. IMPRESSION: No acute pulmonary process. [facility], , 04/07/2024 8:20 AM
[2024-04-07 08:41] LABS: BUN/Creat Ratio 26.48 Ratio (12.00-20.00); Blood Urea Nitrogen 60.9 mg/dL (9.0-27.0); Calcium 8.3 mg/dL (8.7-10.3); Carbon Dioxide 22.8 mmol/L (21.6-31.8); Chloride 105 mmol/L (96-109); Glucose 95 mg/dL (70-110); Magnesium 2.1 mg/dL (1.5-2.4); Potassium 4.3 mmol/L (3.5-5.5); Sodium 138 mmol/L (135-145)
[2024-04-07 09:27] LABS: HCT 33.8 % (39.6-50.0); HGB 10.5 g/dL (13.0-17.0); MCHC 31.1 g/dL (32.0-37.0); MCV 96.6 FL (80.0-97.0); Mean Platelet Volume 11.6 FL (9.5-12.2); NRBC Per 100 WBC 0 X 10*3/uL (0.00-0.01); Platelet Count 188 X 10*3/uL (140-440); RDW 14.6 % (11.5-14.5); WBC 13.29 X 10*3/uL (4.50-10.00)
--- NOTE | 2024-04-07 11:01 | P.PN ---
Subjective Progress Note Date: 04/07/24 This is a 68-year-old male with a past medical history significant for coronary arteries with previous stenting, cardiomyopathy, on LifeVest, peripheral arterial disease, AAA, hypertension, hyperlipidemia. Patient follows in the office with Dr. Luna. We have been asked to see the patient in consultation for recent non-STEMI with PCI. Patient examined at the bedside. Patient states he was called by his primary care physician and told he had abnormal labs with a high white count and was told to come to the emergency room. The patient currently denies any chest pain or pressure. He denies any shortness of breath. Denies any dizziness or lightheadedness. Denies having any fever at home. Patient's blood pressure was low in the 70s and 80s when he initially presented to the hospital. Blood pressure at the time of examination 102/52. DIAGNOSTICS: - EKG reveals sinus mechanism with right bundle branch block. PVCs. Diffuse T wave inversions. - Chest xray chronic changes without acute pulmonary process. No significant change from prior. - Laboratory data: WBC 16.21. Hemoglobin 12.0. Platelet count 215. Sodium 138. Potassium 4.4. BUN 77. Creatinine 2.18. Troponin 0.229. 0.226. proBNP 29,200. - Current home cardiac medications include aspirin 81 mg daily, Lipitor 80 mg daily, Farxiga 5 mg daily, Lasix 40 mg daily, Toprol tartrate 25 mg twice a day, Brilinta 90 mg twice a day. - Echocardiogram obtained this admission reveals ejection fraction 20 to 25% with apical akinesia. No evidence of LV thrombus noted. No pericardial effusion. - Cardiac catheterization history: 03/24/2024 with stenting to the proximal LAD and OM. 04/05/2024 Patient seen and examined resting in a stretcher in ER awaiting bed on observation unit. He is overall feeling better. Renal function is somewhat improved with a creatinine of 2.18. Blood pressure remains low but stable. He denies any shortness of breath. 04/06/2024 Patient was seen and examined resting comfortably in bed. He is overall feeling better. Energy level is stable. He denies any dizziness, lightheadedness or syncope. He has no shortness of breath or chest discomfort. Blood pressure running low 88 to low 100s systolic but patient seems to be asymptomatic. Labs this morning showed a BUN of 66 and creatinine 2.49 up from 62.9 and 2.1. Nephrology is following. 04/07/24 Patient seen and examined. He states he still has a little bit of diarrhea. Blood pressure 86/47, heart rate 45-71, pulse ox 95% on room air. Orthostatic vital signs obtained last evening were negative. Repeat blood work reveals WBC 13.2, hemoglobin 10.5, electrolytes are normal, BUN 60 and creatinine 2.3. Chest x-ray shows no acute process. PHYSICAL EXAM: VITAL SIGNS: Reviewed. GENERAL: Well-developed in no acute distress. HEENT: Head is normocephalic. Pupils are equal, round. Sclerae anicteric. Mucous membranes of the mouth are moist. Neck supple. No JVD or thyromegaly LUNGS: Respirations even and unlabored. Lungs essentially clear to auscultation bilaterally. HEART: Regular rate and rhythm. S1 and S2 heard. ABDOMEN: Soft. Nondistended. Nontender. EXTREMITIES: Normal range of motion. No clubbing or cyanosis. Peripheral puls es intact. No lower extremity edema NEUROLOGIC: Awake and alert. Oriented x 3. ASSESSMENT: Leukocytosis without any signs of active infection, with recent multifocal pneumonia in March 2024 Hypotension, improved Recent hospitalization for non-STEMI with cardiogenic shock along with pneumonia, status post PCI of the LAD and OM Ischemic cardiomyopathy on 2024 History of peripheral arterial disease Chronic kidney disease AAA Hypertension Hyperlipidemia PLAN: From cardiology's perspective we will ambulate in the hallway. Continue PT and OT Continue patient on aspirin 81 mg daily, atorvastatin 80 mg daily, Farxiga 10 mg daily, Lasix 20 mg daily oral, Toprol XL 25 mg daily, Brilinta 90 mg twice daily Discontinue Lasix as recommended by nephrology Smoking cessation. Patient will be provided the [place] quit line information at discharge. Continue to monitor blood pressure closely. Continue to monitor renal function electrolytes. PARAPROFESSIONAL AIDE TEACHER note has been reviewed, I agree with a documented findings and plan of care. Patient was seen and examined. Objective - Vital Signs Vital signs: Vital Signs Temp 97.9 F 04/07/24 07:00 Pulse 45 L 04/07/24 07:00 Resp 15 04/07/24 07:00 BP 86/47 04/07/24 07:00 Pulse Ox 95 04/07/24 07:00 FiO2 Intake & Output 04/06/24 04/07/24 04/07/24 18:59 06:59 18:59 Intake Total 830 Output Total 225 300 Balance 830 -225 -300 Weight 72.4 kg Intake: Oral 830 Output: Urine 225 300 Other: Voiding Method Urinal Urinal # Voids 2 # Bowel Movements 1 - Labs CBC & Chem 7: 04/07/24 05:19 04/07/24 05:19 Labs: Abnormal Lab Results - Last 24 Hours (Table) 04/06/24 04/07/24 Range/Units 12:25 05:19 Anion Gap 12.80 H (4.00-12.00) mmol/L BUN 59.1 H 60.9 H (9.0-27.0) mg/dL Creatinine 2.5 H 2.3 H (0.6-1.5) mg/dL Est GFR (CKD-EPI) 27 L 30 L (>=60) BUN/Creatinine Ratio 23.64 H 26.48 H (12.00-20.00) Ratio Glucose 125 H (70-110) mg/dL Calcium 8.4 L 8.3 L (8.7-10.3) mg/dL
--- NOTE | 2024-04-07 14:00 | P.PN ---
Subjective Patient is seen for follow-up for acute kidney injury and chronic kidney disease. No significant complaints today. Serum creatinine down to 2.3 from 2.5 yesterday. Urine output not accurately charted. Objective - Vital Signs Vital signs: Vital Signs Temp 97.9 F 04/07/24 07:00 Pulse 45 L 04/07/24 07:00 Resp 15 04/07/24 07:00 BP 86/47 04/07/24 07:00 Pulse Ox 95 04/07/24 07:00 FiO2 Intake & Output 04/06/24 04/07/24 04/07/24 18:59 06:59 18:59 Intake Total 830 Output Total 225 300 Balance 830 -225 -300 Weight 72.4 kg Intake: Oral 830 Output: Urine 225 300 Other: Voiding Method Urinal Urinal # Voids 2 # Bowel Movements 1 - Exam Patient is awake, comfortable, no acute distress. Examination of the heart S1 and S2 Examination of the lungs bilateral breath sounds are heard Abdomen is soft nontender Examination of lower extremities shows no significant edema. PAEDIATRIC THORACIC PHYSICIAN exam grossly intact. - Labs CBC & Chem 7: 04/07/24 05:19 04/07/24 05:19 Labs: Abnormal Lab Results - Last 24 Hours (Table) 04/06/24 04/07/24 04/07/24 Range/Units 12:25 05:19 05:19 WBC 13.29 H (4.50-10.00) X 10*3/uL RBC 3.50 L (4.40-5.60) X 10*6/uL Hgb 10.5 L (13.0-17.0) g/dL Hct 33.8 L (39.6-50.0) % MCHC 31.1 L (32.0-37.0) g/dL RDW 14.6 H (11.5-14.5) % Anion Gap 12.80 H (4.00-12.00) mmol/L BUN 59.1 H 60.9 H (9.0-27.0) mg/dL Creatinine 2.5 H 2.3 H (0.6-1.5) mg/dL Est GFR (CKD-EPI) 27 L 30 L (>=60) BUN/Creatinine Ratio 23.64 H 26.48 H (12.00-20.00) Ratio Glucose 125 H (70-110) mg/dL Calcium 8.4 L 8.3 L (8.7-10.3) mg/dL Assessment and Plan Assessment: 1. Acute kidney injury secondary to ATN secondary to hypotension/hypovolemia and cardiorenal syndrome. Patient's creatinine since last admission in March 2024 has been in the range of 2-2.3. Kidney ultrasound from March 2024 showed no evidence of hydronephrosis. UA benign. Creatinine 2.49 today. Karla ent's blood pressure has been running on the lower end. 2. Chronic kidney disease stage IIIa with baseline creatinine 1.2-1.4 in August 2022. It appears CKD has progressed. 3. Chronic systolic CHF ejection fraction of 20 to 25%. 4. Coronary disease status post 2 stents placed March 2024. Plan: Continue off of diuretics Repeat labs in a.m.
--- NOTE | 2024-04-07 16:52 | P.PN ---
Subjective Progress Note Date: 04/07/24 Hospital course: Patient is a very pleasant 68-year-old male with a past medical history of recent NSTEMI and PCI to LAD and OM (03/24/[address] Luna), HFrEF with EF 25-30%, hypertension, hyperlipidemia, COPD, CKD stage IIIb, peripheral artery disease, and GERD. He presented to the hospital on 04/03/2024 with his per instructions from their primary care provider due to abnormal labs. Upon arrival to our facility, patient underwent evaluation in the emergency department. Vital signs upon arrival show blood pressure 76/28, heart rate 43, respiratory rate 18, temp 97.3 F, and SpO2 of 97% on room air. EKG was completed showing sinus rhythm with occasional PVCs, right bundle branch block diffuse T wave inversion throughout leads I, 2, 3, aVL, aVF, and V2 through V6.. Chest x-ray completed negative for acute cardiopulmonary process. Labs completed and reviewed. CBC showing leukocytosis with WBC count of 18.1. Coagulation profile showing low PTT of 20.5. BMP showing hypochloremic hyponatremia with sodium of 136 and chloride of 97 and acute kidney injury on stage III chronic kidney disease with BUN 84, creatinine 2.36, and GFR of 27. Blood glucose was 117. Lactic acid 1.6. Magnesium was elevated at 2.4. Liver profile normal findings. Troponin was 0.229 with proBNP of 29,200. Patient admitted under our services with consultation to cardiology and nephrology. Physical exam: Patient seen and evaluated at bedside. Patient reports over he was feeling well until about 4 AM and then he just began to feel significant weakness and overall just worn out. Patient remains hypotensive and bradycardic this morning with blood pressure 86/47, heart rate 45. Awaiting evaluation by PT/OT and further recommendations from cardiology. Vital signs reviewed and stable. General: Nontoxic, no distress and appears stated age. Chronically ill- appearing. Derm: Skin warm and dry, normal coloration for ethnicity. Head: Atraumatic, normocephalic and symmetric. Eyes: EOM's intact, no lid lag, and anicteric sclera Mouth: no lip lesions, mucus membranes moist Cardiovascular: regular rate and rhythm with normal S1S2, systolic murmur, positive posterior tibial pulses bilaterally, and cap refill < 2 seconds. Lungs: Respirations even, regular, and unlabored on room air. Lungs CTA bilaterally, no rhonchi, no rales, no wheezing, and no accessory muscle usage. Abdominal: soft, nontender to palpation, no guarding, no appreciable organomegaly Ext: ROM intact. No gross muscle atrophy, 1+ bilateral lower extremity pitting edema, no contractures Neuro: Speech clear, face symmetrical and CN II-XII grossly intact with no noted focal neuro deficits Psych: Alert and oriented to person, place, time, and situation. Appropriate and pleasant affect. Assessment and Plan of Care: Symptomatic hypotension and weakness Sinus bradycardia -Cardiology following, reviewed documentation in chart. -Continue aspirin 81 mg daily, Brilinta 90 mg twice daily, atorvastatin 80 mg daily, Farxiga 10 mg daily, and metoprolol 25 mg daily. -Continue to monitor vital signs -Orthostatic vitals negative for orthostatic hypotension -Fall precautions to remain in place. -Consult placed to PT/OT for evaluation and recommendations regarding possible rehab placement. Acute kidney injury on stage IIIb chronic kidney disease, likely secondary to cardiorenal syndrome. -Renal function showing slight improvement with BUN of 60.9, creatinine of 2.3, GFR of 30.. Nephrology following and discussed plan of care with Dr. Dawkins, continue to hold Lasix with close monitoring of blood pressure and renal function.. -Order placed for repeat morning BMP and magnesium. Elevated troponin, downtrending from recent admission with PCI Recent NSTEMI with PCI Heart failure with severely reduced ejection fraction of 25 to 30%, NT proBNP 29,200 History of hypertension currently with hypotension -Continue cardiac medication regimen with aspirin 81 mg daily, Brilinta 90 mg twice daily atorvastatin 80 mg daily, Farxiga 10 mg daily, furosemide 20 mg daily, and metoprolol succinate 25 mg daily. -LifeVest to remain in place. -Cardiac monitoring -Cardiology following resuming patient's Lasix switching metoprolol to succinate and resuming Farxiga recommending continuation of close monitoring of blood pressures with further recommendations forthcoming. Leukocytosis. Believed to be reactive no signs of active infection at this time and is improving Continue to monitor with repeat morning CBC. Hypochloremic hyponatremia, likely secondary to fluid volume overload. Resolved Hypermagnesemia. Resolved Nicotine dependence. Recommend smoking cessation. Nicotine patch 21 mg daily. GERD. Continue Pepcid 20 mg daily. COPD, not in acute exacerbation. Continue Albuterol inhaler Data and imaging reviewed: Morning labs reviewed. CBC showing leukocytosis with WBC count of 13.29 and stable normocytic anemia with hemoglobin of 10.5. BMP showing continued elevation of renal function with BUN of 60.9, creatinine of 2.3, GFR of 30. Magnesium 2.1. Vital signs reviewed. Blood pressure blood pressure 86/47, heart rate 45, respiratory rate 15, temp 97.9 F, and SpO2 of 95% on room air. CODE STATUS: Full Code DVT prophylaxis: Heparin Anticipated discharge date: Pending clinical course, awaiting blood pressures, further recommendations from advanced practice psychiatric nurse and evaluation from physical therapy for placement in SNF. Anticipated discharge place: Home versus SNF, pending recommendations from physical therapy Patient was seen independently by Nurse Pracitioner. This document was prepared using [employer] dictation software. Please allow for errors in senior graduate advisor, while rare they do occur. Gio Henderson NP rendered care for this patient independently, reviewed the findings and plan as documented in the note above and agree with plan. I did not physically speak with or examine the patient on this date. . Objective - Vital Signs Vital signs: Vital Signs Temp 97.9 F 04/07/24 07:00 Pulse 45 L 04/07/24 07:00 Resp 15 04/07/24 07:00 BP 86/47 04/07/24 07:00 Pulse Ox 95 04/07/24 07:00 FiO2 Intake & Output 04/06/24 04/07/24 04/07/24 18:59 06:59 18:59 Intake Total 830 Output Total 225 300 Balance 830 -225 -300 Weight 72.4 kg Intake: Oral 830 Output: Urine 225 300 Other: Voiding Method Urinal Urinal # Voids 2 # Bowel Movements 1 - Labs CBC & Chem 7: 04/07/24 05:19 04/07/24 05:19 Labs: Abnormal Lab Results - Last 24 Hours (Table) 04/06/24 04/07/24 04/07/24 Range/Units 12:25 05:19 05:19 WBC 13.29 H (4.50-10.00) X 10*3/uL RBC 3.50 L (4.40-5.60) X 10*6/uL Hgb 10.5 L (13.0-17.0) g/dL Hct 33.8 L (39.6-50.0) % MCHC 31.1 L (32.0-37.0) g/dL RDW 14.6 H (11.5-14.5) % Anion Gap 12.80 H (4.00-12.00) mmol/L BUN 59.1 H 60.9 H (9.0-27.0) mg/dL Creatinine 2.5 H 2.3 H (0.6-1.5) mg/dL Est GFR (CKD-EPI) 27 L 30 L (>=60) BUN/Creatinine Ratio 23.64 H 26.48 H (12.00-20.00) Ratio Glucose 125 H (70-110) mg/dL Calcium 8.4 L 8.3 L (8.7-10.3) mg/dL
--- NOTE | 2024-04-08 09:54 | P.PN ---
Subjective Progress Note Date: 04/08/24 This is a 68-year-old male with a past medical history significant for coronary arteries with previous stenting, cardiomyopathy, on LifeVest, peripheral arterial disease, AAA, hypertension, hyperlipidemia. Patient follows in the office with Dr. Luna. We have been asked to see the patient in consultation for recent non-STEMI with PCI. Patient examined at the bedside. Patient states he was called by his primary care physician and told he had abnormal labs with a high white count and was told to come to the emergency room. The patient currently denies any chest pain or pressure. He denies any shortness of breath. Denies any dizziness or lightheadedness. Denies having any fever at home. Patient's blood pressure was low in the 70s and 80s when he initially presented to the hospital. Blood pressure at the time of examination 102/52. DIAGNOSTICS: - EKG reveals sinus mechanism with right bundle branch block. PVCs. Diffuse T wave inversions. - Chest xray chronic changes without acute pulmonary process. No significant change from prior. - Laboratory data: WBC 16.21. Hemoglobin 12.0. Platelet count 215. Sodium 138. Potassium 4.4. BUN 77. Creatinine 2.18. Troponin 0.229. 0.226. proBNP 29,200. - Current home cardiac medications include aspirin 81 mg daily, Lipitor 80 mg daily, Farxiga 5 mg daily, Lasix 40 mg daily, Toprol tartrate 25 mg twice a day, Brilinta 90 mg twice a day. - Echocardiogram obtained this admission reveals ejection fraction 20 to 25% with apical akinesia. No evidence of LV thrombus noted. No pericardial effusion. - Cardiac catheterization history: 03/24/2024 with stenting to the proximal LAD and OM. 04/05/2024 Patient seen and examined resting in a stretcher in ER awaiting bed on observation unit. He is overall feeling better. Renal function is somewhat improved with a creatinine of 2.18. Blood pressure remains low but stable. He denies any shortness of breath. 04/06/2024 Patient was seen and examined resting comfortably in bed. He is overall feeling better. Energy level is stable. He denies any dizziness, lightheadedness or syncope. He has no shortness of breath or chest discomfort. Blood pressure running low 88 to low 100s systolic but patient seems to be asymptomatic. Labs this morning showed a BUN of 66 and creatinine 2.49 up from 62.9 and 2.1. Nephrology is following. 04/07/24 Patient seen and examined. He states he still has a little bit of diarrhea. Blood pressure 86/47, heart rate 45-71, pulse ox 95% on room air. Orthostatic vital signs obtained last evening were negative. Repeat blood work reveals WBC 13.2, hemoglobin 10.5, electrolytes are normal, BUN 60 and creatinine 2.3. Chest x-ray shows no acute process. 04/08/2024 Patient seen and examined. Patient states that he feels cold this morning. No chest pain. Blood pressure readings remain low 78/44-85/46. Heart rate is running between 45 and 71. Orthostatic vital signs obtained this morning are negative. Pulse ox 100% on room air. Repeat blood work not available at the time of this dictation. PHYSICAL EXAM: VITAL SIGNS: Reviewed. GENERAL: Well-developed in no acute distress. HEENT: Head is normocephalic. Pupils are equal, round. Sclerae anicteric. Mucous membranes of the mouth are moist. Neck supple. No JVD or thyromegaly LUNGS: Respirations even and unlabored. Lungs essentially clear to auscultation bilaterally. HEART: Regular rate and rhythm. S1 and S2 heard. ABDOMEN: Soft. Nondistended. Nontender. EXTREMITIES: Normal range of motion. No clubbing or cyanosis. Peripheral pulses intact. No lower extremity edema NEUROLOGIC: Awake and alert. Oriented x 3. ASSESSMENT: Leukocytosis without any signs of active infection, with recent multifocal pneumonia in March 2024 Hypotension, improved Recent hospitalization for non-STEMI with cardiogenic shock along with pneumonia, status post PCI of the LAD and OM Ischemic cardiomyopathy on 2024 History of peripheral arterial disease Chronic kidney disease AAA Hypertension Hyperlipidemia PLAN: Continue patient on aspirin 81 mg daily, atorvastatin 80 mg daily, Farxiga 10 mg daily, Lasix 20 mg daily oral, Toprol XL 25 mg daily, Brilinta 90 mg twice daily Discontinue Lasix as recommended by nephrology Smoking cessation. Patient will be provided the [employer] quit line information at discharge. Continue to monitor blood pressure closely. Continue to monitor renal function electrolytes. No plan for further cardiac workup. Cardiology will sign off this case and follow on an as-needed basis. Please reconsult for any new concerns. Patient may follow-up in the office in one to [address] Luna. BUSINESS QUALITY ASSURANCE ANALYST note has been reviewed, I agree with a documented findings and plan of care. Patient was seen and examined. Objective - Vital Signs Vital signs: Vital Signs Temp 97.7 F 04/08/24 07:15 Pulse 71 04/08/24 07:15 Resp 16 04/08/24 07:15 BP 86/59 04/08/24 07:15 Pulse Ox 100 04/08/24 07:15 FiO2 Intake & Output 04/07/24 04/08/24 04/08/24 18:59 06:59 18:59 Output Total 300 Balance -300 Weight 73 kg Output: Urine 300 - Labs CBC & Chem 7: 04/07/24 05:19 04/07/24 05:19 Labs: Abnormal Lab Results - Last 24 Hours (Table) 04/07/24 04/07/24 Range/Units 05:19 05:19 WBC 13.29 H (4.50-10.00) X 10*3/uL RBC 3.50 L (4.40-5.60) X 10*6/uL Hgb 10.5 L (13.0-17.0) g/dL Hct 33.8 L (39.6-50.0) % MCHC 31.1 L (32.0-37.0) g/dL RDW 14.6 H (11.5-14.5) % BUN 60.9 H (9.0-27.0) mg/dL Creatinine 2.3 H (0.6-1.5) mg/dL Est GFR (CKD-EPI) 30 L (>=60) BUN/Creatinine Ratio 26.48 H (12.00-20.00) Ratio Calcium 8.3 L (8.7-10.3) mg/dL
[2024-04-08 10:47] LABS: HCT 33.3 % (39.6-50.0); HGB 10.5 g/dL (13.0-17.0); MCHC 31.5 g/dL (32.0-37.0); MCV 98.2 FL (80.0-97.0); Mean Platelet Volume 11.6 FL (9.5-12.2); NRBC Per 100 WBC 0 X 10*3/uL (0.00-0.01); Platelet Count 174 X 10*3/uL (140-440); RBC 3.39 X 10*6/uL (4.40-5.60); RDW 14.6 % (11.5-14.5); WBC 12.85 X 10*3/uL (4.50-10.00)
[2024-04-08 10:57] LABS: ALT 9 U/L (10-49); AST 17 U/L (14-35); Albumin 2.9 g/dL (3.8-4.9); Albumin/Globulin Ratio 1.38 Ratio (1.60-3.17); Alkaline Phosphatase 74 U/L (41-126); BUN/Creat Ratio 24.08 Ratio (12.00-20.00); Blood Urea Nitrogen 57.8 mg/dL (9.0-27.0); Calcium 8.6 mg/dL (8.7-10.3); Carbon Dioxide 24.1 mmol/L (21.6-31.8); Chloride 108 mmol/L (96-109); Globulin 2.1 g/dL (1.6-3.3); Glucose 101 mg/dL (70-110); Magnesium 2.3 mg/dL (1.5-2.4); Potassium 5.1 mmol/L (3.5-5.5); Sodium 143 mmol/L (135-145); Total Bilirubin 0.6 mg/dL (0.3-1.2)
--- NOTE | 2024-04-08 18:05 | P.PN ---
Subjective Progress Note Date: 04/08/24 Hospital course: Patient is a very pleasant 68-year-old male with a past medical history of recent NSTEMI and PCI to LAD and OM (03/24/[address] Luna), HFrEF with EF 25-30%, hypertension, hyperlipidemia, COPD, CKD stage IIIb, peripheral artery disease, and GERD. He presented to the hospital on 04/03/2024 with his per instructions from their primary care provider due to abnormal labs. Upon arrival to our facility, patient underwent evaluation in the emergency department. Vital signs upon arrival show blood pressure 76/28, heart rate 43, respiratory rate 18, temp 97.3 F, and SpO2 of 97% on room air. EKG was completed showing sinus rhythm with occasional PVCs, right bundle branch block diffuse T wave inversion throughout leads I, 2, 3, aVL, aVF, and V2 through V6.. Chest x-ray completed negative for acute cardiopulmonary process. Labs completed and reviewed. CBC showing leukocytosis with WBC count of 18.1. Coagulation profile showing low PTT of 20.5. BMP showing hypochloremic hyponatremia with sodium of 136 and chloride of 97 and acute kidney injury on stage III chronic kidney disease with BUN 84, creatinine 2.36, and GFR of 27. Blood glucose was 117. Lactic acid 1.6. Magnesium was elevated at 2.4. Liver profile normal findings. Troponin was 0.229 with proBNP of 29,200. Patient admitted under our services with consultation to cardiology and nephrology. Physical exam: Patient seen and evaluated at bedside. Patient reports overall having a better night just feeling weak and tired. Patient updated on plan of care during bedside rounding. Vital signs reviewed. General: Nontoxic, no distress and appears stated age. Chronically ill- appearing. Derm: Skin warm and dry, normal coloration for ethnicity. Head: Atraumatic, normocephalic and symmetric. Eyes: EOM's intact, no lid lag, and anicteric sclera Mouth: no lip lesions, mucus membranes moist Cardiovascular: regular rate and rhythm with normal S1S2, systolic murmur, positive posterior tibial pulses bilaterally, and cap refill < 2 seconds. Lungs: Respirations even, regular, and unlabored on room air. Lungs CTA bilate rally, no rhonchi, no rales, no wheezing, and no accessory muscle usage. Abdominal: soft, nontender to palpation, no guarding, no appreciable organomegaly Ext: ROM intact. No gross muscle atrophy, scant bilateral lower extremity pitting edema, no contractures Neuro: Speech clear, face symmetrical and CN II-XII grossly intact with no noted focal neuro deficits Psych: Alert and oriented to person, place, time, and situation. Appropriate and pleasant affect. Assessment and Plan of Care: Symptomatic hypotension and weakness Sinus bradycardia -Cardiology evaluated, medication changes were made and patient cleared from cardiac perspective at this time recommending outpatient follow-up in the office in [address] Luna. -Continue aspirin 81 mg daily, Brilinta 90 mg twice daily, atorvastatin 80 mg daily, Farxiga 10 mg daily, and metoprolol 25 mg daily. -Continue to monitor vital signs -Orthostatic vitals negative for orthostatic hypotension -Fall precautions to remain in place. -PT/OT evaluated recommending SNF placement on discharge. Referrals have been sent and awaiting accepting facility and insurance authorization. Acute kidney injury on stage IIIb chronic kidney disease, likely secondary to cardiorenal syndrome. -Renal function showing BUN of 57.8, creatinine of 2.4, GFR of 29.. Nephrology following and discussed plan of care with Dr. Dawkins, continue to hold Lasix with close monitoring of blood pressure and renal function.. -Order placed for repeat morning BMP and magnesium. Elevated troponin, downtrending from recent admission with PCI Recent NSTEMI with PCI Heart failure with severely reduced ejection fraction of 25 to 30%, NT proBNP 29,200 History of hypertension currently with hypotension -Continue cardiac medication regimen with aspirin 81 mg daily, Brilinta 90 mg twice daily atorvastatin 80 mg daily, Farxiga 10 mg daily, and metoprolol succinate 25 mg daily. -LifeVest to remain in place. -Cardiac monitoring -Cardiology evaluated, medication changes were made and patient cleared from c ardiac perspective at this time recommending outpatient follow-up in the office in [address] Luna. Leukocytosis. Believed to be reactive no signs of active infection at this time and is improving Continue to monitor with repeat morning CBC. Hypochloremic hyponatremia, likely secondary to fluid volume overload. Resolved Hypermagnesemia. Resolved Nicotine dependence. Recommend smoking cessation. Nicotine patch 21 mg daily. GERD. Continue Pepcid 20 mg daily. COPD, not in acute exacerbation. Continue Albuterol inhaler Data and imaging reviewed: Morning labs reviewed. CBC showing leukocytosis with WBC count of 12.85, Hemoglobin 10.5. BMP showing BUN of 57.8, creatinine 2.4, GFR of 29. Blood glucose 101. Magnesium 2.3. Albumin remains low at 2.9. Vital signs reviewed. Blood pressure blood pressure remains low 82/48, heart rate 67, respiratory rate 16, temp 97.7 F, and SpO2 100% on room air. CODE STATUS: Full Code DVT prophylaxis: Heparin Anticipated discharge date: Pending insurance authorization and acceptance to rehab facility. Anticipated discharge place: Home versus SNF, pending recommendations from physical therapy Patient was seen independently by Nurse Pracitioner. This document was prepared using [employer] dictation software. Please allow for errors in gear shaver set up operator, while rare they do occur. Gio Henderson NP rendered care for this patient independently, reviewed the findings and plan as documented in the note above and agree with plan. I did not physically speak with or examine the patient on this date. . Objective - Vital Signs Vital signs: Vital Signs Temp 97.7 F 04/08/24 07:15 Pulse 71 04/08/24 07:15 Resp 16 04/08/24 07:15 BP 86/59 04/08/24 07:15 Pulse Ox 100 04/08/24 07:15 FiO2 Intake & Output 04/07/24 04/08/24 04/08/24 18:59 06:59 18:59 Output Total 300 Balance -300 Weight 73 kg Output: Urine 300 - Labs CBC & Chem 7: 04/08/24 06:27 04/08/24 06:27 Labs: Abnormal Lab Results - Last 24 Hours (Table) 04/07/24 Range/Units 05:19 WBC 13.29 H (4.50-10.00) X 10*3/uL RBC 3.50 L (4.40-5.60) X 10*6/uL Hgb 10.5 L (13.0-17.0) g/dL Hct 33.8 L (39.6-50.0) % MCHC 31.1 L (32.0-37.0) g/dL RDW 14.6 H (11.5-14.5) %
--- NOTE | 2024-04-08 20:42 | P.PN ---
Subjective Patient is seen for follow-up for acute kidney injury and chronic kidney disease. No significant complaints today. Serum creatinine at 2.4 today Blood pressure remains in the 80s for systolic. Patient has been ambulating to the bathroom with a walker. Complaining of feeling tired Objective - Vital Signs Vital signs: Vital Signs Temp 97.8 F 04/08/24 14:45 Pulse 64 04/08/24 14:45 Resp 16 04/08/24 14:45 BP 85/48 04/08/24 14:45 Pulse Ox 98 04/08/24 14:45 FiO2 Intake & Output 04/08/24 04/08/24 04/09/24 06:59 18:59 06:59 Intake Total 460 Output Total 100 Balance 360 Weight 73 kg Intake: Oral 460 Output: Urine 100 Other: # Bowel Movements 1 - Exam Patient is awake, comfortable, no acute distress. Examination of the heart S1 and S2 Examination of the lungs bilateral breath sounds are heard Abdomen is soft nontender Examination of lower extremities shows no significant edema. PLANT OPERATIONS VICE PRESIDENT exam grossly intact. - Labs CBC & Chem 7: 04/08/24 06:27 04/08/24 06:27 Labs: Abnormal Lab Results - Last 24 Hours (Table) 04/08/24 04/08/24 Range/Units 06:27 06:27 WBC 12.85 H (4.50-10.00) X 10*3/uL RBC 3.39 L (4.40-5.60) X 10*6/uL Hgb 10.5 L (13.0-17.0) g/dL Hct 33.3 L (39.6-50.0) % MCV 98.2 H (80.0-97.0) [place] MCHC 31.5 L (32.0-37.0) g/dL RDW 14.6 H (11.5-14.5) % BUN 57.8 H (9.0-27.0) mg/dL Creatinine 2.4 H (0.6-1.5) mg/dL Est GFR (CKD-EPI) 29 L (>=60) BUN/Creatinine Ratio 24.08 H (12.00-20.00) Ratio Calcium 8.6 L (8.7-10.3) mg/dL ALT 9 L (10-49) U/L Total Protein 5.0 L (6.2-8.2) g/dL Albumin 2.9 L (3.8-4.9) g/dL Albumin/Globulin Ratio 1.38 L (1.60-3.17) Ratio Assessment and Plan Assessment: 1. Acute kidney injury secondary to ATN secondary to hypotension/hypovolemia and cardiorenal syndrome. Patient's creatinine since last admission in March 2024 has been in the range of 2-2.3. Kidney ultrasound from March 2024 showed no evidence of hydronephrosis. UA benign. Creatinine 2.49 today. Patient's blood pressure has been running on the lower end. 2. Chronic kidney disease stage IIIa with baseline creatinine 1.2-1.4 in August 2022. Chronic kidney disease has progressed with serum creatinine now staying at about 2.3 to 2 mg/dL 3. Chronic systolic CHF ejection fraction of 20 to 25%. 4. Coronary disease status post 2 stents placed March 2024. Plan: Consider decreasing dose of Toprol as heart rate remains low. Decrease dose of Farxiga to 5 mg daily Repeat labs in a.m.
[2024-04-09 06:35] LABS: Magnesium 2.1 mg/dL (1.6-2.3); Potassium 4.5 mmol/L (3.5-5.1)
[2024-04-09 08:33] LABS: HCT 32.2 % (39.6-50.0); HGB 10.1 g/dL (13.0-17.0); MCH 30.2 pg (27.0-32.0); MCHC 31.4 g/dL (32.0-37.0); MCV 96.4 FL (80.0-97.0); NRBC Per 100 WBC 0 X 10*3/uL (0.00-0.01); Platelet Count 167 X 10*3/uL (140-440); RBC 3.34 X 10*6/uL (4.40-5.60); RDW 14.6 % (11.5-14.5); WBC 11.98 X 10*3/uL (4.50-10.00)
[2024-04-09] MEDS: DAPAGLIFLOZIN PROPANEDIOL 5 MG TABLET PO SCH (08:50)
[2024-04-09 09:00] LABS: ALT 10 U/L (10-49); AST 17 U/L (14-35); Albumin/Globulin Ratio 1.43 Ratio (1.60-3.17); Alkaline Phosphatase 71 U/L (41-126); BUN/Creat Ratio 22.72 Ratio (12.00-20.00); Blood Urea Nitrogen 56.8 mg/dL (9.0-27.0); Calcium 8.7 mg/dL (8.7-10.3); Carbon Dioxide 22.1 mmol/L (21.6-31.8); Chloride 107 mmol/L (96-109); Globulin 2.1 g/dL (1.6-3.3); Glucose 100 mg/dL (70-110); Magnesium 2.1 mg/dL (1.5-2.4); Sodium 139 mmol/L (135-145); Total Bilirubin 0.4 mg/dL (0.3-1.2); Total Protein 5.1 g/dL (6.2-8.2)
--- NOTE | 2024-04-09 12:29 | P.PN ---
Subjective Progress Note Date: 04/09/24 Hospital course: Patient is a very pleasant 68-year-old male with a past medical history of recent NSTEMI and PCI to LAD and OM (03/24/[address] Luna), HFrEF with EF 25-30%, hypertension, hyperlipidemia, COPD, CKD stage IIIb, peripheral artery disease, and GERD. He presented to the hospital on 04/03/2024 with his per instructions from their primary care provider due to abnormal labs. Upon arrival to our facility, patient underwent evaluation in the emergency department. Vital signs upon arrival show blood pressure 76/28, heart rate 43, respiratory rate 18, temp 97.3 F, and SpO2 of 97% on room air. EKG was completed showing sinus rhythm with occasional PVCs, right bundle branch block diffuse T wave inversion throughout leads I, 2, 3, aVL, aVF, and V2 through V6.. Chest x-ray completed negative for acute cardiopulmonary process. Labs completed and reviewed. CBC showing leukocytosis with WBC count of 18.1. Coagulation profile showing low PTT of 20.5. BMP showing hypochloremic hyponatremia with sodium of 136 and chloride of 97 and acute kidney injury on stage III chronic kidney disease with BUN 84, creatinine 2.36, and GFR of 27. Blood glucose was 117. Lactic acid 1.6. Magnesium was elevated at 2.4. Liver profile normal findings. Troponin was 0.229 with proBNP of 29,200. Patient admitted under our services with consultation to cardiology and nephrology. Physical exam: Patient seen and evaluated at bedside. Patient sitting up in chair at bedside. also at bedside. RN and application architect manager at bedside reporting that early this morning patient had a couple runs of nonsustained V. tach and shortly after patient's LifeVest fired and defibrillate patient. Pt reports it was just a quick jolt and states that he initially felt pain in his chest into his back but resolved within a minute. Vital signs reviewed. General: Nontoxic, no distress and appears stated age. Chronically ill- appearing. Derm: Skin warm and dry, normal coloration for ethnicity. Head: Atraumatic, normocephalic and symmetric. Eyes: EOM's intact, no lid lag, and anicteric sclera Mouth: no lip lesions, mucus membranes moist Cardiovascular: regular rate and rhythm with normal S1S2, systolic murmur, pos itive posterior tibial pulses bilaterally, and cap refill < 2 seconds. Lungs: Respirations even, regular, and unlabored on room air. Lungs CTA bilaterally, no rhonchi, no rales, no wheezing, and no accessory muscle usage. Abdominal: soft, nontender to palpation, no guarding, no appreciable organo megaly Ext: ROM intact. No gross muscle atrophy, scant bilateral lower extremity pitting edema, no contractures Neuro: Speech clear, face symmetrical and CN II-XII grossly intact with no noted focal neuro deficits Psych: Alert and oriented to person, place, time, and situation. Appropriate and pleasant affect. Assessment and Plan of Care: Nonsustained V-Tach followed by firing of defibrillator on Life Vest Symptomatic hypotension and weakness Sinus bradycardia Elevated troponin, downtrending from recent admission with PCI Recent NSTEMI with PCI Heart failure with severely reduced ejection fraction of 25 to 30%, proBNP 29,200 History of hypertension currently with hypotension -Cardiology reconsulted this morning and discussed in detail with Dr. Arevalo. -Continue telemetry monitoring with life vest in place at all times. -Electrolytes stable with potassium 5.0, sodium 139, chloride 107, calcium 8.7, and magnesium 2.1. -Continue aspirin 81 mg daily, Brilinta 90 mg twice daily, atorvastatin 80 mg daily, Farxiga 10 mg daily, and metoprolol 25 mg daily. -Continue to monitor vital signs -Orthostatic vitals negative for orthostatic hypotension Generalized weakness, multifactorial secondary to hypotension and physical deconditioning resulting from multiple comorbidities -Fall precautions to remain in place. -PT/OT evaluated recommending SNF placement on discharge. Acute kidney injury on stage IIIb chronic kidney disease, likely secondary to cardiorenal syndrome. -Renal function remains elevated but stable with BUN of 56.8, creatinine of 2.5, and GFR of 27. Nephrology following and discussed plan of care with Dr. Dawkins, continue to hold Lasix with close monitoring of blood pressure and renal function.. -Order placed for repeat morning BMP and magnesium. Leukocytosis. Believed to be reactive no signs of active infection at this time and is improving Continue to monitor with repeat morning CBC. Hypochloremic hyponatremia, likely secondary to fluid volume overload. Resolved Hypermagnesemia. Resolved Nicotine dependence. Recommend smoking cessation. Nicotine patch 21 mg daily. GERD. Continue Pepcid 20 mg daily. COPD, not in acute exacerbation. Continue Albuterol inhaler every 6 hours as needed for wheezing/shortness of breath. Data and imaging reviewed: Morning labs reviewed. CBC showing leukocytosis with WBC count of 11.98 and normocytic anemia with hemoglobin of 10.1. BMP showing continued elevated but stable renal function with BUN of 56.8, creatinine of 2.5, and GFR of 27. Blood glucose 100. Magnesium 2.1. Calcium 8.7. Liver profile unremarkable with the exception of hypoalbuminemia with albumin of 3.0. Vital signs reviewed. Blood pressures remain soft but negative for orthostatic hypotension with blood pressure supine 84/50 and heart rate of 40, sitting 89/53 with heart rate of 52, and standing 85/51 with heart rate of 50. Temp 97.8 F, and SpO2 of 99% on room air. CODE STATUS: Full Code DVT prophylaxis: Heparin Anticipated discharge date: Pending clinical course and further evaluation by cardiology, patient will need acceptance to rehab facility and insurance authorization for SNF. Anticipated discharge place: SNF Patient was seen independently by Nurse Pracitioner. This document was prepared using [employer] dictation software. Please allow for errors in correctional classification counselor, while rare they do occur. Gio Henderson NP rendered care for this patient independently, reviewed the findings and plan as documented in the note above and agree with plan. I did not physically speak with or examine the patient on this date. . Objective - Vital Signs Vital signs: Vital Signs Temp 97.8 F 04/09/24 07:00 Pulse 40 L 04/09/24 07:00 Resp 16 04/09/24 07:00 BP 84/50 04/09/24 07:00 Pulse Ox 99 04/09/24 07:00 FiO2 Intake & Output 04/08/24 04/09/24 04/09/24 18:59 06:59 18:59 Intake Total 460 Output Total 100 200 Balance 360 -200 Weight 72.6 kg Intake: Oral 460 Output: Urine 100 200 Other: # Bowel Movements 1 - Labs CBC & Chem 7: 04/09/24 04:26 04/09/24 05:50 Labs: Abnormal Lab Results - Last 24 Hours (Table) 04/09/24 04/09/24 Range/Units 04:26 04:26 WBC 11.98 H (4.50-10.00) X 10*3/uL RBC 3.34 L (4.40-5.60) X 10*6/uL Hgb 10.1 L (13.0-17.0) g/dL Hct 32.2 L (39.6-50.0) % MCHC 31.4 L (32.0-37.0) g/dL RDW 14.6 H (11.5-14.5) % BUN 56.8 H (9.0-27.0) mg/dL Creatinine 2.5 H (0.6-1.5) mg/dL Est GFR (CKD-EPI) 27 L (>=60) BUN/Creatinine Ratio 22.72 H (12.00-20.00) Ratio Total Protein 5.1 L (6.2-8.2) g/dL Albumin 3.0 L (3.8-4.9) g/dL Albumin/Globulin Ratio 1.43 L (1.60-3.17) Ratio
[2024-04-09] MEDS: MAGNESIUM SULFATE-D5W PMX 1 GM in DEXTROSE/WATER 1 100ML.BAG IVPB ONE (12:37)
--- NOTE | 2024-04-09 13:04 | P.PN ---
Subjective Progress Note Date: 04/09/24 This is a 68-year-old male with a past medical history significant for coronary arteries with previous stenting, cardiomyopathy, on LifeVest, peripheral arterial disease, AAA, hypertension, hyperlipidemia. Patient follows in the office with Dr. Luna. We have been asked to see the patient in consultation for recent non-STEMI with PCI. Patient examined at the bedside. Patient states he was called by his primary care physician and told he had abnormal labs with a high white count and was told to come to the emergency room. The patient currently denies any chest pain or pressure. He denies any shortness of breath. Denies any dizziness or lightheadedness. Denies having any fever at home. Patient's blood pressure was low in the 70s and 80s when he initially presented to the hospital. Blood pressure at the time of examination 102/52. DIAGNOSTICS: - EKG reveals sinus mechanism with right bundle branch block. PVCs. Diffuse T wave inversions. - Chest xray chronic changes without acute pulmonary process. No significant change from prior. - Laboratory data: WBC 16.21. Hemoglobin 12.0. Platelet count 215. Sodium 138. Potassium 4.4. BUN 77. Creatinine 2.18. Troponin 0.229. 0.226. proBNP 29,200. - Current home cardiac medications include aspirin 81 mg daily, Lipitor 80 mg daily, Farxiga 5 mg daily, Lasix 40 mg daily, Toprol tartrate 25 mg twice a day, Brilinta 90 mg twice a day. - Echocardiogram obtained this admission reveals ejection fraction 20 to 25% with apical akinesia. No evidence of LV thrombus noted. No pericardial effusion. - Cardiac catheterization history: 03/24/2024 with stenting to the proximal LAD and OM. 04/05/2024 Patient seen and examined resting in a stretcher in ER awaiting bed on observation unit. He is overall feeling better. Renal function is somewhat improved with a creatinine of 2.18. Blood pressure remains low but stable. He denies any shortness of breath. 04/06/2024 Patient was seen and examined resting comfortably in bed. He is overall feeling better. Energy level is stable. He denies any dizziness, lightheadedness or syncope. He has no shortness of breath or chest discomfort. Blood pressure running low 88 to low 100s systolic but patient seems to be asymptomatic. Labs this morning showed a BUN of 66 and creatinine 2.49 up from 62.9 and 2.1. Nephrology is following. 04/07/24 Patient seen and examined. He states he still has a little bit of diarrhea. Blood pressure 86/47, heart rate 45-71, pulse ox 95% on room air. Orthostatic vital signs obtained last evening were negative. Repeat blood work reveals WBC 13.2, hemoglobin 10.5, electrolytes are normal, BUN 60 and creatinine 2.3. Chest x-ray shows no acute process. 04/08/2024 Patient seen and examined. Patient states that he feels cold this morning. No chest pain. Blood pressure readings remain low 78/44-85/46. Heart rate is running between 45 and 71. Orthostatic vital signs obtained this morning are negative. Pulse ox 100% on room air. Repeat blood work not available at the time of this dictation. 04/09/2024 Patient is seen and examined at bedside this a.m. This morning there was a concern of possible ICD discharge from the LifeVest. On further questioning from the patient there was no loud beeping from the LifeVest or any discharge of Blue gel. It is less likely that patient had a real ICD discharge. On telemetry patient continues to be in sinus rhythm with frequent PVCs mostly in trigeminal fashion. His QTc is borderline elevated most likely because of his widened to arise from right bundle branch block His potassium is 4.5, magnesium is 2.1. Kidney function has been stable. PHYSICAL EXAM: VITAL SIGNS: Reviewed. GENERAL: Well-developed in no acute distress. HEENT: Head is normocephalic. Pupils are equal, round. Sclerae anicteric. Mucous membranes of the mouth are moist. Neck supple. No JVD or thyromegaly LUNGS: Respirations even and unlabored. Lungs essentially clear to auscultation bilaterally. HEART: Regular rate and rhythm. S1 and S2 heard. ABDOMEN: Soft. Nondistended. Nontender. EXTREMITIES: Normal range of motion. No clubbing or cyanosis. Peripheral pulses intact. No lower extremity edema NEUROLOGIC: Awake and alert. Oriented x 3. ASSESSMENT: Leukocytosis without any signs of active infection, with recent multifocal pneumonia in March 2024 Hypotension, improved Recent hospitalization for non-STEMI with cardiogenic shock along with pneumonia, status post PCI of the LAD and OM Ischemic cardiomyopathy on LifeVest2024 History of peripheral arterial disease Chronic kidney disease AAA Hypertension Hyperlipidemia PLAN: Continue patient on aspirin 81 mg daily, atorvastatin 80 mg daily, Farxiga 10 mg daily, Toprol XL 25 mg daily, Brilinta 90 mg twice daily Continue 1 dose of IV magnesium sulfate for PVC's Patient is otherwise cleared from cardiovascular standpoint. Continue to maintain LifeVest. Recommend outpatient cardiac rehab establishment. Avoid using midodrine. Patient is asymptomatic from his borderline low blood pressure which is most likely because of his cardiomyopathy. Not able to add further GDMT because of low blood pressure. Recommend doing vericiguat 2.5 mg daily on discharge. Smoking cessation. Patient will be provided the [employer] quit line information at discharge. Cardiology will sign off this case and follow on an as-needed basis. Please reconsult for any new concerns. Patient may follow-up in the office in one to [address] Luna. Objective - Vital Signs Vital signs: Vital Signs Temp 97.8 F 04/09/24 07:00 Pulse 40 L 04/09/24 07:00 Resp 16 04/09/24 07:00 BP 84/50 04/09/24 07:00 Pulse Ox 99 04/09/24 07:00 FiO2 Intake & Output 04/08/24 04/09/24 04/09/24 18:59 06:59 18:59 Intake Total 460 Output Total 100 200 Balance 360 -200 Weight 72.6 kg Intake: Oral 460 Output: Urine 100 200 Other: # Bowel Movements 1 - Labs CBC & Chem 7: 04/09/24 04:26 04/09/24 05:50 Labs: Abnormal Lab Results - Last 24 Hours (Table) 04/09/24 04/09/24 Range/Units 04:26 04:26 WBC 11.98 H (4.50-10.00) X 10*3/uL RBC 3.34 L (4.40-5.60) X 10*6/uL Hgb 10.1 L (13.0-17.0) g/dL Hct 32.2 L (39.6-50.0) % MCHC 31.4 L (32.0-37.0) g/dL RDW 14.6 H (11.5-14.5) % BUN 56.8 H (9.0-27.0) mg/dL Creatinine 2.5 H (0.6-1.5) mg/dL Est GFR (CKD-EPI) 27 L (>=60) BUN/Creatinine Ratio 22.72 H (12.00-20.00) Ratio Total Protein 5.1 L (6.2-8.2) g/dL Albumin 3.0 L (3.8-4.9) g/dL Albumin/Globulin Ratio 1.43 L (1.60-3.17) Ratio
--- NOTE | 2024-04-09 13:25 | P.PN ---
Subjective Patient is seen for follow-up for acute kidney injury and chronic kidney disease. No significant complaints today. Serum creatinine at 2.5 today Blood pressure remains in the 80s for systolic. Patient has been ambulating with a walker. Complaining of feeling tired Objective - Vital Signs Vital signs: Vital Signs Temp 97.8 F 04/09/24 07:00 Pulse 40 L 04/09/24 07:00 Resp 16 04/09/24 07:00 BP 84/50 04/09/24 07:00 Pulse Ox 99 04/09/24 07:00 FiO2 Intake & Output 04/08/24 04/09/24 04/09/24 18:59 06:59 18:59 Intake Total 460 Output Total 100 200 Balance 360 -200 Weight 72.6 kg Intake: Oral 460 Output: Urine 100 200 Other: # Bowel Movements 1 - Exam Patient is awake, comfortable, no acute distress. Examination of the heart S1 and S2 Examination of the lungs bilateral breath sounds are heard Abdomen is soft nontender Examination of lower extremities shows no significant edema. 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 - Labs CBC & Chem 7: 04/09/24 04:26 04/09/24 05:50 Labs: Abnormal Lab Results - Last 24 Hours (Table) 04/09/24 04/09/24 Range/Units 04:26 04:26 WBC 11.98 H (4.50-10.00) X 10*3/uL RBC 3.34 L (4.40-5.60) X 10*6/uL Hgb 10.1 L (13.0-17.0) g/dL Hct 32.2 L (39.6-50.0) % MCHC 31.4 L (32.0-37.0) g/dL RDW 14.6 H (11.5-14.5) % BUN 56.8 H (9.0-27.0) mg/dL Creatinine 2.5 H (0.6-1.5) mg/dL Est GFR (CKD-EPI) 27 L (>=60) BUN/Creatinine Ratio 22.72 H (12.00-20.00) Ratio Total Protein 5.1 L (6.2-8.2) g/dL Albumin 3.0 L (3.8-4.9) g/dL Albumin/Globulin Ratio 1.43 L (1.60-3.17) Ratio Assessment and Plan Assessment: 1. Acute kidney injury secondary to ATN secondary to hypotension/hypovolemia and cardiorenal syndrome. Patient's creatinine since last admission in March 2024 has been in the range of 2-2.3. Kidney ultrasound from March 2024 showed no evidence of hydronephrosis. UA benign. Creatinine 2.5 today. Patient's blood pressure has been running on the lower end. Farxiga dose was decreased yesterday 2. Chronic kidney disease stage IIIa with baseline creatinine 1.2-1.4 in August 2022. Chronic kidney disease has progressed with serum creatinine now staying at about 2.3 to 2 mg/dL 3. Chronic systolic CHF ejection fraction of 20 to 25%. 4. Coronary disease status post 2 stents placed March 2024. Plan: Okay for discharge from nephrology standpoint. Monitor labs closely as outpatient. Decreased dose of Farxiga to 5 mg daily
[2024-04-09] MEDS: IRON PS CMPLX/VIT B12/FA 1 EACH CAP PO SCH (13:27)
[2024-04-09 20:10] VITALS: RESP 16
[2024-04-10 08:14] VITALS: BP 79/49; TEMP 98
[2024-04-10] MEDS: ALBUTEROL NEBULIZED 2.5 MG/3 ML INHALATION PRN (09:00)
[2024-04-10 09:13] VITALS: PULSE 82
[2024-04-10 09:20] LABS: HGB 10.2 g/dL (13.0-17.0); MCH 30.4 pg (27.0-32.0); MCHC 31.9 g/dL (32.0-37.0); MCV 95.2 FL (80.0-97.0); Mean Platelet Volume 11.3 FL (9.5-12.2); NRBC Per 100 WBC 0 X 10*3/uL (0.00-0.01); Platelet Count 174 X 10*3/uL (140-440); RBC 3.36 X 10*6/uL (4.40-5.60); RDW 14.6 % (11.5-14.5); WBC 10.97 X 10*3/uL (4.50-10.00)
[2024-04-10 09:33] LABS: ALT 10 U/L (10-49); AST 16 U/L (14-35); Alkaline Phosphatase 77 U/L (41-126); BUN/Creat Ratio 22.12 Ratio (12.00-20.00); Blood Urea Nitrogen 53.1 mg/dL (9.0-27.0); Calcium 8.6 mg/dL (8.7-10.3); Carbon Dioxide 21.1 mmol/L (21.6-31.8); Chloride 107 mmol/L (96-109); Globulin 2.3 g/dL (1.6-3.3); Glucose 97 mg/dL (70-110); Magnesium 2.3 mg/dL (1.5-2.4); Sodium 139 mmol/L (135-145); Total Bilirubin 0.5 mg/dL (0.3-1.2); Total Protein 5.3 g/dL (6.2-8.2)
--- NOTE | 2024-04-10 14:07 | P.PN ---
Subjective Patient is seen for follow-up for acute kidney injury and chronic kidney disease. No significant complaints today. Serum creatinine at 2.4 today Blood pressure remains in the 80s for systolic. Patient has been ambulating with a walker. Complaining of feeling tired Objective - Vital Signs Vital signs: Vital Signs Temp 98.0 F 04/10/24 08:00 Pulse 82 04/10/24 09:12 Resp 16 04/10/24 01:39 BP 79/49 04/10/24 08:00 Pulse Ox 97 04/10/24 08:00 FiO2 Intake & Output 04/09/24 04/10/24 04/10/24 18:59 06:59 18:59 Intake Total 540 240 240 Output Total 550 Balance 540 -310 240 Weight 72.3 kg Intake: Oral 540 240 240 Output: Urine 550 Other: Voiding Method Urinal Urinal # Voids 1 1 # Bowel Movements 1 - Exam Patient is awake, comfortable, no acute distress. Examination of the heart S1 and S2 Examination of the lungs bilateral breath sounds are heard Abdomen is soft nontender Examination of lower extremities shows no significant edema. 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 - Labs CBC & Chem 7: 04/10/24 02:47 04/10/24 02:47 Labs: Abnormal Lab Results - Last 24 Hours (Table) 04/10/24 04/10/24 Range/Units 02:47 02:47 WBC 10.97 H (4.50-10.00) X 10*3/uL RBC 3.36 L (4.40-5.60) X 10*6/uL Hgb 10.2 L (13.0-17.0) g/dL Hct 32.0 L (39.6-50.0) % MCHC 31.9 L (32.0-37.0) g/dL RDW 14.6 H (11.5-14.5) % Carbon Dioxide 21.1 L (21.6-31.8) mmol/L BUN 53.1 H (9.0-27.0) mg/dL Creatinine 2.4 H (0.6-1.5) mg/dL Est GFR (CKD-EPI) 29 L (>=60) BUN/Creatinine Ratio 22.12 H (12.00-20.00) Ratio Calcium 8.6 L (8.7-10.3) mg/dL Total Protein 5.3 L (6.2-8.2) g/dL Albumin 3.0 L (3.8-4.9) g/dL Albumin/Globulin Ratio 1.30 L (1.60-3.17) Ratio Assessment and Plan Assessment: 1. Acute kidney injury secondary to ATN secondary to hypotension/hypovolemia and cardiorenal syndrome. Patient's creatinine since last admission in March 2024 has been in the range of 2-2.3. Kidney ultrasound from March 2024 showed no evidence of hydronephrosis. UA benign. Creatinine 2.5 today. Patient's blood pressure has been running on the lower end. Farxiga dose was decreased yesterday 2. Chronic kidney disease stage IIIa with baseline creatinine 1.2-1.4 in August 2022. Chronic kidney disease has progressed with serum creatinine now staying at about 2.3 to 2 mg/dL 3. Chronic systolic CHF ejection fraction of 20 to 25%. 4. Coronary disease status post 2 stents placed March 2024. Plan: Okay for discharge from nephrology standpoint. Monitor labs closely as outpatient. Decreased dose of Farxiga to 5 mg daily
--- NOTE | 2024-04-10 16:45 | P.DS ---
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 Current kidney function likely represents progression of CKD with new baseline creatinine around 2.3. Elevated troponin, downtrending from recent admission with PCI Recent NSTEMI with PCI Heart failure with severely reduced ejection fraction of 25 to 30%, NT proBNP 29,200 History of hypertension currently with hypotension Leukocytosis Hypochloremic hyponatremia Hypomagnesemia Nicotine dependence GERD COPD not in exacerbation Hospital Course: Patient is a very pleasant 68-year-old male with a past medical history of recent NSTEMI and PCI to LAD and OM (03/24/[address] Luna), HFrEF with EF 25-30%, hypertension, hyperlipidemia, COPD, CKD stage IIIb, peripheral artery disease, and GERD. He presented to the hospital on 04/03/2024 with his per instructions from their primary care provider due to abnormal labs. Upon arrival to our facility, patient underwent evaluation in the emergency department. Vital signs upon arrival show blood pressure 76/28, heart rate 43, respiratory rate 18, temp 97.3 F, and SpO2 of 97% on room air. EKG was completed showing sinus rhythm with occasional PVCs, right bundle branch block diffuse T wave inversion throughout leads I, 2, 3, aVL, aVF, and V2 through V6.. Chest x-ray completed negative for acute cardiopulmonary process. Labs completed and reviewed. CBC showing leukocytosis with WBC count of 18.1. Coagulation profile showing low PTT of 20.5. BMP showing hypochloremic hyponatremia with sodium of 136 and chloride of 97 and acute kidney injury on stage III chronic kidney disease with BUN 84, creatinine 2.36, and GFR of 27. Blood glucose was 117. Lactic acid 1.6. Magnesium was elevated at 2.4. Liver profile normal findings. Troponin was 0.229 with proBNP of 29,200. Patient admitted under our services with consultation to cardiology and nephrology.ericiguat 2.5 mg daily on discharge. Not able to add further GDMT because of low blood pressure. Cardiology evaluated, medication changes were made and patient cleared from cardiac perspective at this time recommending outpatient follow-up in the office in [address] Luna.Continue patient on aspirin 81 mg daily, atorvastatin 80 mg daily, Farxiga 10 mg daily, Toprol XL 25 mg daily, Brilinta 90 mg twice daily. Lasix on hold, decrease Farxiga to 5 mg daily PT OT recommended SNF, patient refused and decided to go home with home care and home physical therapy. Nephrology was following for KONSTANTIN, creatinine remained stable, continue to hold Lasix at discharge, Farxiga 5 mg. Kidney function likely represents progression of CKD with new creatinine baseline at 2.3 04/10 patient was cleared for discharge by cardiology and nephrology. Patient seen and examined at bedside.[] Vital signs reviewed and stable. General: Nontoxic, no distress and appears stated age. Chronically ill- appearing. Derm: Skin warm and dry, normal coloration for ethnicity. Head: Atraumatic, normocephalic and symmetric. Eyes: EOM's intact, no lid lag, and anicteric sclera Mouth: no lip lesions, mucus membranes moist Cardiovascular: regular rate and rhythm with normal S1S2, systolic murmur, positive posterior tibial pulses bilaterally, and cap refill < 2 seconds. Lungs: Respirations even, regular, and unlabored on room air. Lungs CTA bilaterally, no rhonchi, no rales, no wheezing, and no accessory muscle usage. Abdominal: soft, nontender to palpation, no guarding, no appreciable organomegaly Ext: ROM intact. No gross muscle atrophy, scant bilateral lower extremity pitting edema, no contractures Neuro: Speech clear, face symmetrical and CN II-XII grossly intact with no noted focal neuro deficits Psych: Alert and oriented to person, place, time, and situation. Appropriate and pleasant affect. A total of 40 minutes of time were spent preparing this complex discharge summary. Patient was discharged on 04/10/2024. Patient Condition at Discharge: Fair Plan - Discharge Summary Discharge Rx Participant: Yes New Discharge Prescriptions: New Vericiguat [Verquvo] 2.5 mg PO DAILY 90 Days #90 tablet Iron Ps Cmplx/Vit B12/FA [Niferex-150 Forte] 1 each PO DAILY #90 cap Famotidine [Pepcid] 20 mg PO DAILY #30 tab Metoprolol Succinate (ER) [Toprol XL] 25 mg PO DAILY #90 tab Continue Albuterol Inhaler [Ventolin Hfa Inhaler] 2 puff INHALATION RT-Q6H PRN PRN Reason: Shortness Of Breath Or Wheezing Acetaminophen [Tylenol Arthritis] 650 mg PO Q6H PRN PRN Reason: Pain Aspirin 81 mg PO DAILY #90 tab Ticagrelor [Brilinta] 90 mg PO BID #90 tab Dapagliflozin Propanediol [Farxiga] 5 mg PO DAILY #60 tab Atorvastatin [Lipitor] 80 mg PO DAILY #90 tab Discontinued Metoprolol Tartrate [Lopressor] 25 mg PO BID #60 tab Furosemide [Lasix] 40 mg PO DAILY #30 tab Discharge Medication List Acetaminophen [Tylenol Arthritis] 650 mg PO Q6H PRN 03/17/24 [History] Aspirin 81 mg PO DAILY #90 tab 03/25/24 [Rx] Atorvastatin [Lipitor] 80 mg PO DAILY #90 tab 03/25/24 [Rx] Dapagliflozin Propanediol [Farxiga] 5 mg PO DAILY #60 tab 03/25/24 [Rx] Ticagrelor [Brilinta] 90 mg PO BID #90 tab 03/25/24 [Rx] Albuterol Inhaler [Ventolin Hfa Inhaler] 2 puff INHALATION RT-Q6H PRN 04/03/24 [History] Vericiguat [Verquvo] 2.5 mg PO DAILY 90 Days #90 tablet 04/09/24 [Rx] Famotidine [Pepcid] 20 mg PO DAILY #30 tab 04/10/24 [Rx] Iron Ps Cmplx/Vit B12/FA [Niferex-150 Forte] 1 each PO DAILY #90 cap 04/10/24 [Rx] Metoprolol Succinate (ER) [Toprol XL] 25 mg PO DAILY #90 tab 04/10/24 [Rx] Follow up Appointment(s)/Referral(s): Debbie Dawkins MD [STAFF PHYSICIAN] - 1 Week [facility], [NON-STAFF] - As Needed Chucho Luna MD [STAFF PHYSICIAN] - 04/16/24 3:30 pm (Appointment will be at the main office.) Sanjeev Cee MD [Primary Care Provider] - 1-2 days Patient Instructions/Handouts: Hypotension (DC) Activity/Diet/Wound Care/Special Instructions: Please, follow up with PCP, heart doctor, kidney doctor Discharge Disposition: HOME WITH HOME HEALTH SERVICES
== END 2024-04-10 14:08 | disposition home health service (06) | DRG 682 ==
LOC: EC 16:57 → 6NMEDSUR 22:25 → OBSVTOIN 04-07 09:15
PROVIDERS: ADMIT Internal Medicine; ATTEND Internal Medicine
DX: N17.0 Acute kidney failure with tubular necrosis (principal); I21.4 Non-ST elevation (NSTEMI) myocardial infarction; I13.0 Hypertensive heart and chronic kidney disease with heart failure and stage 1 through stage 4 chronic kidney disease, or unspecified chronic kidney disease; I50.22 Chronic systolic (congestive) heart failure; E87.1 Hypo-osmolality and hyponatremia; I47.20 Ventricular tachycardia, unspecified; N18.32 Chronic kidney disease, stage 3b; I49.3 Ventricular premature depolarization; I25.5 Ischemic cardiomyopathy; E78.5 Hyperlipidemia, unspecified; D72.829 Elevated white blood cell count, unspecified; F17.210 Nicotine dependence, cigarettes, uncomplicated; I95.9 Hypotension, unspecified; E83.42 Hypomagnesemia; E86.1 Hypovolemia; E87.8 Other disorders of electrolyte and fluid balance, not elsewhere classified; I25.2 Old myocardial infarction; R00.1 Bradycardia, unspecified; I45.10 Unspecified right bundle-branch block; J44.9 Chronic obstructive pulmonary disease, unspecified; K21.9 Gastro-esophageal reflux disease without esophagitis; I73.9 Peripheral vascular disease, unspecified; E83.41 Hypermagnesemia; N18.4 Chronic kidney disease, stage 4 (severe); I08.1 Rheumatic disorders of both mitral and tricuspid valves; Z79.02 Long term (current) use of antithrombotics/antiplatelets; Z79.82 Long term (current) use of aspirin; Z79.84 Long term (current) use of oral hypoglycemic drugs; Z79.899 Other long term (current) drug therapy; Z87.01 Personal history of pneumonia (recurrent); Z95.5 Presence of coronary angioplasty implant and graft; Z88.2 Allergy status to sulfonamides; Z88.1 Allergy status to other antibiotic agents
CPT/HCPCS: 36415; 71045; 71046; 80048; 80053; 81003; 83605; 83735; 83880; 84132; 84484; 85025; 85027; 85610; 85730; 93005; 93308; 94640; 94760; 96360; 96372; 99285

== ENCOUNTER 2024-09-18 11:12 | Day surgery (SDC) | payer MEDICARE ==
[2024-09-16 13:35] VITALS: BMI 21.7
[~2024-09-18 11:12] MED LIST: VANCOMYCIN 1,000 MG in SODIUM CHLORIDE 0.9% 250 ML IVPB ONE; VANCOMYCIN IV PER PHARMACY 1 EACH MISC MISCELLANE PRN; ceFAZolin 1 GM in SODIUM CHLORIDE 0.9% IRRIG BTL 250 ML IRRIGATION PRN
[2024-09-18] MEDS: IV FLUID CONTINUATION 1,000 ML IV ONE (11:32)
[2024-09-18 11:49] LABS: Basophils # (A) 0.02 10*3/uL (0.00-0.10); Basophils % (A) 0.2 %; Eosinophils # (A) 0.55 10*3/uL (0.04-0.35); HCT 39.9 % (39.6-50.0); Lymphocytes # (A) 1.84 10*3/uL (0.90-5.00); Lymphocytes % (A) 16.6 %; MCH 30.4 pg (27.0-32.0); MCHC 32.6 g/dL (32.0-37.0); MCV 93.2 fL (80.0-97.0); Mean Platelet Volume 10.2 fL (9.5-12.2); Monocytes # (A) 0.88 10*3/uL (0.20-1.00); Monocytes % (A) 7.9 %; Neutrophils # (A) 7.75 10*3/uL (1.80-7.70); Neutrophils % (A) 69.9 %; Platelet Count 269 10*3/uL (140-440); RBC 4.28 10*6/uL (4.40-5.60); RDW 15.6 % (11.5-14.5); WBC 11.08 10*3/uL (4.50-10.00)
[2024-09-18 12:08] LABS: African American GFR (CKD) 28 (>60 ml/min/1.73 sqM); Anion Gap 13 mmol/L; Blood Urea Nitrogen 38 mg/dL (9-20); Calcium 10.2 mg/dL (8.4-10.2); Carbon Dioxide 21 mmol/L (22-30); Chloride 103 mmol/L (98-107); Glucose 116 mg/dL (74-99); Non-African American GFR(CKD) 24 (>60 ml/min/1.73 sqM); Potassium 4.3 mmol/L (3.5-5.1); Sodium 137 mmol/L (137-145)
[2024-09-18] MEDS ORDERED: fentaNYL (PF) 50 MCG/ML 2 ML AMP ONE (14:11)
[2024-09-18] MEDS ORDERED: MIDAZOLAM 2 MG/2 ML VIAL ONE (14:11)
[2024-09-18] MEDS: IOPAMIDOL-370 100ML BTL IVP ONE (14:25)
[2024-09-18] MEDS ORDERED: ACETAMINOPHEN TAB 325 MG TAB PO PRN (14:42)
[2024-09-18] MEDS: ceFAZolin 2 GM in DEXTROSE 5% IN WATER 50 ML IVPB PRN (14:53)
[2024-09-18] MEDS: LIDOCAINE 1% INJ 10MG/ML (30 ML VIAL-PF) SQ ONE (14:57)
[2024-09-18] MEDS: ROPIVACAINE 5 MG/ML 30 ML VIAL MISCELLANE ONE (14:58)
--- NOTE | 2024-09-18 16:15 | P.EPPROC ---
- EP Procedure Note Electrophysiology Procedure Note: Diagnosis Cardiomyopathy, chronic, ischemic in nature with severe LV dysfunction, ejection fraction 25% Old IN Congestive heart failure, systolic class II-III On guideline directed medical treatment guideline directed Procedure: Single ICD implantation for management of risk of sudden cardiac Substation Electrician Supervisor: Dr. Jenkins Result: Single chamber ICD implantation, Aviles Himrod, VR RV ICD lead: OPTi sure. R waves 12 mV, pacing impedance 580 ohms, threshold 0.5 V at 0.5 ms and high-voltage impedance 63 ohms ICD generator: Aviles Himrod Procedure details: Patient was brought to the EP lab in a fasting state. Written informed consent was obtained prior to the procedure. Options, pros and cons, benefits and risks and complications discussed with patient in detail prior to the procedure (shared decision making document, from [facility]). Importance of continuing medical treatment emphasized. Alternatives discussed. Patient would like to proceed with ICD implant. Left upper extremity venogram performed. 15 mL IV dye injected in the left arm. Patent axillary/subclavian vein The left pectoral area was prepped and draped as a protocol. IV antibiotics administered 1% lidocaine was used for local anesthesia. A 4 cm incision was made parallel to the deltopectoral groove, about 1.5 cm medial to it. The incision was carried down to the level of the pectoralis muscle and the subfascial pocket was made. Hemostasis was assured. The axillary vein access was obtained. Appropriately sized venous sheath was placed. ICD lead implanted in the right ventricle and screwed in. ICD lead tested for threshold, sensing, impedances and tested with high output pacing for diaphragmatic stimulation Lead secured to the underlying transverse muscle after removing sheaths . Pocket irrigated with antibiotic solution Leads connected to the ICD generator. Wound closed in 3 layers and dressed per protocol ICD was interrogated and programmed. Appropriate pacing parameters, antitachycardia therapies with antitachycardia pacing cardioversion defibrillations programmed. Patient tolerated the procedure well without any acute complications. See scanned device report in EMR for lead details
--- NOTE | 2024-09-18 16:16 | P.PRLE ---
RE: José Miguel Douglas Dear Sanjeev Mr. Hayes underwent single-chamber ICD for severe ischemic cardiomyopathy with class II-III congestive heart failure. I have increased his dose of beta-b lockers and he put him on Toprol-XL 50 mg p.o. daily. If he is able to tolerate it, a higher dose would definitely be beneficial. Thank you for entrusting me with the care of the patient Warm regards Sincerely Shivma Jenkins
[2024-09-18] MEDS: ACETAMINOPHEN IV (For NPO) 1,000 MG in EMPTY BAG 1 BAG IVPB ONE (16:24)
[2024-09-18] MEDS: SODIUM CHLORIDE 0.9% 1,000 ML IV SCH (16:57)
[2024-09-18] MEDS: LACTATED RINGERS 1,000 ML IV SCH (16:57)
[2024-09-18 17:50] VITALS: TEMP 97.5
[2024-09-18 19:06] VITALS: RESP 15
[2024-09-18] MEDS ORDERED: ceFAZolin 2 GM in DEXTROSE 5% IN WATER 50 ML IVPB PRN (20:00)
[2024-09-18] MEDS: ceFAZolin 2 GM in DEXTROSE 5% IN WATER 50 ML IVPB SCH (20:17)
[2024-09-18] MEDS: TICAGRELOR 90 MG TAB PO SCH (20:18)
[2024-09-18] MEDS: ATORVASTATIN 80 MG TAB PO SCH (20:18)
[2024-09-18] MEDS: METOPROLOL TARTRATE 50 MG TAB PO SCH (20:18)
[2024-09-18 20:25] VITALS: BP 106/58; PULSE 62
[2024-09-18] MEDS ORDERED: METOPROLOL TARTRATE 25 MG TAB PO SCH (21:00)
[2024-09-19] MEDS ORDERED: DAPAGLIFLOZIN PROPANEDIOL 5 MG TABLET PO SCH (09:00)
[2024-09-19] MEDS ORDERED: APIXABAN 2.5 MG TABLET PO SCH (09:00)
[2024-09-19] MEDS ORDERED: FUROSEMIDE 20 MG TAB PO SCH (09:00)
[2024-09-19] MEDS ORDERED: CITALOPRAM HYDROBROMIDE 10 MG TAB PO SCH (09:00)
== END 2024-09-18 21:23 | disposition home or self-care (01) ==
LOC: CATHEP 11:12 → 6NMEDSUR 15:45 → CATHEP 21:23
PROVIDERS: ATTEND Internal Medicine Clinical Cardiac Electrophysiology
DX: I50.22 Chronic systolic (congestive) heart failure (principal); I25.5 Ischemic cardiomyopathy; I25.2 Old myocardial infarction
CPT/HCPCS: 33249; 80048; 84443; 85025; C1722; C1892; C1769; C1777; J2250; J0690; J2003; J3010; J2795; J0131; Q9967